=== PATIENT | female | born 1940 | race Caucasian/White ===

== ENCOUNTER 2017-02-12 15:16 | Inpatient (IN) | payer OTHER ==
[~2017-02-12] VITALS: Ht 162.6 cm; Wt 117.6 kg
[~2017-02-12 15:16] MED LIST: ACET-1256 PO; ASPEC81 PO; FERR325T18 PO; LISI-461 PO; LPR25 PO; LPT40 PO; MULT-506 PO; OXYC-57 PO; WARF4TAB44 PO
[2017-02-12] MEDS ORDERED: ONDANSETRON INJ 2 MG/ML 2 ML VIAL IV STA (15:26)
[2017-02-12] MEDS ORDERED: SODIUM CHLORIDE 0.9% 1000ML 1,000 ML IV STA ×2 (15:26→16:24)
--- NOTE | 2017-02-12 15:34 | EMERGENCY ROOM VISIT NOTE ---
History Report prepared by Grzegorz: Ximena Horn Under the Supervision of: Monica DominiqueO. First contact with patient: 15:18 Chief Complaint: WEAKNESS Stated Complaint: weak History of Present Illness The patient is a 76 year old female who presents to the Emergency Room with complaints of worsening generalized weakness for the past week. She has been more tired than usual. She has also been experiencing some diarrhea and right- sided abdominal pain. She went to her PCP's office today for her symptoms and was sent to the ED by ambulance for further evaluation. The patient denies recent weight loss or weight gain, pain or swelling in her legs, chest pain, back pain, dysuria, hematuria, hematochezia, and melena. She does have some shortness of breath with exertion which she states is not unusual for her. Source of History: patient Onset: 1 week ago Position: other (global) Quality: other (weakness) Timing: worsening Associated Symptoms: + SOB, + abdominal pain, + diarrhea, + fatigue, No chest pain, No back pain, No melena, No hematochezia, No urinary symptoms Note: The patient denies recent weight loss or weight gain and pain or swelling in her legs. Review of Systems See HPI for pertinent positives & negatives. A total of 10 systems reviewed and were otherwise negative. Past Medical & Surgical Medical Problems: (1) Arthritis (2) HTN (hypertension) (3) Pneumonia (4) Right Hip DJD Family History Non-pertinent due to advanced age. Social History Smoking Status: Former Smoker Smokeless Tobacco Use: No Alcohol Use: none Drug Use: none Marital Status: Housing Status: lives alone Occupation Status: retired Current/Historical Medications Scheduled Aspirin (Aspirin Ec), 81 MG PO DAILY Cinnamon (Cinnamon), 1,000 MG PO DAILY Multiple Vitamins W/ Minerals (Centrum Silver 50+Women), 1 TAB PO DAILY Allergies Coded Allergies: No Known Allergies (Unverified , 02/12/13) Physical Exam Vital Signs Date Time Temp Pulse Resp B/P (MAP) Pulse Ox O2 Delivery O2 Flow Rate FiO2 02/12/17 23:40 71 16 128/86 93 Nasal Cannula 4 02/12/17 23:30 71 18 118/82 94 Oxymask 4 02/12/17 23:20 70 14 139/72 94 Oxymask 4 02/12/17 23:10 36.2 70 14 136/85 93 Oxymask 4 02/12/17 23:00 71 19 130/72 92 Oxymask 4 02/12/17 22:50 70 18 131/77 92 Oxymask 6 02/12/17 22:40 70 18 139/78 93 Oxymask 10 02/12/17 22:30 70 21 127/77 93 Oxymask 10 02/12/17 22:22 36.6 74 25 143/83 92 Oxymask 10 02/12/17 17:31 84 18 149/81 95 Room Air 02/12/17 16:31 37.1 89 18 129/81 94 Room Air 02/12/17 15:46 99 23 97 02/12/17 15:26 36.7 98 20 125/81 95 Room Air 02/12/17 15:24 100 02/12/17 15:22 125/81 Physical Exam GENERAL: Patient is awake, alert, and in no acute distress. Patient is resting comfortably and showing no signs of anxiety EYES: The conjunctivae are clear. The pupils are round and reactive. EARS, NOSE, MOUTH AND THROAT: The nose is without any evidence of any deformity. Mucous membranes are moist tongue is midline NECK: The neck is nontender and supple. RESPIRATORY: Normal respiratory effort is noted there is no evidence of wheezing rhonchi or rales CARDIOVASCULAR: Regular rate and rhythm noted there no murmurs rubs or gallops normal S1 normal S2 GASTROINTESTINAL: The abdomen is mildly distended but soft. Tenderness in RUQ with mild guarding. Bowel sounds are present in all quadrants. BACK: No midline tenderness or or step-off noted range of motion in flexion extension as well as rotation no signs of muscle spasm noted MUSCULOSKELETAL/EXTREMITIES: There is no evidence of gross deformity full range of motion is noted in the hips and shoulders SKIN: There is no obvious evidence of any rash. There are no petechiae, pallor or cyanosis noted. NEUROLOGIC: Patient is awake alert and oriented x3 Medical Decision & Procedures ER Provider Diagnostic Interpretation: Radiology results as stated below per my review and radiologist interpretation: CHEST ONE VIEW PORTABLE CLINICAL HISTORY: Abdominal pain. Weakness. COMPARISON STUDY: Chest CT and chest radiograph pleural 2013. FINDINGS: Lung volumes are normal. No pneumothorax or pleural effusion is present. There is no evidence of pulmonary edema. No consolidation is identified. Cardiomediastinal silhouette is stable. IMPRESSION: No acute cardiopulmonary findings. Electronically signed by: Luis Esteban M.D. 02/12/2017 3:55 PM Dictated Date/Time: 02/12/2017 3:[address] OF THE ABDOMEN AND PELVIS WITHOUT CONTRAST CLINICAL HISTORY: Weakness. Right-sided abdominal pain. COMPARISON STUDY: No previous studies for comparison. TECHNIQUE: Axial images of the abdomen and pelvis were obtained without IV contrast. Images were reviewed in the axial, sagittal, and coronal planes. A dose lowering technique was utilized adhering to the principles of ALARA. FINDINGS: Multiple hypodense hepatic lesions are suboptimally assessed on this unenhanced exam but measure water attenuation and likely reflect cysts. Evaluation of the abdomen and pelvis is suboptimal on this unenhanced exam. Unenhanced images of the spleen and adrenal glands are unremarkable. There are multiple water attenuation bilateral renal lesions which are suboptimally assessed on this exam. However, these likely reflect cysts. There is moderate peripancreatic infiltration extending into the mesentery. The gallbladder is moderately distended. There is a small amount of gas within the gallbladder fundus. This could be within the wall or lumen of the gallbladder although wall is favored. In addition, there is gas projecting over the gallbladder neck. No radiopaque gallstones are identified. There are no well-defined peripancreatic fluid collections. Infiltration extends into the shanita hepatis. There is no evidence for a bowel obstruction. Images of the pelvis are degraded by streak artifact from bilateral hip arthroplasties. There is sigmoid diverticulosis without evidence for acute diverticulitis. No suspicious osseous lesions are present. IMPRESSION: 1. Severe acute cholecystitis consistent with emphysematous/gangrenous cholecystitis. Urgent surgical consultation is recommended. Discussed with Dr. Shankar at time of dictation. 2. Moderate peripancreatic infiltration suggestive of superimposed acute pancreatitis. Electronically signed by: Luis Esteban M.D. 02/12/2017 4:21 PM Dictated Date/Time: 02/12/2017 4:08 PM Laboratory Results 02/12/17 15:38 Red Blood Count 5.04, Mean Corpuscular Volume 87.1, Mean Corpuscular Hemoglobin 28.4, Mean Corpuscular Hemoglobin Concent 32.6, Mean Platelet Volume 10.4, Neutrophils (%) (Auto) 90.4, Lymphocytes (%) (Auto) 3.2, Monocytes (%) (Auto) 5.2, Eosinophils (%) (Auto) 0.0, Basophils (%) (Auto) 0.1, Neutrophils # (Auto) 24.91, Lymphocytes # (Auto) 0.88, Monocytes # (Auto) 1.43, Eosinophils # (Auto) 0.01, Basophils # (Auto) 0.03 02/12/17 15:38 Test 02/12/17 15:38 White Blood Count 27.57 K/uL (4.8-10.8) Red Blood Count 5.04 M/uL (4.2-5.4) Hemoglobin 14.3 g/dL (12.0-16.0) Hematocrit 43.9 % (37-47) Mean Corpuscular Volume 87.1 fL (80-100) Mean Corpuscular Hemoglobin 28.4 pg (25-34) Mean Corpuscular Hemoglobin Concent 32.6 g/dl (32-36) Platelet Count 385 K/uL (130-400) Mean Platelet Volume 10.4 fL (7.4-10.4) Neutrophils (%) (Auto) 90.4 % Lymphocytes (%) (Auto) 3.2 % Monocytes (%) (Auto) 5.2 % Eosinophils (%) (Auto) 0.0 % Basophils (%) (Auto) 0.1 % Neutrophils # (Auto) 24.91 K/uL (1.4-6.5) Lymphocytes # (Auto) 0.88 K/uL (1.2-3.4) Monocytes # (Auto) 1.43 K/uL (0.11-0.59) Eosinophils # (Auto) 0.01 K/uL (0-0.5) Basophils # (Auto) 0.03 K/uL (0-0.2) RDW Standard Deviation 51.2 fL (36.4-46.3) RDW Coefficient of Variation 16.1 % (11.5-14.5) Immature Granulocyte % (Auto) 1.1 % Immature Granulocyte # (Auto) 0.31 K/uL (0.00-0.02) Prothrombin Time 12.9 SECONDS (9.0-12.0) Prothromb Time International Ratio 1.2 (0.9-1.1) Activated Partial Thromboplast Time 25.3 SECONDS (21.0-31.0) Partial Thromboplastin Ratio 1.0 Anion Gap 12.0 mmol/L (3-11) Est Creatinine Clear Calc Drug Dose 42.3 ml/min Estimated GFR () 42.5 Estimated GFR (Non- 36.7 BUN/Creatinine Ratio 33.6 (10-20) Calcium Level 8.4 mg/dl (8.5-10.1) Magnesium Level 2.7 mg/dl (1.8-2.4) Total Bilirubin 0.9 mg/dl (0.2-1) Direct Bilirubin 0.3 mg/dl (0-0.2) Aspartate Amino Transf (AST/SGOT) 104 U/L (15-37) Alanine Aminotransferase (ALT/SGPT) 97 U/L (12-78) Alkaline Phosphatase 135 U/L (45-117) Total Creatine Kinase 124 U/L (26-192) Creatine Kinase MB 3.4 ng/ml (0.5-3.6) Creatine Kinase MB Ratio 2.7 (0-3.0) Troponin I 0.272 ng/ml (0-0.045) Total Protein 7.0 gm/dl (6.4-8.2) Albumin 1.9 gm/dl (3.4-5.0) Amylase Level 29 U/L (25-115) Lipase 146 U/L (73-393) Laboratory results per my review. Medications Administered Medications (Trade) Dose Ordered Sig/Shagufta Route Start Time Stop Time Status Last Admin Dose Admin Sodium Chloride 1,000 ml @ 999 mls/hr Q1H1M STAT IV 02/12/17 15:26 02/12/17 16:26 DC 02/12/17 15:48 999 MLS/HR Ondansetron HCl (Zofran Inj) 4 mg NOW STAT IV 02/12/17 15:26 02/12/17 15:27 DC 02/12/17 15:48 4 MG Piperacillin Sod/ Tazobactam Sod (Zosyn Iv) 4.5 gm NOW STAT IV 02/12/17 16:07 02/12/17 16:08 DC 02/12/17 16:31 4.5 GM Potassium Chloride (Kcl 10 Meq / Wtr) 10 meq NOW STAT IV 02/12/17 16:24 02/12/17 16:26 DC 02/12/17 16:53 10 MEQ Sodium Chloride 1,000 ml @ 999 mls/hr Q1H1M STAT IV 02/12/17 16:24 02/12/17 17:24 DC 02/12/17 16:24 999 MLS/HR Cefazolin Sodium (Ancef Inj) 1,000 mg STK-MED ONCE .ROUTE 02/12/17 17:43 02/12/17 17:44 DC 02/12/17 19:53 2,000 MG Heparin Sodium (Porcine) (Heparin Iv Bolus) 10,000 unit STK-MED ONCE .ROUTE 02/12/17 17:43 02/12/17 17:44 DC 02/12/17 19:54 10,000 UNIT Bupivacaine HCl (Marcaine 0.5% MPF Inj) 30 ml STK-MED ONCE .ROUTE 02/12/17 17:44 02/12/17 17:45 DC 02/12/17 22:13 30 ML Fentanyl Citrate (Fentanyl Inj) 50 mcg Q5M PRN IV 02/12/17 18:30 02/12/17 23:30 DC 02/12/17 23:11 50 MCG Iothalamate Meglumine (Conray 60%) 50 ml STK-MED ONCE .ROUTE 02/12/17 20:38 02/12/17 20:39 DC 02/12/17 20:38 17 ML Miscellaneous (Floseal Hemostatic Matrix 10ml) 10 ml ONE ONCE TOP 02/12/17 21:48 02/12/17 21:49 DC 02/12/17 21:48 10 ML Fentanyl Citrate (Fentanyl Inj) 100 mcg STK-MED ONCE .ROUTE 02/12/17 22:35 02/12/17 22:36 DC 02/12/17 23:40 50 MCG ECG Indication: abdominal pain Rate (beats per minute): 95 Rhythm: normal sinus Findings: no acute ischemic change, no ectopy, other (poor R-wave progression) ED Course 1518: The patient was evaluated in room A2. A complete history and physical examination were performed. 1526: Zofran 4 mg IV, NSS 1000 ml @ 999 mls/hr IV 1607: Zosyn 4.5 gm IV 1623: I discussed the patient's case with Dr. Robles of general surgery. He will evaluate the patient in the ED. 1624: Potassium chloride 10 meq IV 1627: I reassessed the patient at this time. She is feeling better and resting comfortably. I discussed the results and treatment plan with the patient. I answered all pertaining questions that she had. She expressed understanding and verbalized agreement. 1701: I spoke with Dr. Robles again at this time and he is going to take the patient to the OR. Medical Decision Differential diagnosis: Etiologies such as metabolic, infection, hypo/hyperglycemia, electrolyte abnormalities, cardiac sources, intracerebral event, toxicologic, neurologic, as well as others were entertained. Nursing notes reviewed. Additional history is obtained from the prehospital personnel. The patient is a 76-year-old female who presented to the emergency department for an evaluation of generalized weakness and loose bowel movements. On physical exam the patient was found have significant right upper quadrant abdominal pain. The patient was found have a very high white blood cell count in emergency department. She was treated with IV fluids and IV antibiotics. She was reevaluated multiple times. I discussed the patient's laboratory and radiographic studies with her. I also discussed her case with the on-call general surgeon. They've agreed to evaluate the patient in the emergency department for further management and disposition. Medication Reconcilliation Current Medication List: was personally reviewed by me Blood Pressure Screening Patient's blood pressure: Normal blood pressure Consults Time Called: 1619 Consulting Physician: Dr. Robles Returned Call: 1623 I discussed the patient's case with Dr. Robles of general surgery. He will evaluate the patient in the ED. Additional Consults: Time Called: 1701 Consulted Physician: Dr. Robles Returned Call: 1701 Additional Comments: I spoke with Dr. Robles again at this time and he is going to take the patient to the OR. Impression Primary Impression: Gangrenous cholecystitis Additional Impressions: Pancreatitis Elevated WBC count Generalized weakness Scribe Attestation The scribe's documentation has been prepared under my direction and personally reviewed by me in its entirety. I confirm that the note above accurately reflects all work, treatment, procedures, and medical decision making performed by me. Departure Information Dispostion Being Evaluated By Surgeon Patient Instructions My [facility] Problem Qualifiers Additional Impressions: Pancreatitis Chronicity: acute Pancreatitis type: unspecified pancreatitis type Acute pancreatitis complication: unspecified Qualified Codes: K85.90 - Acute pancreatitis without necrosis or infection, unspecified Elevated WBC count Leukocytosis type: unspecified Qualified Codes: D72.829 - Elevated white blood cell count, unspecified
[2017-02-12 15:48] LABS: HEMATOCRIT 43.9 % (37-47); MEAN CELL VOLUME 87.1 fL (80-100); MEAN CORPUSCULAR HEMOGLOBIN 28.4 pg (25-34); MEAN CORPUSCULAR HGB CONC 32.6 g/dl (32-36); MEAN PLATELET VOLUME 10.4 fL (7.4-10.4); PLATELET COUNT 385 K/uL (130-400); RED BLOOD COUNT 5.04 M/uL (4.2-5.4); WHITE BLOOD COUNT 27.57 K/uL (4.8-10.8)
--- NOTE | 2017-02-12 15:57 | DIAGNOSTIC IMAGING REPORT ---
CHEST ONE VIEW PORTABLE CLINICAL HISTORY: Abdominal pain. Weakness. COMPARISON STUDY: Chest CT and chest radiograph pleural 2013. FINDINGS: Lung volumes are normal. No pneumothorax or pleural effusion is present. There is no evidence of pulmonary edema. No consolidation is identified. Cardiomediastinal silhouette is stable. IMPRESSION: No acute cardiopulmonary findings. Electronically signed by: Luis Esteban M.D. 02/12/2017 3:55 PM Dictated Date/Time: 02/12/2017 3:53 PM
[2017-02-12 16:03] LABS: INR 1.2 (0.9-1.1); PROTHROMBIN TIME (PATIENT) 12.9 SECONDS (9.0-12.0)
[2017-02-12] MEDS ORDERED: PIPERACILLIN/TAZOBACTAM 4.5 GM/100ML D5W IV STA (16:07)
[2017-02-12 16:11] LABS: BASO % 0.1 %; BASO ABS # 0.03 K/uL (0-0.2); COMPLETE YES; IG% 1.1 %; LYMPH % 3.2 %; LYMPH ABS # 0.88 K/uL (1.2-3.4); MONO % 5.2 %; NEUT % 90.4 %
[2017-02-12 16:21] LABS: BUN/CREATININE RATIO 33.6 (10-20); CALCIUM 8.4 mg/dl (8.5-10.1); CREATININE 1.4 mg/dl (0.60-1.20); MAGNESIUM 2.7 mg/dl (1.8-2.4); POTASSIUM 2.6 mmol/L (3.5-5.1)
--- NOTE | 2017-02-12 16:23 | DIAGNOSTIC IMAGING REPORT ---
CT OF THE ABDOMEN AND PELVIS WITHOUT CONTRAST CLINICAL HISTORY: Weakness. Right-sided abdominal pain. COMPARISON STUDY: No previous studies for comparison. TECHNIQUE: Axial images of the abdomen and pelvis were obtained without IV contrast. Images were reviewed in the axial, sagittal, and coronal planes. A dose lowering technique was utilized adhering to the principles of ALARA. FINDINGS: Multiple hypodense hepatic lesions are suboptimally assessed on this unenhanced exam but measure water attenuation and likely reflect cysts. Evaluation of the abdomen and pelvis is suboptimal on this unenhanced exam. Unenhanced images of the spleen and adrenal glands are unremarkable. There are multiple water attenuation bilateral renal lesions which are suboptimally assessed on this exam. However, these likely reflect cysts. There is moderate peripancreatic infiltration extending into the mesentery. The gallbladder is moderately distended. There is a small amount of gas within the gallbladder fundus. This could be within the wall or lumen of the gallbladder although wall is favored. In addition, there is gas projecting over the gallbladder neck. No radiopaque gallstones are identified. There are no well-defined peripancreatic fluid collections. Infiltration extends into the shanita hepatis. There is no evidence for a bowel obstruction. Images of the pelvis are degraded by streak artifact from bilateral hip arthroplasties. There is sigmoid diverticulosis without evidence for acute diverticulitis. No suspicious osseous lesions are present. IMPRESSION: 1. Severe acute cholecystitis consistent with emphysematous/gangrenous cholecystitis. Urgent surgical consultation is recommended. Discussed with Dr. Shankar at time of dictation. 2. Moderate peripancreatic infiltration suggestive of superimposed acute pancreatitis. Electronically signed by: Luis Esteban M.D. 02/12/2017 4:21 PM Dictated Date/Time: 02/12/2017 4:08 PM
[2017-02-12] MEDS ORDERED: POTASSIUM CHLORIDE 10 MEQ / 100ML WTR IV STA (16:24)
[2017-02-12] MEDS ORDERED: ASPI81TA28 PO (16:33)
[2017-02-12] MEDS ORDERED: MULT-1092 PO (16:33)
[2017-02-12] MEDS ORDERED: CINN1CAP2 PO (16:33)
[2017-02-12 16:35] LABS: CKMB/CK RATIO 2.7 (0-3.0)
--- NOTE | 2017-02-12 17:31 | History and Physical ---
History & Physical Date & Time of Service: Feb 12, 2017 at 17:21 Chief Complaint: weak Primary Care Physician: Jo Jones C.R.N.P History of Present Illness Source: patient This is a 76-year-old female who was sent to the emergency room by her primary care provider for canoeing evaluation of a complaint of fatigue and difficulty thriving. Over the last week or so the patient has "just not been feeling well ". She has had some right upper quadrant pain as well. She denies pain right now however. She has not had any fever or chills. She has not had an appetite. Her bowels have been moving. There is no melena or hematochezia. She denies nausea and vomiting. She underwent a CT scan of the abdomen and pelvis that was consistent with emphysematous cholecystitis. There was also some inflammatory change near the pancreas consistent with possible pancreatitis. Past Medical/Surgical History Medical Problems: (1) Arthritis Status: Chronic (3) Pneumonia Status: Resolved (4) Right Hip DJD Status: Resolved Social History Smoking Status: Former Smoker Smokeless Tobacco Use: No Alcohol Use: none Drug Use: none Marital Status: Housing status: lives with significant other Occupational Status: retired Immunizations History of Influenza Vaccine: N/A History of Tetanus Vaccine?: No History of Pneumococcal: No History of Hepatitis B Vaccine: No Allergies Coded Allergies: No Known Allergies (Unverified , 02/12/13) Home Medications Scheduled Aspirin (Aspirin Ec), 81 MG PO DAILY Cinnamon (Cinnamon), 1,000 MG PO DAILY Multiple Vitamins W/ Minerals (Centrum Silver 50+Women), 1 TAB PO DAILY Review of Systems Constitutional: + weakness, + fatigue, No fever, No chills Respiratory: No cough, No sputum Cardiovascular: No chest pain Abdomen: + problem reported (as per HPI) Genitourinary - Female: + problem reported (as per HPI) Neurologic: No memory loss Endocrine: + fatigue Hematologic / Lymphatic: No abnormal bleeding/bruising Integumentary: No rash Physical Exam Vital Signs Date Time Temp Pulse Resp B/P (MAP) Pulse Ox O2 Delivery O2 Flow Rate FiO2 02/12/17 16:31 89 18 129/81 94 Room Air 02/12/17 15:46 99 23 97 02/12/17 15:26 36.7 98 20 125/81 95 Room Air 02/12/17 15:24 100 02/12/17 15:22 125/81 General Appearance: no apparent distress, + obese Head: normocephalic Neck: supple, no adenopathy Respiratory/Chest: chest non-tender, lungs clear Cardiovascular: regular rate, rhythm Abdomen/GI: normal bowel sounds, non tender, soft Back: normal inspection, no CVA tenderness Extremities/Musculoskelatal: normal inspection Skin: normal color Diagnostics Laboratory Results Results Past 24 Hours Test 02/12/17 15:38 Range/Units White Blood Count 27.57 4.8-10.8 K/uL Red Blood Count 5.04 4.2-5.4 M/uL Hemoglobin 14.3 12.0-16.0 g/dL Hematocrit 43.9 37-47 % Mean Corpuscular Volume 87.1 80-100 fL Mean Corpuscular Hemoglobin 28.4 25-34 pg Mean Corpuscular Hemoglobin Concent 32.6 32-36 g/dl Platelet Count 385 130-400 K/uL Mean Platelet Volume 10.4 7.4-10.4 fL Neutrophils (%) (Auto) 90.4 % Lymphocytes (%) (Auto) 3.2 % Monocytes (%) (Auto) 5.2 % Eosinophils (%) (Auto) 0.0 % Basophils (%) (Auto) 0.1 % Neutrophils # (Auto) 24.91 1.4-6.5 K/uL Lymphocytes # (Auto) 0.88 1.2-3.4 K/uL Monocytes # (Auto) 1.43 0.11-0.59 K/uL Eosinophils # (Auto) 0.01 0-0.5 K/uL Basophils # (Auto) 0.03 0-0.2 K/uL RDW Standard Deviation 51.2 36.4-46.3 fL RDW Coefficient of Variation 16.1 11.5-14.5 % Immature Granulocyte % (Auto) 1.1 % Immature Granulocyte # (Auto) 0.31 0.00-0.02 K/uL Prothrombin Time 12.9 9.0-12.0 SECONDS Prothromb Time International Ratio 1.2 0.9-1.1 Activated Partial Thromboplast Time 25.3 21.0-31.0 SECONDS Partial Thromboplastin Ratio 1.0 Sodium Level 136 136-145 mmol/L Potassium Level 2.6 3.5-5.1 mmol/L Chloride Level 99 98-107 mmol/L Carbon Dioxide Level 25 21-32 mmol/L Anion Gap 12.0 3-11 mmol/L Blood Urea Nitrogen 47 7-18 mg/dl Creatinine 1.40 0.60-1.20 mg/dl Est Creatinine Clear Calc Drug Dose 42.3 ml/min Estimated GFR () 42.5 Estimated GFR (Non- 36.7 BUN/Creatinine Ratio 33.6 10-20 Random Glucose 143 70-99 mg/dl Calcium Level 8.4 8.5-10.1 mg/dl Magnesium Level 2.7 1.8-2.4 mg/dl Total Bilirubin 0.9 0.2-1 mg/dl Direct Bilirubin 0.3 0-0.2 mg/dl Aspartate Amino Transf (AST/SGOT) 104 15-37 U/L Alanine Aminotransferase (ALT/SGPT) 97 12-78 U/L Alkaline Phosphatase 135 45-117 U/L Total Creatine Kinase 124 26-192 U/L Creatine Kinase MB 3.4 0.5-3.6 ng/ml Creatine Kinase MB Ratio 2.7 0-3.0 Troponin I 0.272 0-0.045 ng/ml Total Protein 7.0 6.4-8.2 gm/dl Albumin 1.9 3.4-5.0 gm/dl Amylase Level 29 25-115 U/L Lipase 146 73-393 U/L Microbiology Results 02/12/17 Urine Culture, Received Pending Diagnostic Radiology CT OF THE ABDOMEN AND PELVIS WITHOUT CONTRAST CLINICAL HISTORY: Weakness. Right-sided abdominal pain. COMPARISON STUDY: No previous studies for comparison. TECHNIQUE: Axial images of the abdomen and pelvis were obtained without IV contrast. Images were reviewed in the axial, sagittal, and coronal planes. A dose lowering technique was utilized adhering to the principles of ALARA. FINDINGS: Multiple hypodense hepatic lesions are suboptimally assessed on this unenhanced exam but measure water attenuation and likely reflect cysts. Evaluation of the abdomen and pelvis is suboptimal on this unenhanced exam. Unenhanced images of the spleen and adrenal glands are unremarkable. There are multiple water attenuation bilateral renal lesions which are suboptimally assessed on this exam. However, these likely reflect cysts. There is moderate peripancreatic infiltration extending into the mesentery. The gallbladder is moderately distended. There is a small amount of gas within the gallbladder fundus. This could be within the wall or lumen of the gallbladder although wall is favored. In addition, there is gas projecting over the gallbladder neck. No radiopaque gallstones are identified. There are no well-defined peripancreatic fluid collections. Infiltration extends into the shanita hepatis. There is no evidence for a bowel obstruction. Images of the pelvis are degraded by streak artifact from bilateral hip arthroplasties. There is sigmoid diverticulosis without evidence for acute diverticulitis. No suspicious osseous lesions are present. IMPRESSION: 1. Severe acute cholecystitis consistent with emphysematous/gangrenous cholecystitis. Urgent surgical consultation is recommended. Discussed with Dr. Shankar at time of dictation. 2. Moderate peripancreatic infiltration suggestive of superimposed acute pancreatitis. EKG Normal sinus rhythm Possible Left atrial enlargement Left anterior fascicular block Prolonged QT Abnormal ECG When compared with ECG of 23-SEP-2013 07:25, No significant change was found Confirmed by PATRICIA ACOSTA MD ([id number]) on 02/12/2017 4:02:23 PM Impression Assessment and Plan This patient had right upper quadrant pain in his right upper quadrant tenderness. Her white count is elevated above 25,000. She also has a CT scan is consistent with emphysematous cholecystitis. I recommended a laparoscopic cholecystectomy. I explained the possibility to convert to an open procedure. I explained the possible complications. She stated understanding. She wishes to proceed with surgery. She has signed a consent form.
[2017-02-12] MEDS ORDERED: CEFAZOLIN SOD 1 GM VIAL ONE ×2 (17:43→19:46)
[2017-02-12] MEDS ORDERED: HEPARIN SOD (PORCINE) 1000 UNIT/ML 10 ML VIAL ONE (17:43)
[2017-02-12] MEDS ORDERED: BUPIVACAINE 0.5 % 5 MG/1 ML MPF 30ML VIAL ONE (17:44)
[2017-02-12] MEDS ORDERED: FENTANYL CITRATE INJ 50 MCG/1 ML 2 ML VIAL ONE ×4 (17:47→22:35)
[2017-02-12] MEDS ORDERED: MIDAZOLAM HCL 1 MG/ML 2ML VIAL ONE (17:47)
[2017-02-12] MEDS ORDERED: HYDROmorphone INJ 1 MG/ML SYR IV PRN (18:30)
[2017-02-12] MEDS ORDERED: LABETALOL HCL IV 5 MG/ML 20ML IV PRN (18:30)
[2017-02-12] MEDS ORDERED: ONDANSETRON INJ 2 MG/ML 2 ML VIAL IV PRN ×2 (18:30→23:00)
[2017-02-12] MEDS ORDERED: EpHEDrine SULFATE INJ 50 MG/ML AMP IV PRN (18:30)
[2017-02-12] MEDS ORDERED: ATROPINE SULFATE 0.1 MG/ML 5ML SYR IV PRN (18:30)
[2017-02-12] MEDS ORDERED: MEPERIDINE HCL 25 MG/ML CARP IV PRN (18:30)
[2017-02-12] MEDS ORDERED: FENTANYL CITRATE INJ 50 MCG/1 ML 2 ML VIAL IV PRN (18:30)
[2017-02-12] MEDS ORDERED: LIDOCAINE HCL 2% 2 ML VIAL (20MG/ML) ONE (19:09)
[2017-02-12] MEDS ORDERED: DEXAMETHASONE SOD INJ 4 MG/ML VIAL ONE (19:09)
[2017-02-12] MEDS ORDERED: PROPOFOL IV EMULSION 10 MG/ML 20 ML VIAL IV ONE (19:09)
[2017-02-12] MEDS ORDERED: CISATRACURIUM BESYLATE IV SOLN 2 MG/ML 10 ML VIAL ONE (19:09)
[2017-02-12] MEDS ORDERED: ONDANSETRON INJ 2 MG/ML 2 ML VIAL ONE (19:09)
[2017-02-12] MEDS ORDERED: SUCCINYLCHOLINE 100MG/5ML SYR IV ONE (19:09)
[2017-02-12] MEDS ORDERED: GLYCOPYRROLATE INJ 0.2 MG/ML VIAL ONE (19:51)
[2017-02-12] MEDS ORDERED: NEOSTIGMINE METHYLSULFATE 5 MG/5 ML SYR ONE (19:51)
[2017-02-12] MEDS ORDERED: CONRAY 30% 150ML BOTTLE ONE (20:34)
[2017-02-12] MEDS ORDERED: CONRAY 60% 50 ML VIAL ONE (20:38)
--- NOTE | 2017-02-12 21:07 | DIAGNOSTIC IMAGING REPORT ---
CHOLANGIOGRAM O.R. HISTORY: Post cholecystectomy. FLUOROSCOPY TIME: 17 seconds. FINDINGS: Fluoroscopy was provided for an intraoperative cholangiogram status post cholecystectomy. Contrast was injected through the cystic duct remnant. Somewhat limited exam. No images demonstrating flow contrast to the duodenum although contrast is present within that structure. No significant filling defects within the common bile ducts. Contrast extends into the small bowel. There is no intrahepatic bile duct dilatation. IMPRESSION: Fluoroscopy provided for an intraoperative cholangiogram status post cholecystectomy. No filling defects within the common bile duct. No images submitted demonstrating active flow of contrast to the small bowel. The above report was generated using voice recognition software. It may contain grammatical, syntax or spelling errors. Electronically signed by: Emeka Freedman M.D. 02/12/2017 9:06 PM Dictated Date/Time: 02/12/2017 9:05 PM
[2017-02-12] MEDS ORDERED: FLOSEAL HEMOSTATIC MATRIX 10ML TOP ONE (21:48)
--- NOTE | 2017-02-12 22:49 | [facility] Post Operative Brief Note ---
Immediate Operative Summary Operative Date Feb 12, 2017. 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 Gallbladder Microbiology 1. Gallbladder Drains J-P in the subhepatic space Anesthesia General Complication(s) None Disposition Recovery Room / PACU
[2017-02-13] VITALS (15 sets, daily range): BP systolic 107–138; BP diastolic 52–82; PULSE 71–84; TEMP 36.2–36.9; O2SAT 91–98; Ht 162.6 cm; Wt 117.6 kg
--- NOTE | 2017-02-13 00:36 | Anesthesiology Progress Note ---
Anesthesia Post Op Note Date & Time Feb 13, 2017 at 00:36 Vital Signs Pain Intensity: 4 Vital Signs Past 12 Hours Date Time Temp Pulse Resp B/P (MAP) Pulse Ox O2 Delivery O2 Flow Rate FiO2 02/13/17 00:00 72 18 128/85 94 Nasal Cannula 4 02/12/17 23:50 71 14 133/93 94 Nasal Cannula 4 02/12/17 23:40 71 16 128/86 93 Nasal Cannula 4 02/12/17 23:30 71 18 118/82 94 Oxymask 4 02/12/17 23:20 70 14 139/72 94 Oxymask 4 02/12/17 23:10 36.2 70 14 136/85 93 Oxymask 4 02/12/17 23:00 71 19 130/72 92 Oxymask 4 02/12/17 22:50 70 18 131/77 92 Oxymask 6 02/12/17 22:40 70 18 139/78 93 Oxymask 10 02/12/17 22:30 70 21 127/77 93 Oxymask 10 02/12/17 22:22 36.6 74 25 143/83 92 Oxymask 10 02/12/17 17:31 84 18 149/81 95 Room Air 02/12/17 16:31 37.1 89 18 129/81 94 Room Air 02/12/17 15:46 99 23 97 02/12/17 15:26 36.7 98 20 125/81 95 Room Air 02/12/17 15:24 100 02/12/17 15:22 125/81 Notes Mental Status: alert / awake / arousable, participated in evaluation Pt Amnestic to Procedure: Yes Nausea / Vomiting: adequately controlled Pain: adequately controlled Airway Patency, RR, SpO2: stable & adequate BP & HR: stable & adequate Hydration State: stable & adequate Anesthetic Complications: no major complications apparent
--- NOTE | 2017-02-13 00:50 | OPERATIVE REPORT ---
DATE OF OPERATION: 02/12/2017 PREOPERATIVE DIAGNOSIS: Gangrenous cholecystitis. POSTOPERATIVE DIAGNOSES: Same with cholelithiasis. PROCEDURE: Attempted laparoscopic cholecystectomy with conversion to open cholecystectomy with intraoperative cholangiogram. SURGEON: Emeka Robles MD FINDINGS: The gallbladder was gangrenous. The mucosa of the gallbladder was gangrenous. The wall was exceedingly friable. There were multiple small stones within the lumen of the gallbladder. The cystic duct was not dilated, but it too was friable at its junction with the gallbladder. The gallbladder was densely adherent to the liver and there was no good plane of dissection. The liver was of normal size and contour. There were adhesions of the omentum to the gallbladder. The cholangiogram was performed. There was some flow into the duodenum and flow into the radicles. The common bile duct had no apparent filling defects. TECHNIQUE: The patient was given a general anesthetic and the area was prepped and draped in the usual sterile fashion. Transverse incision was made below the umbilicus, carried down through the subcutaneous tissue to the fascia which was grasped with 2 Nyla clamps and incised between. The peritoneum was identified, incised, and introducer was placed bluntly. The abdomen was insufflated to a pressure of 15 mmHg with carbon dioxide. The upper midline, mid clavicular and anterior axillary introducers were placed under direct vision through small skin incisions. I attempted to grasp the gallbladder, but it was too distended. The drainage needle was passed under direct vision into the wall and through the wall into the lumen of the gallbladder. The dark bile was drained. That allowed me to grasp the gallbladder and elevate it. Adhesions of the omentum were then taken down using blunt dissection until I could see the infundibulum of the gallbladder. There was a lot of inflammatory tissue and inflammation around the infundibulum and it was difficult to tell what was wall and what was thickened peritoneum. I was able to dissect in the triangle of Calot where I could identify the cystic artery, isolated, clipped and divided. I then attempted to establish a plane between the wall of the gallbladder the liver on the lateral side by opening the quite thickened peritoneal attachment but it was difficult to decide what was wall and what was gangrenous mucosa, and I was able to dissect some of that away from the liver and I tried a similar dissection on the medial side, but that was quite difficult to establish a plane as well. I then tried to dissect further inferior to the infundibulum, but because of the nature of the gangrenous wall and mucosa, it was difficult to tell what was wall and what was not. I then went to the dome of the gallbladder and began a dome down dissection. I was able to establish the posterior wall of the gallbladder, but it was densely adherent to the liver and establishing a good plane was very difficult. I was able to carry that dissection; however, down to the mid body and separate the infundibulum on the medial and lateral sides. However, it became difficult then to continue that dissection and establish a plane. I then looked down towards where I was expecting the cystic duct to be and there was bile present. At that point I decided to convert to an open procedure. The gas was allowed to escape and the introducers were removed. A right subcostal incision was made, carried down through the subcutaneous tissues to the anterior rectus sheath, which was opened. The muscle was divided then the posterior sheath and peritoneum were incised and the abdomen was entered. The incision was carried along the length of the skin incision. A Bookwalter retractor was then placed. I was then able to grasp the gallbladder and complete the dissection away from the liver down to the infundibulum were final attachments on the medial side were performed and it was clear that the cystic duct junction with the gallbladder was also gangrenous and it had at that point. The gallbladder specimen was removed. I placed a sponge in the gallbladder bed of the liver and retracted the liver superiorly and I was able to identify the lumen of the cystic duct where there was bile that was coming from there. I placed a cholangiocatheter into the lumen of the cystic duct, inflated the balloon and irrigated it. There was easy irrigation and there was no leak. Cholangiogram was then performed with fluoroscopy. Findings are as stated above. The cholangiocatheter was removed, but it was difficult because of the thickened material around the cystic duct to further establish into wall and so I then used a 6-0 Prolene suture to oversew the opening in the cystic duct. I could not identify any further bile coming from there. The sponge in the gallbladder bed of the liver was then inspected. It was removed and after doing so, there was oozing from multiple areas in the gallbladder bed. These were controlled with cautery, that required significant cautery to do so. There was no further bleeding. I decided to place Surgicel there and then cover the Surgicel with FloSeal. This was done after the subdiaphragmatic and subhepatic spaces were irrigated and the irrigation removed. The anterior axillary introducer site was then used to pass a 10 mm flat Juan-Dawkins drain which was placed into the subhepatic space. It was secured at the skin with 3-0 nylon. The Bookwalter retractor and sponges were removed. The posterior sheath and peritoneum were closed with a running 0 PDS and the anterior rectus sheath was closed with a running #1 PDS. The fascia of the umbilical introducer site was closed with interrupted 0 Vicryl. The skin of all the incisions was closed with gaetano. The estimated blood loss was 300 mL. Sponge, needle and instrument counts were correct prior to closure. The patient tolerated the surgical procedure without complication and was transferred to recovery. I attest to the content of the Intraoperative Record and any orders documented therein. Any exception s are noted below.
[2017-02-13] MEDS: MoRPHine SULFATE 4 MG/ML 1 ML CARP\\VIAL IV PRN ×3 (01:01→09:01)
[2017-02-13] MEDS: PIPERACILL/TAZOBAC IV 4.5 GM in DEXTROSE 5% 100ML 100 ML IV SCH ×3 (01:32→19:03)
[2017-02-13] MEDS: NSS + 20MEQ KCL 1000ML 1,000 ML IV SCH ×3 (01:32→23:16)
[2017-02-13 08:06] LABS: MEAN CELL VOLUME 89.7 fL (80-100); MEAN CORPUSCULAR HEMOGLOBIN 28.5 pg (25-34); MEAN CORPUSCULAR HGB CONC 31.8 g/dl (32-36); MEAN PLATELET VOLUME 10.3 fL (7.4-10.4); PLATELET COUNT 349 K/uL (130-400); RED BLOOD COUNT 4.35 M/uL (4.2-5.4); WHITE BLOOD COUNT 28.08 K/uL (4.8-10.8)
[2017-02-13 08:31] LABS: BASO % 0.1 %; BASO ABS # 0.04 K/uL (0-0.2); COMPLETE YES; HYPERSEGMENTED POLYS 1+; LYMPH % 3.4 %; LYMPH ABS # 0.96 K/uL (1.2-3.4); MONO % 2.2 %; NEUT % 93.3 %; TOXIC GRANULATION 1+
[2017-02-13 08:36] LABS: BUN/CREATININE RATIO 30.3 (10-20); CALCIUM 8.1 mg/dl (8.5-10.1); CREATININE 1.7 mg/dl (0.60-1.20); POTASSIUM 3.2 mmol/L (3.5-5.1)
--- NOTE | 2017-02-13 09:14 | Surgery Progress Note ---
Surgery Progress Note Date of Service Feb 13, 2017. Subjective Post OP Day: 1 "Feeling better than I was last night" Having pain but controlled No nausea or vomiting no fevers Objective Vital Signs: Date Time Temp Pulse Resp B/P (MAP) Pulse Ox O2 Delivery O2 Flow Rate FiO2 02/13/17 08:04 36.6 84 24 138/68 (91) 92 Nasal Cannula 02/13/17 03:20 36.3 80 17 138/82 (100) 93 Nasal Cannula 4.0 02/13/17 02:20 36.2 77 16 131/76 (94) 94 Nasal Cannula 4.0 02/13/17 01:20 36.3 74 16 118/74 (89) 94 Nasal Cannula 4.0 02/13/17 00:50 36.3 71 18 110/74 (86) 94 Nasal Cannula 4.0 02/13/17 00:30 36.5 72 18 129/52 94 Nasal Cannula 4.0 02/13/17 00:30 94 Nasal Cannula 4.0 02/13/17 00:00 72 18 128/85 94 Nasal Cannula 4 02/12/17 23:50 71 14 133/93 94 Nasal Cannula 4 02/12/17 23:40 71 16 128/86 93 Nasal Cannula 4 02/12/17 23:30 71 18 118/82 94 Oxymask 4 02/12/17 23:20 70 14 139/72 94 Oxymask 4 02/12/17 23:10 36.2 70 14 136/85 93 Oxymask 4 02/12/17 23:00 71 19 130/72 92 Oxymask 4 02/12/17 22:50 70 18 131/77 92 Oxymask 6 02/12/17 22:40 70 18 139/78 93 Oxymask 10 02/12/17 22:30 70 21 127/77 93 Oxymask 10 02/12/17 22:22 36.6 74 25 143/83 92 Oxymask 10 02/12/17 17:31 84 18 149/81 95 Room Air 02/12/17 16:31 37.1 89 18 129/81 94 Room Air 02/12/17 15:46 99 23 97 02/12/17 15:26 36.7 98 20 125/81 95 Room Air 02/12/17 15:24 100 02/12/17 15:22 125/81 Physical Exam: JULIA drainage (bilious) General Appearance: WD/WN, + obese Head: normocephalic, atraumatic Neck: trachea midline Respiratory/Chest: no respiratory distress, no accessory muscle use Abdomen: soft Incision(s): clean, dry (Dressing clean and dry) Laboratory Results: Results Past 24 Hours Test 02/12/17 15:38 02/13/17 07:02 Range/Units White Blood Count 27.57 28.08 4.8-10.8 K/uL Red Blood Count 5.04 4.35 4.2-5.4 M/uL Hemoglobin 14.3 12.4 12.0-16.0 g/dL Hematocrit 43.9 39.0 37-47 % Mean Corpuscular Volume 87.1 89.7 80-100 fL Mean Corpuscular Hemoglobin 28.4 28.5 25-34 pg Mean Corpuscular Hemoglobin Concent 32.6 31.8 32-36 g/dl Platelet Count 385 349 130-400 K/uL Mean Platelet Volume 10.4 10.3 7.4-10.4 fL Neutrophils (%) (Auto) 90.4 93.3 % Lymphocytes (%) (Auto) 3.2 3.4 % Monocytes (%) (Auto) 5.2 2.2 % Eosinophils (%) (Auto) 0.0 0.0 % Basophils (%) (Auto) 0.1 0.1 % Neutrophils # (Auto) 24.91 26.17 1.4-6.5 K/uL Lymphocytes # (Auto) 0.88 0.96 1.2-3.4 K/uL Monocytes # (Auto) 1.43 0.63 0.11-0.59 K/uL Eosinophils # (Auto) 0.01 0.00 0-0.5 K/uL Basophils # (Auto) 0.03 0.04 0-0.2 K/uL RDW Standard Deviation 51.2 55.1 36.4-46.3 fL RDW Coefficient of Variation 16.1 16.7 11.5-14.5 % Immature Granulocyte % (Auto) 1.1 1.0 % Immature Granulocyte # (Auto) 0.31 0.28 0.00-0.02 K/uL Prothrombin Time 12.9 9.0-12.0 SECONDS Prothromb Time International Ratio 1.2 0.9-1.1 Activated Partial Thromboplast Time 25.3 21.0-31.0 SECONDS Partial Thromboplastin Ratio 1.0 Sodium Level 136 138 136-145 mmol/L Potassium Level 2.6 3.2 3.5-5.1 mmol/L Chloride Level 99 101 98-107 mmol/L Carbon Dioxide Level 25 26 21-32 mmol/L Anion Gap 12.0 11.0 3-11 mmol/L Blood Urea Nitrogen 47 52 7-18 mg/dl Creatinine 1.40 1.70 0.60-1.20 mg/dl Est Creatinine Clear Calc Drug Dose 42.3 34.8 ml/min Estimated GFR () 42.5 33.6 Estimated GFR (Non- 36.7 29.0 BUN/Creatinine Ratio 33.6 30.3 10-20 Random Glucose 143 177 70-99 mg/dl Calcium Level 8.4 8.1 8.5-10.1 mg/dl Magnesium Level 2.7 1.8-2.4 mg/dl Total Bilirubin 0.9 0.2-1 mg/dl Direct Bilirubin 0.3 0-0.2 mg/dl Aspartate Amino Transf (AST/SGOT) 104 15-37 U/L Alanine Aminotransferase (ALT/SGPT) 97 12-78 U/L Alkaline Phosphatase 135 45-117 U/L Total Creatine Kinase 124 26-192 U/L Creatine Kinase MB 3.4 0.5-3.6 ng/ml Creatine Kinase MB Ratio 2.7 0-3.0 Troponin I 0.272 0-0.045 ng/ml Total Protein 7.0 6.4-8.2 gm/dl Albumin 1.9 3.4-5.0 gm/dl Amylase Level 29 25-115 U/L Lipase 146 73-393 U/L Hypersegmented Polys 1+ Toxic Granulation 1+ Microbiology Results 02/12/17 Urine Culture, Received Pending 02/12/17 Gram Stain - Final, Resulted 02/12/17 Bacterial Culture - Preliminary, Resulted Gram Negative Bacilli Assessment & Plan POD # 1 s/p attempted laparoscopic cholecystectomy converted to open with intraoperative cholangiogram. -vitals stable, afebrile overnight - moderate post op pain, controlled - bilious JULIA drain output Plan: Continue pain management as needed Continue NC to keep O2 sats > 94% Continue SCDs Change patient to NPO GI consult for ERCP given JULIA drain with bilious output, possible bile leak continue JULIA drain to bulb suction Continue IV fluids and IV antibiotics will continue to monitor Dr. Robles has seen and examined patient, agrees with above
[2017-02-13] MEDS ORDERED: INDOMETHACIN 50 MG SUPP PR ONE ×2 (10:30→12:35)
--- NOTE | 2017-02-13 10:35 | Gastrointestinal Consultation ---
Gastrointestinal Consultation Date of Consultation: Feb 13, 2017 Attending Physician: Emeka Robles Consulting Physician: Fadi Chand Reason for Consultation: Suspected bile leak s/p cholecystectomy History of Present Illness Patient is a 76 year old female who was admitted yesterday for RUQ abd pain, "not feeling well" and failure to thrive presentation. CT abd/pelvis w evidence of gangrenous/emphysematous cholecystitis, pancreatitis. She had leukocytosis, WBC 27K, LFTs elevated: normal Tbili, AST/ALT in 100s, AP 150s. Normal Lipase. She underwent lap cholecystectomy by Dr. Robles yesterday, had JULIA drain placement. IOC negative for CBD obstruction. Gallbladder and urine cx growing gram negative bacilli. She is currently being covered by Zosyn IV antibx, WBC increased to 28K today, no LFTs this AM. Upon eval by Surgery team this AM, her JULIA drain had bilious discharge appearance suspicious for biliary leak. Thus GI was consulted. Pt and her son in room, she is sitting up, doesn't appear to be in distress. Last ate overnight, been NPO since midnight. She is c/o RUQ abd discomfort. Denies any fever, chills, CP, SOB, on O2 3L NC. Past Medical/Surgical History Medical Problems: (1) Elevated WBC count Status: Acute (2) Gangrenous cholecystitis Status: Acute (3) Generalized weakness Status: Acute (4) Pancreatitis Status: Acute Past Medical History: Arthritis, pneumonia, Hip DJD, as above. Past Surgical History: Hip replacements x 2, lap cholecystectomy Social History Smoking Status: Never Smoker Alcohol Use: none Drug Use: none Marital Status: Housing Status: lives alone Occupation Status: retired Allergies Coded Allergies: No Known Allergies (Unverified , 02/12/13) Current Medications Home Meds and Scripts Medications Dose Route/Sig Max Daily Dose Days Date Category Centrum Silver 50+Women (Multiple Vitamins W/ Minerals) 1 Tab Tab 1 Tab PO DAILY 02/12/17 Reported Cinnamon 500 Mg Cap 1,000 Mg PO DAILY 02/12/17 Reported Aspirin Ec (Aspirin) 81 Mg Tab 81 Mg PO DAILY 02/12/17 Reported Review of Systems Constitutional: No fever, No chills Respiratory: No cough, No shortness of breath Cardiac: No chest pain Abdomen: + pain, No nausea, No vomiting Physical Exam Date Time Temp Pulse Resp B/P (MAP) Pulse Ox O2 Delivery O2 Flow Rate FiO2 02/13/17 08:04 36.6 84 24 138/68 (91) 92 Nasal Cannula 02/13/17 03:20 36.3 80 17 138/82 (100) 93 Nasal Cannula 4.0 02/13/17 02:20 36.2 77 16 131/76 (94) 94 Nasal Cannula 4.0 02/13/17 01:20 36.3 74 16 118/74 (89) 94 Nasal Cannula 4.0 02/13/17 00:50 36.3 71 18 110/74 (86) 94 Nasal Cannula 4.0 02/13/17 00:30 36.5 72 18 129/52 94 Nasal Cannula 4.0 02/13/17 00:30 94 Nasal Cannula 4.0 02/13/17 00:00 72 18 128/85 94 Nasal Cannula 4 02/12/17 23:50 71 14 133/93 94 Nasal Cannula 4 02/12/17 23:40 71 16 128/86 93 Nasal Cannula 4 02/12/17 23:30 71 18 118/82 94 Oxymask 4 02/12/17 23:20 70 14 139/72 94 Oxymask 4 02/12/17 23:10 36.2 70 14 136/85 93 Oxymask 4 02/12/17 23:00 71 19 130/72 92 Oxymask 4 02/12/17 22:50 70 18 131/77 92 Oxymask 6 02/12/17 22:40 70 18 139/78 93 Oxymask 10 02/12/17 22:30 70 21 127/77 93 Oxymask 10 02/12/17 22:22 36.6 74 25 143/83 92 Oxymask 10 02/12/17 17:31 84 18 149/81 95 Room Air 02/12/17 16:31 37.1 89 18 129/81 94 Room Air 02/12/17 15:46 99 23 97 02/12/17 15:26 36.7 98 20 125/81 95 Room Air 02/12/17 15:24 100 02/12/17 15:22 125/81 General Appearance: WD/WN, no apparent distress, + obese Eyes: normal inspection, PERRL, EOMI Neck: supple, no JVD, trachea midline Respiratory/Chest: no respiratory distress, no accessory muscle use, + decreased breath sounds Cardiovascular: regular rate, rhythm, no gallop, no murmur Abdomen: + distended, + tenderness (RUQ), + pertinent finding (RUQ JULIA drain w brownish tinted discharge, not foamy) Neurologic/Psych: alert, normal mood/affect, oriented x 3 Skin: normal color, no jaundice, no rash Laboratory Results Last 24 Hours Test 02/12/17 15:38 02/13/17 07:02 White Blood Count 27.57 K/uL 28.08 K/uL Red Blood Count 5.04 M/uL 4.35 M/uL Hemoglobin 14.3 g/dL 12.4 g/dL Hematocrit 43.9 % 39.0 % Mean Corpuscular Volume 87.1 fL 89.7 fL Mean Corpuscular Hemoglobin 28.4 pg 28.5 pg Mean Corpuscular Hemoglobin Concent 32.6 g/dl 31.8 g/dl Platelet Count 385 K/uL 349 K/uL Mean Platelet Volume 10.4 fL 10.3 fL Neutrophils (%) (Auto) 90.4 % 93.3 % Lymphocytes (%) (Auto) 3.2 % 3.4 % Monocytes (%) (Auto) 5.2 % 2.2 % Eosinophils (%) (Auto) 0.0 % 0.0 % Basophils (%) (Auto) 0.1 % 0.1 % Neutrophils # (Auto) 24.91 K/uL 26.17 K/uL Lymphocytes # (Auto) 0.88 K/uL 0.96 K/uL Monocytes # (Auto) 1.43 K/uL 0.63 K/uL Eosinophils # (Auto) 0.01 K/uL 0.00 K/uL Basophils # (Auto) 0.03 K/uL 0.04 K/uL RDW Standard Deviation 51.2 fL 55.1 fL RDW Coefficient of Variation 16.1 % 16.7 % Immature Granulocyte % (Auto) 1.1 % 1.0 % Immature Granulocyte # (Auto) 0.31 K/uL 0.28 K/uL Prothrombin Time 12.9 SECONDS Prothromb Time International Ratio 1.2 Activated Partial Thromboplast Time 25.3 SECONDS Partial Thromboplastin Ratio 1.0 Sodium Level 136 mmol/L 138 mmol/L Potassium Level 2.6 mmol/L 3.2 mmol/L Chloride Level 99 mmol/L 101 mmol/L Carbon Dioxide Level 25 mmol/L 26 mmol/L Anion Gap 12.0 mmol/L 11.0 mmol/L Blood Urea Nitrogen 47 mg/dl 52 mg/dl Creatinine 1.40 mg/dl 1.70 mg/dl Est Creatinine Clear Calc Drug Dose 42.3 ml/min 34.8 ml/min Estimated GFR () 42.5 33.6 Estimated GFR (Non- 36.7 29.0 BUN/Creatinine Ratio 33.6 30.3 Random Glucose 143 mg/dl 177 mg/dl Calcium Level 8.4 mg/dl 8.1 mg/dl Magnesium Level 2.7 mg/dl Total Bilirubin 0.9 mg/dl Direct Bilirubin 0.3 mg/dl Aspartate Amino Transf (AST/SGOT) 104 U/L Alanine Aminotransferase (ALT/SGPT) 97 U/L Alkaline Phosphatase 135 U/L Total Creatine Kinase 124 U/L Creatine Kinase MB 3.4 ng/ml Creatine Kinase MB Ratio 2.7 Troponin I 0.272 ng/ml Total Protein 7.0 gm/dl Albumin 1.9 gm/dl Amylase Level 29 U/L Lipase 146 U/L Hypersegmented Polys 1+ Toxic Granulation 1+ Impression Patient is a 76 year old female POD 1 s/p lap cholecystectomy, found to have gangrenous gallbladder, suspected to have bile leak as evidenced by JULIA fluid drain characteristic Plan - Keep NPO for ERCP w biliary stent placement if + bile leak - Add on LFTs to today's labs - Continue Zosyn IV antibx coverage. I saw and evaluated the patient. She underwent a difficult cholecystectomy yesterday for gangrenous cholecystitis. JULIA drainage is consistent with a bile leak. Physical examination Mild distress Epigastric tenderness JULIA drain with gross bile output Impression: 76-year-old female status post cholecystectomy for gangrenous cholecystitis now with evidence of a bile leak. We will pursue ERCP today or biliary decompression and stent placement. We have discussed the risks to include bleeding, infection and perforation, pancreatitis, and failed cannulation.
--- NOTE | 2017-02-13 11:10 | Anesthesiology Progress Note ---
Anesthesia Post Op Note Date & Time Feb 13, 2017 at 11:10 Vital Signs Pain Intensity: 5.0 Vital Signs Past 12 Hours Date Time Temp Pulse Resp B/P (MAP) Pulse Ox O2 Delivery O2 Flow Rate FiO2 02/13/17 08:04 36.6 84 24 138/68 (91) 92 Nasal Cannula 02/13/17 03:20 36.3 80 17 138/82 (100) 93 Nasal Cannula 4.0 02/13/17 02:20 36.2 77 16 131/76 (94) 94 Nasal Cannula 4.0 02/13/17 01:20 36.3 74 16 118/74 (89) 94 Nasal Cannula 4.0 02/13/17 00:50 36.3 71 18 110/74 (86) 94 Nasal Cannula 4.0 02/13/17 00:30 36.5 72 18 129/52 94 Nasal Cannula 4.0 02/13/17 00:30 94 Nasal Cannula 4.0 02/13/17 00:00 72 18 128/85 94 Nasal Cannula 4 02/12/17 23:50 71 14 133/93 94 Nasal Cannula 4 02/12/17 23:40 71 16 128/86 93 Nasal Cannula 4 02/12/17 23:30 71 18 118/82 94 Oxymask 4 02/12/17 23:20 70 14 139/72 94 Oxymask 4 Notes Mental Status: alert / awake / arousable, participated in evaluation Pt Amnestic to Procedure: Yes Nausea / Vomiting: adequately controlled Pain: adequately controlled Airway Patency, RR, SpO2: stable & adequate BP & HR: stable & adequate Hydration State: stable & adequate Anesthetic Complications: no major complications apparent
[2017-02-13] MEDS ORDERED: EpHEDrine SULFATE INJ 50 MG/ML AMP IV PRN (11:15)
[2017-02-13] MEDS ORDERED: ATROPINE SULFATE 0.1 MG/ML 5ML SYR IV PRN (11:15)
[2017-02-13] MEDS ORDERED: FENTANYL CITRATE INJ 50 MCG/1 ML 2 ML VIAL IV PRN (11:15)
[2017-02-13] MEDS ORDERED: HYDROmorphone INJ 1 MG/ML SYR IV PRN (11:15)
[2017-02-13] MEDS ORDERED: ONDANSETRON INJ 2 MG/ML 2 ML VIAL IV PRN (11:15)
--- NOTE | 2017-02-13 12:08 | History & Physical Bridge Note ---
H&P Re-Evaluation Bridge Note: I have examined the patient, reviewed the History & Physical and in the interval since the performance of the History & Physical I have noted the following changes of clinical significance: No changes noted
[2017-02-13] MEDS ORDERED: MIDAZOLAM HCL 1 MG/ML 2ML VIAL ONE (12:50)
[2017-02-13] MEDS ORDERED: FENTANYL CITRATE INJ 50 MCG/1 ML 2 ML VIAL ONE (12:50)
[2017-02-13] MEDS ORDERED: PROPOFOL IV EMULSION 10 MG/ML 20 ML VIAL IV ONE (12:51)
[2017-02-13] MEDS ORDERED: LIDOCAINE HCL 2% 2 ML VIAL (20MG/ML) ONE (12:51)
[2017-02-13] MEDS ORDERED: ROCURONIUM BROMIDE 10 MG/ML 5 ML VIAL IV ONE (12:51)
[2017-02-13] MEDS ORDERED: ONDANSETRON INJ 2 MG/ML 2 ML VIAL ONE (12:51)
[2017-02-13] MEDS ORDERED: DEXAMETHASONE SOD INJ 4 MG/ML VIAL ONE (12:51)
--- NOTE | 2017-02-13 13:04 | [facility] Post Operative Brief Note ---
Immediate Operative Summary Operative Date Feb 13, 2017. Pre-Operative Diagnosis Bile Leak Post-Operative Diagnosis Bile leak Papillary stenosis Biliary sludge Procedure(s) Performed Endoscopic Retrograde Cholangiopancreatogram Surgeon Dr. Sean Chand [employer] Dispenser Surgeon(s) none Estimated Blood Loss 0 Findings Bile leak Papillary stenosis Biliary sludge Specimens None Drains JULIA drain (placed during cholecystectomy) / biliary stent Anesthesia General Complication(s) None Disposition Recovery Room / PACU
--- NOTE | 2017-02-13 13:08 | GI REPORT ---
Procedure Date: 02/13/2017 12:29 PM Procedure: ERCP Indications: Suspected bile leak Medicines: General Anesthesia Complications: No immediate complications. Estimated blood loss: Minimal. Estimated Blood Loss: Estimated blood loss was minimal. Procedure: Pre-Anesthesia Assessment: - Prior to the procedure, a History and Physical was performed, and patient medications, allergies and sensitivities were reviewed. The patient's tolerance of previous anesthesia was reviewed. - The risks and benefits of the procedure and the sedation options and risks were discussed with the patient. All questions were answered and informed consent was obtained. - Patient identification and proposed procedure were verified prior to the procedure by the physician, the nurse and the rotary shear operator. The procedure was verified in the procedure room. - Pre-procedure physical examination revealed no contraindications to sedation. - ASA Grade Assessment: III - A patient with severe systemic disease. - After reviewing the risks and benefits, the patient was deemed in satisfactory condition to undergo the procedure. - The anesthesia plan was to use general anesthesia. - Immediately prior to administration of medications, the patient was re-assessed for adequacy to receive sedatives. - The heart rate, respiratory rate, oxygen saturations, blood pressure, adequacy of pulmonary ventilation, and response to care were monitored throughout the procedure. - The physical status of the patient was re-assessed after the procedure. After obtaining informed consent, the scope was passed under direct vision. Throughout the procedure, the patient's blood pressure, pulse, and oxygen saturations were monitored continuously. The Scope was introduced through the mouth, and advanced to the duodenum and used to inject contrast into the bile duct. The ERCP was accomplished without difficulty. The patient tolerated the procedure well. Findings: A oracle application consultant film of the abdomen was obtained. Surgical clips, consistent with previous cholecystectomy, were seen in the area of the right upper quadrant of the abdomen. One percutaneous drain ending in the Right upper quadrant was seen. The esophagus was successfully intubated under direct vision without detailed examination of the pharynx, larynx, and associated structures, and upper GI tract. The upper GI tract was grossly normal. The major papilla was edematous. The bile duct was deeply cannulated with the short-nosed traction sphincterotome (Omni 35) and 0.035 in Acrobat guidewire. Contrast was injected. I personally interpreted the bile duct images. Contrast extended to the entire biliary tree. The biliary orifice was stenotic. This appeared benign. The main bile duct was moderately dilated and diffusely dilated. The largest diameter was 9 mm. Extravasation of contrast originating from the cystic duct remanent was observed. Biliary sphincterotomy was made with a monofilament short-tip traction sphincterotome using ERBE electrocautery. There was no post-sphincterotomy bleeding. To discover objects, the biliary tree was swept with a 12 mm balloon and 15 mm balloon starting at the bifurcation. Sludge was swept from the duct. One 10 Fr by 8 cm biliary stent with a single external flap and a single internal flap was placed 8 cm into the common bile duct. Bile flowed through the stent. The stent was in good position. The total fluoroscopy exposure time was 1 minute and 8 seconds. The endoscope was withdrawn from the patient. Impression: - The major papilla appeared edematous. - Biliary papillary stenosis, benign. - The entire main bile duct was moderately dilated. - A bile leak was found. - A sphincterotomy was performed. - The biliary tree was swept and sludge was found. - One biliary stent was placed into the common bile duct. Recommendation: - Avoid aspirin and nonsteroidal anti-inflammatory medicines for 1 week. - Clear liquid diet today. - Observe patient's clinical course following today's ERCP with therapeutic intervention. - Repeat ERCP in 4 to 6 weeks to remove stent. Fadi Chand D.O. Fadi Chand, 02/13/2017 1:07:43 PM This report has been signed electronically. Note Initiated On: 02/13/2017 12:29 PM I attest to the content of the Intraoperative Record and orders documented therein, exceptions below
--- NOTE | 2017-02-13 13:14 | DIAGNOSTIC IMAGING REPORT ---
Radiology ERCP BILIARY DUCTAL CLINICAL HISTORY: 76 years-old Female presenting with ERCP IN OR. TECHNIQUE: 11 fluoroscopic spot image(s) obtained as part of an intraoperative procedure. COMPARISON: 02/12/[address] from 02/12/2017. FINDINGS/IMPRESSION: A Juan-Dawkins drain is noted in the right upper quadrant with associated overlying surgical skin gaetano. Cholecystectomy clips noted. An endoscope was introduced and a catheter was inserted over a wire into the common duct. The common bile duct was opacified with progressive opacification of intrahepatic bile ducts. Mild dilatation of the intrahepatic ducts noted. Cystic duct remnant noted. No convincing evidence of a filling defect within the intrahepatic or extra hepatic bile ducts. A common duct stent was placed at the conclusion of the procedure. Please see surgical report for further details. Fluoroscopy dosage (mGy): Not available. Fluoroscopy time: 1 minute 8 seconds. Number of fluoroscopic spot images: 11. Electronically signed by: Umang Carranza M.D. 02/13/2017 1:13 PM Dictated Date/Time: 02/13/2017 1:10 PM
--- NOTE | 2017-02-13 13:56 | Anesthesiology Progress Note ---
Anesthesia Post Op Note Date & Time Feb 13, 2017 at 13:56 Vital Signs Pain Intensity: 0 Vital Signs Past 12 Hours Date Time Temp Pulse Resp B/P (MAP) Pulse Ox O2 Delivery O2 Flow Rate FiO2 02/13/17 13:45 82 23 126/68 91 Nasal Cannula 4 02/13/17 13:35 81 16 158/95 94 Oxymask 15 02/13/17 13:25 82 16 173/91 92 Oxymask 15 02/13/17 13:19 36.2 84 16 185/94 93 Oxymask 15 02/13/17 11:29 36.4 82 18 147/86 (106) 94 Nasal Cannula 4 02/13/17 11:15 36.4 80 24 138/75 (96) 92 Nasal Cannula 02/13/17 08:04 36.6 84 24 138/68 (91) 92 Nasal Cannula 02/13/17 08:00 93 Nasal Cannula 4.0 Humidified Oxygen 02/13/17 03:20 36.3 80 17 138/82 (100) 93 Nasal Cannula 4.0 02/13/17 02:20 36.2 77 16 131/76 (94) 94 Nasal Cannula 4.0 Notes Mental Status: alert / awake / arousable, participated in evaluation Pt Amnestic to Procedure: Yes Nausea / Vomiting: adequately controlled Pain: adequately controlled Airway Patency, RR, SpO2: stable & adequate BP & HR: stable & adequate Hydration State: stable & adequate Anesthetic Complications: no major complications apparent
[2017-02-13] MEDS: POTASSIUM CHLR 10 MEQ / WTR 10 MEQ in PREMIXED WATER 100 ML IV SCH ×2 (14:43→16:19)
--- NOTE | 2017-02-13 15:07 | Medical Consult ---
Consultation Date of Consultation: Feb 13, 2017. Attending Physician: Emeka Robles M.D. Reason for Consultation: Medical management History of Present Illness This is a 76 yo F with PMHx of HTN, morbid obesity, and osteoarthritis who was admitted under general surgery team on 02/12 and found to have emphysematous cholecystitis / gangrenous cholecystitis and underwent laparoscopic cholecystectomy with JULIA drain placement by Dr. Robles on 02/12. At the time of admission WBC was elevated at 27K, and continues to be elevated today at 28K. Upon examination this morning there was bilious drainage and therefore GI was consulted possible bile leak. Pt is now s/p ERCP today where biliary stent was placed. Medical team was consulted for management. The patient was seen and examined with her two son's, daughter, and daughter-in- law at bedside. She reports having minimal pain and overall feels well. She is still a bit groggy since being back from ERCP about 1 hour ago. She denies any fever, chills or sweats. Her abdomen is slightly painful when people press on it. She denies nausea or vomiting and is passing flatus. Past Medical/Surgical History Medical Problems: (1) Elevated WBC count Status: Acute (2) Gangrenous cholecystitis Status: Acute (3) Generalized weakness Status: Acute (4) Pancreatitis Status: Acute Hypertension Morbid obesity Surgical history: Laparoscopic cholecystectomy Social History Smoking Status: Never Smoker Smokeless Tobacco Use: No Alcohol Use: none Drug Use: none Marital Status: Housing Status: lives alone Occupation Status: retired Allergies Coded Allergies: No Known Allergies (Unverified , 02/12/13) Current Inpatient Medications Current Inpatient Medications Medications (Trade) Dose Ordered Sig/Shagufta Route Start Time Stop Time Status Last Admin Dose Admin Oxycodone/ Acetaminophen (Percocet 5-325mg Tab) 1 tab Q4H PRN PO 02/12/17 23:00 02/26/17 22:59 Morphine Sulfate (MoRPHine SULFATE INJ) 4 mg Q1H PRN IV 02/12/17 23:00 02/26/17 22:59 02/13/17 09:01 4 MG Ondansetron HCl (Zofran Inj) 4 mg Q6H PRN IV 02/12/17 23:00 03/14/17 22:59 Piperacillin Sod/ Tazobactam Sod 4.5 gm/Dextrose 120 ml @ 30 mls/hr Q8H IV 02/13/17 02:00 02/14/17 01:59 02/13/17 10:21 30 MLS/HR Potassium Chloride/Sodium Chloride 1,000 ml @ 125 mls/hr Q8H IV 02/13/17 01:00 03/15/17 00:59 02/13/17 10:21 100 MLS/HR Fentanyl Citrate (Fentanyl Inj) 25 mcg Q5M PRN IV 02/13/17 11:15 02/13/17 16:15 Hydromorphone HCl (Dilaudid Inj) 0.25 mg Q5M PRN IV 02/13/17 11:15 02/13/17 16:15 Ondansetron HCl (Zofran Inj) 4 mg ONE PRN IV 02/13/17 11:15 02/13/17 16:15 Ephedrine Sulfate (EpHEDrine SULFATE INJ) 5 mg Q5M PRN IV 02/13/17 11:15 02/13/17 16:15 Atropine Sulfate (Atropine Sulfate 0.1MG/Ml Inj) 0.5 mg Q1M PRN IV 02/13/17 11:15 02/13/17 16:15 Review of Systems Constitutional: No fever, sweats or chills Eyes: No diplopia, no worsening or blurred vision ENT: normal hearing, no trouble swallowing Respiratory: No cough, sputum, dyspnea at rest or on exertion Cardiovascular: No chest pain, tightness or palpitations Abdomen: See HPI Musculoskeletal: No joint pain, calf pain, swelling Neurologic: No weakness, numbness/tingling, or balance problems Psychiatric: No anxiety or depression Skin: No rash or itch Physical Exam Date Time Temp Pulse Resp B/P (MAP) Pulse Ox O2 Delivery O2 Flow Rate FiO2 02/13/17 14:33 36.8 79 14 124/79 (94) 91 Nasal Cannula 4.0 Humidified Oxygen 02/13/17 14:15 36.2 79 23 145/77 92 Nasal Cannula 4 02/13/17 14:05 81 13 128/71 91 Nasal Cannula 4 02/13/17 13:55 82 19 126/79 91 Nasal Cannula 4 02/13/17 13:45 82 23 126/68 91 Nasal Cannula 4 02/13/17 13:35 81 16 158/95 94 Oxymask 15 02/13/17 13:25 82 16 173/91 92 Oxymask 15 02/13/17 13:19 36.2 84 16 185/94 93 Oxymask 15 02/13/17 11:29 36.4 82 18 147/86 (106) 94 Nasal Cannula 4 02/13/17 11:15 36.4 80 24 138/75 (96) 92 Nasal Cannula 02/13/17 08:04 36.6 84 24 138/68 (91) 92 Nasal Cannula 02/13/17 08:00 93 Nasal Cannula 4.0 Humidified Oxygen 02/13/17 03:20 36.3 80 17 138/82 (100) 93 Nasal Cannula 4.0 02/13/17 02:20 36.2 77 16 131/76 (94) 94 Nasal Cannula 4.0 02/13/17 01:20 36.3 74 16 118/74 (89) 94 Nasal Cannula 4.0 02/13/17 00:50 36.3 71 18 110/74 (86) 94 Nasal Cannula 4.0 02/13/17 00:30 36.5 72 18 129/52 94 Nasal Cannula 4.0 02/13/17 00:30 94 Nasal Cannula 4.0 02/13/17 00:00 72 18 128/85 94 Nasal Cannula 4 02/12/17 23:50 71 14 133/93 94 Nasal Cannula 4 02/12/17 23:40 71 16 128/86 93 Nasal Cannula 4 02/12/17 23:30 71 18 118/82 94 Oxymask 4 02/12/17 23:20 70 14 139/72 94 Oxymask 4 02/12/17 23:10 36.2 70 14 136/85 93 Oxymask 4 02/12/17 23:00 71 19 130/72 92 Oxymask 4 02/12/17 22:50 70 18 131/77 92 Oxymask 6 02/12/17 22:40 70 18 139/78 93 Oxymask 10 02/12/17 22:30 70 21 127/77 93 Oxymask 10 02/12/17 22:22 36.6 74 25 143/83 92 Oxymask 10 02/12/17 17:31 84 18 149/81 95 Room Air 02/12/17 16:31 37.1 89 18 129/81 94 Room Air 02/12/17 15:46 99 23 97 02/12/17 15:26 36.7 98 20 125/81 95 Room Air 02/12/17 15:24 100 02/12/17 15:22 125/81 General: awake, alert, no apparent distress, morbidly obese, slightly groggy Head: Normocephalic, atraumatic ENT: PERRL, EOMI, no pharyngeal exudate, mucous membranes moist Chest: Clear to auscultation, on room air, no adventitious breath sounds Cardiac: Regular rate and rhythm, no murmur, no JVD, normal peripheral pulses, good capillary refill Abdominal: + Hypoactive bowel sounds, 1 upper abdominal incision and 1 above umbilicus covered with dressing, C/D/I, +JULIA drain with minimal serosanginous outs, soft, + tender to palpation. Extremities: Normal inspection, no peripheral edema or erythema, calfs nontender to palpation Psych: Normal mood and affect Neuro: AAO x 3, strength intact bilaterally and related 5/5, no motor deficits, speech is clear, no peripheral sensory deficits Laboratory Results Last 24 Hours Test 02/12/17 15:38 02/13/17 04:44 02/13/17 07:02 02/13/17 13:43 White Blood Count 27.57 K/uL 28.08 K/uL Red Blood Count 5.04 M/uL 4.35 M/uL Hemoglobin 14.3 g/dL 12.4 g/dL Hematocrit 43.9 % 39.0 % Mean Corpuscular Volume 87.1 fL 89.7 fL Mean Corpuscular Hemoglobin 28.4 pg 28.5 pg Mean Corpuscular Hemoglobin Concent 32.6 g/dl 31.8 g/dl Platelet Count 385 K/uL 349 K/uL Mean Platelet Volume 10.4 fL 10.3 fL Neutrophils (%) (Auto) 90.4 % 93.3 % Lymphocytes (%) (Auto) 3.2 % 3.4 % Monocytes (%) (Auto) 5.2 % 2.2 % Eosinophils (%) (Auto) 0.0 % 0.0 % Basophils (%) (Auto) 0.1 % 0.1 % Neutrophils # (Auto) 24.91 K/uL 26.17 K/uL Lymphocytes # (Auto) 0.88 K/uL 0.96 K/uL Monocytes # (Auto) 1.43 K/uL 0.63 K/uL Eosinophils # (Auto) 0.01 K/uL 0.00 K/uL Basophils # (Auto) 0.03 K/uL 0.04 K/uL RDW Standard Deviation 51.2 fL 55.1 fL RDW Coefficient of Variation 16.1 % 16.7 % Immature Granulocyte % (Auto) 1.1 % 1.0 % Immature Granulocyte # (Auto) 0.31 K/uL 0.28 K/uL Prothrombin Time 12.9 SECONDS Prothromb Time International Ratio 1.2 Activated Partial Thromboplast Time 25.3 SECONDS Partial Thromboplastin Ratio 1.0 Sodium Level 136 mmol/L 138 mmol/L Potassium Level 2.6 mmol/L 3.2 mmol/L Chloride Level 99 mmol/L 101 mmol/L Carbon Dioxide Level 25 mmol/L 26 mmol/L Anion Gap 12.0 mmol/L 11.0 mmol/L Blood Urea Nitrogen 47 mg/dl 52 mg/dl Creatinine 1.40 mg/dl 1.70 mg/dl Est Creatinine Clear Calc Drug Dose 42.3 ml/min 34.8 ml/min Estimated GFR () 42.5 33.6 Estimated GFR (Non- 36.7 29.0 BUN/Creatinine Ratio 33.6 30.3 Random Glucose 143 mg/dl 177 mg/dl Calcium Level 8.4 mg/dl 8.1 mg/dl Magnesium Level 2.7 mg/dl Total Bilirubin 0.9 mg/dl 0.8 mg/dl Direct Bilirubin 0.3 mg/dl 0.3 mg/dl Aspartate Amino Transf (AST/SGOT) 104 U/L 136 U/L Alanine Aminotransferase (ALT/SGPT) 97 U/L 115 U/L Alkaline Phosphatase 135 U/L 127 U/L Total Creatine Kinase 124 U/L Creatine Kinase MB 3.4 ng/ml Creatine Kinase MB Ratio 2.7 Troponin I 0.272 ng/ml Total Protein 7.0 gm/dl 6.1 gm/dl Albumin 1.9 gm/dl 1.6 gm/dl Amylase Level 29 U/L Lipase 146 U/L Hypersegmented Polys 1+ Toxic Granulation 1+ Assessment & Plan 76 yo F with PMHx of HTN, morbid obesity, and osteoarthritis who was admitted under general surgery team on 02/12 and found to have emphysematous cholecystitis / gangrenous cholecystitis and underwent lap reynold with JULIA drain placement by Dr. Liz on 02/12. At the time of admission WBC was elevated at 27K, and continues to be elevated today at 28K. Upon examination this morning there was bilious drainage and therefore GI was consulted possible bile leak. Pt is now s/p ERCP where bile leak was confirmed. A CBD stent was also placed. Medical team was consulted for management. S/p Gangrenous cholecystectomy - POD #1 - Continue IV zosyn - Pain management and bowel regimen per general surgery S/p ERCP with biliary stent placement - WBC is elevated at 28 K, started on zosyn, continue. - LTS are more elevated today compared to yesterday, now s/p CBD stent, continue to trend LFTs with am labs - Checking ESR, CRP - Allowed a clear liquid diet per GI Elevated Troponin - At time of admission was elevated at 0.272, rechecking now and trend x 1 more. - Check EKG now - Will move the patient to tele for closer monitoring with elevated troponin. - Pt has no chest pain, no shortness of breath, nontender to palpation on exam. Hypokalemia - 3.2, replaced with 20 meq IV - Trend with am labs SURJIT - Cr. elevated to 1.7 from 1.4 yesterday, other labs show good kidney function with baseline around 0.90 but this was in 2013. - Continue IVFs for now, encourage oral intake once pt is more awake. HTN - BP seems well controlled currently. Not on oral home medications. DVT ppx: Teds, scds, CODE STATUS: FULL CODE Disposition: Pt from home, PT/OT phillip, lives with significant other who would not be able to care for her per family, CM to help with discharge planning.
[2017-02-13 16:05] LABS: C-REACTIVE PROTEIN 18.6 mg/dl (0-0.29)
[2017-02-13] MEDS ORDERED: PIPERACILL/TAZOBAC CONSULT ACTIVE PRN (16:30)
--- NOTE | 2017-02-13 17:07 | DIAGNOSTIC IMAGING REPORT ---
CT HEAD WITHOUT CONTRAST (CT) CLINICAL HISTORY: New right-sided facial droop COMPARISON STUDY: No previous studies for comparison. TECHNIQUE: Axial CT of the brain is performed from the vertex to the skull base. IV contrast was not administered for this examination. A dose lowering technique was utilized adhering to the principles of ALARA. CT DOSE: 634.23 mGy.cm FINDINGS: No intra or extra-axial mass lesions are visualized. There is no CT evidence of acute cortical infarction. There is no evidence of midline shift. There is no acute hemorrhage. No calvarial fractures are visualized. There are patchy white matter hypodensities likely on a small vessel basis. There is no evidence of pathologic ventricular dilatation.There is a right basal ganglia 1 cm hypodensity which could represent a subacute infarct. There is no evidence of acute sinusitis IMPRESSION: 1. 1 cm right basal ganglia hypodensity which could represent a subacute infarct. 2. No evidence of acute hemorrhage. Electronically signed by: Babak Barfield M.D. 02/13/2017 5:05 PM Dictated Date/Time: 02/13/2017 5:03 PM
--- NOTE | 2017-02-13 22:20 | DIAGNOSTIC IMAGING REPORT ---
NUCLEAR MEDICINE PULMONARY VENTILATION/PERFUSION STUDY CLINICAL HISTORY: Chest pain. Possible pulmonary embolism. COMPARISON STUDY: Chest x-ray dated 02/12/2017 FINDINGS: The patient was ventilated utilizing 33.9 mCi of technetium 99m DTPA aerosol. The patient essentially perfused lysing 6.6 mCi of technetium 99m MAA. Immediate multi projectional images were acquired. There is a significantly heterogeneous ventilation pattern with central deposition of the aerosol. Underlying airway disease is suspected. There is mild heterogeneity within the perfusion scan without evidence of moderate or large VQ mismatch. This examination is classified in the low probability of acute pulmonary embolism category (less than 10% risk). If there is a persistent strong concern over the presence of acute pulmonary embolism, then CT angiography of the chest should be considered in follow-up. IMPRESSION: Low probability of pulmonary embolism. Airway disease. Electronically signed by: Babak Barfield M.D. 02/13/2017 10:19 PM Dictated Date/Time: 02/13/2017 10:15 PM
[2017-02-14] VITALS (8 sets, daily range): BP systolic 114–192; BP diastolic 65–81; PULSE 75–85; TEMP 36.2–36.5; O2SAT 93–97
[2017-02-14] MEDS: PIPERACILL/TAZOBAC IV 4.5 GM in DEXTROSE 5% 100ML IV SCH ×3 (02:17→20:04)
[2017-02-14] MEDS: NSS + 20MEQ KCL 1000ML 1,000 ML IV SCH ×2 (06:22→15:38)
[2017-02-14 07:06] LABS: BASO % 0.1 %; BASO ABS # 0.02 K/uL (0-0.2); COMPLETE YES; IG% 1.2 %; LYMPH % 3.3 %; LYMPH ABS # 0.66 K/uL (1.2-3.4); MEAN CELL VOLUME 93.5 fL (80-100); MEAN CORPUSCULAR HEMOGLOBIN 29.2 pg (25-34); MEAN CORPUSCULAR HGB CONC 31.2 g/dl (32-36); MONO % 7.5 %; NEUT % 87.9 %; PLATELET COUNT 320 K/uL (130-400); RED BLOOD COUNT 3.53 M/uL (4.2-5.4); WHITE BLOOD COUNT 20.01 K/uL (4.8-10.8)
[2017-02-14 07:43] LABS: BUN/CREATININE RATIO 32.6 (10-20); CREATININE 1.6 mg/dl (0.60-1.20); POTASSIUM 3.5 mmol/L (3.5-5.1)
--- NOTE | 2017-02-14 10:21 | Gastroenterology Progress Note ---
Progress Note Date of Service: Feb 14, 2017 Subjective Pt evaluation today including: conversation w/ patient, physical exam Pt up in bed, AAOx3, dght in law at beside. She is c/o RUQ area discomfort but overall better than yesterday. No acute events overnight, no CP, SOB, n/v. Is not passing much flatus. She tolerated CL diet this AM, said ready for a hamburger. Labs noted; WBC improving, LFTs normalizing. Gallbladder and urine cx growing Ecoli, she is still on Zosyn IV. She had head CT yesterday as she may be slurring a bit after ERCP, this showed 1 cm basal ganglia hypondensity ? subacute infarct but no acute hemorrhage, lung scan low probability of PEs Review of Systems Constitutional: No fever, No chills Respiratory: No cough, No shortness of breath Cardiac: No chest pain Abdomen: + pain, No nausea, No vomiting Skin: No rash, No itch Medications Current Inpatient Medications Medications (Trade) Dose Ordered Sig/Shagufta Route Start Time Stop Time Status Last Admin Dose Admin Oxycodone/ Acetaminophen (Percocet 5-325mg Tab) 1 tab Q4H PRN PO 02/12/17 23:00 02/26/17 22:59 Morphine Sulfate (MoRPHine SULFATE INJ) 4 mg Q1H PRN IV 02/12/17 23:00 02/26/17 22:59 02/13/17 09:01 4 MG Ondansetron HCl (Zofran Inj) 4 mg Q6H PRN IV 02/12/17 23:00 03/14/17 22:59 Potassium Chloride/Sodium Chloride 1,000 ml @ 125 mls/hr Q8H IV 02/13/17 01:00 03/15/17 00:59 02/14/17 06:22 125 MLS/HR Piperacillin Sod/ Tazobactam Sod 4.5 gm/Dextrose 120 ml @ 30 mls/hr Q8H IV 02/14/17 02:00 02/21/17 23:59 02/14/17 09:59 30 MLS/HR Piperacillin Sod/ Tazobactam Sod (Consult) 1 ea UD PRN N/A 02/13/17 16:30 03/15/17 16:29 Objective Vital Signs Date Time Temp Pulse Resp B/P (MAP) Pulse Ox O2 Delivery O2 Flow Rate FiO2 02/14/17 06:51 36.4 75 18 118/73 (88) 93 Nasal Cannula 3.0 02/14/17 04:00 93 Nasal Cannula 4.0 02/14/17 04:00 36.3 78 92 124/76 (92) 93 02/14/17 00:00 36.3 77 16 114/73 (87) 93 Nasal Cannula 4.0 02/14/17 00:00 93 Nasal Cannula 4.0 02/13/17 20:45 Nasal Cannula 4.0 02/13/17 20:12 36.2 76 16 128/77 (94) 94 4.0 02/13/17 17:15 Nasal Cannula 4.0 02/13/17 17:15 36.9 76 18 135/66 (89) 98 Nasal Cannula 4.0 02/13/17 16:28 36.3 71 18 107/71 (83) 94 Humidified Oxygen 4.0 02/13/17 16:22 36.9 76 18 98 4.0 02/13/17 15:43 36.3 77 18 131/77 (95) 93 Humidified Oxygen 4.0 02/13/17 14:33 36.8 79 14 124/79 (94) 91 Nasal Cannula 4.0 Humidified Oxygen 02/13/17 14:30 91 Nasal Cannula 4.0 Humidified Oxygen 02/13/17 14:15 36.2 79 23 145/77 92 Nasal Cannula 4 02/13/17 14:05 81 13 128/71 91 Nasal Cannula 4 02/13/17 13:55 82 19 126/79 91 Nasal Cannula 4 02/13/17 13:45 82 23 126/68 91 Nasal Cannula 4 02/13/17 13:35 81 16 158/95 94 Oxymask 15 02/13/17 13:25 82 16 173/91 92 Oxymask 15 02/13/17 13:19 36.2 84 16 185/94 93 Oxymask 15 02/13/17 11:29 36.4 82 18 147/86 (106) 94 Nasal Cannula 4 02/13/17 11:15 36.4 80 24 138/75 (96) 92 Nasal Cannula Physical Exam General Appearance: WD/WN, no apparent distress, + obese Eyes: normal inspection, PERRL, EOMI Neck: supple, no JVD, trachea midline Respiratory/Chest: no respiratory distress, no accessory muscle use, + decreased breath sounds Cardiovascular: regular rate, rhythm, no gallop, no murmur Abdomen: + abnormal bowel sounds (hypoactive ), + distended (mild), + tenderness (RUQ ), + pertinent finding (JULIA drain w still brownish color but improved since yesterday ) Neurologic/Psych: alert, normal mood/affect, oriented x 3 Skin: normal color, no jaundice, no rash Laboratory Results Last 24 Hours Test 02/13/17 13:43 02/13/17 15:03 02/14/17 06:37 Creatine Kinase MB Ratio Erythrocyte Sedimentation Rate 79 mm/hr Creatine Kinase MB 3.1 ng/ml Troponin I 0.087 ng/ml C-Reactive Protein 18.60 mg/dl Procalcitonin 7.12 ng/ml White Blood Count 20.01 K/uL Red Blood Count 3.53 M/uL Hemoglobin 10.3 g/dL Hematocrit 33.0 % Mean Corpuscular Volume 93.5 fL Mean Corpuscular Hemoglobin 29.2 pg Mean Corpuscular Hemoglobin Concent 31.2 g/dl Platelet Count 320 K/uL Mean Platelet Volume 10.0 fL Neutrophils (%) (Auto) 87.9 % Lymphocytes (%) (Auto) 3.3 % Monocytes (%) (Auto) 7.5 % Eosinophils (%) (Auto) 0.0 % Basophils (%) (Auto) 0.1 % Neutrophils # (Auto) 17.57 K/uL Lymphocytes # (Auto) 0.66 K/uL Monocytes # (Auto) 1.51 K/uL Eosinophils # (Auto) 0.00 K/uL Basophils # (Auto) 0.02 K/uL RDW Standard Deviation 59.6 fL RDW Coefficient of Variation 17.5 % Immature Granulocyte % (Auto) 1.2 % Immature Granulocyte # (Auto) 0.25 K/uL Sodium Level 139 mmol/L Potassium Level 3.5 mmol/L Chloride Level 106 mmol/L Carbon Dioxide Level 26 mmol/L Anion Gap 7.0 mmol/L Blood Urea Nitrogen 52 mg/dl Creatinine 1.60 mg/dl Est Creatinine Clear Calc Drug Dose 38.3 ml/min Estimated GFR () 36.2 Estimated GFR (Non- 31.2 BUN/Creatinine Ratio 32.6 Random Glucose 129 mg/dl Calcium Level 8.0 mg/dl Total Bilirubin 0.3 mg/dl Direct Bilirubin 0.1 mg/dl Aspartate Amino Transf (AST/SGOT) 43 U/L Alanine Aminotransferase (ALT/SGPT) 66 U/L Alkaline Phosphatase 88 U/L Total Protein 5.4 gm/dl Albumin 1.5 gm/dl Assessment and Plan Patient is a 76 year old female s/p lap cholecystectomy, found to have gangrenous gallbladder, suspected to have bile leak as evidenced by JULIA fluid drain characteristic She underwent ERCP w sphincterectomy and CBD stent placement on 02/13. LFTs, WBC improving. JULIA drainage appears less bilious this AM. She is tolerating CL diet. Plans - CL diet, advancement per Surgery but from GI standpoint may advance to [place] diet by end of day then advance as tolerated. - Monitor LFTs - Continue Zosyn IV antibx coverage. - Avoid NSAIDs /ASA 1 week after sphincterectomy; repeat ERCP for biliary stent removal in 4-6 week's time. - Defer to primary team for further neuro workup if needed. On exam today she appears to not be slurring her words today, no tongue deviation, facial droop. AAOx 3. I saw and evaluated the patient. She underwent ERCP yesterday for bile leak. A biliary stent was placed without any difficulty. Recommendations Advance diet as tolerated per general surgery Repeat ERCP in 4-6 weeks for stent removal Continue to monitor JULIA drain output, should continue to drop Continue with broad-spectrum antibiotics 2 weeks Please call with any questions or concerns GI to sign off for the present time.
--- NOTE | 2017-02-14 13:34 | Anesthesiology Progress Note ---
Anesthesia Post Op Note Date & Time Feb 14, 2017 at 13:33 Vital Signs Pain Intensity: 0.0 Vital Signs Past 12 Hours Date Time Temp Pulse Resp B/P (MAP) Pulse Ox O2 Delivery O2 Flow Rate FiO2 02/14/17 12:00 Nasal Cannula 2.0 02/14/17 11:49 36.5 78 19 127/81 (96) 97 Nasal Cannula 3.0 02/14/17 08:00 Nasal Cannula 2.0 02/14/17 06:51 36.4 75 18 118/73 (88) 93 Nasal Cannula 3.0 02/14/17 04:00 93 Nasal Cannula 4.0 02/14/17 04:00 36.3 78 92 124/76 (92) 93 Notes Mental Status: alert / awake / arousable, participated in evaluation Pt Amnestic to Procedure: Yes Nausea / Vomiting: adequately controlled Pain: adequately controlled Airway Patency, RR, SpO2: stable & adequate BP & HR: stable & adequate Hydration State: stable & adequate Anesthetic Complications: no major complications apparent
--- NOTE | 2017-02-14 16:23 | Surgery Progress Note ---
Surgery Progress Note Date of Service Feb 14, 2017. Subjective Post OP Day: 2 + feeling well, + pain controlled, + diet (tolerated clear liquids), No chest pain, No ambulating, No SOB, No nausea, No vomiting Having some RUQ pain but better than yesterday "feeling better than yesterday" Objective Vital Signs: Date Time Temp Pulse Resp B/P (MAP) Pulse Ox O2 Delivery O2 Flow Rate FiO2 02/14/17 16:00 Nasal Cannula 2.0 02/14/17 15:29 36.2 81 20 150/71 (97) 95 Nasal Cannula 3.0 02/14/17 12:00 Nasal Cannula 2.0 02/14/17 11:49 36.5 78 19 127/81 (96) 97 Nasal Cannula 3.0 02/14/17 08:00 Nasal Cannula 2.0 02/14/17 06:51 36.4 75 18 118/73 (88) 93 Nasal Cannula 3.0 02/14/17 04:00 93 Nasal Cannula 4.0 02/14/17 04:00 36.3 78 92 124/76 (92) 93 02/14/17 00:00 36.3 77 16 114/73 (87) 93 Nasal Cannula 4.0 02/14/17 00:00 93 Nasal Cannula 4.0 02/13/17 20:45 Nasal Cannula 4.0 02/13/17 20:12 36.2 76 16 128/77 (94) 94 4.0 02/13/17 17:15 Nasal Cannula 4.0 02/13/17 17:15 36.9 76 18 135/66 (89) 98 Nasal Cannula 4.0 02/13/17 16:28 36.3 71 18 107/71 (83) 94 Humidified Oxygen 4.0 02/13/17 16:22 36.9 76 18 98 4.0 General Appearance: no apparent distress, + obese Head: normocephalic, atraumatic Neck: trachea midline Respiratory/Chest: no respiratory distress, no accessory muscle use Abdomen: non distended, soft, + tenderness (appropriate post op) Incision(s): clean, dry, intact, no erythema, no drainage, ecchymosis, findings (gaetano intact) Laboratory Results: Results Past 24 Hours Test 02/14/17 06:37 Range/Units White Blood Count 20.01 4.8-10.8 K/uL Red Blood Count 3.53 4.2-5.4 M/uL Hemoglobin 10.3 12.0-16.0 g/dL Hematocrit 33.0 37-47 % Mean Corpuscular Volume 93.5 80-100 fL Mean Corpuscular Hemoglobin 29.2 25-34 pg Mean Corpuscular Hemoglobin Concent 31.2 32-36 g/dl Platelet Count 320 130-400 K/uL Mean Platelet Volume 10.0 7.4-10.4 fL Neutrophils (%) (Auto) 87.9 % Lymphocytes (%) (Auto) 3.3 % Monocytes (%) (Auto) 7.5 % Eosinophils (%) (Auto) 0.0 % Basophils (%) (Auto) 0.1 % Neutrophils # (Auto) 17.57 1.4-6.5 K/uL Lymphocytes # (Auto) 0.66 1.2-3.4 K/uL Monocytes # (Auto) 1.51 0.11-0.59 K/uL Eosinophils # (Auto) 0.00 0-0.5 K/uL Basophils # (Auto) 0.02 0-0.2 K/uL RDW Standard Deviation 59.6 36.4-46.3 fL RDW Coefficient of Variation 17.5 11.5-14.5 % Immature Granulocyte % (Auto) 1.2 % Immature Granulocyte # (Auto) 0.25 0.00-0.02 K/uL Sodium Level 139 136-145 mmol/L Potassium Level 3.5 3.5-5.1 mmol/L Chloride Level 106 98-107 mmol/L Carbon Dioxide Level 26 21-32 mmol/L Anion Gap 7.0 3-11 mmol/L Blood Urea Nitrogen 52 7-18 mg/dl Creatinine 1.60 0.60-1.20 mg/dl Est Creatinine Clear Calc Drug Dose 38.3 ml/min Estimated GFR () 36.2 Estimated GFR (Non- 31.2 BUN/Creatinine Ratio 32.6 10-20 Random Glucose 129 70-99 mg/dl Calcium Level 8.0 8.5-10.1 mg/dl Total Bilirubin 0.3 0.2-1 mg/dl Direct Bilirubin 0.1 0-0.2 mg/dl Aspartate Amino Transf (AST/SGOT) 43 15-37 U/L Alanine Aminotransferase (ALT/SGPT) 66 12-78 U/L Alkaline Phosphatase 88 45-117 U/L Total Protein 5.4 6.4-8.2 gm/dl Albumin 1.5 3.4-5.0 gm/dl Assessment & Plan POD # 2 s/p attempted laparoscopic cholecystectomy converted to open with intraoperative cholangiogram. POD # 1 s/p ERCP with Biliary stent x 2 - vitals stable, afebrile overnight - moderate post op pain, controlled - bilious JULIA drain output Plan: Continue pain management as needed Continue Oxygen via NC to keep O2 sats > 94% Continue SCDs Continue clear liquids diet, advanced as tolerated continue JULIA drain to bulb suction Continue IV fluids and IV antibiotics Continue medical management OOB to chair and ambulation Drain dressing changes daily Will keep Tovar today for UO measurements, if UO good remove Tovar tomorrow am repeat am labs Dr. Robles has seen and examined patient, agrees with above
--- NOTE | 2017-02-14 16:28 | Discharge Instructions ---
Discharge Instructions Date of Service Feb 14, 2017. Admission Reason for Admission: Gangrenous Cholecystitis Discharge Discharge Diagnosis / Problem: same, bile leak Discharge Goals Goal(s): Decrease discomfort, Improve function Activity Recommendations Activity Limitations: as noted below No heavy lifting over 10 pounds for 6 weeks No strenuous activity until cleared by surgeon Walking and light activity is encouraged to prevent blood clots from forming No submerging incisions underwater for 2 weeks or until fully healed (no bathing , swimming, or hot tubs) No driving while taking narcotic pain medications or until you are pain free . Instructions / Follow-Up Instructions / Follow-Up You may shower, You do not need to keep dressings on incisions Surgical gaetano will be removed in office You will need follow-up with Dr. Robles in about 10 days. Please call office at [phone] to make an appointment Current Hospital Diet Patient's current hospital diet: Clear Liquid Diet Discharge Diet Recommended Diet: Regular Diet Procedures Procedures Performed: Endoscopic Retrograde Cholangiopancreatogram Pending Studies Studies pending at discharge: no Medical Emergencies . Who to Call and When: Medical Emergencies: If at any time you feel your situation is an emergency, please call 911 immediately. . Non-Emergent Contact Non-Emergency issues call your: Primary Care Provider, Surgeon Call Non-Emergent contact if: you have a fever, temperature is above 101.5, your pain is not controlled, your pain is worsening, your pain is unusual for you, wound has increased drainage, wound has increased redness, wound has increased pain . "Provider Documentation" section prepared by Shelley Hammond. . VTE Core Measure Inpt VTE Proph given/why not?: SCD's [place] Drug Monitoring Program Search Results: patient reviewed within database, no issues identified
[2017-02-14] MEDS ORDERED: OXYC-57 PO (17:47)
--- NOTE | 2017-02-14 20:14 | DIAGNOSTIC IMAGING REPORT ---
CHEST ONE VIEW PORTABLE CLINICAL HISTORY: 76 years-old Female presenting with ?pulmonary edema. TECHNIQUE: Portable upright AP view of the chest was obtained. COMPARISON: 02/12/2017. FINDINGS: Atherosclerosis of aortic arch. Cardiac silhouette enlarged, greater than on prior exam. Interval development of elevation of the right hemidiaphragm and bandlike opacity in the right midlung. No large effusion or pneumothorax. Osseous structures normal. Upper abdomen normal. IMPRESSION: 1. Apparent development of cardiomegaly. This could be confirmed with PA of the chest if clinically indicated. No evidence of pulmonary edema. 2. Interval development of right hemidiaphragm elevation and right basilar atelectasis. Electronically signed by: Umang Carranza M.D. 02/14/2017 8:13 PM Dictated Date/Time: 02/14/2017 8:11 PM
[2017-02-14] MEDS ORDERED: NURSING VERBAL MED ORDER ONE (20:15)
[2017-02-14] MEDS ORDERED: POTASSIUM CHLORIDE 10 MEQ TABCR PO STA (20:22)
[2017-02-14] MEDS: ALBUT/IPRATROP 3MG/0.5MG NEB 3 ML VIAL INH SCH (20:47)
[2017-02-14] MEDS ORDERED: BUMETANIDE IV 1 MG in SYRINGE 0 ML IV ONE (21:00)
--- NOTE | 2017-02-14 22:55 | Progress Note ---
Subjective Date of Service: Feb 14, 2017. Subjective Pt evaluation today including: conversation w/ patient, conversation w/ family (son, niece - at bedside), physical exam, chart review, lab review, review of studies (cxr), conversation w/ implementation consultant (gen surg), review of inpatient medication list Pain: abdomen PO Intake: fair Voiding: bojorquez catheter in place tele - one run of what looks like NS-V-tach (vs a.fib w/ aberrancy - favor former) this evening she developed dyspnea at rest; dyspnea was worse with movement no cough no h/o lung disease wheezy no nausea or emesis NO facial droop noted by family at this time denies any weakness Problem List Medical Problems: (1) Elevated WBC count Status: Acute (2) Gangrenous cholecystitis Status: Acute (3) Generalized weakness Status: Acute (4) Pancreatitis Status: Acute Review of Systems Constitutional: No fever Respiratory: + shortness of breath, + dyspnea on exertion Cardiac: No chest pain Abdomen: + pain Objective Vital Signs Date Time Temp Pulse Resp B/P (MAP) Pulse Ox O2 Delivery O2 Flow Rate FiO2 02/14/17 20:49 85 16 95 Nasal Cannula 2.0 02/14/17 20:00 Nasal Cannula 2.0 02/14/17 19:16 36.2 82 18 165/72 (103) 96 Nasal Cannula 2.0 02/14/17 16:00 Nasal Cannula 2.0 02/14/17 15:29 36.2 81 20 150/71 (97) 95 Nasal Cannula 3.0 02/14/17 12:00 Nasal Cannula 2.0 02/14/17 11:49 36.5 78 19 127/81 (96) 97 Nasal Cannula 3.0 02/14/17 08:00 Nasal Cannula 2.0 02/14/17 06:51 36.4 75 18 118/73 (88) 93 Nasal Cannula 3.0 02/14/17 04:00 93 Nasal Cannula 4.0 02/14/17 04:00 36.3 78 92 124/76 (92) 93 02/14/17 00:00 36.3 77 16 114/73 (87) 93 Nasal Cannula 4.0 02/14/17 00:00 93 Nasal Cannula 4.0 Physical Exam General Appearance: + mild distress (with moving in bed she had audible wheezes and dyspnea), + obese ENT: pharynx normal Neck: + JVD Respiratory/Chest: + respiratory distress (tachypnea with moving in bed), + crackles (bases), + wheezing (b/l) Cardiovascular: regular rate, rhythm, no gallop, no murmur Abdomen: no organomegaly, + abnormal bowel sounds (decreased), + distended Extremities: no pedal edema Neurologic/Psychiatric: no motor/sensory deficits, alert, oriented x 3, + pertinent finding (no facial droop; CN 3-12 intact; strength 5/5 x 4 ext) Skin: + pertinent finding (RUQ incision clean with intact gaetano) Laboratory Results Last 24 Hours Test 02/14/17 06:37 White Blood Count 20.01 K/uL Red Blood Count 3.53 M/uL Hemoglobin 10.3 g/dL Hematocrit 33.0 % Mean Corpuscular Volume 93.5 fL Mean Corpuscular Hemoglobin 29.2 pg Mean Corpuscular Hemoglobin Concent 31.2 g/dl Platelet Count 320 K/uL Mean Platelet Volume 10.0 fL Neutrophils (%) (Auto) 87.9 % Lymphocytes (%) (Auto) 3.3 % Monocytes (%) (Auto) 7.5 % Eosinophils (%) (Auto) 0.0 % Basophils (%) (Auto) 0.1 % Neutrophils # (Auto) 17.57 K/uL Lymphocytes # (Auto) 0.66 K/uL Monocytes # (Auto) 1.51 K/uL Eosinophils # (Auto) 0.00 K/uL Basophils # (Auto) 0.02 K/uL RDW Standard Deviation 59.6 fL RDW Coefficient of Variation 17.5 % Immature Granulocyte % (Auto) 1.2 % Immature Granulocyte # (Auto) 0.25 K/uL Sodium Level 139 mmol/L Potassium Level 3.5 mmol/L Chloride Level 106 mmol/L Carbon Dioxide Level 26 mmol/L Anion Gap 7.0 mmol/L Blood Urea Nitrogen 52 mg/dl Creatinine 1.60 mg/dl Est Creatinine Clear Calc Drug Dose 38.3 ml/min Estimated GFR () 36.2 Estimated GFR (Non- 31.2 BUN/Creatinine Ratio 32.6 Random Glucose 129 mg/dl Calcium Level 8.0 mg/dl Total Bilirubin 0.3 mg/dl Direct Bilirubin 0.1 mg/dl Aspartate Amino Transf (AST/SGOT) 43 U/L Alanine Aminotransferase (ALT/SGPT) 66 U/L Alkaline Phosphatase 88 U/L Total Protein 5.4 gm/dl Albumin 1.5 gm/dl Assessment and Plan 76yo female - 1. sepsis 2nd to gangrenous cholecystitis - s/p open cholecystectomy, POD #2 - management per surgery. Cont zosyn; intra-op culture has grown pansensitive e. coli 2. acute post-op pulmonary insufficiency - although cxr was negative for discernible infiltrates I believe she is in pulmonary edema. Spoke with gen surg tonight - they are ok with diuretics. Would hold IVF (she is 5 liters +) and give bumex 1mg IV x 1 now; follow UOP and clinical response. Repeat BMP and mag in am. Duonebs q6h. 3. suspected acute diastolic CHF - see above. 4. abnormal LFTs - 2nd to #1 - improving. 5. post-op bile leak - s/p ERCP with stent placement - fluid in JULIA drain nonbilious today. 6. severe hypoalbuminemia - due to protein calorie malnutrition prior to admission (ate poorly for 2 weeks) - boost BID w/ meals. 7. morbid obesity with BMI > 40 8. HTN - most readings had been normal, now elevated. Follow and institute meds if needed. 9. DVT proph - SCDs at the moment but would recommend chemical means; defer to gen surg. 10. elevated creatinine - unclear if this is her baseline vs acute kidney injury -- bmp in am. 11. hypokalemia - resolved. 12. ?right-sided facial droop per family - neuro exam normal. CT head with right lacunar infarct basal ganglia. This may be artifactual or real; if latter likely old. Has no left-sided deficits. When more stable would obtain MRI head to put the issue to rest. 13. +troponin - likely myocardial demand ischemia in setting of #1. 14. NS V-tach - keep on tele, repeat lytes in am. Consider echo in light of # 3 as well as this issue. family updated will continue to follow Continued [facility] stay due to: ambulation difficulties, multiple IV medications needed Discharge planning: uncertain
[2017-02-15] VITALS (12 sets, daily range): BP systolic 129–155; BP diastolic 61–91; PULSE 72–89; TEMP 36.2–36.7; O2SAT 94–97
[2017-02-15] MEDS: PIPERACILL/TAZOBAC IV 4.5 GM in DEXTROSE 5% 100ML IV SCH ×3 (01:24→17:36)
[2017-02-15] MEDS: OXYCODONE/ACETAMINOPHEN 5-325 TAB PO PRN ×3 (01:34→21:10)
[2017-02-15 06:34] LABS: HEMATOCRIT 33.3 % (37-47); MEAN CELL VOLUME 93.3 fL (80-100); MEAN CORPUSCULAR HEMOGLOBIN 28.9 pg (25-34); MEAN CORPUSCULAR HGB CONC 30.9 g/dl (32-36); MEAN PLATELET VOLUME 9.8 fL (7.4-10.4); PLATELET COUNT 318 K/uL (130-400); RED BLOOD COUNT 3.57 M/uL (4.2-5.4); WHITE BLOOD COUNT 12.17 K/uL (4.8-10.8)
[2017-02-15 07:11] LABS: BUN/CREATININE RATIO 31.8 (10-20); CALCIUM 7.7 mg/dl (8.5-10.1); CREATININE 1.4 mg/dl (0.60-1.20); MAGNESIUM 2.4 mg/dl (1.8-2.4); POTASSIUM 3.5 mmol/L (3.5-5.1)
[2017-02-15 07:14] LABS: ALB/GLOB RATIO 0.4 (0.9-2)
[2017-02-15] MEDS: ALBUT/IPRATROP 3MG/0.5MG NEB 3 ML VIAL INH SCH ×4 (07:28→20:03)
[2017-02-15] MEDS: BOOST VANILLA PO SCH ×4 (07:37→16:36)
[2017-02-15] MEDS ORDERED: POTASSIUM CHLORIDE 10 MEQ TABCR PO ONE (09:45)
[2017-02-15] MEDS ORDERED: BUMETANIDE IV 1 MG in SYRINGE 0 ML IV ONE (10:15)
--- NOTE | 2017-02-15 10:24 | PROGRESS NOTE ---
DATE: 02/15/2017 HISTORY OF PRESENT ILLNESS: Mrs. Mogne is a 76-year-old obese white female who was admitted acutely with a gangrenous cholecystitis and possible sepsis. She is now postoperative day #3 from an open cholecystectomy. Her hospital course has been complicated by some hypervolemia (at least partially iatrogenic) and likely a complication of diastolic dysfunction. She responded well with a single dose of Bumex yesterday and is not short of breath today, although her neck veins are still slightly elevated. Her abdomen is still sore from the surgery, but she has been progressing her diet. She ate solid food last evening and this morning and is passing gas, but has not had a bowel movement. The patient denies any nausea, vomiting, fever, or chills. She denies any chest pain, heaviness, tightness or pressure. Denies any orthopnea or PND. MEDICATIONS: 1. Boost 1 can b.i.d. 2. DuoNeb nebulizers q.i.d. 3. Zosyn IV q. 8 hours. 4. Percocet 5/325 one tablet every 4 hours as needed for moderate pain. 5. Morphine sulfate 4 mg IV q. 1 hour p.r.n. for severe breakthrough pain. 6. Zofran 4 mg IV q. 6 hours p.r.n. for nausea. ALLERGIES: NKDA. PHYSICAL EXAMINATION: VITAL SIGNS: Temperature is 36.5 degrees Celsius, pulse is 76 and regular, respiratory rate is 16 and unlabored, blood pressure is 150/74, and SpO2 is 96% on 2 liters oxygen via nasal cannula. I and O's -1493 mL overnight, body weight is down 0.7 kilograms from yesterday. GENERAL: The patient is in no acute distress. HEENT: Head is atraumatic and normocephalic. EOMs intact. Sclerae are anicteric. Facies are symmetric. No perioral cyanosis. Mucous membranes moist. NECK: Without obvious JVD. Jugular venous pressure is elevated approximately 1[address] the angle of the jaw sitting upright. CHEST AND LUNGS: With increased breath sounds and crackles in bilateral bases, left greater than right. CARDIOVASCULAR: S1 and S2 are regular without murmur, gallop or rub. PMI is nonpalpable. No lifts, heaves, or thrills. ABDOMEN: Bowel sounds are present, but decreased. Abdomen appears distended. JULIA drain is in place. EXTREMITIES: No clubbing, cyanosis or edema. NEUROLOGIC: The patient is awake, alert and oriented. Pleasant and cooperative. Answers questions appropriately. Speech is clear. Normal movement in all 4 extremities. LABORATORIES: White blood cell count was 12.17, hemoglobin 10.3 g/dL, hematocrit 33.3% and platelet count is 318,000. Sodium is 142 mmol/L, potassium 3.5 mmol/L, BUN 44 mg/dL, creatinine 1.40 mg/dL and random glucose 112 mg/dL. Serum magnesium level is normal at 2.4 mg/dL. LFTs are unremarkable. Total protein is low at 5.3 g/dL with an albumin of 1.5 g/dL and a globulin 3.8 g/dL. ASSESSMENT: 1. Gangrenous cholecystitis, now postoperative day #3 from open cholecystectomy. 2. Hypervolemia, likely secondary to LV diastolic dysfunction and IV fluids. Additionally, Zosyn has a very large sodium load. 3. Severe hypoalbuminemia due to protein calorie malnutrition leading up to this admission. 4. Morbid obesity. 5. History of postoperative bile leak, status post ERCP with stent placement. 6. Abnormal LFTs, resolved. 7. Hypertension. 8. Elevated creatinine, improved. 9. Hypokalemia, resolved. 10. Positive troponin I, likely secondary to myocardial O2 supply demand mismatch in the setting of an acute illness/sepsis. PLAN: 1. The patient has an improved appetite and has progressed to solid foods in her diet. She is passing flatus, but has not had any bowel movements yet. Her surgical pain is well controlled and she is feeling well. 2. Recommend repeat dose of Bumex 1 mg IV along with KCl 40 mEq x1 dose. 3. Continue monitoring daily weights, I and O's. 4. Progress activity as tolerated. 5. Continue Boost for nutritional deficiencies. 6. Continue IV Zosyn as prescribed by surgeon. 7. Ongoing pain management as per surgeon. 8. Ongoing DVT prophylaxis currently with compression stockings/SCDS. Strongly consider subcutaneous heparin versus Lovenox if okay with the surgeon. 9. Continue to monitor daily laboratories. 10. We will continue to follow closely. Attending Attestation: Pt seen/examined, chart reviewed, care plan d/w KELLY Bhandari. I agree w/ the santillan components of his documentation. Pt feeling much better this am; not as dyspneic. Copious diuresis. Tolerating diet although appetite is still fair at best. Tele normal. VSS no fever gen - obese, no dyspnea this AM neck - JVD improved heart - RRR, s1, s2 lungs - mild bibasilar rales, wheezing resolved, no tachypnea abd -soft, distended, BS+ but decreased, large RUQ incision w/ gaetano ext - no edema BMP - Cr improved A/P: 1. gangrenous cholecystitis s/p open cholecystectomy 2. post-op pulmonary insufficiency due to pulmonary edema 2nd to acute diastolic CHF and severe hypoalbuminemia 3. acute kidney injury - improving 4. CT head with likely old stroke 5. metabolic encephalopathy at admission - resolved 6. protein calorie malnutrition agree with additional bumex boost BID w/ meals will ultimately need MRI in the future to determine if stroke seen on CT head is real; neuro exam is normal fortunately abx per surgery PT, OT Bentley Gonzalez MD MTDD
--- NOTE | 2017-02-15 14:51 | Surgery Progress Note ---
Surgery Progress Note Date of Service Feb 15, 2017. Subjective POD#3 lap converted to open cholecystectomy for gangrenous cholecystectomy, s/p ERCP with stent for bile leak. Overall doing better, she received some lasix overnight and had 3400 cc urine output. Still feels weak and requires O2. She has been ambulating minimally. Doesn't feel she can get up to the bathroom on her own. Tolerating diet, abdominal pain improving. Objective Vital Signs: Date Time Temp Pulse Resp B/P (MAP) Pulse Ox O2 Delivery O2 Flow Rate FiO2 02/15/17 11:31 Nasal Cannula 2.0 02/15/17 11:19 86 16 97 Nasal Cannula 2.0 02/15/17 11:13 36.6 87 20 140/91 (107) 97 Nasal Cannula 2.0 02/15/17 08:00 Nasal Cannula 2.0 02/15/17 07:30 77 15 96 Nasal Cannula 2.0 02/15/17 06:55 36.5 72 20 150/74 (99) 95 Nasal Cannula 2.0 02/15/17 04:00 36.7 82 18 129/61 (83) 94 Nasal Cannula 2.0 02/15/17 04:00 95 Nasal Cannula 2.0 02/15/17 00:00 36.6 84 20 152/66 (94) 95 Nasal Cannula 2.0 02/14/17 23:59 95 Nasal Cannula 2.0 02/14/17 20:49 85 16 95 Nasal Cannula 2.0 02/14/17 20:00 Nasal Cannula 2.0 02/14/17 19:16 36.2 82 18 165/72 (103) 96 Nasal Cannula 2.0 02/14/17 16:00 Nasal Cannula 2.0 02/14/17 15:29 36.2 81 20 150/71 (97) 95 Nasal Cannula 3.0 Physical Exam: JULIA drainage (minimal serosanguinous) General Appearance: WD/WN, no apparent distress, + obese Head: normocephalic, atraumatic Neck: supple, no adenopathy, thyroid normal, no JVD, no carotid bruits, trachea midline Respiratory/Chest: chest non-tender, lungs clear, normal breath sounds, no respiratory distress, no accessory muscle use Cardiovascular: regular rate, rhythm, no edema, no gallop, no JVD, no murmur Abdomen: normal bowel sounds, non distended, soft, no organomegaly, no pulsatile mass, + tenderness (appropriate) Incision(s): clean, dry, intact, no erythema, no drainage Extremities: normal range of motion, non-tender, normal inspection, no pedal edema, no calf tenderness, normal capillary refill, pelvis stable Laboratory Results: Results Past 24 Hours Test 02/15/17 06:16 Range/Units White Blood Count 12.17 4.8-10.8 K/uL Red Blood Count 3.57 4.2-5.4 M/uL Hemoglobin 10.3 12.0-16.0 g/dL Hematocrit 33.3 37-47 % Mean Corpuscular Volume 93.3 80-100 fL Mean Corpuscular Hemoglobin 28.9 25-34 pg Mean Corpuscular Hemoglobin Concent 30.9 32-36 g/dl RDW Standard Deviation 58.7 36.4-46.3 fL RDW Coefficient of Variation 17.1 11.5-14.5 % Platelet Count 318 130-400 K/uL Mean Platelet Volume 9.8 7.4-10.4 fL Sodium Level 142 136-145 mmol/L Potassium Level 3.5 3.5-5.1 mmol/L Chloride Level 109 98-107 mmol/L Carbon Dioxide Level 28 21-32 mmol/L Anion Gap 5.0 3-11 mmol/L Blood Urea Nitrogen 44 7-18 mg/dl Creatinine 1.40 0.60-1.20 mg/dl Est Creatinine Clear Calc Drug Dose 43.7 ml/min Estimated GFR () 42.5 Estimated GFR (Non- 36.7 BUN/Creatinine Ratio 31.8 10-20 Random Glucose 112 70-99 mg/dl Calcium Level 7.7 8.5-10.1 mg/dl Magnesium Level 2.4 1.8-2.4 mg/dl Total Bilirubin 0.4 0.2-1 mg/dl Aspartate Amino Transf (AST/SGOT) 29 15-37 U/L Alanine Aminotransferase (ALT/SGPT) 49 12-78 U/L Alkaline Phosphatase 78 45-117 U/L Total Protein 5.3 6.4-8.2 gm/dl Albumin 1.5 3.4-5.0 gm/dl Globulin 3.8 2.5-4.0 gm/dl Albumin/Globulin Ratio 0.4 0.9-2 Diagnostic Interpretation: [facility] SURGICAL PATHOLOGY REPORT Name SMITA SUNSHINE Case: [id number] SURGICAL PATHOLOGY REPORT Page [address] of [address] [place] [address] Umang Vyas M.D. 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 GROSS DESCRIPTION GALLBLADDER The specimen is received in a container labeled as gallbladder with patient name Smita Sunshine. The specimen consists of a partially collapsed gallbladder which measures 10 cm in length and 4.5 x 2 cm at the fundus. What appears to represent cystic duct measures 0.5 cm in length and 0.3 cm in diameter. The outer surface in general is mottled chavez, han-green with areas of marked irregularity. Loosely attached fibrinous material is noted. The lumen contains a small amount of dark green, thin and watery bile and multiple light and dark green, polygonal calculi which range up to 0.6 cm in greatest dimension. The mucosal surface is dull, dark han-green. The wall ranges from 0.2 to 0.8 cm in thickness and has a dull, chavez to grayish, soft to rubbery appearance and consistency. Outside Barrel Lathe Operator sections are submitted in a single cassette. SH/pi FINAL DIAGNOSIS GALLBLADDER (CHOLECYSTECTOMY): 1. GANGRENOUS CHOLECYSTITIS AND CHOLELITHIASIS ARE SEEN. 2. NO TUMOR IS SEEN. Assessment & Plan POD#3 open cholecystectomy for gangrenous cholecystitis and ERCP for bile leak. She is doing better, but still feeling weak. WBC downtrending. Plan: continue bojorquez due to active diuresis ambulate, IS, pt/ot continue drain, regular diet may need short term placement due to deconditioning Monica Negro, DO
[2017-02-15] MEDS ORDERED: NURSING VERBAL MED ORDER ONE (18:45)
[2017-02-15] MEDS: BOOST BREEZE NUTRITION DRINK 1 BOX PO SCH (21:14)
[2017-02-16] VITALS (11 sets, daily range): BP systolic 132–180; BP diastolic 78–91; PULSE 70–98; TEMP 36.2–36.7; O2SAT 93–97
[2017-02-16] MEDS: PIPERACILL/TAZOBAC IV 4.5 GM in DEXTROSE 5% 100ML IV SCH ×3 (02:16→17:12)
[2017-02-16] MEDS: ALBUT/IPRATROP 3MG/0.5MG NEB 3 ML VIAL INH SCH ×4 (07:14→19:12)
[2017-02-16 08:56] LABS: BASO % 0.1 %; BASO ABS # 0.01 K/uL (0-0.2); COMPLETE YES; EOS % 0.8 %; HEMATOCRIT 38.4 % (37-47); IG% 2.9 %; LYMPH % 6.7 %; LYMPH ABS # 0.82 K/uL (1.2-3.4); MEAN CELL VOLUME 92.8 fL (80-100); MEAN CORPUSCULAR HEMOGLOBIN 27.5 pg (25-34); MEAN CORPUSCULAR HGB CONC 29.7 g/dl (32-36); MEAN PLATELET VOLUME 10.2 fL (7.4-10.4); MONO % 6.8 %; NEUT % 82.7 %; PLATELET COUNT 350 K/uL (130-400); RED BLOOD COUNT 4.14 M/uL (4.2-5.4); WHITE BLOOD COUNT 12.28 K/uL (4.8-10.8)
--- NOTE | 2017-02-16 09:03 | DIAGNOSTIC IMAGING REPORT ---
CHEST ONE VIEW PORTABLE CLINICAL HISTORY: 76 years-old Female presenting with worsening dyspnea, recent CHF. TECHNIQUE: Portable upright AP view of the chest was obtained. COMPARISON: 02/14/2017. FINDINGS: Atherosclerosis of aortic arch.. Enlargement of the cardiac silhouette as on prior exam. Mild prominence of pulmonary vasculature in the right lung. Mild elevation of the right hemidiaphragm with bandlike opacity in the right lung base. The left hemidiaphragm is likely poorly visualized secondary to overlapping soft tissues. No large effusion or pneumothorax. Osseous structures normal. Upper abdomen normal. IMPRESSION: 1. Cardiomegaly. No son pulmonary edema. 2. Right basilar atelectasis. Electronically signed by: Umang Carranza M.D. 02/16/2017 9:02 AM Dictated Date/Time: 02/16/2017 9:00 AM
--- NOTE | 2017-02-16 09:36 | Surgery Progress Note ---
Surgery Progress Note Date of Service Feb 16, 2017. Subjective POD#4 lap converted to open cholecystectomy for gangrenous cholecystectomy, s/p ERCP with stent for bile leak. Overall doing better, she received some bumex and had 4200 cc urine output. Still feels weak and requires O2, complaining about her breathing. She has been ambulating minimally. Doesn't feel she can get up to the bathroom on her own. Tolerating diet, abdominal pain improving. + flatus, no bm Objective Vital Signs: Date Time Temp Pulse Resp B/P (MAP) Pulse Ox O2 Delivery O2 Flow Rate FiO2 02/16/17 08:00 36.7 82 20 159/80 (106) 93 Nasal Cannula 2.0 02/16/17 07:14 70 16 94 Nasal Cannula 2.0 02/16/17 04:00 96 Nasal Cannula 2.0 02/16/17 04:00 36.7 77 22 161/91 (114) 96 Nasal Cannula 2.0 02/15/17 23:59 95 Nasal Cannula 2.0 02/15/17 23:35 36.7 88 20 132/71 (91) 95 Nasal Cannula 2.0 02/15/17 20:06 89 16 95 Nasal Cannula 2.0 02/15/17 20:00 36.6 88 20 145/76 (99) 96 Nasal Cannula 2.0 02/15/17 20:00 96 Nasal Cannula 2.0 02/15/17 16:00 Nasal Cannula 2.0 02/15/17 15:37 36.2 85 18 155/70 (98) 96 Nasal Cannula 2.0 02/15/17 15:01 86 16 97 Nasal Cannula 2.0 02/15/17 11:31 Nasal Cannula 2.0 02/15/17 11:19 86 16 97 Nasal Cannula 2.0 02/15/17 11:13 36.6 87 20 140/91 (107) 97 Nasal Cannula 2.0 General Appearance: no apparent distress, + obese Head: normocephalic, atraumatic Neck: supple, no adenopathy, thyroid normal, no JVD, no carotid bruits, trachea midline Respiratory/Chest: chest non-tender, normal breath sounds, no respiratory distress, no accessory muscle use, + crackles Cardiovascular: regular rate, rhythm, no edema, no gallop, no JVD, no murmur Abdomen: normal bowel sounds, non tender, non distended, soft, no organomegaly , no pulsatile mass Incision(s): clean, dry, intact, no erythema, no drainage Extremities: normal range of motion, non-tender, normal inspection, no pedal edema, no calf tenderness, normal capillary refill, pelvis stable Laboratory Results: Results Past 24 Hours Test 02/16/17 08:40 Range/Units White Blood Count 12.28 4.8-10.8 K/uL Red Blood Count 4.14 4.2-5.4 M/uL Hemoglobin 11.4 12.0-16.0 g/dL Hematocrit 38.4 37-47 % Mean Corpuscular Volume 92.8 80-100 fL Mean Corpuscular Hemoglobin 27.5 25-34 pg Mean Corpuscular Hemoglobin Concent 29.7 32-36 g/dl Platelet Count 350 130-400 K/uL Mean Platelet Volume 10.2 7.4-10.4 fL Neutrophils (%) (Auto) 82.7 % Lymphocytes (%) (Auto) 6.7 % Monocytes (%) (Auto) 6.8 % Eosinophils (%) (Auto) 0.8 % Basophils (%) (Auto) 0.1 % Neutrophils # (Auto) 10.15 1.4-6.5 K/uL Lymphocytes # (Auto) 0.82 1.2-3.4 K/uL Monocytes # (Auto) 0.84 0.11-0.59 K/uL Eosinophils # (Auto) 0.10 0-0.5 K/uL Basophils # (Auto) 0.01 0-0.2 K/uL RDW Standard Deviation 56.4 36.4-46.3 fL RDW Coefficient of Variation 16.7 11.5-14.5 % Immature Granulocyte % (Auto) 2.9 % Immature Granulocyte # (Auto) 0.36 0.00-0.02 K/uL Diagnostic Interpretation: CHEST ONE VIEW PORTABLE CLINICAL HISTORY: 76 years-old Female presenting with worsening dyspnea, recent CHF. TECHNIQUE: Portable upright AP view of the chest was obtained. COMPARISON: 02/14/2017. FINDINGS: Atherosclerosis of aortic arch.. Enlargement of the cardiac silhouette as on prior exam. Mild prominence of pulmonary vasculature in the right lung. Mild elevation of the right hemidiaphragm with bandlike opacity in the right lung base. The left hemidiaphragm is likely poorly visualized secondary to overlapping soft tissues. No large effusion or pneumothorax. Osseous structures normal. Upper abdomen normal. IMPRESSION: 1. Cardiomegaly. No son pulmonary edema. 2. Right basilar atelectasis. Assessment & Plan POD#4 open cholecystectomy for gangrenous cholecystitis and ERCP for bile leak. She is doing better, but still feeling weak and with dyspnea in setting of prior CHF. WBC stable, cr 1.4. Plan: continue bojorquez for active diuresis ambulate, IS, oobtc add heparin sq tid continue drain, regular diet may need short term placement due to deconditioning Monica Negro, DO
[2017-02-16 09:37] LABS: BUN/CREATININE RATIO 28.2 (10-20); CALCIUM 8.2 mg/dl (8.5-10.1); CREATININE 0.96 mg/dl (0.60-1.20); POTASSIUM 3.5 mmol/L (3.5-5.1)
[2017-02-16] MEDS: BOOST BREEZE NUTRITION DRINK 1 BOX PO SCH ×2 (10:14→19:54)
[2017-02-16] MEDS ORDERED: BUMETANIDE IV 1 MG in SYRINGE 0 ML IV ONE (10:15)
[2017-02-16] MEDS ORDERED: POTASSIUM CHLORIDE 10 MEQ TABCR PO STA (10:19)
--- NOTE | 2017-02-16 10:23 | Hospitalist Progress Note ---
Hospitalist Progress Note Date of Service Feb 16, 2017. (Anna Headley ., PA-C) Subjective Pt evaluation today including: conversation w/ patient, physical exam, chart review, lab review, review of studies, review of inpatient medication list Patient is feeling SOB again this morning. She denies cough, chest pain, sputum production. She is SOB at rest and especially with exertion. She had a dose of IV Bumex 1 mg yesterday along with KCl and states that she felt slightly better at that time. She did have urinary output of 4200 cc throughout the day yesterday. She had output of 950 cc so far today. She has not moved her bowels yet today. She continues to have pain in the right abdomen at her drain site. She continues on IV Zosyn. Gallbladder culture and urine culture growing pansensitive E. Coli. Surgery continues to follow. She continues to have Tovar catheter and surgical drain in place. Labs 02/16: WBC 12.28 Creatinine 0.96 BUN 27 Electrolytes stable Calcium 8.2 Repeat CXR this morning ordered by Dr. Gonzalez showed cardiomegaly, no son pulmonary edema, and right basilar atelectasis with band-like opacity described. Image viewed. All Other Systems: Reviewed and Negative (Anna Headley ., PA-C) Medications Current Inpatient Medications Medications (Trade) Dose Ordered Sig/Shagufta Route Start Time Stop Time Status Last Admin Dose Admin Oxycodone/ Acetaminophen (Percocet 5-325mg Tab) 1 tab Q4H PRN PO 02/12/17 23:00 02/26/17 22:59 02/15/17 21:10 1 TAB Morphine Sulfate (MoRPHine SULFATE INJ) 4 mg Q1H PRN IV 02/12/17 23:00 02/26/17 22:59 02/13/17 09:01 4 MG Ondansetron HCl (Zofran Inj) 4 mg Q6H PRN IV 02/12/17 23:00 03/14/17 22:59 Piperacillin Sod/ Tazobactam Sod 4.5 gm/Dextrose 120 ml @ 30 mls/hr Q8H IV 02/14/17 02:00 02/21/17 23:59 02/16/17 02:16 30 MLS/HR Piperacillin Sod/ Tazobactam Sod (Consult) 1 ea UD PRN N/A 02/13/17 16:30 03/15/17 16:29 Albuterol/ Ipratropium (Duoneb) 3 ml QIDR INH 02/14/17 20:30 03/16/17 20:29 02/16/17 07:14 3 ML Enteral Nutritional Formula (Boost Breeze Nutritional Drink) 1 box BID@1000,1900 PO 02/15/17 19:00 03/17/17 18:59 (Anna Headley ., PA-C) Objective Vital Signs Date Time Temp Pulse Resp B/P (MAP) Pulse Ox O2 Delivery O2 Flow Rate FiO2 02/16/17 08:00 36.7 82 20 159/80 (106) 93 Nasal Cannula 2.0 02/16/17 07:14 70 16 94 Nasal Cannula 2.0 02/16/17 04:00 96 Nasal Cannula 2.0 02/16/17 04:00 36.7 77 22 161/91 (114) 96 Nasal Cannula 2.0 02/15/17 23:59 95 Nasal Cannula 2.0 02/15/17 23:35 36.7 88 20 132/71 (91) 95 Nasal Cannula 2.0 02/15/17 20:06 89 16 95 Nasal Cannula 2.0 02/15/17 20:00 36.6 88 20 145/76 (99) 96 Nasal Cannula 2.0 02/15/17 20:00 96 Nasal Cannula 2.0 02/15/17 16:00 Nasal Cannula 2.0 02/15/17 15:37 36.2 85 18 155/70 (98) 96 Nasal Cannula 2.0 02/15/17 15:01 86 16 97 Nasal Cannula 2.0 02/15/17 11:31 Nasal Cannula 2.0 02/15/17 11:19 86 16 97 Nasal Cannula 2.0 02/15/17 11:13 36.6 87 20 140/91 (107) 97 Nasal Cannula 2.0 (Anna Headley ., PA-C) Physical Exam General Appearance: + mild distress, + obese Eyes: normal inspection, sclerae normal ENT: hearing grossly normal Neck: supple, trachea midline Respiratory/Chest: chest non-tender, no accessory muscle use, + decreased breath sounds (throughout), + pertinent finding (mild coarse breath sounds heart throughout ) Cardiovascular: regular rate, rhythm, no murmur Abdomen: normal bowel sounds, soft, + tenderness (right side of abdomen, surgical drain in place) Extremities: normal range of motion, non-tender, normal inspection, no pedal edema, + pertinent finding (No significant edema noted in the b/l lower extremities) Neurologic/Psychiatric: alert, normal mood/affect Skin: normal color, warm/dry, no rash (Anna Headley ., PA-C) Laboratory Results CHEST ONE VIEW PORTABLE CLINICAL HISTORY: 76 years-old Female presenting with worsening dyspnea, recent CHF. TECHNIQUE: Portable upright AP view of the chest was obtained. COMPARISON: 02/14/2017. FINDINGS: Atherosclerosis of aortic arch.. Enlargement of the cardiac silhouette as on prior exam. Mild prominence of pulmonary vasculature in the right lung. Mild elevation of the right hemidiaphragm with bandlike opacity in the right lung base. The left hemidiaphragm is likely poorly visualized secondary to overlapping soft tissues. No large effusion or pneumothorax. Osseous structures normal. Upper abdomen normal. IMPRESSION: 1. Cardiomegaly. No son pulmonary edema. 2. Right basilar atelectasis. Item Value Date Time Gram Stain - Final Resulted 02/12/17 2155 Gallbladder Urine Culture - Final Complete 02/12/17 1624 Urine,Catheterized Escherichia Coli Last 24 Hours Test 02/16/17 08:40 White Blood Count 12.28 K/uL Red Blood Count 4.14 M/uL Hemoglobin 11.4 g/dL Hematocrit 38.4 % Mean Corpuscular Volume 92.8 fL Mean Corpuscular Hemoglobin 27.5 pg Mean Corpuscular Hemoglobin Concent 29.7 g/dl Platelet Count 350 K/uL Mean Platelet Volume 10.2 fL Neutrophils (%) (Auto) 82.7 % Lymphocytes (%) (Auto) 6.7 % Monocytes (%) (Auto) 6.8 % Eosinophils (%) (Auto) 0.8 % Basophils (%) (Auto) 0.1 % Neutrophils # (Auto) 10.15 K/uL Lymphocytes # (Auto) 0.82 K/uL Monocytes # (Auto) 0.84 K/uL Eosinophils # (Auto) 0.10 K/uL Basophils # (Auto) 0.01 K/uL RDW Standard Deviation 56.4 fL RDW Coefficient of Variation 16.7 % Immature Granulocyte % (Auto) 2.9 % Immature Granulocyte # (Auto) 0.36 K/uL (Anna Headley ., PA-C) Assessment and Plan 1. Gangrenous cholecystitis, s/p open cholecystectomy POD 4 -Surgery following -SC Heparin added for DVT ppx -Continue Tovar catheter -Continue SCD's -May need placement due to deconditioning following stay -Pain currently well controlled -Continue Zosyn per surgery 2. Shortness of breath- possibly due to hypervolemia, LV diastolic dysfunction, possible pulmonary edema versus post-operative atelectasis -Will order another dose of IV Bumex 1 mg x1 along with PO Klor-Con 40 mEq x 1 -Continue to monitor I&O's, daily weight -Check echocardiogram today -Continue O2 supplementation via nasal cannula- will consider BiPAP if she begins to desaturate -Repeat CXR ordered this morning- not much change seen -BMP ordered for this morning as well- creatinine improved. 3. Hypoalbuminemia -Patient tolerating PO diet well -Will repeat Albumin in the AM -Continue Boost supplementation 4.Morbid Obesity -Activity as tolerated 5. History of Postoperative bile leak- s/p ERCP with stent placement 6. Hypertension- continue to monitor 7. SURJIT -Improved creatinine today. Will continue diuresis as above today. Will continue to monitor 8. DVT PPX -Continue SCD's -Heparin per surgery (Anna Headley ., PA-C) Attending Attestation: Pt seen/examined, chart reviewed, care plan d/w KELLY Multani. I agree w/ the santillan components of her documentation. By the time I saw her on rounds she had received additional bumex and had copious diuresis. Thus, her dyspnea was better by the time of my visit. She reported no cough. Appetite fair. +flatus. VSS afebrile gen - obese neck - no obvious JVD heart - RRR lungs - decreased BS bases abd - obese, distended, BS+ but dimished, tender over incision ext - no edema neuro - strength x 5/5 exts skin - incision clean RUQ labs: cr 0.9 BMP nl mag nl A/P: 1. acute diastolic CHF - improving. Bumex again this am. Agree w/ echo. 2. acute kidney injury - resolved. 3. sepsis 2nd to gangrenous cholecystitis - s/p open reynold. Remains on zosyn for e. coli from intraop culture. Defer management to surgery. 4. e. coli UTI - zosyn will certainly suffice. 5. severe hypoalbuminemia/protein calorie malnutrition - boost BID w/ meals. 6. stroke on CT head - MRI of brain in future to confirm. Risk factor modification when able (aspirin, treat lipids, etc). Progressing nicely. Bentley Gonzalez MD (Bentley Gonzalez MD)
[2017-02-16] MEDS ORDERED: PERFLUTREN LIPID MICROSPHERE (DEFINITY) IV ONE (11:01)
[2017-02-16] MEDS: HEPARIN SOD 5000 UNIT/0.5 ML CARP SQ SCH ×2 (13:10→21:44)
--- NOTE | 2017-02-16 14:12 | ECHOCARDIOGRAM REPORT ---
*NOTICE TO RECEIVING CONSTITUTION PARTY AGENCY This information is strictly Confidential and protected under [place] law. [place] law prohibits you from making any further disclosure of this information unless further disclosure is expressly permitted by the written consent of the person to whom it pertains or is authorized by law. A general authorization for the release of medical or other information is not sufficient for this purpose. Hospital accepts no responsibility if the information is made available to any other person, INCLUDING THE PATIENT. Interpretation Summary * Name: MARY SUNSHINE Study Date: 02/16/2017 10:40 AM BP: 159/80 mmHg * Patient Location: C.2T\S\E222\S\1 HR: 82 * : 1940 (M/d/yyyy) Gender: Female Height: 64 in * Age: 76 yrs Ethnicity: CA Weight: 259 lb * Ordering Physician: Anna Headley * Referring Physician: Jo Jones * Performed By: Debbi Cardona * * Reason For Study: CHF, CARDIOMEGALY, SOB, PULM EDEMA * BSA: 2.2 m2 * -- Conclusions -- * This is an incredibly limited study as the patient was scanned flat and could not roll. * Left ventricular systolic function is normal. * Ejection Fraction = 50-55%. * The right ventricle is normal in size and function. * Repeat study when the patient can cooperate to get better images. Procedure Details * The study was technically limited. * The study was technically difficult. * Limited views were obtained. * There were technical limitations due to patient's poor positioning. Patient was unable to move/roll on left side due to gaetano in her abdomen. Could not get subcostal images due to gaetano in the way. * A contrast injection of Definity was performed to improve assessment of LV function. * Contrast was injected into an intravenous site in the right arm. * One vial of Definity ultrasound contrast was diluted in normal saline to a total volume of 10 ml. A total of '3' ml of solution was administered during imaging. * Lot # [id number] of Definity utilized for procedure. * Expiration date 03/19. * The attending nurse who injected the contrast agent was Soha mcmangial, RN. Left Ventricle * Ejection Fraction = 50-55%. * Left ventricular systolic function is normal. Right Ventricle * The right ventricle is normal in size and function. Mitral Valve * The mitral valve is grossly normal. Aortic Valve * The aortic valve opens well. Great Vessels * The aortic root is normal size. Pericardium/Pleural * There is no pericardial effusion. MMode 2D Measurements and Calculations ACS 2.0 cm asc Aorta Diam 3.2 cm LVOT diam 1.8 cm LVOT area 2.7 cm\S\2 Doppler Measurements and Calculations MV E max dung 65.3 cm/sec MV A max dung 98.2 cm/sec MV E/A 0.67 MV dec time 0.22 sec Ao V2 max 89.9 cm/sec Ao max PG 3.2 mmHg Ao max PG (full) 0.36 mmHg RYAN(V,A) 2.5 cm\S\2 RYAN(V,D) 2.5 cm\S\2 LV V1 max PG 2.9 mmHg LV V1 max 84.8 cm/sec PA V2 max 58.8 cm/sec PA max PG 1.4 mmHg
[2017-02-17] VITALS (10 sets, daily range): BP systolic 132–147; BP diastolic 79–88; PULSE 84–95; TEMP 36.4–37.4; O2SAT 92–98
[2017-02-17] MEDS: PIPERACILL/TAZOBAC IV 4.5 GM in DEXTROSE 5% 100ML IV SCH ×3 (02:49→16:55)
[2017-02-17 05:53] LABS: MEAN CELL VOLUME 91.1 fL (80-100); MEAN CORPUSCULAR HEMOGLOBIN 29.1 pg (25-34); MEAN CORPUSCULAR HGB CONC 31.9 g/dl (32-36); MEAN PLATELET VOLUME 9.7 fL (7.4-10.4); PLATELET COUNT 391 K/uL (130-400); RED BLOOD COUNT 3.95 M/uL (4.2-5.4)
[2017-02-17] MEDS: HEPARIN SOD 5000 UNIT/0.5 ML CARP SQ SCH ×3 (06:13→21:38)
[2017-02-17 06:38] LABS: ALB/GLOB RATIO 0.4 (0.9-2); BUN/CREATININE RATIO 18.9 (10-20); CREATININE 0.92 mg/dl (0.60-1.20); POTASSIUM 3.6 mmol/L (3.5-5.1)
[2017-02-17] MEDS: ALBUT/IPRATROP 3MG/0.5MG NEB 3 ML VIAL INH SCH ×4 (07:12→19:46)
--- NOTE | 2017-02-17 09:51 | Surgery Progress Note ---
Surgery Progress Note Date of Service Feb 17, 2017. Subjective Post OP Day: 4 (ERCP with biliary stent x 2) + feeling well, + SOB, + bowel movement, + flatus, + pain controlled, + diet, No chest pain, No nausea, No vomiting Objective Vital Signs: Date Time Temp Pulse Resp B/P (MAP) Pulse Ox O2 Delivery O2 Flow Rate FiO2 02/17/17 09:22 Room Air 02/17/17 08:00 Room Air 02/17/17 07:30 36.4 90 20 132/84 (100) 93 Room Air 02/17/17 07:12 86 16 98 Nasal Cannula 1.0 02/17/17 04:00 Nasal Cannula 2.0 02/17/17 03:36 36.7 92 18 147/84 (105) 94 Nasal Cannula 4.0 02/17/17 00:01 Nasal Cannula 2.0 02/17/17 00:00 36.5 95 22 146/88 (107) 95 Room Air 4.0 02/16/17 20:00 Nasal Cannula 2.0 02/16/17 19:44 36.2 98 22 140/83 (102) 94 Nasal Cannula 2.0 02/16/17 19:12 96 16 93 Nasal Cannula 2.0 02/16/17 16:00 Nasal Cannula 2.0 02/16/17 15:34 91 16 95 Nasal Cannula 2.0 02/16/17 15:25 36.7 89 20 154/85 (108) 95 Nasal Cannula 2.0 02/16/17 12:00 Nasal Cannula 2.0 02/16/17 11:55 159/80 (106) 02/16/17 11:25 85 16 97 Nasal Cannula 2.0 02/16/17 11:12 36.4 87 179/84 (115) 95 2.0 180/79 (112) 02/16/17 10:48 88 95 Physical Exam: JULIA drainage (cloudy,serosanguienous, bilious) General Appearance: WD/WN, no apparent distress, + obese Head: normocephalic, atraumatic Neck: trachea midline Respiratory/Chest: no respiratory distress, no accessory muscle use, + wheezing Abdomen: non distended, soft, no organomegaly, no pulsatile mass, + tenderness (appropriate at incision sites) Incision(s): clean, dry, intact, no erythema, ecchymosis, findings (gaetano present and intact) Laboratory Results: Results Past 24 Hours Test 02/17/ 05:11 Range/Units White Blood Count 13.40 4.8-10.8 K/uL Red Blood Count 3.95 4.2-5.4 M/uL Hemoglobin 11.5 12.0-16.0 g/dL Hematocrit 36.0 37-47 % Mean Corpuscular Volume 91.1 80-100 fL Mean Corpuscular Hemoglobin 29.1 25-34 pg Mean Corpuscular Hemoglobin Concent 31.9 32-36 g/dl RDW Standard Deviation 54.4 36.4-46.3 fL RDW Coefficient of Variation 16.3 11.5-14.5 % Platelet Count 391 130-400 K/uL Mean Platelet Volume 9.7 7.4-10.4 fL Sodium Level 143 136-145 mmol/L Potassium Level 3.6 3.5-5.1 mmol/L Chloride Level 103 98-107 mmol/L Carbon Dioxide Level 33 21-32 mmol/L Anion Gap 7.0 3-11 mmol/L Blood Urea Nitrogen 17 7-18 mg/dl Creatinine 0.92 0.60-1.20 mg/dl Est Creatinine Clear Calc Drug Dose 66.7 ml/min Estimated GFR () 70.6 Estimated GFR (Non- 60.9 BUN/Creatinine Ratio 18.9 10-20 Random Glucose 116 70-99 mg/dl Calcium Level 8.0 8.5-10.1 mg/dl Magnesium Level 2.0 1.8-2.4 mg/dl Total Bilirubin 0.6 0.2-1 mg/dl Aspartate Amino Transf (AST/SGOT) 26 15-37 U/L Alanine Aminotransferase (ALT/SGPT) 36 12-78 U/L Alkaline Phosphatase 90 45-117 U/L Total Protein 6.1 6.4-8.2 gm/dl Albumin 1.7 3.4-5.0 gm/dl Globulin 4.4 2.5-4.0 gm/dl Albumin/Globulin Ratio 0.4 0.9-2 Assessment & Plan POD # 5 s/p open cholecystectomy, intraoperative cholangiogram, and POD # 4 s/p ERCP with biliary stent x 2 for bile leak -vitals stable, O2 sats 93% on RA however slightly short of breath still - pain minimal, controlled - tolerating regular diet - +bowel function (bowel movement this morning) - Slight increase in Leukocytosis today (13.40K) Plan: Continue PO Percocet and Breakthrough IV Morphine as needed for pain Continue IV antibiotics, will need total of 2 weeks Continue Regular diet Continue Current medical management Will continue Tovar given Diuresis Continue Heparin SQ TID Encourage ambulation and OOB to chair Continue PT/OT May need placement for deconditioning? repeat am labs, trend WBC Continue JULIA drain to bulb suction Dr. Robles has seen and examined patient agrees with above
[2017-02-17] MEDS: BOOST BREEZE NUTRITION DRINK 1 BOX PO SCH ×2 (10:17→20:27)
--- NOTE | 2017-02-17 10:57 | Clinical Documentation Query ---
Please Document Present on Admission Status for - Sepsis Sepsis 2nd to gangrenous cholecystitis was documented on 02/14. The Present on Admission (POA) is in question since this was not documented until day #3 of stay. The patient presented tachycardic, leukocytotic, and with +Procalcitonin. She was ultimately found to have a gangrenous gall bladder and underwent emergent cholecystectomy. ( x ) Sepsis POA ( ) Sepsis not POA Thank You, Uriel Vaughan, RN [phone]
--- NOTE | 2017-02-17 14:15 | Hospitalist Progress Note ---
Hospitalist Progress Note Date of Service Feb 17, 2017. Subjective Pt evaluation today including: conversation w/ patient, physical exam, chart review, lab review, review of studies, review of inpatient medication list Voiding: bojorquez catheter in place Patient seen and evaluated. No acute events overnight. Reporting controlled pain and diet tolerance. Is laying flat in bed without acute distress. Denies SOB. Diuresed for a negative balance of 2 L Adequate oxygenation on RA. Constitutional: No fever, No chills Respiratory: No cough, No shortness of breath Cardiovascular: No chest pain, No orthopnea, No palpitations Abdomen: + pain (intermittent incisional pain), No nausea, No vomiting, No diarrhea, No constipation Heme: No abnormal bleeding/bruising Medications Current Inpatient Medications Medications (Trade) Dose Ordered Sig/Shagufta Route Start Time Stop Time Status Last Admin Dose Admin Oxycodone/ Acetaminophen (Percocet 5-325mg Tab) 1 tab Q4H PRN PO 02/12/17 23:00 02/26/17 22:59 02/15/17 21:10 1 TAB Morphine Sulfate (MoRPHine SULFATE INJ) 4 mg Q1H PRN IV 02/12/17 23:00 02/26/17 22:59 02/13/17 09:01 4 MG Ondansetron HCl (Zofran Inj) 4 mg Q6H PRN IV 02/12/17 23:00 03/14/17 22:59 Piperacillin Sod/ Tazobactam Sod 4.5 gm/Dextrose 120 ml @ 30 mls/hr Q8H IV 02/14/17 02:00 02/21/17 23:59 02/17/17 09:40 30 MLS/HR Piperacillin Sod/ Tazobactam Sod (Consult) 1 ea UD PRN N/A 02/13/17 16:30 03/15/17 16:29 Albuterol/ Ipratropium (Duoneb) 3 ml QIDR INH 02/14/17 20:30 03/16/17 20:29 02/17/17 11:17 3 ML Enteral Nutritional Formula (Boost Breeze Nutritional Drink) 1 box BID@1000,1900 PO 02/15/17 19:00 03/17/17 18:59 02/17/17 10:17 1 BOX Heparin Sodium (Porcine) (Heparin Sq 5000 Unit/0.5ml) 5,000 unit Q8 SQ 02/16/17 14:00 03/18/17 13:59 02/17/17 14:02 5,000 UNIT Objective Vital Signs Date Time Temp Pulse Resp B/P (MAP) Pulse Ox O2 Delivery O2 Flow Rate FiO2 02/17/17 12:00 Room Air 02/17/17 11:17 94 16 94 Room Air 02/17/17 11:12 36.5 92 22 140/83 (102) 94 02/17/17 09:22 Room Air 02/17/17 08:00 Room Air 02/17/17 07:30 36.4 90 20 132/84 (100) 93 Room Air 02/17/17 07:12 86 16 98 Nasal Cannula 1.0 02/17/17 04:00 Nasal Cannula 2.0 02/17/17 03:36 36.7 92 18 147/84 (105) 94 Nasal Cannula 4.0 02/17/17 00:01 Nasal Cannula 2.0 02/17/17 00:00 36.5 95 22 146/88 (107) 95 Room Air 4.0 02/16/17 20:00 Nasal Cannula 2.0 02/16/17 19:44 36.2 98 22 140/83 (102) 94 Nasal Cannula 2.0 02/16/17 19:12 96 16 93 Nasal Cannula 2.0 02/16/17 16:00 Nasal Cannula 2.0 02/16/17 15:34 91 16 95 Nasal Cannula 2.0 02/16/17 15:25 36.7 89 20 154/85 (108) 95 Nasal Cannula 2.0 Physical Exam General Appearance: WD/WN, no apparent distress, + obese Eyes: sclerae normal ENT: hearing grossly normal Neck: supple, no JVD, trachea midline Respiratory/Chest: lungs clear, normal breath sounds, no respiratory distress, no accessory muscle use Cardiovascular: regular rate, rhythm, no gallop, no murmur Abdomen: normal bowel sounds, non tender, soft, + pertinent finding (RUQ incision well-approximated with stables in place; laparoscopic incisions well- approximated; JULIA drain present) Extremities: no pedal edema, no calf tenderness Neurologic/Psychiatric: alert Skin: normal color, warm/dry Laboratory Results Last 24 Hours Test 02/17/17 05:11 White Blood Count 13.40 K/uL Red Blood Count 3.95 M/uL Hemoglobin 11.5 g/dL Hematocrit 36.0 % Mean Corpuscular Volume 91.1 fL Mean Corpuscular Hemoglobin 29.1 pg Mean Corpuscular Hemoglobin Concent 31.9 g/dl RDW Standard Deviation 54.4 fL RDW Coefficient of Variation 16.3 % Platelet Count 391 K/uL Mean Platelet Volume 9.7 fL Sodium Level 143 mmol/L Potassium Level 3.6 mmol/L Chloride Level 103 mmol/L Carbon Dioxide Level 33 mmol/L Anion Gap 7.0 mmol/L Blood Urea Nitrogen 17 mg/dl Creatinine 0.92 mg/dl Est Creatinine Clear Calc Drug Dose 66.7 ml/min Estimated GFR () 70.6 Estimated GFR (Non- 60.9 BUN/Creatinine Ratio 18.9 Random Glucose 116 mg/dl Calcium Level 8.0 mg/dl Magnesium Level 2.0 mg/dl Total Bilirubin 0.6 mg/dl Aspartate Amino Transf (AST/SGOT) 26 U/L Alanine Aminotransferase (ALT/SGPT) 36 U/L Alkaline Phosphatase 90 U/L Total Protein 6.1 gm/dl Albumin 1.7 gm/dl Globulin 4.4 gm/dl Albumin/Globulin Ratio 0.4 Assessment and Plan Sepsis 2/2 Gangrenous Cholecystitis S/P Open Cholecystectomy and S/P ERCP 2/2 Bile Leak: - Surgery as primary - IVF, Pain Management, PT/OT, DVT Prophylaxis - DVT Prophylaxis - Heparin 5000 units SC Q8H - Zosyn with continuation/duration per primary Acute Diastolic CHF: IMPROVING - Echo - limited study - EF 50-55% - Bumex utilized for diureses - neg balance 2 L - will hold off on further diuresis Acute Kidney Injury: RESOLVED - Continue to monitor E. Coli UTI: - Zosyn for coverage Disposition: - CT evidence of CVA - can obtain MRI of brain as outpatient Thank you for the consultation. We will continue to follow Continued [facility] stay due to: multiple IV medications needed Discharge planning: home with home health
[2017-02-18] VITALS (12 sets, daily range): BP systolic 122–163; BP diastolic 70–87; PULSE 59–98; TEMP 36.6–37.7; O2SAT 91–99
[2017-02-18] MEDS: PIPERACILL/TAZOBAC IV 4.5 GM in DEXTROSE 5% 100ML IV SCH ×2 (01:06→09:49)
--- NOTE | 2017-02-18 04:48 | Clinical Documentation Query ---
Please Document Present on Admission Status for - Sepsis Sepsis 2nd to gangrenous cholecystitis was documented on 02/14. The Present on admission (POA) is in question since this was not documented until day #3 of stay. The patient presented tachycardic, leukocytotic, and with +Procalcitonin (x ) Sepsis POA ( ) Sepsis not POA Thank You, Uriel Vaughan, RN [phone]
[2017-02-18] MEDS: HEPARIN SOD 5000 UNIT/0.5 ML CARP SQ SCH ×3 (05:59→22:05)
[2017-02-18] MEDS: ALBUT/IPRATROP 3MG/0.5MG NEB 3 ML VIAL INH SCH ×4 (07:08→19:04)
[2017-02-18 07:35] LABS: HEMATOCRIT 36.1 % (37-47); MEAN CELL VOLUME 91.4 fL (80-100); MEAN CORPUSCULAR HEMOGLOBIN 29.4 pg (25-34); MEAN CORPUSCULAR HGB CONC 32.1 g/dl (32-36); MEAN PLATELET VOLUME 9.5 fL (7.4-10.4); PLATELET COUNT 415 K/uL (130-400); RED BLOOD COUNT 3.95 M/uL (4.2-5.4); WHITE BLOOD COUNT 13.85 K/uL (4.8-10.8)
--- NOTE | 2017-02-18 09:03 | Surgery Progress Note ---
Surgery Progress Note Date of Service Feb 18, 2017. Subjective Post OP Day: + feeling well, + ambulating (to bathroom ), + bowel movement, + flatus, + pain controlled, + diet (tolerating regular diet), No complaints, No chest pain, No SOB, No nausea, No vomiting Objective Vital Signs: Date Time Temp Pulse Resp B/P (MAP) Pulse Ox O2 Delivery O2 Flow Rate FiO2 02/18/17 07:43 36.6 93 22 141/83 (102) 99 Room Air 02/18/17 07:08 91 16 92 Room Air 02/18/17 04:10 36.6 84 20 134/87 (103) 92 Room Air 02/18/17 04:00 Nasal Cannula 2.0 02/18/17 00:01 Nasal Cannula 2.0 02/18/17 00:00 36.7 86 22 122/86 (98) 93 Room Air 02/17/17 20:08 37.0 93 18 143/80 (101) 92 Room Air 02/17/17 20:00 Room Air 02/17/17 19:47 88 16 92 Room Air 02/17/17 15:48 37.4 89 18 138/79 (98) 94 Room Air 02/17/17 15:29 Room Air 02/17/17 15:19 84 16 94 Room Air 02/17/17 12:00 Room Air 02/17/17 11:17 94 16 94 Room Air 02/17/17 11:12 36.5 92 22 140/83 (102) 94 02/17/17 09:22 Room Air Physical Exam: JULIA drainage (dark green, serous output, minimal ) General Appearance: WD/WN, no apparent distress, + obese Head: normocephalic, atraumatic Neck: trachea midline Respiratory/Chest: lungs clear, normal breath sounds, no respiratory distress, no accessory muscle use Cardiovascular: regular rate, rhythm, no murmur Abdomen: non tender, non distended, soft, no organomegaly, no pulsatile mass Incision(s): clean, dry, intact, no erythema, no drainage, ecchymosis, findings (stapples intact) Laboratory Results: Results Past 24 Hours Test 02/18/17 07:21 Range/Units White Blood Count 13.85 4.8-10.8 K/uL Red Blood Count 3.95 4.2-5.4 M/uL Hemoglobin 11.6 12.0-16.0 g/dL Hematocrit 36.1 37-47 % Mean Corpuscular Volume 91.4 80-100 fL Mean Corpuscular Hemoglobin 29.4 25-34 pg Mean Corpuscular Hemoglobin Concent 32.1 32-36 g/dl RDW Standard Deviation 54.5 36.4-46.3 fL RDW Coefficient of Variation 16.4 11.5-14.5 % Platelet Count 415 130-400 K/uL Mean Platelet Volume 9.5 7.4-10.4 fL Assessment & Plan POD # 6 s/p open cholecystectomy, intraoperative cholangiogram, and POD # 5 s/p ERCP with biliary stent x 2 for bile leak - vitals stable, O2 sats 99% on RA - minimal to no abdominal pain - tolerating regular diet - +bowel function (bowel movement this morning) - Slight increase in Leukocytosis today (13.85K) Plan: Continue PO Percocet and Breakthrough IV Morphine as needed for pain Continue IV antibiotics, will need total of 2 weeks of broad spectrum antibiotics Continue Regular diet Discontinue Tovar Catheter Continue Heparin SQ TID Encourage ambulation and OOB to chair Continue PT/OT May need placement for deconditioning? billing services manager has seen patient, sending request to [facility] (Primary choice) for rehabilitation and [facility] as back up, will await approval repeat am labs, trend WBC Continue JULIA drain to bulb suction, will go home with drain given bile leak Dr. Robles has seen and examined patient, agrees with above
[2017-02-18] MEDS: BOOST BREEZE NUTRITION DRINK 1 BOX PO SCH ×2 (09:49→20:14)
--- NOTE | 2017-02-18 13:45 | Progress Note ---
Subjective Date of Service: Feb 18, 2017. Subjective Pt evaluation today including: conversation w/ patient, physical exam, lab review, conversation w/ clinical program consultant, review of inpatient medication list Pain: minimal pain today PO Intake: adequate Voiding: no voiding problems (bojorquez pulled this AM) patient doing well, eating, + flatus, moving bowels breathing comfortably diuresing on her own, no Bumex yesterday or today interested in going to rehab Problem List Medical Problems: (1) Elevated WBC count Status: Acute (2) Gangrenous cholecystitis Status: Acute (3) Generalized weakness Status: Acute (4) Pancreatitis Status: Acute Review of Systems Constitutional: + weakness, + fatigue Abdomen: + pain All Other Systems: Reviewed and Negative Medications Current Inpatient Medications Medications (Trade) Dose Ordered Sig/Shagufta Route Start Time Stop Time Status Last Admin Dose Admin Oxycodone/ Acetaminophen (Percocet 5-325mg Tab) 1 tab Q4H PRN PO 02/12/17 23:00 02/26/17 22:59 02/15/17 21:10 1 TAB Morphine Sulfate (MoRPHine SULFATE INJ) 4 mg Q1H PRN IV 02/12/17 23:00 02/26/17 22:59 02/13/17 09:01 4 MG Ondansetron HCl (Zofran Inj) 4 mg Q6H PRN IV 02/12/17 23:00 03/14/17 22:59 Piperacillin Sod/ Tazobactam Sod 4.5 gm/Dextrose 120 ml @ 30 mls/hr Q8H IV 02/14/17 02:00 02/21/17 23:59 02/18/17 09:49 30 MLS/HR Piperacillin Sod/ Tazobactam Sod (Consult) 1 ea UD PRN N/A 02/13/17 16:30 03/15/17 16:29 Albuterol/ Ipratropium (Duoneb) 3 ml QIDR INH 02/14/17 20:30 03/16/17 20:29 02/18/17 11:29 3 ML Enteral Nutritional Formula (Boost Breeze Nutritional Drink) 1 box BID@1000,1900 PO 02/15/17 19:00 03/17/17 18:59 02/18/17 09:49 1 BOX Heparin Sodium (Porcine) (Heparin Sq 5000 Unit/0.5ml) 5,000 unit Q8 SQ 02/16/17 14:00 03/18/17 13:59 02/18/17 05:59 5,000 UNIT Objective Vital Signs Date Time Temp Pulse Resp B/P (MAP) Pulse Ox O2 Delivery O2 Flow Rate FiO2 02/18/17 12:00 Room Air 02/18/17 11:32 Room Air 02/18/17 11:29 82 16 91 Room Air 02/18/17 08:00 Room Air 02/18/17 07:43 36.6 93 22 141/83 (102) 99 Room Air 02/18/17 07:08 91 16 92 Room Air 02/18/17 04:10 36.6 84 20 134/87 (103) 92 Room Air 02/18/17 04:00 Nasal Cannula 2.0 02/18/17 00:01 Nasal Cannula 2.0 02/18/17 00:00 36.7 86 22 122/86 (98) 93 Room Air 02/17/17 20:08 37.0 93 18 143/80 (101) 92 Room Air 02/17/17 20:00 Room Air 02/17/17 19:47 88 16 92 Room Air 02/17/17 15:48 37.4 89 18 138/79 (98) 94 Room Air 02/17/17 15:29 Room Air 02/17/17 15:19 84 16 94 Room Air Physical Exam General Appearance: no apparent distress, + obese Eyes: normal inspection, EOMI, sclerae normal Neck: supple, no adenopathy, no JVD, trachea midline Respiratory/Chest: chest non-tender, lungs clear, normal breath sounds, no respiratory distress, no accessory muscle use Cardiovascular: regular rate, rhythm, no edema, no gallop, no JVD, no murmur Abdomen: normal bowel sounds, soft, no organomegaly, + tenderness (minimal at incision sights) Extremities: normal range of motion, non-tender, normal inspection, no calf tenderness, pelvis stable, + pedal edema (trace edema bilaterally) Neurologic/Psychiatric: program management professional II-XII nml as tested, alert, normal mood/affect, oriented x 3, + motor weakness (generalized) Skin: normal color, warm/dry, no rash Laboratory Results Last 24 Hours Test 02/18/17 07:21 White Blood Count 13.85 K/uL Red Blood Count 3.95 M/uL Hemoglobin 11.6 g/dL Hematocrit 36.1 % Mean Corpuscular Volume 91.4 fL Mean Corpuscular Hemoglobin 29.4 pg Mean Corpuscular Hemoglobin Concent 32.1 g/dl RDW Standard Deviation 54.5 fL RDW Coefficient of Variation 16.4 % Platelet Count 415 K/uL Mean Platelet Volume 9.5 fL Assessment and Plan Sepsis POA 2/2 Gangrenous Cholecystitis S/P Open Cholecystectomy and S/P ERCP 2/ 2 Bile Leak: - pain control with Percocet, Morphine IV for breakthrough - Zosyn IV, will need total of two weeks of IV antibiotics will need access for additional week, determine alternative antibiotic since Zosyn dosing not ideal Acute Diastolic CHF: resolved today, lungs clear, euvolemic - Echo - limited study - EF 50-55% - no Bumex needed for two days Acute Kidney Injury: RESOLVED - Continue to monitor - bojorquez pulled today, urinating normally E. Coli UTI: - covered with Zosyn Disposition: transfer to medical floor today, look for rehab in next 24-[address] [facility] stay due to: multiple IV medications needed Discharge planning: home with home health
[2017-02-18] MEDS ORDERED: [UNRECOGNIZED DRUG - REMARK] PRN (15:15)
[2017-02-18] MEDS ORDERED: ERTAPENEM IV 1 GM in SODIUM CHLOR 0.9% AD-VAN 50ML IV SCH (20:00)
[2017-02-19] VITALS (8 sets, daily range): BP systolic 106–147; BP diastolic 64–72; PULSE 78–95; TEMP 36.6–36.9; O2SAT 92–94
[2017-02-19] MEDS: HEPARIN SOD 5000 UNIT/0.5 ML CARP SQ SCH ×2 (06:11→14:07)
[2017-02-19 07:09] LABS: HEMATOCRIT 36.2 % (37-47); MEAN CELL VOLUME 90.3 fL (80-100); MEAN CORPUSCULAR HEMOGLOBIN 27.9 pg (25-34); MEAN CORPUSCULAR HGB CONC 30.9 g/dl (32-36); MEAN PLATELET VOLUME 9.8 fL (7.4-10.4); PLATELET COUNT 429 K/uL (130-400); RED BLOOD COUNT 4.01 M/uL (4.2-5.4)
[2017-02-19] MEDS: ALBUT/IPRATROP 3MG/0.5MG NEB 3 ML VIAL INH SCH ×4 (07:34→19:54)
[2017-02-19 07:44] LABS: CREATININE 0.73 mg/dl (0.60-1.20)
[2017-02-19] MEDS: BOOST BREEZE NUTRITION DRINK 1 BOX PO SCH ×2 (09:01→17:33)
--- NOTE | 2017-02-19 10:06 | Surgery Progress Note ---
Surgery Progress Note Date of Service Feb 19, 2017. Subjective Patient examined at bedside this morning. Afebrile, vitals stable on room air overnight, no acute events. Pain is well controlled - currently denies abdominal pain. Tolerating diet without N/V. Ambulating and voiding without difficulty. Drain remains in place to bulb suction with 10ml serosanguinous drainage. Incision clean, well approximated. No complaints this morning. Objective Vital Signs: Date Time Temp Pulse Resp B/P (MAP) Pulse Ox O2 Delivery O2 Flow Rate FiO2 02/19/17 07:34 78 16 93 Room Air 02/19/17 07:28 36.6 78 18 147/72 (97) 93 Room Air 02/19/17 02:03 36.7 02/18/17 23:25 37.7 92 16 150/79 (102) 94 Room Air 02/18/17 23:20 Room Air 02/18/17 19:06 98 16 92 Room Air 02/18/17 15:55 Room Air 02/18/17 15:24 36.8 98 16 137/70 (92) 96 Room Air 02/18/17 15:15 37.1 84 18 163/73 (103) 92 Room Air 02/18/17 14:35 36.8 98 16 137/70 (92) 97 Room Air 02/18/17 14:31 59 16 92 Room Air 02/18/17 14:18 36.6 82 16 91 2.0 02/18/17 12:00 Room Air 02/18/17 11:32 Room Air 02/18/17 11:29 82 16 91 Room Air Physical Exam: JULIA drainage (serosanguinous) General Appearance: WD/WN, no apparent distress Head: normocephalic, atraumatic Neck: supple Respiratory/Chest: lungs clear, normal breath sounds Cardiovascular: regular rate, rhythm Abdomen: normal bowel sounds, non tender, non distended, soft Incision(s): clean, dry, intact Laboratory Results: Results Past 24 Hours Test 02/19/17 06:41 Range/Units White Blood Count 12.60 4.8-10.8 K/uL Red Blood Count 4.01 4.2-5.4 M/uL Hemoglobin 11.2 12.0-16.0 g/dL Hematocrit 36.2 37-47 % Mean Corpuscular Volume 90.3 80-100 fL Mean Corpuscular Hemoglobin 27.9 25-34 pg Mean Corpuscular Hemoglobin Concent 30.9 32-36 g/dl RDW Standard Deviation 53.1 36.4-46.3 fL RDW Coefficient of Variation 16.3 11.5-14.5 % Platelet Count 429 130-400 K/uL Mean Platelet Volume 9.8 7.4-10.4 fL Creatinine 0.73 0.60-1.20 mg/dl Est Creatinine Clear Calc Drug Dose 83.9 ml/min Estimated GFR () 93.4 Estimated GFR (Non- 80.6 Assessment & Plan Smita Nur is a 76 year old woman who is now POD 7 s/p laparoscopic converted to open cholecystectomy, intraoperative cholangiogram, and POD 6 s/p ERCP with biliary stent x 2 for bile leak. - vitals stable, O2 sats 99% on RA - minimal to no abdominal pain - tolerating regular diet - +bowel function (bowel movement this morning) - Slight decrease in Leukocytosis today (13.85K to 12.6K) Plan: Continue PO Percocet and Breakthrough IV Morphine as needed for pain Continue IV antibiotics, will need total of 2 weeks of broad spectrum antibiotics Continue Regular diet Continue Heparin SQ TID Encourage ambulation and OOB to chair Continue PT/OT May need placement for deconditioning? office services specialist has seen patient, sending request to [facility] (Primary choice) for rehabilitation and [facility] [employer] as back up, will await approval Trend labs, leukocytosis is trending down Continue JULIA drain to bulb suction, will go home with drain given bile leak Glo Parekh MD 02/19/17
[2017-02-19] MEDS ORDERED: AMOX875T PO (11:17)
--- NOTE | 2017-02-19 11:22 | Discharge Instructions ---
Discharge Instructions Date of Service Feb 19, 2017. Admission Reason for Admission: Gangrenous Cholecystitis Discharge Discharge Diagnosis / Problem: Gangrenous cholecystitis, s/p cholecystectomy, acute diastolic heart failur Discharge Goals Goal(s): Improve function, Increase independence Activity Recommendations Activity Level: Assistance Required Therapies: Physical Therapy, Occupational Therapy Lifting Limitations: no more than 5 pounds Exercise/Sports Limitations: as tolerated Shower/Bathe: keep incision dry (cannot soak in tub) . Additional Information Patient informed of condition: Yes Advance Directives: Yes DNR: No Level of Care: Acute Rehab Communicable Disease: No Prognosis: Improving Oxygen at (LPM): no Tovar Catheter: No Instructions / Follow-Up Instructions / Follow-Up Medications: - AUGMENTIN: complete 7 more days of antibiotics for full 14 day treatment of cholecystitis - PERCOCET: use as needed for pain Gangrenous cholecystitis: s/p lap reynold with bile leak, doing quite well from surgical perspective, eating well, moving bowels, pain controlled minimal drainage from JULIA drain but surgery wants drain in place, will pull drain at outpatient follow up follow up with Dr. Robles in one week in his office Acute diastolic heart failure, volume overload: patient experienced some flash pulmonary edema from all the fluid she initially received. Diuresed very well with two days of Bumex, over 10 liters out, breathing well, lungs clear, euvolemic on exam Current Hospital Diet Patient's current hospital diet: AHA Diet (Heart Healthy) Discharge Diet Recommended Diet: AHA Diet (Heart Healthy) Procedures Procedures Performed: Endoscopic Retrograde Cholangiopancreatogram Lap cholecystectomy Pending Studies Studies pending at discharge: no Physician Orders On Transfer Vital Signs: per protocol Additional Orders: keep JULIA in place, Dr. Robles will pull in the office on follow up POLST Discussion: Not Applicable Medical Emergencies . Who to Call and When: Medical Emergencies: If at any time you feel your situation is an emergency, please call 911 immediately. . Non-Emergent Contact Non-Emergency issues call your: Surgeon Call Non-Emergent contact if: you have a fever, your pain is worsening, you have any medication questions . . "Provider Documentation" section prepared by Vinayak Mcnair. . Core Measure Problem Core Measures: None [place] Drug Monitoring Program Search Results: no issues identified
--- NOTE | 2017-02-19 12:52 | Hospitalist Progress Note ---
Hospitalist Progress Note Date of Service Feb 19, 2017. Subjective Pt evaluation today including: conversation w/ patient, physical exam, chart review, lab review, review of studies, review of inpatient medication list Patient seen and evaluated. No acute events overnight. Tolerating diet. + flatus, + stool. Pain controlled. No SOB. Does have an intermittent cough but no fever/chills. Constitutional: No fever, No chills ENT: No sore throat Respiratory: + cough, + sputum, No shortness of breath Cardiovascular: No chest pain, No palpitations Abdomen: + pain (incision), No nausea, No vomiting, No diarrhea, No constipation, No GI bleeding Musculoskeletal: No calf pain Female : No dysuria Skin: No rash Medications Current Inpatient Medications Medications (Trade) Dose Ordered Sig/Shagufta Route Start Time Stop Time Status Last Admin Dose Admin Oxycodone/ Acetaminophen (Percocet 5-325mg Tab) 1 tab Q4H PRN PO 02/12/17 23:00 02/26/17 22:59 02/15/17 21:10 1 TAB Morphine Sulfate (MoRPHine SULFATE INJ) 4 mg Q1H PRN IV 02/12/17 23:00 02/26/17 22:59 02/13/17 09:01 4 MG Ondansetron HCl (Zofran Inj) 4 mg Q6H PRN IV 02/12/17 23:00 03/14/17 22:59 Albuterol/ Ipratropium (Duoneb) 3 ml QIDR INH 02/14/17 20:30 03/16/17 20:29 02/19/17 11:38 3 ML Enteral Nutritional Formula (Boost Breeze Nutritional Drink) 1 box BID@1000,1900 PO 02/15/17 19:00 03/17/17 18:59 02/19/17 09:01 1 BOX Heparin Sodium (Porcine) (Heparin Sq 5000 Unit/0.5ml) 5,000 unit Q8 SQ 02/16/17 14:00 03/18/17 13:59 02/19/17 06:11 5,000 UNIT Ertapenem 1 gm/ Sodium Chloride 50 ml @ 100 mls/hr DAILY@2000 IV 02/18/17 20:00 02/28/17 19:59 02/18/17 20:14 100 MLS/HR Miscellaneous Information 1 ea UD PRN N/A 02/18/17 15:15 03/20/17 15:14 Objective Vital Signs Date Time Temp Pulse Resp B/P (MAP) Pulse Ox O2 Delivery O2 Flow Rate FiO2 02/19/17 11:39 78 16 94 Room Air 02/19/17 07:40 Room Air 02/19/17 07:34 78 16 93 Room Air 02/19/17 07:28 36.6 78 18 147/72 (97) 93 Room Air 02/19/17 02:03 36.7 02/18/17 23:25 37.7 92 16 150/79 (102) 94 Room Air 02/18/17 23:20 Room Air 02/18/17 19:06 98 16 92 Room Air 02/18/17 15:55 Room Air 02/18/17 15:24 36.8 98 16 137/70 (92) 96 Room Air 02/18/17 15:15 37.1 84 18 163/73 (103) 92 Room Air 02/18/17 14:35 36.8 98 16 137/70 (92) 97 Room Air 02/18/17 14:31 59 16 92 Room Air 02/18/17 14:18 36.6 82 16 91 2.0 Physical Exam General Appearance: WD/WN, no apparent distress Eyes: sclerae normal ENT: hearing grossly normal Neck: supple, no JVD, trachea midline Respiratory/Chest: lungs clear, normal breath sounds, no respiratory distress, no accessory muscle use Cardiovascular: regular rate, rhythm, no gallop, no murmur Abdomen: normal bowel sounds, non tender, soft, + pertinent finding (Surgical incisions well-approximated - large RUQ incision and laparoscopic incisions; JULIA drain with serosang fluid) Extremities: no calf tenderness Neurologic/Psychiatric: alert Laboratory Results Last 24 Hours Test 02/19/17 06:41 White Blood Count 12.60 K/uL Red Blood Count 4.01 M/uL Hemoglobin 11.2 g/dL Hematocrit 36.2 % Mean Corpuscular Volume 90.3 fL Mean Corpuscular Hemoglobin 27.9 pg Mean Corpuscular Hemoglobin Concent 30.9 g/dl RDW Standard Deviation 53.1 fL RDW Coefficient of Variation 16.3 % Platelet Count 429 K/uL Mean Platelet Volume 9.8 fL Creatinine 0.73 mg/dl Est Creatinine Clear Calc Drug Dose 83.9 ml/min Estimated GFR () 93.4 Estimated GFR (Non- 80.6 Assessment and Plan Sepsis POA 2/2 Gangrenous Cholecystitis S/P Open Cholecystectomy and S/P ERCP 2/ 2 Bile Leak: - Surgery as primary - IVF, Pain Management, PT/OT, DVT Prophylaxis - DVT Prophylaxis - Heparin 5000 units SC Q8H - Will convert to Augmentin Acute Diastolic CHF: RESOLVED - Echo - limited study - EF 50-55% - Bumex utilized for diureses - neg balance 3800 mL - stable without further diuresis Acute Kidney Injury: RESOLVED - Continue to monitor E. Coli UTI: - Adequate coverage with Abx above Disposition: - CT evidence of CVA - can obtain MRI of brain as outpatient - Awaiting insurance authorization for [facility] - optimal for D/C when approved Discharge planning: rehab hospital ([facility])
[2017-02-19] MEDS ORDERED: AMOXICILLIN/CLAVULANATE TAB 875 MG TAB PO SCH (17:45)
--- NOTE | 2017-03-04 11:23 | Discharge Summary ---
Discharge Summary Dates Admission Date / Time: Feb 12, 2017 at 22:54 Discharge Date: Feb 19, 2017 Dispostion / Condition Discharge Disposition: Rehab Condition at Discharge: Good Principal Diagnosis (1) Gangrenous cholecystitis Problem List (1) Right Hip DJD (2) Arthritis (3) HTN (hypertension) Consultations / Procedures Consultations: Gastroenterology Medicine Case Management PT Procedures: Laparoscopic converted to open cholecystectomy with intraoperative Cholangiogram ERCP with CBD stent placement for bile leak Pending Studies / Follow-Up None Medication Reconciliation New Medications: Oxycodone/Acetaminophen 5MG/325MG (Percocet 5MG/325MG) Tab 1-2 TABLETS PO Q4H PRN for Pain, #30 TAB Continued Medications: Aspirin (Aspirin Ec) 81 Mg Tab 81 MG PO DAILY Cinnamon (Cinnamon) 500 Mg Cap 1000 MG PO DAILY Multiple Vitamins W/ Minerals (Centrum Silver 50+Women) 1 Tab Tab 1 TAB PO DAILY Admission HPI Per the Admitting provider: This is a 76-year-old female who was sent to the emergency room by her primary care provider for canoeing evaluation of a complaint of fatigue and difficulty thriving. Over the last week or so the patient has "just not been feeling well ". She has had some right upper quadrant pain as well. She denies pain right now however. She has not had any fever or chills. She has not had an appetite. Her bowels have been moving. There is no melena or hematochezia. She denies nausea and vomiting. She underwent a CT scan of the abdomen and pelvis that was consistent with emphysematous cholecystitis. There was also some inflammatory change near the pancreas consistent with possible pancreatitis. Admission Exam Per the Admitting provider: General Appearance: no apparent distress, + obese Head: normocephalic Neck: supple, no adenopathy Respiratory/Chest: chest non-tender, lungs clear Cardiovascular: regular rate, rhythm Abdomen/GI: normal bowel sounds, non tender, soft Back: normal inspection, no CVA tenderness Extremities/Musculoskelatal: normal inspection Skin: normal color Hospital Course (1) Gangrenous cholecystitis Patient was taken to operating room for laparoscopic possible open cholecystectomy with intraoperative cholangiogram by Dr. Robles. Patient's gallbladder was found to be gangrenous and very friable. The cystic duct was very friable and unable to be dissected from surrounding adhesions. Intraoperative cholangiogram showed no filling defects. The case was converted to open cholecystectomy given friable tissues and unable to obtain a safe level of dissection. Patient tolerated procedure well and was transferred to recovery in stable condition. She was then transferred to Medical/surgical floor for post operative care. Her diet was advanced to clear liquids, IV fluids, IV and oral pain medication as needed, IV Zosyn, JULIA drain to bulb suction, Tovar to gravity, IV Zofran, activity as tolerated. ON POD # 1 patient 's drain had bilious output concern for bile leak. Gastroenterology was consulted in which they planned for ERCP in which she had a bile leak and a CBD stent was placed. Her diet was advanced to clear liquids again following procedure. Medicine was also consulted for post operative care and patient was transferred to telemetry given elevated Troponin in the ER. She also had a possible new right facial droop in which a head CT scan was ordered which showed a 1 cm right basal ganglia hypodensity which could represent a subacute infarct. She also had a pulmonary nuclear perfusion scan which showed no evidence of pulmonary embolism. IV Zosyn was continued. POD # 2 diet was advanced as tolerated, operative pain controlled. She continued to require oxygen via nasal cannula and felt short of breath. CXR was unremarkable however medicine felt she had some pulmonary edema and Bumex 1 mg IV ordered x 1 for diuresis and IV fluids were discontinued. Tovar catheter was continued. Her meals were supplement with Boost BID given malnutrition 2 weeks prior to admission. POD # 3 patient was feeling well, again post operative pain controlled. Bumex was continued and oxygen was decreased to 2.0 liters via nasal cannula. POD # 4 Heparin SQ was started, Tovar was continued for diuresis with another order of Bumex and an echocardiogram was ordered which showed an ejection fraction of 50-55%. POD # 5 patient was transferred to Medical floor. She finally had a bowel movement and tolerating regular diet. WBC slightly increased to 13.40K. Afebrile. IV Zosyn continued. Oxygen requirement finally ceased and she was saturating on room air. POD # 6 wbc slightly increased again to 13.85K, afebrile, Tovar was discontinued. Did not require any further Bumex, Saturating on room air. Medicine add Ertapenem given increased leukocytes. POD # 7 patient doing well, saturating at 99% on room air, no shortness of breath, tolerating regular diet. Case management has set up patient to go to [facility] for rehabilitation. JULIA drain output minimal. She was discharged home on POD # 7 to [facility] for rehabilitation in stable condition. She was discharged home with JULIA drain. WBC GALLBLADDER (CHOLECYSTECTOMY): 1. GANGRENOUS CHOLECYSTITIS AND CHOLELITHIASIS ARE SEEN. 2. NO TUMOR IS SEEN. slighlty decreased to 12.60K (2) SOB (shortness of breath) POD # 2 she was started on Bumex 1 mg IV x 1 time given hypoxia and concern for pulmonary edema and acute diastolic heart failure. Oxygen saturations continued to improve but slowly via nasal cannula. POD # 3 was down to 2.0 liters via nasal cannula. Another dose of Bumex 1 mg IV. POD # 4 another dose of Bumex was given along with echocardiogram which was limited and EF of 50-55% . POD # 6 patient was started on Ertapenem 1 gm given slight increase in leukocytosis. Her oxygen saturations improved and she was finally on Room air on POD # 5. Day of discharge which was POD # 7 she was saturating at 99% on room air. (3) Elevated troponin Elevated Troponin in the emergency department on 02/12/2017 (0.272). Patient asymptomatic with no chest pain/pressure, shortness of breath, difficulty breathing. Troponin checked on 02/13/2017 was still elevated however improved at 0.087 and felt to be due to stress and demand ischemia. Discharge Instructions as given to patient Copies To Primary Care Provider: Jo Jones C.R.N.P.
== END 2017-02-19 20:17 | DRG 853 ==
LOC: EDBD 15:16 → C.EDA 15:17 → C.MSN 22:54 → ENRESERV 23:06 → C.2T 02-13 16:53 → EDBEDREQTM 02-18 13:11 → EDBEDREQSVC 02-18 13:11 → ENRESERV 02-18 13:32 → C.MSN 02-18 14:43
PROVIDERS: ADMIT Surgery; ATTEND Internal Medicine
PROC: 0FT40ZZ Resection of Gallbladder, Open Approach (ICD-10-PCS; principal; 2017-02-12 14:30)
PROC: 0FJ44ZZ Inspection of Gallbladder, Percutaneous Endoscopic Approach (ICD-10-PCS; principal; 2017-02-12 14:30)
PROC: 0F798DZ Dilation of Common Bile Duct with Intraluminal Device, Via Natural or Artificial Opening Endoscopic (ICD-10-PCS; 2017-02-13)
DX: A41.9 Sepsis, unspecified organism (principal); J95.2 Acute pulmonary insufficiency following nonthoracic surgery; I50.31 Acute diastolic (congestive) heart failure; I63.9 Cerebral infarction, unspecified; G93.41 Metabolic encephalopathy; K81.0 Acute cholecystitis; N17.9 Acute kidney failure, unspecified; E46 Unspecified protein-calorie malnutrition; I24.8 Other forms of acute ischemic heart disease; Z68.41 Body mass index [BMI] 40.0-44.9, adult; N39.0 Urinary tract infection, site not specified; I11.0 Hypertensive heart disease with heart failure; E66.01 Morbid (severe) obesity due to excess calories; E87.6 Hypokalemia; E88.09 Other disorders of plasma-protein metabolism, not elsewhere classified; B96.20 Unspecified Escherichia coli [E. coli] as the cause of diseases classified elsewhere; Z79.82 Long term (current) use of aspirin; Z87.891 Personal history of nicotine dependence

== ENCOUNTER → 2017-03-20 | Outpatient (CLI) | payer OTHER ==
[~2017-03-20] MED LIST changes: -ACET-1256 PO; -ASPEC81 PO; +ASPI81TA28 PO; -FERR325T18 PO; -LISI-461 PO; -LPR25 PO; -LPT40 PO; +MULT-1092 PO; -MULT-506 PO; -OXYC-57 PO; -WARF4TAB44 PO
== END | disposition home or self-care (01) ==
LOC: C.LABPVFM 09:43
PROVIDERS: ATTEND Family Medicine
DX: T81.89XA Other complications of procedures, not elsewhere classified, initial encounter (principal); Y84.9 Medical procedure, unspecified as the cause of abnormal reaction of the patient, or of later complication, without mention of misadventure at the time of the procedure

== ENCOUNTER → 2017-03-26 | Day surgery (SDC) | payer OTHER ==
[2017-03-11 10:04] VITALS: BMI 42.0
[~2017-03-26] VITALS: Ht 162.6 cm; Wt 110.5 kg
[~2017-03-26] MED LIST changes: +ATROPINE SULFATE 0.1 MG/ML 5ML SYR IV PRN; +CLC/300 PO; +EpHEDrine SULFATE INJ 50 MG/ML AMP IV PRN; +FENTANYL CITRATE INJ 50 MCG/1 ML 2 ML VIAL IV PRN; +FENTANYL CITRATE INJ 50 MCG/1 ML 2 ML VIAL ONE; +HYDROmorphone INJ 1 MG/ML SYR IV PRN; +INDOMETHACIN 50 MG SUPP PR ONE; +INDOMETHACIN 50 MG SUPP PR PRN; +LABETALOL HCL IV 5 MG/ML 20ML IV ONE; +LABETALOL HCL IV 5 MG/ML 20ML IV PRN; +LACTATED RINGER'S 1000ML 1,000 ML IV SCH; +LARYING-O-JET KIT (LTA) ONE; +MIDAZOLAM HCL 1 MG/ML 2ML VIAL ONE; +ONDANSETRON INJ 2 MG/ML 2 ML VIAL IV PRN; +ONDANSETRON INJ 2 MG/ML 2 ML VIAL ONE; +PROPOFOL IV EMULSION 10 MG/ML 20 ML VIAL IV ONE; +SUCCINYLCHOLINE CHLORIDE 20 MG/ML 10 ML VIAL IV ONE
[2017-03-26 06:08] VITALS: BP 176/91; PULSE 92; TEMP 36.7; O2SAT 99; Ht 162.6 cm; Wt 110.5 kg
--- NOTE | 2017-03-26 07:25 | Endo History and Physical ---
History & Physical Date of Service: Mar 26, 2017. Chief Complaint: Referring Physician: Dr. Robles History of Present Illness Patient presents for f/u ERCP after a cholecystectomy last month for acute cholecystitis. History was notable for a biliary leak for which a biliary stent was placed. Past Surgical History Hx Cardiac Surgery: No Hx Abdominal Surgery: Yes (OPEN CHOLEY(GANGRENE)) Hx Post-Op Nausea and Vomiting: No Hx Cancer Surgery: No Hx Thoracic Surgery: No Hx Orthopedic: Yes (bilater hip replacement; LEFT ANKLE ORIF) Hx Urinary Tract Surgery: No Social History Smoking Status: Never Smoker Hx Substance Use: No Hx Alcohol Use: No Allergies Coded Allergies: No Known Allergies (Unverified , 03/26/17) Current Medications Reported Home Medications Medications Dose Route/Sig Max Daily Dose Days Date Category Clindamycin HCl 300 Mg Cap 1 Cap PO TID 7 03/26/17 Reported Centrum Silver 50+Women (Multiple Vitamins W/ Minerals) 1 Tab Tab 1 Tab PO QAM 02/12/17 Reported Aspirin Ec (Aspirin) 81 Mg Tab 81 Mg PO QAM 02/12/17 Reported Vital Signs Weight (Kilograms): 110.45 Height (Feet): 5 Height (Inches): 4 Date Time Temp Pulse Resp B/P (MAP) Pulse Ox O2 Delivery O2 Flow Rate FiO2 03/26/17 06:08 36.7 92 20 176/91 (119) 99 Room Air Physical Exam General Appearance: no apparent distress Respiratory/Chest: Auscultation: breath sounds normal Cardiovascular: Heart Auscultation: RRR Abdomen: Inspection & Palpation: soft, pertinent finding (RUQ incision healing) Assessment and Plan Patient for a f/u ERCP today for Biliary stent removal. We have discussed the risks to include bleeding, infection, perforation, pain, pancreatitis and need for f/u procedures.
--- NOTE | 2017-03-26 08:28 | [facility] Post Operative Brief Note ---
Immediate Operative Summary Operative Date Mar 26, 2017. Pre-Operative Diagnosis History of Bile Leak Post-Operative Diagnosis Bile leak is sealed. Procedure(s) Performed Endoscopic Retrograde Cholangiopancreatogram; Stent Removal Surgeon Mannie Order Picker/Assembler Surgeon(s) Endoscopy Staff Estimated Blood Loss 0cc Findings Mild dilation of the common bile duct No further leakage of bile noted from the cystic duct remanent Specimens None per surgeon Anesthesia Gen. Complication(s) None Disposition Recovery Room / PACU
--- NOTE | 2017-03-26 08:29 | DIAGNOSTIC IMAGING REPORT ---
INTRAOPERATIVE RADIOGRAPHS CLINICAL HISTORY: ERCP procedure. Fluoroscopy time: 55 seconds. FINDINGS: 9 spot fluoroscopic views of the right upper quadrant from an ERCP procedure are presented. Correlation is made with abdominal CT dated 02/12/2017. There is cannulation of the common bile duct. A balloon sweep is performed. There is mild intra and extrahepatic biliary ductal dilatation. No filling defects are seen on the final image to suggest choledocholithiasis. IMPRESSION: Intraoperative images from an ERCP procedure as above. See operative report for detailed findings. Electronically signed by: Cirilo Chisholm M.D. 03/26/2017 8:27 AM Dictated Date/Time: 03/26/2017 8:25 AM
--- NOTE | 2017-03-26 08:29 | Discharge Instructions ---
Endoscopy Patient Instructions Date / Procedure(s) Performed Mar 26, 2017. ERCP Allergy Information Coded Allergies: No Known Allergies (Unverified , 03/26/17) Discharge Date / Findings Mar 26, 2017. Prior bile leak is sealed Mild dilation of the common bile duct Medication Instructions Reported Home Medications Medications Dose Route/Sig Max Daily Dose Days Date Category Clindamycin HCl 300 Mg Cap 1 Cap PO TID 7 03/26/17 Reported Centrum Silver 50+Women (Multiple Vitamins W/ Minerals) 1 Tab Tab 1 Tab PO QAM 02/12/17 Reported Aspirin Ec (Aspirin) 81 Mg Tab 81 Mg PO QAM 02/12/17 Reported Provider Instructions Activity Restrictions - No exercising or heavy lifting for 24 hours. - Do not drink alcohol the day of the procedure. - Do not drive a car or operate machinery until the day after the procedure. - Do not make any important decisions or sign important papers in 24 hours after the procedure. Following Day: - Return to full activity which may include returning to work/school. Diet Clear liquid diet today Regular diet on 03/27/17 Treatment For Common After Affects For mild abdominal pain, bloating, or excessive gas: - Rest - Eat lightly - Lie on right side Follow-Up Information Follow-up with Dr. Chand as needed Anesthesia Information What You Should Know You have had a procedure that required some medicine to reduce anxiety and discomfort. This treatment is called moderate sedation. After receiving the treatment, you may be sleepy, but you will be able to breathe on your own. The effects of the treatment may last for several hours. Follow these instructions along with Activity/Diet recommendations noted above: * Do NOT do anything where dizziness or clumsiness would be dangerous. * Rest quietly at home today, then you can be up and about tomorrow. * Have a responsible person stay with you the rest of today. * You may have had an I.V. today. If so, you may take the dressing off later today. Recommendations Call your doctor if: * Trouble breathing * Continuous vomiting for more than 24 hours * Temperature above 101 degrees * Severe abdominal pain or bloating * Pain not relieved by pain medicine ordered * There is increased drainage or redness from any incision * A large amount of rectal bleeding greater than 2-3 tablespoons. (If you had a polyp/s removed or have hemorrhoids, a small amount of blood - from the rectum is to be expected.) * You have any unanswered questions or concerns. IN THE EVENT OF A SERIOUS EMERGENCY, GO TO THE NEAREST EMERGENCY ROOM Your discharge instructions were prepared by provider Fadi Chand. Patient Instructions Signature Page Smita Monge Patient (or Guardian) Signature/Date: I have read and understand the instructions given to me by my caregivers. Caregiver/RN/Doctor Signature/Date: The above-named patient and/or guardian has received patient instructions on this date. + Original Patient Signature Page (only) stays with chart. Please make copy for patient.
--- NOTE | 2017-03-26 08:41 | Anesthesiology Progress Note ---
Anesthesia Post Op Note Date & Time Mar 26, 2017 at 08:41 Vital Signs Pain Intensity: 0 Vital Signs Past 12 Hours Date Time Temp Pulse Resp B/P (MAP) Pulse Ox O2 Delivery O2 Flow Rate FiO2 03/26/17 08:32 78 20 03/26/17 08:32 78 20 93 03/26/17 08:31 116/85 03/26/17 08:27 79 20 94 03/26/17 08:27 76 20 03/26/17 08:26 142/41 03/26/17 08:22 80 17 03/26/17 08:22 80 17 94 03/26/17 08:21 80 15 03/26/17 08:21 80 15 124/92 94 03/26/17 08:16 81 19 134/99 95 03/26/17 08:16 82 19 03/26/17 08:11 85 17 03/26/17 08:11 84 17 94 03/26/17 08:07 180/100 03/26/17 08:06 86 20 94 03/26/17 08:06 36.0 85 20 180/100 93 Room Air 03/26/17 08:06 86 20 03/26/17 06:08 36.7 92 20 176/91 (119) 99 Room Air Notes Mental Status: alert / awake / arousable, participated in evaluation Pt Amnestic to Procedure: Yes Nausea / Vomiting: adequately controlled Pain: adequately controlled Airway Patency, RR, SpO2: stable & adequate BP & HR: stable & adequate Hydration State: stable & adequate Anesthetic Complications: no major complications apparent Awake, doing well. VSS. Ready for d/c from PACU
[2017-03-26 08:50] VITALS: BP 196/91; PULSE 77; TEMP 36.4; O2SAT 93
[2017-03-26 09:18] VITALS: BP 193/89; PULSE 81; O2SAT 94
[2017-03-26 09:49] VITALS: BP 177/100; PULSE 75; O2SAT 92
[2017-03-26 10:20] VITALS: BP 194/88; PULSE 76; TEMP 36.5; O2SAT 93
--- NOTE | 2017-03-26 20:23 | GI REPORT ---
Procedure Date: 03/26/2017 7:37 AM Procedure: ERCP Indications: Follow-up of bile leak, Stent removal Medicines: General Anesthesia, Indocin 100 mg UT Complications: No immediate complications. Estimated blood loss: Minimal. Estimated Blood Loss: Estimated blood loss was minimal. Procedure: Pre-Anesthesia Assessment: - Prior to the procedure, a History and Physical was performed, and patient medications, allergies and sensitivities were reviewed. The patient's tolerance of previous anesthesia was reviewed. - The risks and benefits of the procedure and the sedation options and risks were discussed with the patient. All questions were answered and informed consent was obtained. - Patient identification and proposed procedure were verified prior to the procedure by the physician, the nurse and the milk delivery driver. The procedure was verified in the pre-procedure area in the procedure room. - Pre-procedure physical examination revealed no contraindications to sedation. - ASA Grade Assessment: III - A patient with severe systemic disease. - After reviewing the risks and benefits, the patient was deemed in satisfactory condition to undergo the procedure. - The anesthesia plan was to use general anesthesia. - Immediately prior to administration of medications, the patient was re-assessed for adequacy to receive sedatives. - The heart rate, respiratory rate, oxygen saturations, blood pressure, adequacy of pulmonary ventilation, and response to care were monitored throughout the procedure. - The physical status of the patient was re-assessed after the procedure. After obtaining informed consent, the scope was passed under direct vision. Throughout the procedure, the patient's blood pressure, pulse, and oxygen saturations were monitored continuously. The scope was introduced through the mouth, and advanced to the duodenum and used to inject contrast into the bile duct. The ERCP was accomplished without difficulty. The patient tolerated the procedure well. Findings: A flight physician film of the abdomen was obtained. One stent ending in the main bile duct was seen. Surgical clips, consistent with previous cholecystectomy, were seen in the area of the right upper quadrant of the abdomen. One biliary stent originating in the biliary tree was emerging from the major papilla. The stent was visibly patent. A biliary sphincterotomy had been performed. The sphincterotomy appeared open. One stent was removed from the biliary tree using a snare. The bile duct was deeply cannulated with the short-nosed traction sphincterotome and guidewire. Contrast was injected. I personally interpreted the bile duct images. Contrast extended to the hepatic ducts. A cholecystectomy had been performed. The main bile duct was moderately dilated. The largest diameter was 9 mm. To discover objects, the biliary tree was swept several times with a 9 to 12 mm Balloon starting at the bifurcation. Sludge was swept from the duct. Nothing remained on occlusion cholangiogram, no biliary leak was identified today. The total fluoroscopy exposure time was 54 seconds. The endoscope was withdrawn from the patient. Impression: - One visibly patent stent from the biliary tree was seen in the major papilla. - Prior biliary endoscopic sphincterotomy appeared open. - One stent was removed from the biliary tree. - The patient has had a cholecystectomy. - The entire main bile duct was moderately dilated. - The biliary tree was swept and sludge was found. - The prior biliary leak had sealed. Recommendation: - Discharge patient to home (ambulatory). - Clear liquid diet today. - Observe patient's clinical course. - Return to my office PRN. Fadi Chand D.O. Fadi Chand, 03/26/2017 8:01:34 AM This report has been signed electronically. Note Initiated On: 03/26/2017 7:37 AM I attest to the content of the Intraoperative Record and orders documented therein, exceptions below
== END | disposition home or self-care (01) ==
LOC: C.ACU 05:47
PROVIDERS: ATTEND Internal Medicine Gastroenterology
DX: Z45.89 Encounter for adjustment and management of other implanted devices (principal); Z90.49 Acquired absence of other specified parts of digestive tract; Z96.643 Presence of artificial hip joint, bilateral; Z87.81 Personal history of (healed) traumatic fracture; M19.90 Unspecified osteoarthritis, unspecified site; N18.9 Chronic kidney disease, unspecified; E66.9 Obesity, unspecified; Z87.891 Personal history of nicotine dependence

== ENCOUNTER → 2017-07-17 | Outpatient (CLI) | payer OTHER ==
[~2017-07-17] MED LIST changes: -ATROPINE SULFATE 0.1 MG/ML 5ML SYR IV PRN; -EpHEDrine SULFATE INJ 50 MG/ML AMP IV PRN; -FENTANYL CITRATE INJ 50 MCG/1 ML 2 ML VIAL IV PRN; -FENTANYL CITRATE INJ 50 MCG/1 ML 2 ML VIAL ONE; -HYDROmorphone INJ 1 MG/ML SYR IV PRN; -INDOMETHACIN 50 MG SUPP PR ONE; -INDOMETHACIN 50 MG SUPP PR PRN; -LABETALOL HCL IV 5 MG/ML 20ML IV ONE; -LABETALOL HCL IV 5 MG/ML 20ML IV PRN; -LACTATED RINGER'S 1000ML 1,000 ML IV SCH; -LARYING-O-JET KIT (LTA) ONE; -MIDAZOLAM HCL 1 MG/ML 2ML VIAL ONE; -ONDANSETRON INJ 2 MG/ML 2 ML VIAL IV PRN; -ONDANSETRON INJ 2 MG/ML 2 ML VIAL ONE; -PROPOFOL IV EMULSION 10 MG/ML 20 ML VIAL IV ONE; -SUCCINYLCHOLINE CHLORIDE 20 MG/ML 10 ML VIAL IV ONE
--- NOTE | 2017-07-17 11:05 | DIAGNOSTIC IMAGING REPORT ---
L KNEE 3 VIEWS HISTORY: 77 years-old Female HISTORY OF RECENT FALL LEFT HIP PAIN,L KNEE PAIN acute left knee pain status post fall COMPARISON: None available TECHNIQUE: 3 views of the left knee FINDINGS: The bones are mildly demineralized. Moderate lateral and patellofemoral compartment with mild medial compartment osteoarthritis. No definite acute fracture or dislocation identified. Small knee joint effusion is noted. Peripheral vascular disease. IMPRESSION: 1. Small joint effusion without acute fracture identified. 2. 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 3. Peripheral vascular disease. The above report was generated using voice recognition software. It may contain grammatical, syntax or spelling errors. Electronically signed by: Gato Zuluaga M.D. 07/17/2017 11:04 AM Dictated Date/Time: 07/17/2017 11:02 AM
--- NOTE | 2017-07-17 11:07 | DIAGNOSTIC IMAGING REPORT ---
L HIP UNILATERAL 2 VIEWS HISTORY: 77 years-old Female HISTORY OF RECENT FALL LEFT HIP PAIN,L KNEE PAIN acute left hip pain status post fall COMPARISON: CT abdomen and pelvis 02/12/2017. TECHNIQUE: 2 views of the left hip FINDINGS: Left hip arthroplasty is noted with satisfactory alignment. No evidence of hardware loosening or periprosthetic fracture. No acute fracture or dislocation is identified. Imaged left hemipelvis appears intact. Degenerative changes of the left SI joint are noted. Linear soft tissue calcifications are noted medial to the lesser trochanter likely within the distal iliopsoas tendon. Peripheral vascular disease. IMPRESSION: Left hip arthroplasty without acute fracture or dislocation. The above report was generated using voice recognition software. It may contain grammatical, syntax or spelling errors. Electronically signed by: Gato Zuluaga M.D. 07/17/2017 11:05 AM Dictated Date/Time: 07/17/2017 11:04 AM
== END | disposition home or self-care (01) ==
LOC: C.LABPVFM 10:30
PROVIDERS: ATTEND Nurse Practitioner
DX: M17.12 Unilateral primary osteoarthritis, left knee (principal); Z91.81 History of falling; M25.552 Pain in left hip; Z96.642 Presence of left artificial hip joint

== ENCOUNTER → 2017-12-24 | Outpatient (CLI) | payer OTHER ==
--- NOTE | 2017-12-24 12:17 | DIAGNOSTIC IMAGING REPORT ---
PELVIS/BILATERAL HIP 2 VIEWS: Left hip CLINICAL HISTORY: Pain pain COMPARISON STUDY: None FINDINGS: Moderate degenerative change left hip. Degenerative sclerotic change left sacroiliac joint. Moderate reactive osteophytic change. 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 IMPRESSION: Potential loosening left femoral prosthetic. Bilateral total hip arthroplasties. Moderate degenerative change. The above report was generated using voice recognition software. It may contain grammatical, syntax or spelling errors. Electronically signed by: Emeka Freedman M.D. 12/24/2017 12:16 PM Dictated Date/Time: 12/24/2017 12:15 PM
== END | disposition home or self-care (01) ==
LOC: C.RADPV 11:55
PROVIDERS: ATTEND Family Medicine
DX: M25.552 Pain in left hip (principal)

== ENCOUNTER 2021-08-16 13:55 | Inpatient (IN) ==
[2021-08-16] MEDS ORDERED: SODIUM CHLORIDE 0.9% 1000ML 500 ML IV ONE ×2 (14:22→15:26)
[2021-08-16] MEDS ORDERED: dilTIAZem HCl 5 MG/ML 5 ML VIAL IV STA ×2 (14:26→15:26)
[2021-08-16] MEDS ORDERED: dilTIAZem HCl 5 MG/ML 5 ML VIAL IV ONE (14:27)
--- NOTE | 2021-08-16 14:29 | Emergency Department Note ---
Impression & Plan Atrial fibrillation with rapid ventricular response, SURJIT (acute kidney injury), Elevated troponin I level, Pneumonia ED Provider Note NAME: MARY SUNSHINE AGE: 81 SEX: F : 1940 ARRIVES VIA: Walk-In INFORMANT: Patient, ED PROVIDER(S): Bebeto Shankar DO CHIEF COMPLAINT: Difficulty breathing HPI: The patient is an 81-year-old female who presented to the emergency department with family for an evaluation of difficulty breathing. The patient apparently is been having symptoms over the course the last week. She called her family doctor and was sent for a Covid test. When her family Marcelle saw that she was ill she instead came to the emergency department for further evaluation. She has had cough and difficulty breathing. She is noticed difficulty breathing with exertion. There is been no nausea or vomiting. She has had no fever. She is not noticed any significant swelling in her legs or chest pain. She has noticed that she has had palpitations and fast heart rate. She has no history of atrial fibrillation but does have a history of diastolic heart disease. She is been compliant with her usual outpatient medications. The patient states her symptoms are moderate to severe and worsened with any exert ion. ROS: See above HPI for pertinent positives & negatives. A total of 10 systems reviewed and were otherwise negative. PAST MEDICAL HISTORY: See Below PAST SURGICAL HISTORY: See Below FAMILY HISTORY: See Below SOCIAL HISTORY: See Below HOME MEDICATIONS: See Below ALLERGIES: See Below VITALS: See Below PHYSICAL EXAMINATION: GENERAL: The patient is awake and alert. She is nonanxious appearing. EYES: The conjunctivae are clear. The pupils are round and reactive. EARS, NOSE, MOUTH AND THROAT: The nose is without any evidence of any deformity. NECK: The neck is nontender and supple. RESPIRATORY: Diminished breath sounds are noted throughout. Faint wheezing was noted to both upper lung brown. There is no conversational dyspnea. CARDIOVASCULAR: Tachycardic and irregular heart sounds were noted to auscultation. There is no definite murmur. GASTROINTESTINAL: The abdomen is soft. Abdomen is nontender. MUSCULOSKELETAL/EXTREMITIES: There is no evidence of gross deformity full range of motion is noted in the hips and shoulders. SKIN: There is no obvious evidence of any rash. There are no petechiae, pallor or cyanosis noted. NEUROLOGIC: Patient is awake alert and oriented x3 MEDICAL DECISION MAKING: The patient is an 81-year-old female who presented to emergency department for an evaluation of difficulty breathing. She was sent by her family doctor for a Covid test but was found to be in rapid atrial fibrillation. She was also found to have acute kidney injury on laboratory studies. The patient was treated with IV fluids as well as IV Cardizem. She was reevaluated multiple times. I discussed the patient's laboratory and radiographic studies with her. I also discussed her case with the on-call [facility]. They have agreed to evaluate the patient in the emergency department for further management and disposition. Triage Nursing notes reviewed. Prior medical records reviewed Vital Signs: reviewed and remarkable for tachycardia. Differential diagnosis: Reactive airway disease, pneumonia, pneumothorax, COPD, CHF, infections, cardiac ischemia, pulmonary embolism, musculoskeletal, gastrointestinal, as well as other pathologies. ER treatment provided: See below Diagnostics interpreted by me: ECG: EKG was obtained in the emergency department. My interpretation is atrial fibrillation with RVR at 155 bpm. No PVCs were noted. Nonspecific ST segment abnormalities noted. This was compared to a tracing from April 27, 2018. Sinus rhythm has been replaced with atrial fibrillation. Cardiac Monitoring: An order was placed for continuous cardiac monitoring. The monitor shows a rate of 130 bpm with atrial fibrillation with RVR. Laboratory studies: As stated above and show below. Imaging studies: See below Consultation(s): I discussed this case with Dr. Hoyos who is on-call for the [facility]. The patient may have more of a pneumonia on chest x-ray rat her than pulmonary edema. I will defer antibiotic choice as well as blood cultures to the admitting team. ED COURSE: Procedures: none PDMP:reviewed and no issues Critical Care: I have personally spent greater than 45 minutes of critical care time in the direct management of this patient. This includes bedside care, interpretation of diagnostic studies, and testing, discussion with consultants, patient, and family members, and other required patient management activities. This 45 minutes is in excess of all separately billable procedures. Past Med/Surg History Medical History Abscess Cataract, bilateral Diarrhea Diastolic dysfunction Draining postoperative wound Fatigue Fistula Hearing deficit Hyperlipidemia Hypertension Intermittent right upper quadrant abdominal pain Osteoarthritis Osteoarthritis of hip Surgical History H/O arthroplasty left ankle History of ankle surgery History of cholecystectomy History of total hip arthroplasty LEFT/RT Family History Father Myocardial infarction Other Coronary heart disease Denies family history of Ovarian cancer Prostate cancer Diabetes Dementia Breast cancer Colorectal cancer Social History Smoking Status: Former smoker Tobacco Type: Cigarettes Age Started Using Tobacco: 21; Age Quit Using Tobacco: 66; packs per day: 1; Cigarettes Per Day: 20; Second Hand Exposure: No; Hx Alcohol Use: No Hx Substance Use: No Preferred Language: Faroese Communication Ability: Effective Visual Impairment: No Limitations Hearing Ability: Hard of Hearing Science Instructor Required: No Beliefs That Will Affect Care: None marital status: Current Living Situation: Family current occupational status: retired How many Children do You have: 6 Feels Safe at Home: Yes Childhood Exposure to Second-Hand Smoke: No caffeine: Yes (coffee ) Dental Care, Regularly: Yes Physical Activity Frequency: Does not Exercise Seatbelt Use: sometimes Sunscreen Use: Yes (Sometimes) Assistive Devices: Cane Allergies Allergies Allergy/AdvReac Type Severity Reaction Status Date / Time No Known Allergies Allergy Verified 08/16/21 15:43 Home Meds Home Medications Medication Instructions Recorded Confirmed aspirin 81 mg tablet,delayed 81 mg PO QAM 04/22/18 08/16/21 release multivitamin 1 tab PO QAM 04/22/18 08/16/21 semaglutide (Ozempic) 0.5 mg SUBCUT WK 08/16/21 08/16/21 Previous Rx's Medication Instructions Recorded mirabegron 50 mg tablet,extended 50 mg PO DAILY #30 tab 01/16/21 release 24 hr lisinopril 30 mg tablet 30 mg PO DAILY #30 tab 07/17/21 Results & Data (ED) Vital Signs Vital Signs - 24 hr 08/16/21 14:01 08/16/21 14:06 08/16/21 14:25 Temperature 36 C L Temperature Source Temporal Artery Scan Pulse Rate 104 H Pulse Rate [Finger] 151 H Pulse Rhythm [Finger] Regular Pulse Strength [Finger] Normal Respiratory Rate 18 22 Respiratory Effort / Characteristics Labored Respiratory Depth Shallow Blood Pressure 128/72 Blood Pressure [Right Arm] 116/86 Blood Pressure Mean 90 Blood Pressure Mean [Right Arm] 96 Blood Pressure Position [Right Arm] Sitting Pulse Oximetry 94 94 Oxygen Delivery Method Room Air Room Air Sepsis Recent Fever Within 48 Hours No Sepsis New/Unexplained Change in Mental Status No Sepsis Action Taken by Nursing No Action Required 08/16/21 14:26 08/16/21 14:27 08/16/21 14:34 Temperature Temperature Source Pulse Rate Pulse Rate [Finger] 127 H Pulse Rhythm [Finger] Irregular Pulse Strength [Finger] Normal Respiratory Rate 22 Respiratory Effort / Characteristics Respiratory Depth Blood Pressure Blood Pressure [Right Arm] 99/71 L Blood Pressure Mean Blood Pressure Mean [Right Arm] 80 Blood Pressure Position [Right Arm] Sitting Pulse Oximetry 94 94 93 Oxygen Delivery Method Room Air Room Air Room Air Sepsis Recent Fever Within 48 Hours Sepsis New/Unexplained Change in Mental Status Sepsis Action Taken by Nursing 08/16/21 14:46 08/16/21 16:00 Temperature Temperature Source Pulse Rate Pulse Rate [Finger] 130 H 126 H Pulse Rhythm [Finger] Irregular Pulse Strength [Finger] Normal Respiratory Rate 22 21 Respiratory Effort / Characteristics Non-Labored Respiratory Depth Normal Blood Pressure Blood Pressure [Right Arm] 119/74 117/77 Blood Pressure Mean Blood Pressure Mean [Right Arm] 89 90 Blood Pressure Position [Right Arm] Sitting Pulse Oximetry 96 94 Oxygen Delivery Method Room Air Room Air Sepsis Recent Fever Within 48 Hours Sepsis New/Unexplained Change in Mental Status Sepsis Action Taken by Usp Medications Current Medication List: was personally reviewed by me Laboratory Data Attestation: I reviewed the patient's lab results. Result diagrams: 08/16/21 14:32 08/16/21 14:32 Lab Results 08/16/21 08/16/21 08/16/21 Range/Units 14:07 14:32 14:32 WBC 20.99 H (4.8-10.8) K/uL RBC 5.22 (4.2-5.4) M/uL Hgb 14.7 (12.0-16.0) g/dL Hct 45.5 (37-47) % MCV 87.2 (80-100) fL MCH 28.2 (25-34) pg MCHC 32.3 (32-36) g/dL RDW Std Deviation 55.1 H (36.4-46.3) fL RDW Coeff of Heriberto 17.2 H (11.5-14.5) % Plt Count 111 L (130-400) K/uL MPV 12.1 H (7.4-10.4) fL Immature Gran % (Auto) 0.3 % Neut % (Auto) 94.3 % Lymph % (Auto) 2.4 % [place] % (Auto) 2.6 % Eos % (Auto) 0.3 % Baso % (Auto) 0.1 % Neut # (Auto) 19.05 H (1.4-6.5) K/uL Lymph # (Auto) 0.49 L (1.2-3.4) K/uL [place] # (Auto) 0.53 (0.11-0.59) K/uL Eos # (Auto) 0.06 (0-0.5) K/uL Baso # (Auto) 0.02 (0-0.2) K/uL Immature Gran # (Auto) 0.07 H (0.00-0.02) K/uL Platelet Estimate Decreased L (Normal) Echinocytes 1+ PT 11.9 (9.0-12.0) Seconds INR 1.1 (0.9-1.1) APTT 27.9 (21.0-31.0) Seconds PTT Ratio 1.0 Sodium (136-145) mmol/L Potassium (3.5-5.1) mmol/L Chloride (98-107) mmol/L Carbon Dioxide (21-32) mmol/L Anion Gap (3-11) BUN (6-23) mg/dl Creatinine (0.6-1.2) mg/dl Est Cr Clr Drug Dosing ml/min Est GFR ( Amer) ml/min Est GFR (Non-Af Amer) ml/min BUN/Creatinine Ratio (10-20) Glucose (70-99(Fasting)) mg/dl Lactate (0.4-2.0) mmol/L Calcium (8.5-10.1) mg/dl Magnesium (1.7-2.4) mg/dl Total Bilirubin (0.2-1.0) mg/dl AST (13-39) U/L ALT (7-52) U/L Alkaline Phosphatase (34-104) U/L Troponin I (0-0.04) ng/ml Total Protein (6.0-8.3) gm/dl Albumin (3.4-5.0) gm/dl Globulin (2.5-4.0) gm/dl Albumin/Globulin Ratio (0.9-2) Procalcitonin (0-0.5) ng/ml TSH (0.300-4.500) uIu/ml Urine Color Urine Appearance (Clear) Urine pH (4.5-7.5) Ur Specific [place] (1.000-1.030) Urine Protein (Negative) Urine Glucose (UA) (Negative) Urine Ketones (Negative) Urine Blood (Negative) Urine Nitrite (Negative) Urine Bilirubin (Negative) Urine Urobilinogen (Negative) Ur Leukocyte Esterase (Negative) Urine WBC (Auto) (0-5) /hpf Urine RBC (Auto) (0-4) /hpf U Hyaline Cast (Auto) (0-5) /lpf U Epithel Cells (Auto) (0-5) /lpf Urine Bacteria (Auto) (Negative) Urine Yeast SARS-CoV-2 (PCR) NEGATIVE (Negative) Influenza Type A (PCR) Negative (Neg) Influenza Type B (PCR) Negative (Neg) RSV (RT-PCR) Negative (Neg) 08/16/21 08/16/21 08/16/21 Range/Units 14:32 14:32 16:01 WBC (4.8-10.8) K/uL RBC (4.2-5.4) M/uL Hgb (12.0-16.0) g/dL Hct (37-47) % MCV (80-100) fL MCH (25-34) pg MCHC (32-36) g/dL RDW Std Deviation (36.4-46.3) fL RDW Coeff of Heriberto (11.5-14.5) % Plt Count (130-400) K/uL MPV (7.4-10.4) fL Immature Gran % (Auto) % Neut % (Auto) % Lymph % (Auto) % [place] % (Auto) % Eos % (Auto) % Baso % (Auto) % Neut # (Auto) (1.4-6.5) K/uL Lymph # (Auto) (1.2-3.4) K/uL [place] # (Auto) (0.11-0.59) K/uL Eos # (Auto) (0-0.5) K/uL Baso # (Auto) (0-0.2) K/uL Immature Gran # (Auto) (0.00-0.02) K/uL Platelet Estimate (Normal) Echinocytes PT (9.0-12.0) Seconds INR (0.9-1.1) APTT (21.0-31.0) Seconds PTT Ratio Sodium 138 (136-145) mmol/L Potassium 3.8 (3.5-5.1) mmol/L Chloride 104 (98-107) mmol/L Carbon Dioxide 20 L (21-32) mmol/L Anion Gap 14 H (3-11) BUN 78 H (6-23) mg/dl Creatinine 2.67 H (0.6-1.2) mg/dl Est Cr Clr Drug Dosing 21.1 ml/min Est GFR ( Amer) 18.8 ml/min Est GFR (Non-Af Amer) 16.2 ml/min BUN/Creatinine Ratio 29.2 H (10-20) Glucose 126 H (70-99(Fasting)) mg/dl Lactate (0.4-2.0) mmol/L Calcium 8.7 (8.5-10.1) mg/dl Magnesium 2.2 (1.7-2.4) mg/dl Total Bilirubin 0.6 (0.2-1.0) mg/dl AST 24 (13-39) U/L ALT 28 (7-52) U/L Alkaline Phosphatase 127 H (34-104) U/L Troponin I 0.38 H* (0-0.04) ng/ml Total Protein 6.9 (6.0-8.3) gm/dl Albumin 3.2 L (3.4-5.0) gm/dl Globulin 3.7 (2.5-4.0) gm/dl Albumin/Globulin Ratio 0.9 (0.9-2) Procalcitonin 68.22 H (0-0.5) ng/ml TSH 1.485 (0.300-4.500) uIu/ml Urine Color Urine Appearance (Clear) Urine pH (4.5-7.5) Ur Specific [place] (1.000-1.030) Urine Protein (Negative) Urine Glucose (UA) (Negative) Urine Ketones (Negative) Urine Blood (Negative) Urine Nitrite (Negative) Urine Bilirubin (Negative) Urine Urobilinogen (Negative) Ur Leukocyte Esterase (Negative) Urine WBC (Auto) (0-5) /hpf Urine RBC (Auto) (0-4) /hpf U Hyaline Cast (Auto) (0-5) /lpf U Epithel Cells (Auto) (0-5) /lpf Urine Bacteria (Auto) (Negative) Urine Yeast SARS-CoV-2 (PCR) (Negative) Influenza Type A (PCR) (Neg) Influenza Type B (PCR) (Neg) RSV (RT-PCR) (Neg) 08/16/21 08/16/21 08/16/21 Range/Units 16:11 16:17 16:17 WBC (4.8-10.8) K/uL RBC (4.2-5.4) M/uL Hgb (12.0-16.0) g/dL Hct (37-47) % MCV (80-100) fL MCH (25-34) pg MCHC (32-36) g/dL RDW Std Deviation (36.4-46.3) fL RDW Coeff of Heriberto (11.5-14.5) % Plt Count (130-400) K/uL MPV (7.4-10.4) fL Immature Gran % (Auto) % Neut % (Auto) % Lymph % (Auto) % [place] % (Auto) % Eos % (Auto) % Baso % (Auto) % Neut # (Auto) (1.4-6.5) K/uL Lymph # (Auto) (1.2-3.4) K/uL [place] # (Auto) (0.11-0.59) K/uL Eos # (Auto) (0-0.5) K/uL Baso # (Auto) (0-0.2) K/uL Immature Gran # (Auto) (0.00-0.02) K/uL Platelet Estimate (Normal) Echinocytes PT (9.0-12.0) Seconds INR (0.9-1.1) APTT (21.0-31.0) Seconds PTT Ratio Sodium (136-145) mmol/L Potassium (3.5-5.1) mmol/L Chloride (98-107) mmol/L Carbon Dioxide (21-32) mmol/L Anion Gap (3-11) BUN (6-23) mg/dl Creatinine (0.6-1.2) mg/dl Est Cr Clr Drug Dosing ml/min Est GFR ( Amer) ml/min Est GFR (Non-Af Amer) ml/min BUN/Creatinine Ratio (10-20) Glucose (70-99(Fasting)) mg/dl Lactate 1.5 (0.4-2.0) mmol/L Calcium (8.5-10.1) mg/dl Magnesium (1.7-2.4) mg/dl Total Bilirubin (0.2-1.0) mg/dl AST (13-39) U/L ALT (7-52) U/L Alkaline Phosphatase (34-104) U/L Troponin I 0.35 H* (0-0.04) ng/ml Total Protein (6.0-8.3) gm/dl Albumin (3.4-5.0) gm/dl Globulin (2.5-4.0) gm/dl Albumin/Globulin Ratio (0.9-2) Procalcitonin (0-0.5) ng/ml TSH (0.300-4.500) uIu/ml Urine Color Yellow Urine Appearance Turbid A (Clear) Urine pH 5.0 (4.5-7.5) Ur Specific [place] 1.018 (1.000-1.030) Urine Protein 2+ H (Negative) Urine Glucose (UA) Negative (Negative) Urine Ketones Trace H (Negative) Urine Blood 3+ H (Negative) Urine Nitrite Positive A (Negative) Urine Bilirubin Negative (Negative) Urine Urobilinogen Negative (Negative) Ur Leukocyte Esterase 3+ H (Negative) Urine WBC (Auto) >30 H (0-5) /hpf Urine RBC (Auto) 5-10 H (0-4) /hpf U Hyaline Cast (Auto) 1-5 (0-5) /lpf U Epithel Cells (Auto) >30 H (0-5) /lpf Urine Bacteria (Auto) 4+ H (Negative) Urine Yeast Not Reportable SARS-CoV-2 (PCR) (Negative) Influenza Type A (PCR) (Neg) Influenza Type B (PCR) (Neg) RSV (RT-PCR) (Neg) Administered Medications Vancomycin HCl 2,250 mg/ (Sodium Chloride) 545 mls @ 200 mls/hr IV NOW ONE Stop: 08/16/21 23:13 Last Admin: 08/16/21 20:39 Dose: 200 mls/hr Documented by: [id number] Cefepime HCl 2,000 mg/ Syringe 20 mls @ 5 mls/min IV Q24H [facility]; Protocol Stop: 08/26/21 20:59 Last Admin: 08/16/21 20:57 Dose: 5 mls/min Documented by: [id number] Metoprolol Tartrate (Metoprolol Tartrate 25 Mg Tab) 25 mg PO BID DAVID Stop: 09/15/21 20:59 Last Admin: 08/16/21 20:57 Dose: 25 mg Documented by: [id number] Discontinued Medications Aspirin (Aspirin 81 Mg Chew) 324 mg PO NOW STA Stop: 08/16/21 16:53 Last Admin: 08/16/21 17:00 Dose: 324 mg Documented by: [id number] Diatrizoate Meglumine (Diatrizoate Meglumine 30% 100ml Vial) 100 ml INSTIL UD PRN PRN Reason: Radiology Use Stop: 08/20/21 19:16 Last Admin: 08/16/21 19:00 Dose: 5 ml Documented by: [id number] Diatrizoate Meglumine (Diatrizoate Meglumine 30% 100ml Vial) 100 ml INSTIL UD ONE Stop: 08/16/21 19:22 Last Admin: 08/16/21 19:22 Dose: Not Given Documented by: [id number] Diltiazem HCl (Diltiazem Hcl 5 Mg/Ml 5 Ml Vial) 10 mg IV NOW STA Stop: 08/16/21 14:27 Last Admin: 08/16/21 14:28 Dose: 10 mg Documented by: [id number] Cosigned by: [id number] Diltiazem HCl (Diltiazem Hcl 5 Mg/Ml 5 Ml Vial) Confirm Administered Dose 25 mg IV .STK-MED ONE Stop: 08/16/21 14:28 Last Admin: 08/16/21 14:35 Dose: Not Given Documented by: [id number] Diltiazem HCl (Diltiazem Hcl 5 Mg/Ml 5 Ml Vial) 10 mg IV NOW STA Stop: 08/16/21 15:27 Last Admin: 08/16/21 15:35 Dose: 10 mg Documented by: [id number] Cosigned by: [id number] Sodium Chloride (Nss 1000ml) 500 mls @ 999 mls/hr IV .Q31M ONE Stop: 08/16/21 14:52 Last Infusion: 08/16/21 14:59 Dose: 999 mls/hr Documented by: [id number] Admin: 08/16/21 14:28 Dose: 999 mls/hr Documented by: [id number] Sodium Chloride (Nss 1000ml) 1,000 mls @ 999 mls/hr IV .Q1H1M ONE Stop: 08/16/21 16:25 Last Admin: 08/16/21 17:02 Dose: Not Given Documented by: [id number] Sodium Chloride (Nss 1000ml) 500 mls @ 999 mls/hr IV .Q31M ONE Stop: 08/16/21 15:56 Last Infusion: 08/16/21 16:22 Dose: 0 mls/hr Documented by: [id number] Admin: 08/16/21 15:33 Dose: 999 mls/hr Documented by: [id number] Ceftriaxone Sodium (Rocephin) 2,000 mg in 70 mls @ 140 mls/hr IV NOW STA Stop: 08/16/21 16:24 Last Infusion: 08/16/21 17:12 Dose: 0 mls/hr Documented by: [id number] Admin: 08/16/21 16:42 Dose: 140 mls/hr Documented by: [id number] Azithromycin 500 mg/ Dextrose 255 mls @ 127.5 mls/hr IV NOW STA Stop: 08/16/21 17:54 Last Infusion: 08/16/21 16:51 Dose: 0 mls/hr Documented by: [id number] Admin: 08/16/21 16:42 Dose: 127.5 mls/hr Documented by: [id number] Lactated Ringer's (Lr) 1,000 mls @ 999 mls/hr IV .Q1H1M ONE Stop: 08/16/21 18:03 Last Infusion: 08/16/21 21:30 Dose: 0 mls/hr Documented by: [id number] Admin: 08/16/21 17:20 Dose: 999 mls/hr Documented by: [id number] Imaging Data Radiologist's Impression: Retrograde Pyelogram 08/16/21 00:00 FL retrograde includes kub CLINICAL HISTORY: CYSTO/RIGHT STENT COMPARISON STUDY: CT of the abdomen and pelvis performed earlier today. FLUOROSCOPY TIME: 14.7 seconds. FLUOROSCOPIC IMAGES: 3 FINDINGS: Fluoroscopy was provided during cystoscopy and right retrograde exam with ureteral stent insertion. Proximal aspect of the ureteral stent projects over the right renal pelvis. Right hydronephrosis is noted. IMPRESSION: Fluoroscopy provided during cystoscopy, right retrograde exam and right ureteral stent insertion. ACT 112: Negative or not required by law. Electronically signed by: Luis Esteban M.D. 08/16/2021 7:27 PM Chest X-Ray 08/16/21 14:06 XR chest 1V portable HISTORY: 81 years-old Female SOB acute shortness of breath with weakness COMPARISON: Chest radiograph 02/16/2017 TECHNIQUE: Portable AP view of the chest FINDINGS: Cardiac silhouette is enlarged. Calcified plaque of the thoracic aorta. Trace pleural effusions with mild bibasilar densities. No pneumothorax. Pulmonary vascular congestion. Degenerative changes of the shoulders and spine. IMPRESSION: 1. Cardiomegaly with pulmonary vascular congestion. 2. Suggested trace pleural effusions with mild bibasilar opacities. ACT 112: Negative or not required by law. The above report was generated using voice recognition software. It may contain grammatical, syntax or spelling errors. Electronically signed by: Matty Zuluaga M.D. 08/16/2021 2:51 PM Abdomen/Pelvis CT 08/16/21 15:54 CT OF THE ABDOMEN AND PELVIS WITHOUT CONTRAST CLINICAL HISTORY: Acute kidney injury, right sided abdominal pain, diarrhea COMPARISON STUDY: CT of the abdomen and pelvis February 12, 2017. TECHNIQUE: Axial images of the abdomen and pelvis were obtained without IV contrast. Images were reviewed in the axial, sagittal, and coronal planes. Automated exposure control was utilized for the study. A dose lowering technique was utilized adhering to the principles of ALARA. FINDINGS: Lung bases are unremarkable. Cardiomegaly is noted. No pneumatosis, free air or portal venous gas is present. Water attenuation hepatic lesions are unchanged since prior CT. These measure up to 4.9 cm and represents cysts. There is no biliary ductal dilatation status post cholecystectomy. Unenhanced images of the spleen, adrenal glands and pancreas are unremarkable. There is no evidence for a bowel obstruction. Appendix is normal. Colonic diverticulosis is noted without evidence for acute diverticulitis. There is no lymphadenopathy. Extensive aortoiliac atherosclerotic plaque is present. A 9 x 5 mm right ureteropelvic junction calculus results in moderate right hydronephrosis. 7 mm calculus within the lower pole the right kidney is noted. There is no left hydronephrosis. Evaluation of the distal ureters is compromised by streak artifact from hip arthroplasties are there are no definite distal ureteral calculi. Water attenuation left renal lesions are suboptimally assessed on this unenhanced exam but favor cysts. Bilateral hip arthroplasties are noted. There is lucency adjacent to the femoral component of the left hip arthroplasty with apparent erosion of the anterior cortex. IMPRESSION: 1. 9 mm x 5 mm right ureteropelvic junction calculus which results in moderate right hydronephrosis. 2. Right-sided nephrolithiasis. 3. Lucency adjacent to left hip arthroplasty which raises the possibility of loosening. ACT 112: Negative or not required by law. Electronically signed by: Luis Esteban M.D. 08/16/2021 4:46 PM Discharge Plan Visit Data Chief Complaint: Shortness of Breath/Dyspnea Stated Complaint: WEAKNESS, DRY MOUTH, SOB ED Provider: Bebeto Shankar Discharge Problem: Atrial fibrillation with rapid ventricular response, SURJIT (acute kidney injury), Elevated troponin I level, Pneumonia Patient Disposition: Being Evaluated by Hospitalist Discharge Instructions Interventions: ED Discharge Assessment Last Done: 08/16/21 17:33 Discharge Problem: Pneumonia Qualifiers: Pneumonia type: due to unspecified organism Laterality: left Lung location: lower lobe of lung Qualified Code(s): J18.9 - Pneumonia, unspecified organism
--- NOTE | 2021-08-16 14:52 | XRay Report ---
XR chest 1V portable HISTORY: 81 years-old Female SOB acute shortness of breath with weakness COMPARISON: Chest radiograph 02/16/2017 TECHNIQUE: Portable AP view of the chest FINDINGS: Cardiac silhouette is enlarged. Calcified plaque of the thoracic aorta. Trace pleural effusions with mild bibasilar densities. No pneumothorax. Pulmonary vascular congestion. Degenerative changes of the shoulders and spine. IMPRESSION: 1. Cardiomegaly with pulmonary vascular congestion. 2. Suggested trace pleural effusions with mild bibasilar opacities. ACT 112: Negative or not required by law. The above report was generated using voice recognition software. It may contain grammatical, syntax o r spelling errors. Electronically signed by: Matty Zuluaga M.D. 08/16/2021 2:51 PM
[2021-08-16 14:58] LABS: INR 1.1 (0.9-1.1); Partial Thromboplastin Time 27.9 Seconds (21.0-31.0); Prothrombin Time 11.9 Seconds (9.0-12.0)
[2021-08-16 14:59] LABS: Influenza A virus by PCR Negative (Neg); Influenza B virus by PCR Negative (Neg); RSV by PCR Negative (Neg); SARS CoV2 RNA(COVID-19) InHosp NEGATIVE (Negative)
[2021-08-16 15:09] LABS: Albumin Globulin Ratio 0.9 (0.9-2); Albumin Level 3.2 gm/dl (3.4-5.0); BUN Creatinine Ratio 29.2 (10-20); Bilirubin,Total 0.6 mg/dl (0.2-1.0); Calcium 8.7 mg/dl (8.5-10.1); Creatinine Clr Calc Pharmacy 21.1 ml/min; Est GFR (African American) 18.8 ml/min; Est GFR (Non-African American) 16.2 ml/min; Globulin 3.7 gm/dl (2.5-4.0); Magnesium 2.2 mg/dl (1.7-2.4); Potassium 3.8 mmol/L (3.5-5.1); Total Protein 6.9 gm/dl (6.0-8.3)
[2021-08-16 15:22] LABS: Troponin I 0.38 ng/ml (0-0.04)
[2021-08-16] MEDS ORDERED: SODIUM CHLORIDE 0.9% 1000ML 1,000 ML IV ONE (15:25)
[2021-08-16 15:26] LABS: Hematocrit (blood only) 45.5 % (37-47); Hemoglobin 14.7 g/dL (12.0-16.0); Mean Corpuscular Hemoglobin 28.2 pg (25-34); Mean Corpuscular Hgb Conc 32.3 g/dL (32-36); Mean Corpuscular Volume 87.2 fL (80-100); RDW Coefficient of Variation 17.2 % (11.5-14.5); RDW Standard Deviation 55.1 fL (36.4-46.3); Red Blood Count 5.22 M/uL (4.2-5.4); White Blood Count 20.99 K/uL (4.8-10.8)
[2021-08-16 15:51] LABS: Mean Platelet Volume 12.1 fL (7.4-10.4); Platelet Count 111 K/uL (130-400)
[2021-08-16] MEDS ORDERED: AZITHROMYCIN 500 MG in DEXTROSE 5% 250 ML IV STA (15:55)
[2021-08-16] MEDS ORDERED: cefTRIAXone SODIUM 2,000 MG/70 ML BAG IV STA (15:55)
[2021-08-16 15:56] LABS: Basophils # (auto) 0.02 K/uL (0-0.2); Basophils % (auto) 0.1 %; Echinocytes 1+; Eosinophils # (auto) 0.06 K/uL (0-0.5); Eosinophils % (auto) 0.3 %; Immature Granulocytes # (auto) 0.07 K/uL (0.00-0.02); Immature Granulocytes % (auto) 0.3 %; Lymphocytes # (auto) 0.49 K/uL (1.2-3.4); Lymphocytes % (auto) 2.4 %; Monocytes # (auto) 0.53 K/uL (0.11-0.59); Monocytes % (auto) 2.6 %; Neutrophils # (auto) 19.05 K/uL (1.4-6.5); Neutrophils % (auto) 94.3 %; Platelet Estimate Decreased (Normal)
--- NOTE | 2021-08-16 15:58 | History & Physical Report ---
Date of Service August 16, 2021 Assessment & Plan (1) Sepsis secondary to UTI: Plan: Lactate 1.5 - taken after initial 2L fluid resuscitation Ceftriaxone 2g IV initially given to cover for PNA as no alternative source prior to CT and UA - this should be adequate for UTI given pansensitive E. coli grown previously and not immunosuppressed. Will broaden antibiotic coverage if she deteriorates however. Obstructive uropathy as below. Follow up blood and urine cultures. (2) Obstructive uropathy: Plan: Consult urology in setting of sepsis will need urgent. Discussed with Dr Campoverde and will be taking patient to OR tonight. (3) Ureterolithiasis: Plan: as above (4) SURJIT (acute kidney injury): Plan: Suspect both obstructive and pre-renal in setting of lisinopril use. 3L total IVF bolus given CT A/P positive for obstructive cause - see above. Tovar catheter inserted for accurate UO. Hold lisinopril. (5) Hydronephrosis, right: Plan: as above (6) Pneumonia: Plan: Possible PNA per my read in [facility] however suspect UTI driving sepsis. I am less concerned about any pulmonary edema. Continue Ceftriaxone and Azithromycin Incentive spirometer, flutter valve Shortness of breath likely secondary to sepsis, A. fib RVR and possible PNA. (7) Atrial fibrillation with rapid ventricular response: Plan: New onset. TSH WNL. Suspect exacerbated by current sepsis. [id number] 6 - will require full anticoagulation once ok from urology stand point post operatively. Will defer rate controlling medications until post operatively as unclear whether rate is appropriate vs. inappropriate given current sepsis and need to avoid hypotension. (8) Elevated troponin I level: Plan: Suspect demand-ischemia since it is falling with treatment for UTI sepsis as above. TTE in AM (9) Type 2 diabetes mellitus: Plan: HbA1C 6.3 in July Insulin sliding scale for correction only. Will add lantus if frequently requiring correction. (10) Hypertension: Plan: Hold lisinopril and further rate controlling medications in setting of sepsis Plan: VTE Prophylaxis - deferred post operatively Diet - NPO pending ureteral stent insertion Disposition - admit to PCU Admission and Anticipated Discharge Date Admission Date: 2021 History of Present Illness Chief Complaint: Shortness of breath Primary Care Provider: BESSY Winters Smita Monge is an 81 year old female who presents to the ER due to shortness of breath. She reportedly has been getting progressively weaker since Friday (4 days prior to admission). She reports severe right sided abdominal pain on Friday which subsequently resolved but lasted throughout the night. She also reports episode of diarrhea at the same time as the abdominal pain but subsequently resolved. Shortness of breath suddenly got worse after her doctors appointment today. No fever, chills, chest pain, cough, nasal congestion, sinus pain, dysuria, back pain, urinary frequency, change in smell or color. In the ER she was noted to be in atrial fibrillation with rapid ventricular rate and was initially given IV fluids and diltiazem for rate control. She was referred to medicine for admission and ongoing management of atrial fibrillation with rapid ventricular rate, pulmonary edema and acute kidney injury. Allergies Allergy/AdvReac Type Severity Reaction Status Date / Time No Known Allergies Allergy Verified 08/16/21 15:43 Home Medications Medication Instructions Recorded Confirmed Type aspirin 81 mg tablet,delayed 81 mg PO QAM 04/22/18 08/16/21 History release multivitamin 1 tab PO QAM 04/22/18 08/16/21 History mirabegron 50 mg tablet,extended 50 mg PO DAILY #30 tab 01/16/21 08/16/21 Rx release 24 hr lisinopril 30 mg tablet 30 mg PO DAILY #30 tab 07/17/21 08/16/21 Rx semaglutide (Ozempic) 0.5 mg SUBCUT WK 08/16/21 08/16/21 History Past Med/Surg History Medical History Abscess Cataract, bilateral Diarrhea Diastolic dysfunction Draining postoperative wound Fatigue Fistula Hearing deficit Hyperlipidemia Hypertension Intermittent right upper quadrant abdominal pain Osteoarthritis Osteoarthritis of hip Surgical History H/O arthroplasty left ankle History of ankle surgery History of cholecystectomy History of total hip arthroplasty LEFT/RT Family History Father Myocardial infarction Other Coronary heart disease Denies family history of Ovarian cancer Prostate cancer Diabetes Dementia Breast cancer Colorectal cancer Social History Smoking Status: Never smoker Tobacco Type: Cigarettes Age Started Using Tobacco: 21; Age Quit Using Tobacco: 66; packs per day: 1; Cigarettes Per Day: 20; Second Hand Exposure: No; Hx Alcohol Use: No Hx Substance Use: No Preferred Language: Yoruba Communication Ability: Effective Visual Impairment: No Limitations Hearing Ability: Hard of Hearing Numerical Control Nesting Operator Required: No Beliefs That Will Affect Care: None marital status: Current Living Situation: Significant Other current occupational status: retired How many Children do You have: 6 Feels Safe at Home: Yes Childhood Exposure to Second-Hand Smoke: No caffeine: Yes (coffee ) Dental Care, Regularly: Yes Physical Activity Frequency: Does not Exercise Seatbelt Use: sometimes Sunscreen Use: Yes (Sometimes) Assistive Devices: Cane, Glasses and Hearing Aid - Bilateral Review of Systems Review of Systems: All systems reviewed & are unremarkable except as noted in HPI & below Physical Exam Constitutional: WD/WN, vitals as above + acute distress (respiratory) Eyes: PERRL, conjunctivae normal, anicteric sclerae ENMT: Mouth: + dry oral mucous membranes Neck: trachea midline, no thyromegaly Respiratory: + labored breathing, + retractions, + uses accessory muscles, able to speak in complete sentences and + tachypneic; expiratory phase not prolonged and no audible wheezes Auscultation: lungs clear to auscultation bilaterally; breath sounds present, no diminished lung sounds, no crackles, no rales, no rhonchi and no wheezes Cardiovascular: Rate/Rhythm: + tachycardic and + irregularly irregular Heart Sounds: no murmur Vessels: radial pulses present Extremities: normal capillary refill and + pedal edema (trace pre-tibial b/l equal); no calf tenderness Gastrointestinal (Abdomen): Inspection/Auscultation: normal bowel sounds Percussion/Palpation: abdomen soft; abdomen nontender, no guarding and abdomen not rigid Musculoskeletal: no cyanosis or clubbing, extremities motor strength 5/5 Skin: no rashes, warm and dry Neurologic: moves all extremities and awake; no focal motor deficits and not confused Psychiatric: A+Ox3, euthymic affect Genitourinary: no CVA tenderness Results & Data Results & Data ([facility]) Vital Signs (Past 12 Hours) Vital Signs Temp Pulse Pulse Resp BP BP Pulse Ox 08/16/21 14:46 130 H 22 119/74 96 08/16/21 14:34 127 H 22 99/71 L 93 08/16/21 14:27 94 08/16/21 14:26 94 08/16/21 14:25 151 H 22 116/86 94 08/16/21 14:01 36 C L 104 H 18 128/72 94 Laboratory Results Abnormal lab results 08/16/21 08/16/21 Range/Units 14:32 14:32 WBC 20.99 H (4.8-10.8) K/uL RDW Std Deviation 55.1 H (36.4-46.3) fL RDW Coeff of Heriberto 17.2 H (11.5-14.5) % Plt Count 111 L (130-400) K/uL MPV 12.1 H (7.4-10.4) fL Neut # (Auto) 19.05 H (1.4-6.5) K/uL Lymph # (Auto) 0.49 L (1.2-3.4) K/uL Immature Gran # (Auto) 0.07 H (0.00-0.02) K/uL Platelet Estimate Decreased L (Normal) Carbon Dioxide 20 L (21-32) mmol/L Anion Gap 14 H (3-11) BUN 78 H (6-23) mg/dl Creatinine 2.67 H (0.6-1.2) mg/dl BUN/Creatinine Ratio 29.2 H (10-20) Glucose 126 H (70-99(Fasting)) mg/dl Alkaline Phosphatase 127 H (34-104) U/L Troponin I 0.38 H* (0-0.04) ng/ml Albumin 3.2 L (3.4-5.0) gm/dl Diagnostic Findings XR chest 1V portable HISTORY: 81 years-old Female SOB acute shortness of breath with weakness COMPARISON: Chest radiograph 02/16/2017 TECHNIQUE: Portable AP view of the chest FINDINGS: Cardiac silhouette is enlarged. Calcified plaque of the thoracic aorta. Trace pleural effusions with mild bibasilar densities. No pneumothorax. Pulmonary vascular congestion. Degenerative changes of the shoulders and spine. IMPRESSION: 1. Cardiomegaly with pulmonary vascular congestion. 2. Suggested trace pleural effusions with mild bibasilar opacities. Medications Administered ER Medications Given: NSS 2L bolus total Dilatiazem 10mg IV x2 ECG Rate (beats per minute): 155 Rhythm: atrial fibrillation Comparison ECG Date: from (Apr 27, 2018) Change: the following changes noted (atrial fibrillation replaced NSR) Code Status & VTE Plan Code Status Full VTE Prophylaxis Plan VTE Prophylaxis will be ordered: Yes PG Care Time/CCT Total # of Minutes Spent Total Time Spent with Patient: Total time spent is greater than 50% in coordination of care (as documented) at patient's floor/unit and/or counseling patient: Coding Level of Care Code 55769 Initial Inpt Care Lvl 3 Diagnoses Atrial fibrillation with rapid ventricular response I48.91 SURJIT (acute kidney injury) N17.9 Elevated troponin I level R77.8 Pneumonia J18.9 Laterality: left Lung location: lower lobe of lung Pneumonia type: due to unspecified organism Type 2 diabetes mellitus E11.9 Diabetes mellitus complication status: without complication Diabetes mellitus group home insulin use: without intermodal dispatcher use Hypertension I10 Hypertension type: essential hypertension Sepsis secondary to UTI A41.9; N39.0 Obstructive uropathy N13.9 Ureterolithiasis N20.1 Hydronephrosis, right N13.30 (1) Type 2 diabetes mellitus Diabetes mellitus complication status: without complication Diabetes mellitus intermodal dispatcher insulin use: without group home use Qualified Code(s): E11.9 - Type 2 diabetes mellitus without complications (2) Hypertension Hypertension type: essential hypertension Qualified Code(s): I10 - Essential (primary) hypertension (3) Pneumonia Laterality: left Lung location: lower lobe of lung Pneumonia type: due to unspecified organism Qualified Code(s): J18.9 - Pneumonia, unspecified organism
[2021-08-16 16:30] LABS: Appearance Urine Turbid (Clear); Bacteria Urine Automated 4+ (Negative); Bilirubin Urine Negative (Negative); Blood Urine 3+ (Negative); Color Urine Yellow; Epithelial Cell Urine Auto >30 /lpf (0-5); Glucose Urine UA Negative (Negative); Ketones Urine Trace (Negative); Leukocyte Esterase Urine 3+ (Negative); Nitrite Urine Positive (Negative); Protein Urine 2+ (Negative); Specific Gravity Urine 1.018 (1.000-1.030); Urobilinogen Urine Negative (Negative); WBC Urine Automated >30 /hpf (0-5)
--- NOTE | 2021-08-16 16:48 | CT Scan Report ---
CT OF THE ABDOMEN AND PELVIS WITHOUT CONTRAST CLINICAL HISTORY: Acute kidney injury, right sided abdominal pain, diarrhea COMPARISON STUDY: CT of the abdomen and pelvis February 12, 2017. TECHNIQUE: Axial images of the abdomen and pelvis were obtained without IV contrast. Images were revi ewed in the axial, sagittal, and coronal planes. Automated exposure control was utilized for the silas dy. A dose lowering technique was utilized adhering to the principles of ALARA. FINDINGS: Lung bases are unremarkable. Cardiomegaly is noted. No pneumatosis, free air or portal veno us gas is present. Water attenuation hepatic lesions are unchanged since prior CT. These measure up t o 4.9 cm and represents cysts. There is no biliary ductal dilatation status post cholecystectomy. Une nhanced images of the spleen, adrenal glands and pancreas are unremarkable. There is no evidence for a bowel obstruction. Appendix is normal. Colonic diverticulosis is noted without evidence for acute d iverticulitis. There is no lymphadenopathy. Extensive aortoiliac atherosclerotic plaque is present. A 9 x 5 mm right ureteropelvic junction calculus results in moderate right hydronephrosis. 7 mm calcul us within the lower pole the right kidney is noted. There is no left hydronephrosis. Evaluation of th e distal ureters is compromised by streak artifact from hip arthroplasties are there are no definite distal ureteral calculi. Water attenuation left renal lesions are suboptimally assessed on this unenh anced exam but favor cysts. Bilateral hip arthroplasties are noted. There is lucency adjacent to the femoral component of the left hip arthroplasty with apparent erosion of the anterior cortex. IMPRESSION: 1. 9 mm x 5 mm right ureteropelvic junction calculus which results in moderate right hydronephrosis. 2. Right-sided nephrolithiasis. 3. Lucency adjacent to left hip arthroplasty which raises the possibility of loosening. ACT 112: Negative or not required by law. Electronically signed by: Luis Esteban M.D. 08/16/2021 4:46 PM
[2021-08-16] MEDS ORDERED: ASPIRIN 81 MG CHEW PO STA (16:52)
[2021-08-16] MEDS ORDERED: LACTATED RINGER'S 1,000 ML IV ONE (17:03)
--- NOTE | 2021-08-16 17:31 | Urology Consultation ---
Date of Consultation August 16, 2021 Assessment & Plan (1) Ureterolithiasis: (2) Sepsis secondary to UTI: 81-year-old female with a right proximal obstructing ureteral calculus and sepsis Emergently to the OR for cystoscopy, right retrograde pyelogram, right ureteral stent placement Risks and benefits discussed including but not limited to anesthesia risk, pain, bleeding, infection, damage to urethra, bladder, ureter or kidney, stent discomfort, inability to place stent which would require transfer for nephrostomy tube, need for other procedures. Patient signed consent. Right side marked History of Present Illness Reason for Consultation: Right proximal obstructing ureteral calculus and sepsis History of Present Illness 81-year-old female who presented to the hospital was found on CT scan to have a right proximal obstructing ureteral calculus with concern for infection. In the emergency department, she was afebrile, tachycardic and hypotensive. Labs significant for leukocytosis of 20.9, creatinine of 2.67 with a baseline of 0.7- 0.8, troponin of 0.35, procalcitonin of 68, and UA that was positive for nitrites, 3+ leukocyte esterase, 30+ W BCs and 5-10 RBCs 4+ bacteria. She received ceftriaxone and azithromycin. Allergies Allergy/AdvReac Type Severity Reaction Status Date / Time No Known Allergies Allergy Verified 08/16/21 15:43 Home Medications Medication Instructions Recorded Confirmed Type aspirin 81 mg tablet,delayed 81 mg PO QAM 04/22/18 08/16/21 History release multivitamin 1 tab PO QAM 04/22/18 08/16/21 History mirabegron 50 mg tablet,extended 50 mg PO DAILY #30 tab 01/16/21 08/16/21 Rx release 24 hr lisinopril 30 mg tablet 30 mg PO DAILY #30 tab 07/17/21 08/16/21 Rx semaglutide (Ozempic) 0.5 mg SUBCUT WK 08/16/21 08/16/21 History Patient History Medical History Abscess Cataract, bilateral Diarrhea Diastolic dysfunction Draining postoperative wound Fatigue Fistula Hearing deficit Hyperlipidemia Hypertension Intermittent right upper quadrant abdominal pain Osteoarthritis Osteoarthritis of hip Surgical History H/O arthroplasty left ankle History of ankle surgery History of cholecystectomy History of total hip arthroplasty LEFT/RT Family History Father Myocardial infarction Other Coronary heart disease Denies family history of Ovarian cancer Prostate cancer Diabetes Dementia Breast cancer Colorectal cancer Social History Smoking Status: Never smoker Tobacco Type: Cigarettes Age Started Using Tobacco: 21; Age Quit Using Tobacco: 66; packs per day: 1; Cigarettes Per Day: 20; Second Hand Exposure: No; Hx Alcohol Use: No Hx Substance Use: No Preferred Language: Arabic Communication Ability: Effective Visual Impairment: No Limitations Hearing Ability: Hard of Hearing Review Rn Required: No Beliefs That Will Affect Care: None marital status: Current Living Situation: Significant Other current occupational status: retired How many Children do You have: 6 Feels Safe at Home: Yes Childhood Exposure to Second-Hand Smoke: No caffeine: Yes (coffee ) Dental Care, Regularly: Yes Physical Activity Frequency: Does not Exercise Seatbelt Use: sometimes Sunscreen Use: Yes (Sometimes) Assistive Devices: Cane, Glasses and Hearing Aid - Bilateral Review of Systems Review of Systems: 14 point review of systems negative outside of what is listed above in HPI Physical Exam Physical Exam: General: Alert and oriented, no acute distress HEENT: Normocephalic, mucous membranes moist Pulmonary: Nonlabored respirations Cardiovascular, tachycardic Abdomen: Nondistended Extremities: Moves all 4 spontaneously Neuro: No gross deficits Skin: Warm, dry, no rashes noted Results & Data ([facility]) Vital Signs (Past 12 Hours) Vital Signs Temp Pulse Pulse Resp BP BP Pulse Ox 08/16/21 17:01 125 H 27 H 97/66 L 96 08/16/21 16:00 126 H 21 117/77 94 08/16/21 14:46 130 H 22 119/74 96 08/16/21 14:34 127 H 22 99/71 L 93 08/16/21 14:27 94 08/16/21 14:26 94 08/16/21 14:25 151 H 22 116/86 94 08/16/21 14:01 36 C L 104 H 18 128/72 94 PG Care Time/CCT Total # of Minutes Spent Total Time Spent with Patient: Total time spent is greater than 50% in coordination of care (as documented) at patient's floor/unit and/or counseling patient: [place] [address] Inpt Consult Level 4 Patient Type New Diagnoses Ureterolithiasis N20.1 Sepsis secondary to UTI A41.9; N39.0
--- NOTE | 2021-08-16 18:02 | Anesthesiology Consultation ---
Date of Service August 16, 2021 Assessment & Plan Chart Review Chart Review: Acceptable Risk for Surgery Consults Requested none History Surgery Operation Date: 08/16/21 16:55 Proposed Procedures p Cystoscopy Right Retrograde and stent - Darci Campoverde MD Height/Weight Height: 5 ft 4 in Weight: 117 kg Allergies Allergy/AdvReac Type Severity Reaction Status Date / Time No Known Allergies Allergy Verified 08/16/21 15:43 Medications Home Medications Medication Instructions Recorded Confirmed Last Taken aspirin 81 mg tablet,delayed 81 mg PO QAM 04/22/18 08/16/21 08/16/21 release multivitamin 1 tab PO QAM 04/22/18 08/16/21 08/16/21 mirabegron 50 mg tablet,extended 50 mg PO DAILY #30 tab 01/16/21 08/16/21 08/16/21 release 24 hr lisinopril 30 mg tablet 30 mg PO DAILY #30 tab 07/17/21 08/16/21 08/16/21 semaglutide (Ozempic) 0.5 mg SUBCUT WK 08/16/21 08/16/21 Unknown Active Medications Generic Name Dose Route Start Last Admin Trade Name Freq PRN Reason Stop Dose Admin Lactated Ringer's 1,000 mls @ 999 mls/hr 08/16/21 17:03 08/16/21 17:20 Lr IV 08/16/21 18:03 999 mls/hr .Q1H1M ONE Administration NPO Date Last Intake of Fluids: 08/16/21 Time Last Intake of Fluids: 09:30 Date Last Intake of Solids: 08/12/21 Past Medical History Medical History Abscess Cataract, bilateral Diarrhea Diastolic dysfunction Draining postoperative wound Fatigue Fistula Hearing deficit Hyperlipidemia Hypertension Intermittent right upper quadrant abdominal pain Osteoarthritis Osteoarthritis of hip Past Family History Family History Father Myocardial infarction Other Coronary heart disease Denies family history of Ovarian cancer Prostate cancer Diabetes Dementia Breast cancer Colorectal cancer Past Surgical History Surgical History H/O arthroplasty left ankle History of ankle surgery History of cholecystectomy History of total hip arthroplasty LEFT/RT Social History Smoking Status: Never smoker Smoking cigarettes per day: 20 Hx Alcohol Use: No Hx Substance Use: No substance use type: does not use Physical Exam Vital Signs Last Vital Signs Temp 36.5 C 08/16/21 17:48 Pulse 137 H 08/16/21 17:48 Resp 18 08/16/21 17:48 BP 125/67 08/16/21 17:31 Pulse Ox 95 08/16/21 17:48 Testing Laboratory Results 08/16/21 14:32 08/16/21 14:32 PT 11.9 Seconds (9.0-12.0) 08/16/21 14:32 INR 1.1 (0.9-1.1) 08/16/21 14:32 APTT 27.9 Seconds (21.0-31.0) 08/16/21 14:32 Urine Color Yellow 08/16/21 16:11 Urine Appearance Turbid (Clear) A 08/16/21 16:11 Urine pH 5.0 (4.5-7.5) 08/16/21 16:11 Ur Specific Adrian 1.018 (1.000-1.030) 08/16/21 16:11 Urine Protein 2+ (Negative) H 08/16/21 16:11 Urine Glucose (UA) Negative (Negative) 08/16/21 16:11 Urine Ketones Trace (Negative) H 08/16/21 16:11 Urine Nitrite Positive (Negative) A 08/16/21 16:11 Ur Leukocyte Esterase 3+ (Negative) H 08/16/21 16:11 Urine WBC (Auto) >30 /hpf (0-5) H 08/16/21 16:11 Urine RBC (Auto) 5-10 /hpf (0-4) H 08/16/21 16:11 U Hyaline Cast (Auto) 1-5 /lpf (0-5) 08/16/21 16:11 U Epithel Cells (Auto) >30 /lpf (0-5) H 08/16/21 16:11 Urine Bacteria (Auto) 4+ (Negative) H 08/16/21 16:11
[2021-08-16] MEDS ORDERED: fentaNYL citrate 100 MCG/2 ML VIAL IV PRN (18:03)
[2021-08-16] MEDS ORDERED: ATROPINE SULFATE 0.1 MG/ML 10ML SYR IV PRN (18:03)
[2021-08-16] MEDS ORDERED: ePHEDrine sulfate 50 MG/ML AMP IV PRN (18:03)
[2021-08-16] MEDS ORDERED: PROPOFOL IV EMULSION 10 MG/ML 20 ML VIAL IV ONE ×2 (18:40→19:03)
[2021-08-16] MEDS ORDERED: LIDOCAINE 2% 2 ML VIAL/AMP(20MG/ML) INFIL ONE ×2 (18:40→19:03)
--- NOTE | 2021-08-16 18:56 | Post Operative Brief Note ---
PG Immediate Post Op with CF Date of Surgery August 16, 2021 Pre & Post Diagnosis Operation Date: 08/16/21 16:55 Pre-Op Diagnosis: Ureterolithiasis, sepsis Post-Op Diagnosis: Ureterolithiasis, sepsis I identified the patient and participated in the time-out.: Yes Procedure Operation Date: 08/16/21 16:55 Actual Procedures p Cystoscopy, Right Retrograde Pyelogram, Right Ureteral Stent(Right) - Darci Campoverde MD Surgeon Darci Campoverde MD Wafer Production Worker None Estimated Blood Loss 0 Findings See Below 1. Globally inflamed bladder with erthema. 2. Right retrograde showed mild hydro 3. Stent in good position Drains Tovar Catheter and Other (6x26 Right stent ) Complications None Disposition Accompanied Patient To Recovery: No Disposition: Recovery Room Overlapping Procedure I was present for: the critical portions of procedure.
[2021-08-16] MEDS ORDERED: ONDANSETRON INJ 2 MG/ML 2 ML VIAL ONE (19:03)
--- NOTE | 2021-08-16 19:05 | Operative Report ---
PG Post Operative Report Pre & Post Diagnosis Operation Date: 08/16/21 16:55 Pre-Op Diagnosis: Ureterolithiasis, sepsis Post-Op Diagnosis: Ureterolithiasis, sepsis I identified the patient and participated in the time-out.: Yes Procedure Operation Date: 08/16/21 16:55 Actual Procedures p Cystoscopy, Right Retrograde Pyelogram with radiographic interpretation, Right Ureteral Stent(Right), Tovar catheter placement- Darci Campoverde MD Surgeon Darci Campoverde MD Traveling Freight Agent None Estimated Blood Loss 0 Findings See Below 1. Globally inflamed bladder, erythematous, consistent with infection 2. Right retrograde pyelogram showed mild hydronephrosis 3. Right ureteral stent in appropriate position Specimens None Drains 1. 6 Mauritian by 26 cm right ureteral stent 2. 18 Mauritian Tovar catheter with 10 cc in balloon Anesthesia Type MAC Complications None Disposition Accompanied Patient To Recovery: No Disposition: Recovery Room Indications 81-year-old female with a right proximal obstructing ureteral calculus and signs concerning for sepsis including hypotension, tachycardia, leukocytosis and UA concerning for infection. Patient also had significant SURJIT. Taken emergently to the OR for stent placement. Risks and benefits were discussed and patient provided consent. Description of Procedure After informed consent was obtained, the patient was transported operative suite. MAC anesthesia was induced. The patient was placed in dorsolithotomy position prepped and draped in a sterile fashion. They received preoperative ceftriaxone for antibiotic prophylaxis. An appropriate surgical timeout was performed. A 22 Mauritian rigid scope was inserted per urethra into the bladder. [place] cystoscopy revealed no stones or lesions. The bladder was globally inflamed consistent with infection. I turned my attention the right ureteral orifice and intubated this with a 5 Mauritian open-ended catheter. A right retrograde pyelogram was shot which showed mild hydronephrosis. A sensor wire was advanced into the kidney and confirmed fluoroscopically. A 6 Mauritian by 26 cm right ureteral stent was deployed with a good proximal coil in the renal pelvis and a good distal coil noted in the bladder, confirmed fluoroscopically and under direct visualization, respectively. The bladder was left full and the scope was removed. An 18 Mauritian Tovar catheter was placed with return of urine. The balloon was inflated with 10 cc of sterile water. This concluded the end of the case. All counts were correct at the end of the case. I was present, scrubbed, and actively participated for the entirety of the procedure. I attest to the content of the Intraoperative Record and any orders documented therein. Any exceptions are noted below.
[2021-08-16] MEDS ORDERED: CONRAY 60% 50 ML VIAL INSTIL ONE (19:15)
[2021-08-16] MEDS ORDERED: DIATRIZOATE MEGLUMINE 30% 100ML VIAL INSTIL PRN (19:17)
[2021-08-16] MEDS ORDERED: DIATRIZOATE MEGLUMINE 30% 100ML VIAL INSTIL ONE (19:21)
--- NOTE | 2021-08-16 19:29 | Fluoroscopy Report ---
FL retrograde includes kub CLINICAL HISTORY: CYSTO/RIGHT STENT COMPARISON STUDY: CT of the abdomen and pelvis performed earlier today. FLUOROSCOPY TIME: 14.7 seconds. FLUOROSCOPIC IMAGES: 3 FINDINGS: Fluoroscopy was provided during cystoscopy and right retrograde exam with ureteral stent in sertion. Proximal aspect of the ureteral stent projects over the right renal pelvis. Right hydronephr osis is noted. IMPRESSION: Fluoroscopy provided during cystoscopy, right retrograde exam and right ureteral stent i nsertion. ACT 112: Negative or not required by law. Electronically signed by: Lusi Esteban M.D. 08/16/2021 7:27 PM
--- NOTE | 2021-08-16 19:42 | Anesthesiology Progress Note ---
Date of Service August 16, 2021 Anesthesia Post Procedure Vital Signs Vital Signs: Temp Pulse Pulse Pulse Resp BP BP 08/16/21 19:36 130 H 23 101/86 08/16/21 19:26 36.6 C 118 H 16 98/77 L 08/16/21 19:16 133 H 26 H 91/64 L 08/16/21 19:08 36.2 C L 139 H 23 106/75 08/16/21 17:48 36.5 C 137 H 18 08/16/21 17:31 124 H 28 H 08/16/21 17:15 128 H 27 H 08/16/21 17:01 125 H 27 H 08/16/21 16:00 126 H 21 08/16/21 14:46 130 H 22 08/16/21 14:34 127 H 22 08/16/21 14:27 08/16/21 14:26 08/16/21 14:25 151 H 22 08/16/21 14:01 36 C L 104 H 18 128/72 BP Pulse Ox 08/16/21 19:36 95 08/16/21 19:26 95 08/16/21 19:16 91 08/16/21 19:08 96 08/16/21 17:48 95 08/16/21 17:31 125/67 96 08/16/21 17:15 117/78 96 08/16/21 17:01 97/66 L 96 08/16/21 16:00 117/77 94 08/16/21 14:46 119/74 96 08/16/21 14:34 99/71 L 93 08/16/21 14:27 94 08/16/21 14:26 94 08/16/21 14:25 116/86 94 08/16/21 14:01 94 Transfer of Care Handoff Completed per policy Notes Mental Status: alert / awake / arousable and participated in evaluation Patient Amnestic to Procedure: Yes Nausea / Vomiting: adequately controlled Pain: adequately controlled Airway Patency, RR, SpO2: stable & adequate BP & HR: stable & adequate Hydration State: stable & adequate Anesthetic Complications: no major complications apparent
[2021-08-16] MEDS ORDERED: VANCOMYCIN CONSULT ACTIVE PRN (20:06)
[2021-08-16] MEDS ORDERED: METOPROLOL TARTRATE 1 MG/ML VIAL IV PRN (20:13)
[2021-08-16] MEDS ORDERED: VANCOMYCIN HCL 2,250 MG in SODIUM CHLORIDE 0.9% 500 ML IV ONE (20:30)
[2021-08-16] MEDS: METOPROLOL TARTRATE 25 MG TAB PO SCH (20:57)
[2021-08-16] MEDS: CEFEPIME 2,000 MG in SYRINGE 0 ML IV SCH (20:57)
[2021-08-17 06:11] LABS: Hematocrit (blood only) 41.1 % (37-47); Hemoglobin 13.8 g/dL (12.0-16.0); Mean Corpuscular Hemoglobin 29.6 pg (25-34); Mean Corpuscular Hgb Conc 33.6 g/dL (32-36); Mean Corpuscular Volume 88.2 fL (80-100); RDW Coefficient of Variation 17.6 % (11.5-14.5); RDW Standard Deviation 57.1 fL (36.4-46.3); Red Blood Count 4.66 M/uL (4.2-5.4); White Blood Count 12.99 K/uL (4.8-10.8)
[2021-08-17 06:14] LABS: Mean Platelet Volume 11.5 fL (7.4-10.4); Platelet Count 86 K/uL (130-400)
[2021-08-17 06:27] LABS: INR 1.1 (0.9-1.1); Prothrombin Time 11.6 Seconds (9.0-12.0)
[2021-08-17 06:32] LABS: BUN Creatinine Ratio 34.8 (10-20); Calcium 8.2 mg/dl (8.5-10.1); Creatinine Clr Calc Pharmacy 27.9 ml/min; Est GFR (African American) 26.5 ml/min; Est GFR (Non-African American) 22.9 ml/min; Potassium 3.6 mmol/L (3.5-5.1)
[2021-08-17 06:45] LABS: Basophils # (auto) 0.02 K/uL (0-0.2); Basophils % (auto) 0.2 %; Eosinophils # (auto) 0.13 K/uL (0-0.5); Immature Granulocytes # (auto) 0.04 K/uL (0.00-0.02); Immature Granulocytes % (auto) 0.3 %; Lymphocytes # (auto) 0.57 K/uL (1.2-3.4); Lymphocytes % (auto) 4.4 %; Monocytes # (auto) 0.66 K/uL (0.11-0.59); Monocytes % (auto) 5.1 %; Neutrophils # (auto) 11.57 K/uL (1.4-6.5)
[2021-08-17] MEDS: METOPROLOL TARTRATE 25 MG TAB PO SCH ×2 (07:53→21:25)
[2021-08-17] MEDS: MULTIVITAMIN TAB PO SCH (07:54)
[2021-08-17] MEDS: MIRABEGRON ER 25 MG TAB PO SCH (07:54)
[2021-08-17] MEDS: ASPIRIN 81 MG ECTAB PO SCH (07:55)
--- NOTE | 2021-08-17 08:18 | Urology Progress Note ---
Date of Service August 17, 2021 Assessment & Plan (1) Ureterolithiasis: (2) Hydronephrosis, right: (3) Sepsis secondary to UTI: (4) S/P ureteral stent placement: Plan: - Pt POD#1 s/p emergent cystoscopy, retrograde pyelogram and right ureteral stent placement with Dr. Campoverde. - Afebrile overnight, remains tachycardic. - Lab work reviewed - creatinine and WBC downtrending, creatinine 2.01, WBC 12.99. - Urine and blood cultures are showing gram negative bacilli. - Currently on IV Cefepime, also on Azithromycin for possible PNA. - Tolerating right ureteral stent without bother. - Maintain Tovar catheter at this time, ideally 2-3 more days for maximum drainage, can do voiding trial prior to discharge. - Continue supportive care, antibiotics, and management per hospital medicine. - Recommend d/c when medically stable with appropriate PO antibiotics as well as Tamsulosin and prn Pyridium for stent. - Expected clinical course reviewed, all questions answered. - Will arrange outpatient follow-up with our service to discuss definitive stone management. Thank you for allowing us to participate in the acute care of Ms. Monge. Please reconsult us with additional questions, concerns or changes in patient status. Admission and Anticipated Discharge Date Admission Date: August 16, 2021 Supervising Physician Co-Signing Physician Notes Discussed patient with MIKE. Agree with plan. Subjective Patient seen and examined at bedside this AM. She is awake, alert and sitting up in bed finishing breakfast. No acute issues overnight. Subjectively feeling well this AM. Tolerating right ureteral stent without bother. Denies abdominal, flank or suprapubic pain. Tolerating Tovar catheter with minimal bother, notes mild dysuria, no hematuria. Tovar patent and draining clear yellow urine with some sediment noted in tubing. No nausea or vomiting. No fever or chills. Review of Systems Constitutional: as per Subjective / HPI Gastrointestinal: as per Subjective / HPI Genitourinary: as per Subjective / HPI Physical Exam Constitutional: well developed, well nourished and + obese; no acute distress and not ill appearing Respiratory: able to speak in complete sentences; no respiratory distress and no labored breathing O2 via nasal cannula Cardiovascular: Extremities: no pedal edema Gastrointestinal (Abdomen): Inspection/Auscultation: abdomen normal to inspection; abdomen not distended Musculoskeletal: Head/Neck/Chest: normocephalic Skin: no visible skin rashes Neurologic: moves all extremities and awake Psychiatric: Orientation: alert and oriented x 3 Genitourinary: Tovar intact, patent and draining clear yellow urine with sediment in tubing. Results & Data ([facility]) Vital Signs (Past 12 Hours) Vital Signs Temp Pulse Resp BP Pulse Ox 08/17/21 03:35 36.7 C 118 H 19 108/70 97 08/16/21 23:09 36.8 C 106 H 19 109/71 96 08/16/21 20:40 36.8 C 119 H 22 110/68 96 PG Care Time/CCT Total # of Minutes Spent Total Time Spent with Patient: Total time spent is greater than 50% in coordination of care (as documented) at patient's floor/unit and/or counseling patient: Coding Level of Care Code 96504 Subseq Hosp Care Lvl 2 Diagnoses Ureterolithiasis N20.1 Hydronephrosis, right N13.30 Sepsis secondary to UTI A41.9; N39.0 S/P ureteral stent placement Z96.0
[2021-08-17] MEDS ORDERED: METOPROLOL TARTRATE 25 MG TAB PO STA (09:17)
[2021-08-17] MEDS ORDERED: DEXTROSE 50% 50 ML SYRINGE IV PRN (09:24)
[2021-08-17] MEDS ORDERED: GLUCOSE 40% GEL 15 GM TUBE PO PRN (09:24)
[2021-08-17] MEDS ORDERED: CARBOHYDRATES FOR HYPOGLYCEMIA PO PRN (09:24)
[2021-08-17] MEDS ORDERED: GLUCOSE 10 TABS/TUBE PO PRN (09:24)
[2021-08-17] MEDS ORDERED: GLUCAGON FOR INJ 1 MG VIAL SQ PRN (09:24)
--- NOTE | 2021-08-17 09:26 | Hospitalist Progress Note ---
Date of Service August 17, 2021 Assessment & Plan (1) Sepsis secondary to UTI: Plan: Lactate 1.5 - taken after initial 2L fluid resuscitation. Continue cefepime for empiric coverage. Follow up blood and urine cultures - GNB (can discontinue vancomycin). Obstructive cause due to ureterolithiasis as below. (2) Gram-negative bacteremia: Plan: Stop vancomycin. Continue cefepime pending full identification. (3) Obstructive uropathy: Plan: s/p emergent ureteral stent inserted 08/16 Will need follow up with urology on discharge (4) Ureterolithiasis: Plan: as above (5) SURJIT (acute kidney injury): Plan: Improving now obstructive cause bypassed with ureteral stent. Suspect both obstructive and pre-renal in setting of lisinopril use. 3L total IVF bolus given in ER. CT A/P positive for obstructive cause - see above. Tovar catheter inserted for accurate UO - recommend 2-3 days total per urology recommendations. Hold lisinopril. (6) Hydronephrosis, right: Plan: as above, should resolve with ureteral stent, no need for re-imaging. (7) Hypoxia: Plan: Pulmonary edema vs. PNA Repeat CXR today (8) Pneumonia: Plan: Possible PNA per my read in [facility] however suspect UTI driving sepsis. Possible pulmonary edema but she should diurese without Lasix as heart rate better controlled and renal function improves. Continue Cefepime and Azithromycin Incentive spirometer, flutter valve Shortness of breath likely secondary to sepsis, A. fib RVR, and possible PNA vs. pulmonary edema. (9) Atrial fibrillation with rapid ventricular response: Plan: New onset. TSH WNL. Suspect exacerbated by current sepsis. [id number] 6 - start heparin IV standard without bolus until renal function back to baseline and can start on Eliquis. Metoprolol 25mg PO started last night with some improvement in rate today but still remains around 110-120. Will increase metoprolol to 50 mg PO BID. (10) Elevated troponin I level: Plan: Suspect demand-ischemia since it is falling with treatment for UTI sepsis as above. TTE pending - will consult cardiology if wall motion abnormalities however given persistently elevated troponin would recommend cardiology follow up regardless. (11) Type 2 diabetes mellitus: Plan: HbA1C 6.3 in July Insulin sliding scale for correction only. Will add Lantus if frequently requiring correction. (12) Hypertension: Plan: Hold lisinopril in setting of relative hypotension Plan: VTE Prophylaxis - started on heparin IV Diet - Heart healthy, T2DM Disposition - continued admission to PCU pending improvement in a. fib RVR Admission and Anticipated Discharge Date Admission Date: August 16, 2021 Subjective Patient reports feeling well. No pain or ongoing shortness of breath. Having some pain around catheter insertion site but no suprapubic pain or CVA tenderness. No fever or chills. Telemetry: A. fib rates 110-120 Review of Systems Review of Systems: All systems reviewed & are unremarkable except as noted in Subjective Physical Exam Constitutional: WD/WN, vitals as above + acute distress (respiratory) ENMT: Mouth: oral mucous membranes not dry Respiratory: + labored breathing, + retractions, + uses accessory muscles and able to speak in complete sentences; not tachypneic, expiratory phase not prolonged and no audible wheezes Auscultation: lungs clear to auscultation bilaterally; breath sounds present, no diminished lung sounds, no crackles, no rales, no rhonchi and no wheezes Cardiovascular: Rate/Rhythm: + tachycardic and + irregularly irregular Heart Sounds: no murmur Vessels: radial pulses present Extremities: normal capillary refill and + pedal edema (trace pre-tibial b/l equal); no calf tenderness Gastrointestinal (Abdomen): Inspection/Auscultation: normal bowel sounds Percussion/Palpation: abdomen soft; abdomen nontender, no guarding and abdomen not rigid Musculoskeletal: no cyanosis or clubbing, extremities motor strength 5/5 Skin: no rashes, warm and dry Neurologic: moves all extremities and awake; no focal motor deficits and not confused Psychiatric: A+Ox3, euthymic affect Genitourinary: no CVA tenderness Results & Data Results & Data ([facility]) Vital Signs (Past 12 Hours) Vital Signs Temp Pulse Pulse Resp BP Pulse Ox Pulse Ox 08/17/21 08:39 128 H 08/17/21 08:33 95 08/17/21 08:22 36.6 C 106 H 18 98/65 L 95 08/17/21 03:35 36.7 C 118 H 19 108/70 97 08/16/21 23:09 36.8 C 106 H 19 109/71 96 PG Care Time/CCT Total # of Minutes Spent Total Time Spent with Patient: Total time spent is greater than 50% in coordination of care (as documented) at patient's floor/unit and/or counseling patient: Coding Level of Care Code 01999 Subseq Hosp Care Lvl 3 Diagnoses Sepsis secondary to UTI A41.9; N39.0 Obstructive uropathy N13.9 Ureterolithiasis N20.1 SURJIT (acute kidney injury) N17.9 Hydronephrosis, right N13.30 Pneumonia J18.9 Laterality: left Lung location: lower lobe of lung Pneumonia type: due to unspecified organism Atrial fibrillation with rapid ventricular response I48.91 Elevated troponin I level R77.8 Type 2 diabetes mellitus E11.9 Diabetes mellitus complication status: without complication Diabetes mellitus rat exterminator insulin use: without retirement use Hypertension I10 Hypertension type: essential hypertension Gram-negative bacteremia R78.81 Hypoxia R09.02 (1) Type 2 diabetes mellitus Diabetes mellitus complication status: without complication Diabetes mellitus rat exterminator insulin use: without rat exterminator use Qualified Code(s): E11.9 - Type 2 diabetes mellitus without complications (2) Hypertension Hypertension type: essential hypertension Qualified Code(s): I10 - Essential (primary) hypertension (3) Pneumonia Laterality: left Lung location: lower lobe of lung Pneumonia type: due to unspecified organism Qualified Code(s): J18.9 - Pneumonia, unspecified organism
[2021-08-17] MEDS ORDERED: Heparin IV Adult Wt-Based Standard *NO* Bolus Protocol IV SCH (09:30)
--- NOTE | 2021-08-17 09:46 | XRay Report ---
XR chest 1V portable CLINICAL HISTORY: hypoxia TECHNIQUE: Single frontal radiograph of the chest was obtained. Comparison: Comparison is made to chest one view 08/16/2021 FINDINGS: No lines and tubes are seen. Calcified aortic knob is seen. Blunting of the left costophrenic angle i s more pronounced than the prior exam. Underlying right lower lung airspace opacity. IMPRESSION: Blunting of the left costophrenic angle is favored to represent moderate pleural effusion, increased from prior exam. Associated atelectasis is likely, aspiration/pneumonia cannot be entirely excluded. ACT 112: Negative or not required by law. Electronically signed by: Vinayak Burrows M.D. 08/17/2021 9:45 AM
[2021-08-17] MEDS: HEPARIN SODIUM/DEXTROSE 25,000 UNITS/500 ML BAG IV SCH (10:02)
[2021-08-17] MEDS: INSULIN ASPART PER UNIT SC SCH ×3 (12:02→21:27)
[2021-08-17 12:04] LABS: Creatinine Clr Calc Pharmacy 30.3 ml/min; Est GFR (African American) 29.3 ml/min; Est GFR (Non-African American) 25.3 ml/min
[2021-08-17] MEDS ORDERED: AZITHROMYCIN 500 MG in DEXTROSE 5% 250 ML IV SCH (16:00)
--- NOTE | 2021-08-17 16:04 | XCELERA ---
[id number]_[id number]
[2021-08-17 16:41] LABS: Partial Thromboplastin Ratio 1.2; Partial Thromboplastin Time 32.1 Seconds (21.0-31.0)
[2021-08-17] MEDS ORDERED: cefTRIAXone SODIUM 2,000 MG in DEXTROSE 5% 50 ML IV SCH (16:45)
[2021-08-17] MEDS ORDERED: LIDOCAINE 2% JELLY 5 ML TUBE EXT PRN (17:07)
[2021-08-17] MEDS ORDERED: HEPARIN SOD (PORCINE) 1000 UNIT/ML IV ONE (17:38)
[2021-08-17] MEDS ORDERED: METOPROLOL TARTRATE 50 MG TAB PO SCH (21:00)
[2021-08-17] MEDS: CEFEPIME 2,000 MG in SYRINGE 0 ML IV SCH (21:25)
--- NOTE | 2021-08-17 21:50 | Electrocardiogram Report ---
Test Reason : Blood Pressure : / mmHG Vent. Rate : 155 BPM Atrial Rate : 174 BPM P-R Int : 000 ms QRS Dur : 098 ms QT Int : 304 ms P-R-T Axes : 000 -64 063 degrees QTc Int : 488 ms Atrial fibrillation with rapid ventricular response Left axis deviation Abnormal ECG When compared with ECG of 27-APR-2018 11:29, Atrial fibrillation has replaced Sinus rhythm Vent. rate has increased BY 70 BPM Confirmed by Carlito Aldana ([id number]) on 08/17/2021 9:49:41 PM Referred By: Confirmed By:Carlito Aldana
[2021-08-17 23:50] LABS: Partial Thromboplastin Ratio 1.3; Partial Thromboplastin Time 36.2 Seconds (21.0-31.0)
[2021-08-18] MEDS: HEPARIN SODIUM/DEXTROSE 25,000 UNITS/500 ML BAG IV SCH ×3 (00:40→21:07)
[2021-08-18] MEDS ORDERED: Heparin IVP from UFH Protocol (WITH Bolus) IV ONE (01:30)
[2021-08-18 06:35] LABS: Hematocrit (blood only) 40.1 % (37-47); Hemoglobin 12.9 g/dL (12.0-16.0); Mean Corpuscular Hemoglobin 28.2 pg (25-34); Mean Corpuscular Hgb Conc 32.2 g/dL (32-36); Mean Corpuscular Volume 87.6 fL (80-100); RDW Coefficient of Variation 17.7 % (11.5-14.5); RDW Standard Deviation 57.2 fL (36.4-46.3); Red Blood Count 4.58 M/uL (4.2-5.4); White Blood Count 9.79 K/uL (4.8-10.8)
[2021-08-18 06:40] LABS: Mean Platelet Volume 10.8 fL (7.4-10.4); Platelet Count 87 K/uL (130-400)
[2021-08-18 06:54] LABS: BUN Creatinine Ratio 35.5 (10-20); Creatinine Clr Calc Pharmacy 34.1 ml/min; Est GFR (African American) 33.4 ml/min; Est GFR (Non-African American) 28.8 ml/min; Potassium 3.6 mmol/L (3.5-5.1)
[2021-08-18 07:07] LABS: Basophils # (auto) 0.03 K/uL (0-0.2); Basophils % (auto) 0.3 %; Immature Granulocytes # (auto) 0.05 K/uL (0.00-0.02); Immature Granulocytes % (auto) 0.5 %; Lymphocytes # (auto) 0.81 K/uL (1.2-3.4); Lymphocytes % (auto) 8.3 %; Monocytes # (auto) 0.82 K/uL (0.11-0.59); Monocytes % (auto) 8.4 %; Neutrophils # (auto) 7.88 K/uL (1.4-6.5); Neutrophils % (auto) 80.5 %
[2021-08-18 07:22] LABS: Partial Thromboplastin Ratio 1.4; Partial Thromboplastin Time 38.2 Seconds (21.0-31.0)
[2021-08-18] MEDS: ASPIRIN 81 MG ECTAB PO SCH (08:16)
[2021-08-18] MEDS: MIRABEGRON ER 25 MG TAB PO SCH (08:16)
[2021-08-18] MEDS: MULTIVITAMIN TAB PO SCH (08:16)
[2021-08-18] MEDS: INSULIN ASPART PER UNIT SC SCH ×2 (08:17→12:05)
[2021-08-18] MEDS: METOPROLOL TARTRATE 25 MG TAB PO SCH ×2 (08:31→21:09)
[2021-08-18] MEDS: CEFEPIME 2,000 MG in SYRINGE 0 ML IV SCH ×2 (10:27→21:08)
--- NOTE | 2021-08-18 11:17 | Hospitalist Progress Note ---
Date of Service August 18, 2021 Assessment & Plan (1) Sepsis secondary to UTI: Plan: Lactate 1.5 - taken after initial 2L fluid resuscitation. Continue cefepime for empiric coverage. Follow up blood and urine cultures - GNB (vancomycin discontinued). E. coli in urine, donna await blood cultures prior to switching antibiotics however. Obstructive cause due to ureterolithiasis as below. (2) Gram-negative bacteremia: Plan: Vancomycin stopped. Continue cefepime pending full identification. (3) Obstructive uropathy: Plan: s/p emergent ureteral stent inserted 08/16 Will need follow up with urology on discharge for stent removal and definitive stone management (4) Ureterolithiasis: Plan: as above (5) Hydronephrosis, right: Plan: as above, should resolve with ureteral stent, no need for re-imaging. (6) SURJIT (acute kidney injury): Plan: Improving now obstructive cause bypassed with ureteral stent. Suspect both obstructive and pre-renal in setting of lisinopril use. 3L total IVF bolus given in ER. CT A/P positive for obstructive cause - see above. Discontinue bojorquez catheter today Hold lisinopril. (7) Thrombocytopenia: Plan: Suspect secondary to sepsis given timecourse. Plt reduced to 87 prior to intiation of heparin. Do not suspect HIT. Hold aspirin as starting eliquis Monitor with CBC in AM. (8) Hypoxia: Plan: Use incentive spirometry. Suspect some atelactasis follow sepsis and lying up in bed. Wean as able to aim O2 > 90%. (9) Pneumonia: Plan: Ruled out. Azithromycin discontinued yesterday. (10) Atrial fibrillation with rapid ventricular response: Plan: New onset. TSH WNL. Secondary to sepsis Converted NSR 08/17 [id number] 6 - start Eliquis 2.5mg PO BID Continue metoprolol tartrate 25mg PO BID 30 day compliance monitor as outpatient Follow up with cardiology as if no a. fib on compliance monitor can likely discontinue anticoagulation at that time. (11) Elevated troponin I level: Plan: Suspect demand-ischemia since it is falling with treatment for UTI sepsis as a jazzy. TTE - no wall motion abnormalities. Recommend follow up with cardiology as outpatient as likely some underlying coronary artery disease and will follow up for a. fib regardless (12) Type 2 diabetes mellitus: Plan: HbA1C 6.3 in July No insulin has been required therefore will discontinue further checks (13) Hypertension: Plan: Hold lisinopril in setting of relative hypotension Plan: VTE Prophylaxis - switch heparin to Eliquis 2.5mg PO BID Diet - Heart healthy, T2DM Disposition - continue on med/tele to monitor for episodes of a. fib. PT/OT Admission and Anticipated Discharge Date Admission Date: August 16, 2021 Subjective Patient feeling slowly improved. Out of bed in the chair today but not yet done physical therapy. Bojorquez catheter removed earlier this morning. She denies any fever, chills, chest pain, shortness of breath, abdominal pain, dysuria or CVA tenderness. E. coli growing in urine culture but blood culture bacteria not yet resulted. Telemetry - no further episodes of a. fib since converting to NSR yesterday Review of Systems Review of Systems: All systems reviewed & are unremarkable except as noted in Subjective Physical Exam Constitutional: WD/WN, vitals as above no acute distress Eyes: + anicteric sclerae; normal pupil size ENMT: Mouth: oral mucous membranes not dry Respiratory: normal respiratory effort and able to speak in complete sentences; no labored breathing, no retractions and does not use accessory muscles Auscultation: lungs clear to auscultation bilaterally; breath sounds present, no diminished lung sounds, no crackles, no rales, no rhonchi and no wheezes Cardiovascular: Heart Sounds: no murmur Vessels: radial pulses present Extremities: normal capillary refill and + pedal edema (trace pre-tibial b/l equal); no calf tenderness Gastrointestinal (Abdomen): Inspection/Auscultation: normal bowel sounds Percussion/Palpation: abdomen soft; abdomen nontender, no guarding and abdomen not rigid Neurologic: moves all extremities and awake; not confused Psychiatric: A+Ox3, euthymic affect Genitourinary: no CVA tenderness Results & Data Results & Data ([facility]) Vital Signs (Past 12 Hours) Vital Signs Temp Pulse Pulse Pulse Resp BP Pulse Ox 08/18/21 11:00 36.3 C L 69 22 131/84 94 08/18/21 08:39 75 08/18/21 07:00 36.3 C L 70 20 112/67 93 08/18/21 04:19 74 08/18/21 04:12 36.4 C L 72 20 101/66 94 08/17/21 23:59 77 PG Care Time/CCT Total # of Minutes Spent Total Time Spent with Patient: Total time spent is greater than 50% in coordination of care (as documented) at patient's floor/unit and/or counseling patient: Coding Level of Care Code 06644 Subseq Hosp Care Lvl 2 Diagnoses Sepsis secondary to UTI A41.9; N39.0 Gram-negative bacteremia R78.81 Obstructive uropathy N13.9 Ureterolithiasis N20.1 SURJIT (acute kidney injury) N17.9 Hydronephrosis, right N13.30 Hypoxia R09.02 Pneumonia J18.9 Laterality: left Lung location: lower lobe of lung Pneumonia type: due to unspecified organism Atrial fibrillation with rapid ventricular response I48.91 Elevated troponin I level R77.8 Type 2 diabetes mellitus E11.9 Diabetes mellitus complication status: without complication Diabetes mellitus vermin exterminator insulin use: without half-way use Hypertension I10 Hypertension type: essential hypertension Thrombocytopenia D69.6 (1) Type 2 diabetes mellitus Diabetes mellitus complication status: without complication Diabetes mellitus half-way insulin use: without half-way use Qualified Code(s): E11.9 - Type 2 diabetes mellitus without complications (2) Hypertension Hypertension type: essential hypertension Qualified Code(s): I10 - Essential (primary) hypertension (3) Pneumonia Laterality: left Lung location: lower lobe of lung Pneumonia type: due to unspecified organism Qualified Code(s): J18.9 - Pneumonia, unspecified organism
[2021-08-18 13:38] LABS: Partial Thromboplastin Ratio 1.3; Partial Thromboplastin Time 36.2 Seconds (21.0-31.0)
[2021-08-18] MEDS ORDERED: HEPARIN SOD (PORCINE) 1000 UNIT/ML IV ONE (14:06)
[2021-08-18] MEDS ORDERED: HEPARIN IV BOLUS 3,000 UNITS in SYRINGE 0 ML IV ONE (14:15)
[2021-08-18] MEDS ORDERED: APIXABAN 2.5 MG TAB PO SCH (21:00)
[2021-08-18] MEDS ORDERED: STOP ORDER: HEPARIN INFUSION ONE (21:00)
[2021-08-18 21:30] LABS: Partial Thromboplastin Ratio 1.4; Partial Thromboplastin Time 39.6 Seconds (21.0-31.0)
[2021-08-18] MEDS ORDERED: Nursing to Pharmacy Communication ONE (21:44)
[2021-08-19 07:04] LABS: BUN Creatinine Ratio 34.7 (10-20); Calcium 8.3 mg/dl (8.5-10.1); Creatinine Clr Calc Pharmacy 45.2 ml/min; Est GFR (African American) 47.5 ml/min; Potassium 3.6 mmol/L (3.5-5.1)
[2021-08-19] MEDS: METOPROLOL TARTRATE 25 MG TAB PO SCH ×2 (08:07→20:37)
[2021-08-19] MEDS: MULTIVITAMIN TAB PO SCH (08:07)
[2021-08-19] MEDS: MIRABEGRON ER 25 MG TAB PO SCH (08:07)
[2021-08-19] MEDS: APIXABAN 5 MG TABLET PO SCH ×2 (08:10→20:37)
[2021-08-19] MEDS: cefTRIAXone SODIUM 2,000 MG in DEXTROSE 5% 50 ML IV SCH (09:59)
--- NOTE | 2021-08-19 12:29 | Hospitalist Progress Note ---
Date of Service August 19, 2021 Assessment & Plan (1) Sepsis secondary to UTI: Plan: Lactate 1.5 - taken after initial 2L fluid resuscitation. Secondary to E. coli bacteremia from infected ureterolithiasis IV ceftriaxone 2g daily (2) Gram-negative bacteremia: Plan: E. coli bacteremia IV ceftriaxone 2g daily (3) Obstructive uropathy: Plan: s/p emergent ureteral stent inserted 08/16 Will need follow up with urology on discharge for stent removal and definitive stone management (4) Ureterolithiasis: Plan: as above (5) Hydronephrosis, right: Plan: as above, should resolve with ureteral stent, no need for re-imaging. (6) SURJIT (acute kidney injury): Plan: Improving now obstructive cause bypassed with ureteral stent. Suspect both obstructive and pre-renal in setting of lisinopril use. 3L total IVF bolus given in ER. CT A/P positive for obstructive cause - see above. Tovar catheter removed - has chronic urinary frequency Continue to hold lisinopril. (7) Thrombocytopenia: Plan: Suspect secondary to sepsis given time course. Plt reduced to 87 prior to initiation of heparin. Do not suspect HIT. Hold aspirin as starting eliquis Monitor with CBC in AM (8) Hypoxia: Plan: Resolved - secondary to atelectasis (9) Pneumonia: Plan: Ruled out. Azithromycin discontinued. (10) Atrial fibrillation with rapid ventricular response: Plan: Resolved - converted to NSR 08/17 New onset. TSH WNL. Secondary to sepsis [id number] 6 - started Eliquis 5mg PO BID Continue metoprolol tartrate 25mg PO BID 30 day nurse monitoring as outpatient Follow up with cardiology as if no a. fib on nurse monitoring can likely discontinue anticoagulation at that time. (11) Elevated troponin I level: Plan: Suspect demand-ischemia since it is falling with treatment for UTI sepsis as above. TTE - no wall motion abnormalities. Recommend follow up with cardiology as outpatient as likely some underlying coronary artery disease and will follow up for a. fib regardless (12) Type 2 diabetes mellitus: Plan: HbA1C 6.3 in July No insulin has been required therefore will discontinue further checks (13) Hypertension: Plan: Hold lisinopril in setting of relative hypotension Plan: VTE Prophylaxis - Eliquis 5mg PO BID Diet - Heart healthy, T2DM Disposition - continue on med/tele to monitor for episodes of a. fib. PT/OT, planning on discharge tomorrow Admission and Anticipated Discharge Date Admission Date: August 16, 2021 Anticipated date of discharge: 08/20/21 Subjective Patient significantly improved and did well enough with physical therapy for discharge home once medically stable. No dysuria, fever or chills. Notes chronic urinary frequency. Review of Systems Review of Systems: All systems reviewed & are unremarkable except as noted in Subjective Physical Exam Constitutional: WD/WN, vitals as above no acute distress Eyes: + anicteric sclerae; normal pupil size Respiratory: normal respiratory effort Auscultation: lungs clear to auscultation bilaterally; no diminished lung sounds, no crackles, no rales, no rhonchi and no wheezes Cardiovascular: Rate/Rhythm: regular rate and regular rhythm Heart Sounds: no murmur Extremities: normal capillary refill and + pedal edema (trace pre- tibial b/l equal); no calf tenderness Gastrointestinal (Abdomen): Inspection/Auscultation: normal bowel sounds Percussion/Palpation: abdomen soft; abdomen nontender, no guarding and abdomen not rigid Musculoskeletal: no cyanosis or clubbing, extremities motor strength 5/5 Neurologic: moves all extremities and awake; not confused Psychiatric: A+Ox3, euthymic affect Results & Data Results & Data ([facility]) Vital Signs (Past 12 Hours) Vital Signs Temp Pulse Pulse Resp BP BP Pulse Ox 08/19/21 10:53 36.7 C 71 20 135/76 93 08/19/21 07:55 73 08/19/21 06:00 36.3 C L 69 18 139/81 95 08/19/21 04:00 36.5 C 74 20 126/81 98 08/19/21 01:30 73 PG Care Time/CCT Total # of Minutes Spent Total Time Spent with Patient: Total time spent is greater than 50% in coordination of care (as documented) at patient's floor/unit and/or counseling patient: Coding Level of Care Code 91878 Subseq Hosp Care Lvl 2 Diagnoses Sepsis secondary to UTI A41.9; N39.0 Gram-negative bacteremia R78.81 Obstructive uropathy N13.9 Ureterolithiasis N20.1 Hydronephrosis, right N13.30 SURJIT (acute kidney injury) N17.9 Thrombocytopenia D69.6 Hypoxia R09.02 Pneumonia J18.9 Laterality: left Lung location: lower lobe of lung Pneumonia type: due to unspecified organism Atrial fibrillation with rapid ventricular response I48.91 Elevated troponin I level R77.8 Type 2 diabetes mellitus E11.9 Diabetes mellitus complication status: without complication Diabetes mellitus usp insulin use: without usp use Hypertension I10 Hypertension type: essential hypertension (1) Type 2 diabetes mellitus Diabetes mellitus complication status: without complication Diabetes mellitus petroleum terminal plant operator insulin use: without petroleum terminal plant operator use Qualified Code(s): E11.9 - Type 2 diabetes mellitus without complications (2) Hypertension Hypertension type: essential hypertension Qualified Code(s): I10 - Essential (primary) hypertension (3) Pneumonia Laterality: left Lung location: lower lobe of lung Pneumonia type: due to unspecified organism Qualified Code(s): J18.9 - Pneumonia, unspecified organism
[2021-08-19] MEDS ORDERED: MICONAZOLE NITRATE POWDER 43 GM EXT PRN (16:08)
[2021-08-20 06:39] LABS: Hematocrit (blood only) 42.7 % (37-47); Hemoglobin 13.3 g/dL (12.0-16.0); Mean Corpuscular Hemoglobin 27.8 pg (25-34); Mean Corpuscular Hgb Conc 31.1 g/dL (32-36); Mean Corpuscular Volume 89.1 fL (80-100); Mean Platelet Volume 10.9 fL (7.4-10.4); Platelet Count 136 K/uL (130-400); RDW Coefficient of Variation 17.1 % (11.5-14.5); RDW Standard Deviation 55.6 fL (36.4-46.3); Red Blood Count 4.79 M/uL (4.2-5.4); White Blood Count 8.85 K/uL (4.8-10.8)
[2021-08-20 06:44] LABS: Calcium 8.5 mg/dl (8.5-10.1); Creatinine Clr Calc Pharmacy 55.9 ml/min; Est GFR (African American) 61.6 ml/min; Est GFR (Non-African American) 53.2 ml/min; Potassium 3.9 mmol/L (3.5-5.1)
[2021-08-20] MEDS: METOPROLOL TARTRATE 25 MG TAB PO SCH (08:01)
[2021-08-20] MEDS: APIXABAN 5 MG TABLET PO SCH (08:02)
[2021-08-20] MEDS: MIRABEGRON ER 25 MG TAB PO SCH (08:02)
[2021-08-20] MEDS: MULTIVITAMIN TAB PO SCH (08:02)
[2021-08-20] MEDS: cefTRIAXone SODIUM 2,000 MG in DEXTROSE 5% 50 ML IV SCH (08:12)
--- NOTE | 2021-08-20 08:49 | Discharge Summary ---
Date of Service August 20, 2021 Admission HPI Per Admitting Provider Smita Monge is an 81 year old female who presents to the ER due to shortness of breath. She reportedly has been getting progressively weaker since Friday (4 days prior to admission). She reports severe right sided abdominal pain on Friday which subsequently resolved but lasted throughout the night. She also reports episode of diarrhea at the same time as the abdominal pain but subsequently resolved. Shortness of breath suddenly got worse after her doctors appointment today. No fever, chills, chest pain, cough, nasal congestion, sinus pain, dysuria, back pain, urinary frequency, change in smell or color. In the ER she was noted to be in atrial fibrillation with rapid ventricular rate and was initially given IV fluids and diltiazem for rate control. She was referred to medicine for admission and ongoing management of atrial fibrillation with rapid ventricular rate, pulmonary edema and acute kidney injury. Principal Diagnosis Sepsis - E. coli bacteremia (from urinary source) Obstructing kidney stone Discharge Exam Constitutional WD/WN, vitals as above no acute distress Eyes + anicteric sclerae; normal pupil size Respiratory normal respiratory effort Auscultation: lungs clear to auscultation bilaterally; no diminished lung sounds, no crackles, no rales, no rhonchi and no wheezes Cardiovascular Rate/Rhythm: regular rate and regular rhythm Heart Sounds: no murmur Extremities: normal capillary refill and + pedal edema (trace pre-tibial b/l equal); no calf tenderness Gastrointestinal (Abdomen) Inspection/Auscultation: normal bowel sounds Percussion/Palpation: abdomen soft; abdomen nontender, no guarding and abdomen not rigid Neurologic moves all extremities and awake; not confused Psychiatric A+Ox3, euthymic affect Discharge Data Allergies Allergy/AdvReac Type Severity Reaction Status Date / Time No Known Allergies Allergy Verified 08/16/21 15:43 Consultations 08/16/21 15:37 ED Decision to Admit Stat 08/16/21 17:02 Consult Urology Stat Procedures Performed Operation Date: 08/16/21 16:55 Actual Procedures p Cystoscopy, Right Retrograde Pyelogram, Right Ureteral Stent(Right) - Darci Campoverde MD Ordered Studies 08/16/21 [place] retrograde includes kub Routine 08/16/21 15:54 CT abd pelvis wo con Stat IMPRESSION: 1. 9 mm x 5 mm right ureteropelvic junction calculus which results in moderate right hydronephrosis. 2. Right-sided nephrolithiasis. 3. Lucency adjacent to left hip arthroplasty which raises the possibility of loosening. Hospital Course (1) Sepsis secondary to UTI: Smita Monge is an 81 year old female admitted to [facility] from August 16 - 2021 due to shortness of breath. She was diagnosed with sepsis secondary to E. coli bacteremia from urinary source with an obstructing right ureteropelvic junction ureterolithiasis and resulting acute kidney injury. This was treated initially with broad spectrum antibiotics, intravenous fluids and ureteral stent insertion performed by Dr Campoverde emergently on August 16. Initial vancomycin and cefepime was switched to ceftriaxone once sensitivities were resulted. Will switch to ciprofloxacin for total duration of antibiotics of 14 days due to continued presence of the stone. She was started on tamsulosin per urology recommendations with Pyridium PRN. Please follow up with urology for ureteral stent removal and definitive stone management. On admission she was noted to be in atrial fibrillation with rapid ventricular rate - suspect this was causing her shortness of breath. This was secondary to sepsis and with treatment for and witThis was caused by sepsis but having gone into this rhythm once you are likely to have further episodes in the future. While in this rhythm your heart rate is fast and you were started on metoprolol for this. You are also at increased risk of a stroke and therefore were started on Eliquis (blood thinner). You converted to a normal sinus rhythm on August 17 therefore it is unclear at the present time whether you will need these medications longer term. A sammying machine operator has been arranged to see if you have any further episodes. Please follow up with cardiology above for this. Aspirin discontinued as she was started on Eliquis. She may be able to go back on this as necessary Lisinopril was discontinued due to low blood pressure and acute kidney injury. These are both improving. 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 (2) Gram-negative bacteremia: (3) Obstructive uropathy: (4) Ureterolithiasis: (5) Hydronephrosis, right: (6) SURJIT (acute kidney injury): (7) Thrombocytopenia: (8) Hypoxia: (9) Pneumonia: Ruled Out (10) Atrial fibrillation with rapid ventricular response: (11) Elevated troponin I level: (12) Type 2 diabetes mellitus: (13) Hypertension: Total Time Total Time Spent Total Time Spent (In Minutes): 40 Discharge Plan Discharge Items Patient Disposition: Home - Self-Care Reason For Visit: SEPSIS, PNA, AFIB WITH RVR Discharge Diagnosis: Sepsis - E. coli bacteremia (from urinary source) Obstructing kidney stone Activity: Resume your previous activity Non-emergency contact: Primary Care Provider Call non-emergency contact if: you have any medication questions and your symptoms worsen Follow-up/Referrals: Jo Jones CRNP [Primary Care Provider] - 08/27/21 10:30 am Carlito Aldana MD [Physician] - 09/17/21 11:30 am (1 month follow up after sammying machine operator for atrial fibrillation. Appointment with Salvador Bhandari PA-C) Darci Campoverde MD [Family Provider] - 09/03/21 8:45 am (Follow up ureteral stent and definitive stone management. ) Diet: Carb Consistent or DM2 and Heart Healthy Addtl Attending Provider Instructions: You were admitted to [facility] from August 16 - 2021 due to shortness of breath. You were diagnosed with an obstructing kidney stone in the right ureteropelvic junction causing right hydronephrosis (back up to your right kidney) resulting in sepsis from E. coli and acute kidney injury. This was treated initially with broad spectrum antibiotics, intravenous fluids and ureteral stent insertion performed by Dr Campoverde emergently on August 16. Please continue on ciprofloxacin (antibiotic) as prescribed for total duration of antibiotics of 14 days due to continued presence of the stone. You were started on tamsulosin to relax the lower ureteral pelvic junction - this is likely not a fdc medication and you should follow up with urology for management of this. Use pyridium as needed for burning sensation with urination or due to the stent. Please follow up with urology for ureteral stent removal and definitive stone management. You were noted to be in atrial fibrillation with rapid ventricular rate on arrival in the emergency room. This was causing your shortness of breath. This was caused by sepsis but having gone into this rhythm once you are likely to have further episodes in the future. While in this rhythm your heart rate is fast and you were started on metoprolol for this. You are also at increased risk of a stroke and therefore were started on Eliquis (blood thinner). You converted to a normal sinus rhythm on August 17 therefore it is unclear at the present time whether you will need these medications longer term. A sammying machine operator has been arranged to see if you have any further episodes. Please follow up with cardiology above for this. Aspirin discontinued as you do not need this medication while on Eliquis. Please discuss going back on this with your primary care physician if you ever come off Eliquis. Lisinopril was discontinued due to low blood pressure and acute kidney injury. These are both improving. Please follow up with your primary care provider as you may need to go back on this medication once over this illness for fdc blood pressure management. Kind regards, Dr Bentley Hoyos Pending Studies at Discharge: No Stand-Alone Forms: My [facility] Reframe It, Smoking Cessation Medications and DC Order Prescriptions: New Eliquis 5 mg Tablet 5 mg PO BID Qty: 60 RF: 0 metoprolol tartrate 25 mg Tablet 25 mg PO BID Qty: 60 RF: 0 phenazopyridine [Pyridium] 200 mg tablet 200 mg PO Q8H PRN (Reason: painful urination) Qty: 6 RF: 0 tamsulosin 0.4 mg capsule 0.4 mg PO DAILY Qty: 30 RF: 0 ciprofloxacin HCl [Cipro] 500 mg tablet 500 mg PO BID 9 Days Qty: 18 RF: 0 Continued mirabegron 50 mg tablet extended release 24 hr 50 mg PO DAILY Qty: 30 RF: 11 multivitamin Tablet 1 tab PO QAM RF: 0 Ozempic 0.25 mg or 0.5 mg(2 mg/1.5 mL) pen injector 0.5 mg SUBCUT WK RF: 0 Discontinued lisinopril 30 mg tablet 30 mg PO DAILY Qty: 30 RF: 6 aspirin 81 mg Tablet,Delayed Release (Dr/Ec) 81 mg PO QAM RF: 0 Discharge Orders: Discharge Order (Routine); Ordered 08/20/21 Ordered By: Bentley Orellana/Other Patient Handouts: Having a Ureteral Stent, Understanding Kidney Stones, AFib Dc Admission Data Admit Date/Time: 08/16/21 16:42 Attending Provider: Bentley Hoyos Admit Provider: Bentley Hoyos Primary Care Provider: Jo Jones Other Providers: Bentley Hoyos ; Darci Campvoerde Other Interventions: Discharge Summary Assessment (RN) Last Done: 08/20/21 09:37 Coding Diagnoses Sepsis secondary to UTI A41.9; N39.0 Gram-negative bacteremia R78.81 Obstructive uropathy N13.9 Ureterolithiasis N20.1 Hydronephrosis, right N13.30 SURJIT (acute kidney injury) N17.9 Thrombocytopenia D69.6 Hypoxia R09.02 Pneumonia J18.9 Laterality: left Lung location: lower lobe of lung Pneumonia type: due to unspecified organism Atrial fibrillation with rapid ventricular response I48.91 Elevated troponin I level R77.8 Type 2 diabetes mellitus E11.9 Diabetes mellitus complication status: without complication Diabetes mellitus fdc insulin use: without fdc use Hypertension I10 Hypertension type: essential hypertension
[2021-08-20] MEDS ORDERED: TAMSULOSIN HCL 0.4 MG CAP PO SCH (09:00)
== END 2021-08-20 11:32 | disposition home or self-care (01) | DRG 854 ==
LOC: ED 13:55 → OR 18:15 → 2S 18:16 → 2N 08-18 04:03

== ENCOUNTER 2022-03-08 17:38 | Inpatient (IN) ==
[2022-03-08 20:35] LABS: Hemoglobin 14.7 g/dl (12.0-16.0); Mean Corpuscular Hemoglobin 29.2 pg (25.0-34.0); Mean Corpuscular Volume 91.5 fL (80.0-100.0); Mean Platelet Volume 9.1 fL (9.4-12.3); Platelet Count 381 K/uL (130-400); RDW Coefficient of Variation 15.1 % (11.5-14.5); RDW Standard Deviation 50.7 fL (36.4-46.3); Red Blood Count 5.03 M/uL (3.93-5.22); White Blood Count 22.14 K/ul (4.8-10.8)
[2022-03-08 20:54] LABS: Alanine Aminotransferase 10 U/L (7-52); Albumin Level 3.8 gm/dl (3.4-5.0); Alkaline Phosphatase 87 U/L (34-104); Anion Gap 11 (3-11); Aspartate Aminotransferase 12 U/L (13-39); Bilirubin,Total 0.5 mg/dl (0.2-1.0); Blood Urea Nitrogen 24 mg/dl (6-23); Calcium 9.6 mg/dl (8.5-10.1); Carbon Dioxide 24 mmol/L (21-32); Chloride 108 mmol/L (98-107); Est GFR (African American) 49.4 ml/min; Est GFR (Non-African American) 42.7 ml/min; Glucose 149 mg/dl (70-99(Fasting)); Potassium 4.1 mmol/L (3.5-5.1); Sodium 143 mmol/L (136-145); Total Protein 7.8 gm/dl (6.0-8.3)
[2022-03-08 20:58] LABS: Basophils # (auto) 0.05 K/uL (0-0.2); Basophils % (auto) 0.2 %; Eosinophils # (auto) 0.02 K/uL (0-0.50); Eosinophils % (auto) 0.1 %; Immature Granulocytes % (auto) 0.5 %; Lymphocytes # (auto) 0.46 K/uL (1.2-3.4); Lymphocytes % (auto) 2.1 %; Monocytes # (auto) 0.73 K/uL (0.24-0.82); Monocytes % (auto) 3.3 %; Neutrophils # (auto) 20.78 K/uL (1.4-6.5); Neutrophils % (auto) 93.8 %
[2022-03-08] MEDS ORDERED: ONDANSETRON INJ 2 MG/ML 2 ML VIAL IV STA (21:09)
[2022-03-08] MEDS ORDERED: ACETAMINOPHEN 1,000 MG/100 ML VIAL IV STA (21:09)
[2022-03-08] MEDS ORDERED: CEFEPIME 2,000 MG/20 ML VIAL IV STA (21:12)
[2022-03-08] MEDS ORDERED: SODIUM CHLORIDE 0.9% 1000ML 1,000 ML IV SCH ×2 (21:15→23:45)
[2022-03-08] MEDS: fentaNYL citrate 100 MCG/2 ML VIAL IV PRN ×2 (21:19→23:18)
--- NOTE | 2022-03-08 21:22 | Emergency Department Note ---
History of Present Illness General Chief complaint: Kidney Stone Stated complaint: POSSIBLE KIDNEY STONE Time Seen by Provider: 03/08/22 20:54 Source: patient Mode of arrival: ambulatory Limitations: no limitations History of Present Illness Provider complaint: Right back and abdominal pain, possible kidney stone Maximum Pain Intensity: 10 This is an 81-year-old female presents due to concern for abrupt onset of right- sided back and flank pain this afternoon. Patient states pain is similar to prior episode of a kidney stone which she had back in July. She states pain began to radiate around from the back into the right lower abdomen. She denies fevers, chills, nausea, vomiting. No treatment prior to arrival. She states with the stone back in July she ended up developing concurrent infection, and states she required a stent and eventual removal of stone. She states she was hospitalized for several days. Family bedside states she had a significant infection and they were concerned she was septic. Home Medications Medication Instructions Recorded Confirmed Type multivitamin 1 tab PO QAM 04/22/18 11/27/21 History phenazopyridine 200 mg tablet 200 mg PO Q8H PRN painful 08/20/21 11/27/21 Rx (Pyridium) urination 6 doses #6 tabs apixaban 5 mg tablet (Eliquis) 5 mg PO BID #60 tabs 09/17/21 11/27/21 Rx fluticasone propionate 50 1 spray intranasal HS 09/17/21 11/27/21 History mcg/actuation nasal spray,suspension metoprolol tartrate 25 mg tablet 25 mg PO BID #60 tabs 09/17/21 11/27/21 Rx tamsulosin 0.4 mg capsule 0.4 mg PO QAM 09/17/21 11/27/21 History amlodipine 5 mg tablet 5 mg PO DAILY #30 tabs 09/18/21 11/27/21 Rx sulfamethoxazole 800 1 tab PO DAILY #1 tab 09/19/21 11/27/21 Rx mg-trimethoprim 160 mg tablet (Bactrim DS) diclofenac sodium 1 % topical gel 2 g topical QID #100 grams 11/27/21 11/27/21 Rx semaglutide 0.25 mg or 0.5 mg (2 0.5 mg (0.4 mL) subcut WK #1.5 mL 12/17/21 Rx mg/1.5 mL) subcutaneous pen injector (Ozempic) mirabegron 50 mg tablet,extended 50 mg PO QAM #90 tabs 01/22/22 Rx release 24 hr lisinopril 30 mg tablet 30 mg PO DAILY #30 tabs 02/26/22 Rx Allergies Allergy/AdvReac Type Severity Reaction Status Date / Time No Known Allergies Allergy Verified 11/27/21 09:47 Past Med/Surg History Medical History SURJIT (acute kidney injury) Atrial fibrillation DX'D 08/16/21 [facility] Diabetes mellitus, type 2 Hearing deficit Hyperlipidemia Hypertension IT band syndrome Kidney stones LVH (left ventricular hypertrophy) Moderate per cardio records Morbid obesity Osteoarthritis Surgical History H/O arthroplasty left ankle History of cholecystectomy History of cystoscopy WITH STENT FOR STONES History of total hip arthroplasty LEFT/RT Family History Father Myocardial infarction Other Coronary heart disease Denies family history of Ovarian cancer Prostate cancer Diabetes Dementia Breast cancer Colorectal cancer Social History Smoking Status: Former smoker Tobacco Type: Cigarettes Age Started Using Tobacco: 21; Age Quit Using Tobacco: 66; packs per day: 1; Cigarettes Per Day: 20; Second Hand Exposure: No; Hx Alcohol Use: No Hx Substance Use: No Preferred Language: Arabic Communication Ability: Effective Visual Impairment: No Limitations Hearing Ability: Use of Hearing Aid Gang Punch Operator Required: No Beliefs That Will Affect Care: None marital status: Single Current Living Situation: Significant Other current occupational status: retired How many Children do You have: 6 Feels Safe at Home: Yes Childhood Exposure to Second-Hand Smoke: No caffeine: Yes (coffee ) Dental Care, Regularly: Yes Physical Activity Frequency: Does not Exercise Seatbelt Use: sometimes Sunscreen Use: Yes (Sometimes) Assistive Devices: Cane Review of Systems A total of 10 systems reviewed and were otherwise negative All systems reviewed & are unremarkable except as noted in HPI & below Physical Exam Vital Signs Vital Signs - 24 hr 03/08/22 17:59 Temperature 36.8 C Temperature Source Oral Pulse Rate 99 H Respiratory Rate 18 Blood Pressure 187/82 H Blood Pressure Mean 117 Pulse Oximetry 95 Oxygen Delivery Method Room Air Sepsis Recent Fever Within 48 Hours No Sepsis New/Unexplained Change in Mental Status No Sepsis Action Taken by Nursing No Action Required GENERAL: alert, uncomfortable appearing, well nourished, no distress, non-toxic EYE EXAM: normal conjunctiva, PERRL and EOM's grossly intact OROPHARYNX: no exudate, no erythema, lips, buccal mucosa, and tongue normal and mucous membranes are moist NECK: supple, no nuchal rigidity, no adenopathy, non-tender LUNGS: Clear to auscultation. Normal chest wall mechanics, no w/r/r HEART: no murmurs, S1 normal and S2 normal ABDOMEN: abdomen soft, non-tender, normo-active bowel sounds, no masses, no rebound or guarding. BACK: Back is symmetrical on inspection and there is no deformity, no midline tenderness, no CVA tenderness. SKIN: no rashes and no bruising UPPER EXTREMITIES: upper extremities are grossly normal. FROM, nml pulses b/l. LOWER EXTREMITIES: No pitting edema. FROM, nml pulses b/l. NEURO EXAM: Normal sensorium, cranial nerves II-XII grossly intact, normal speech, no gross weakness of arms, no gross weakness of legs. Gross sensation intact. Course Course 2311: Discussed with Dr. Campoverde, urology. Keep pt NPO and will plan for OR in the am. In agreement with antibiotics empirically given history. No other recommendations at this time. Administered Medications Budesonide (Budesonide 0.5 Mg/2 Ml Vial (Pulmicort)) 0.25 mg NEB BIDR DAVID Stop: 04/08/22 18:59 Last Admin: 03/10/22 19:34 Dose: 0.25 mg Documented By: Admin: 03/10/22 07:19 Dose: 0.25 mg Documented By: Admin: 03/09/22 19:23 Dose: 0.25 mg Documented By: Hydromorphone HCl (Hydromorphone Inj 0.5 Mg/0.5 Ml Syr) 0.5 mg IV Q3H PRN PRN Reason: Pain Stop: 03/22/22 23:52 Last Admin: 03/09/22 04:47 Dose: 0.5 mg Documented By: Admin: 03/09/22 01:39 Dose: 0.5 mg Documented By: ALBERT Norepinephrine Bitartrate (Levophed/D5w) 4 mg in 250 mls @ 19.669 mls/hr IV .[id number] DAVID; Protocol Stop: 04/08/22 07:29 Last Admin: 03/10/22 19:58 Dose: Not Given Documented By: Admin: 03/10/22 07:36 Dose: Not Given Documented By: Titration: 03/10/22 07:35 Dose: 0 mcg/kg/min, 0 mls/hr Documented By: Admin: 03/09/22 20:10 Dose: Not Given Documented By: Titration: 03/09/22 16:31 Dose: 0 mcg/kg/min, 0 mls/hr Documented By: Titration: 03/09/22 15:42 Dose: 0.01 mcg/kg/min, 3.9 mls/hr Documented By: Titration: 03/09/22 13:00 Dose: 0.03 mcg/kg/min, 11.8 mls/hr Documented By: Admin: 03/09/22 07:31 Dose: 0.05 mcg/kg/min, 19.7 mls/hr Documented By: SRINI Co-signed By: RUSTY Acetaminophen ([facility]) 1,000 mg in 100 mls @ 400 mls/hr IV Q8H PRN PRN Reason: Fever Stop: 03/12/22 08:09 Last Infusion: 03/09/22 08:34 Dose: 0 mls/hr Documented By: Admin: 03/09/22 08:19 Dose: 400 mls/hr Documented By: SRINI Pantoprazole Sodium 40 mg/ (Syringe) 10 mls @ 5 mls/min IV DAILY@1100 DAVID Stop: 04/08/22 10:59 Last Admin: 03/10/22 10:09 Dose: 5 mls/min Documented By: Admin: 03/09/22 09:41 Dose: 5 mls/min Documented By: SRINI Cefepime HCl 1,000 mg/ Syringe 10 mls @ 5 mls/min IV Q12H DAVID; Protocol Stop: 03/19/22 08:59 Last Admin: 03/10/22 20:00 Dose: 5 mls/min Documented By: ERI Amiodarone HCl/Dextrose (Nexterone / D5w) 360 mg in 200 mls @ 16.667 mls/hr IV .Q12H [facility] Stop: 04/09/22 18:44 Last Admin: 03/10/22 17:53 Dose: 0.5 mg/min, 16.7 mls/hr Documented By: SRINI Co-signed By: TOMMY Insulin Aspart (Insulin Aspart Per Unit) 0 units SC ACHS [facility] Stop: 04/08/22 07:29 Last Admin: 03/10/22 19:56 Dose: Not Given Documented By: Admin: 03/10/22 16:54 Dose: 1 units Documented By: SRINI Co-signed By: ARLEEN Admin: 03/10/22 11:39 Dose: 1 units Documented By: SRINI Co-signed By: VERENA Admin: 03/10/22 08:20 Dose: 1 units Documented By: RSINI Co-signed By: VERENA Admin: 03/09/22 23:06 Dose: Not Given Documented By: Admin: 03/09/22 17:03 Dose: 1 units Documented By: SRINI Co-signed By: CF Admin: 03/09/22 12:10 Dose: 2 units Documented By: SRINI Co-signed By: RUSTY Admin: 03/09/22 08:24 Dose: Not Given Documented By: SRINI Metoprolol Tartrate (Metoprolol Tartrate 1 Mg/Ml Vial) 5 mg IV Q4H PRN PRN Reason: HR>125 Stop: 04/09/22 14:36 Last Admin: 03/10/22 15:46 Dose: 5 mg Documented By: SRINI Metoprolol Tartrate (Metoprolol Tartrate 25 Mg Tab) 25 mg PO BID [facility] Stop: 04/09/22 20:59 Last Admin: 03/10/22 19:58 Dose: 25 mg Documented By: ERI Mirabegron (Mirabegron Er 25 Mg Tab) 50 mg PO QAM [facility] Stop: 04/08/22 08:59 Last Admin: 03/10/22 10:08 Dose: 50 mg Documented By: Admin: 03/09/22 09:24 Dose: 50 mg Documented By: SRINI Umeclidinium/Vilanterol (Umeclidinium/Vilanterol 62.5/25mcg 7 Puffs/Inhaler) 1 puffs INH DAILY DAVID Stop: 04/08/22 08:59 Last Admin: 03/10/22 09:11 Dose: 1 puffs Documented By: Admin: 03/09/22 09:26 Dose: 1 puffs Documented By: SRINI Discontinued Medications Acetaminophen (Acetaminophen 1000 Mg/100 Ml Iv) Confirm Administered Dose 1,000 mg IV .STK-MED ONE Stop: 03/09/22 08:14 Last Admin: 03/09/22 08:25 Dose: Not Given Documented By: SRINI Amiodarone HCl/Dextrose (Amiodarone 150mg / 100ml D5w) Confirm Administered Dose 150 mg IV .STK-MED ONE Stop: 03/10/22 12:36 Last Admin: 03/10/22 12:41 Dose: Not Given Documented By: SRINI Amiodarone HCl/Dextrose (Amiodarone 360mg / 200ml D5w) Confirm Administered Dose 360 mg IV .STK-MED ONE Stop: 03/10/22 12:36 Last Admin: 03/10/22 12:41 Dose: Not Given Documented By: SRINI Diatrizoate Meglumine (Diatrizoate Meglumine 30% 100ml Vial) 100 ml INSTIL ONCE ONE Stop: 03/09/22 06:50 Last Admin: 03/09/22 06:50 Dose: 15 ml Documented By: [id number] Fentanyl Citrate (Fentanyl Citrate 100 Mcg/2 Ml Vial) 50 mcg IV Q15M PRN PRN Reason: Pain Stop: 03/22/22 21:08 Last Admin: 03/08/22 23:18 Dose: 50 mcg Documented By: Admin: 03/08/22 21:19 Dose: 50 mcg Documented By: VIJAY Sodium Chloride (Nss 1000ml) 1,000 mls @ 250 mls/hr IV .Q4H DAVID Stop: 04/07/22 21:14 Last Infusion: 03/09/22 01:19 Dose: 0 mls/hr Documented By: Admin: 03/08/22 22:07 Dose: 250 mls/hr Documented By: JAQUI Acetaminophen (Ofirmev) 1,000 mg in 100 mls @ 400 mls/hr IV NOW STA Stop: 03/08/22 21:23 Last Infusion: 03/08/22 22:28 Dose: 0 mls/hr Documented By: Admin: 03/08/22 21:19 Dose: 400 mls/hr Documented By: VIJAY Cefepime HCl (Maxipime) 2,000 mg in 20 mls @ 5 mls/min IV NOW STA; Protocol Stop: 03/08/22 21:15 Last Admin: 03/08/22 22:06 Dose: 5 mls/min Documented By: JAQUI Sodium Chloride (Nss 1000ml) 1,000 mls @ 100 mls/hr IV .Q10H DAVID Stop: 04/07/22 23:44 Last Admin: 03/09/22 01:28 Dose: Not Given Documented By: ALBERT Lactated Ringer's (Lr) 1,000 mls @ 125 mls/hr IV .Q8H DAVID Stop: 04/07/22 23:44 Last Admin: 03/09/22 10:08 Dose: Not Given Documented By: Infusion: 03/09/22 07:00 Dose: 0 mls/hr Documented By: Infusion: 03/09/22 04:48 Dose: 125 mls/hr Documented By: Admin: 03/09/22 01:39 Dose: 80 mls/hr Documented By: ALBERT Cefepime HCl 1,000 mg/ Syringe 10 mls @ 5 mls/min IV Q12H DAVID; Protocol Stop: 03/19/22 08:59 Last Admin: 03/09/22 09:41 Dose: 5 mls/min Documented By: SRINI Lactated Ringer's (Lr) 3,000 mls @ 999 mls/hr IV .Q3H1M ONE Stop: 03/09/22 08:51 Last Admin: 03/09/22 10:08 Dose: Not Given Documented By: SRINI Daptomycin 400 mg/ Syringe 8 mls @ 4 mls/min IV ONE ONE; Protocol Stop: 03/09/22 07:46 Last Admin: 03/09/22 09:38 Dose: Not Given Documented By: SRINI Lactated Ringer's (Lr) 1,000 mls @ 999 mls/hr IV .Q1H1M ONE Stop: 03/09/22 09:10 Last Infusion: 03/09/22 09:18 Dose: 0 mls/hr Documented By: Admin: 03/09/22 08:18 Dose: 999 mls/hr Documented By: SRINI Magnesium Sulfate/Dextrose (Magnesium Sulfate / D5w) 1 gm in 100 mls @ 50 mls/hr IV Q2H DAVID Stop: 03/09/22 12:29 Last Infusion: 03/09/22 12:40 Dose: 0 mls/hr Documented By: Admin: 03/09/22 10:56 Dose: 50 mls/hr Documented By: Infusion: 03/09/22 10:56 Dose: 50 mls/hr Documented By: Admin: 03/09/22 09:20 Dose: 50 mls/hr Documented By: SRINI Lactated Ringer's (Lr) 1,000 mls @ 100 mls/hr IV .Q10H DAVID Stop: 03/10/22 00:59 Last Infusion: 03/10/22 01:25 Dose: 0 mls/hr Documented By: Admin: 03/09/22 20:09 Dose: 100 mls/hr Documented By: Infusion: 03/09/22 20:00 Dose: 100 mls/hr Documented By: Admin: 03/09/22 10:00 Dose: 100 mls/hr Documented By: SRINI Cefepime HCl 1,000 mg/ Syringe 10 mls @ 5 mls/min IV Q24H DAVID; Protocol Stop: 03/19/22 08:59 Last Admin: 03/10/22 10:08 Dose: 5 mls/min Documented By: SRINI Parenteral Electrolytes (Normosol-R) 1,000 mls @ 100 mls/hr IV .Q10H DAVID Stop: 03/10/22 17:59 Last Infusion: 03/10/22 18:09 Dose: 0 mls/hr Documented By: Admin: 03/10/22 08:22 Dose: 100 mls/hr Documented By: SRINI Amiodarone HCl/Dextrose (Nexterone / D5w) 150 mg in 100 mls @ 600 mls/hr IV NOW STA Stop: 03/10/22 12:44 Last Infusion: 03/10/22 12:52 Dose: 0 mls/hr Documented By: SRINI Co-signed By: ALEXX Admin: 03/10/22 12:40 Dose: 600 mls/hr Documented By: SRINI Co-signed By: VERENA Amiodarone HCl/Dextrose (Nexterone / D5w) 360 mg in 200 mls @ 33.333 mls/hr IV ONE ONE Stop: 03/10/22 18:44 Last Infusion: 03/10/22 18:03 Dose: 0 mg/min, 0 mls/hr Documented By: SRINI Co-signed By: TOMMY Admin: 03/10/22 12:51 Dose: 1 mg/min, 33.3 mls/hr Documented By: SRINI Co-signed By: ALEXX Miscellaneous (Patient's Height &/Or Weight Needed) 1 each N/A Q2H DAVID Stop: 04/08/22 00:00 Last Admin: 03/09/22 01:30 Dose: 1 each Documented By: ALBERT Norepinephrine Bitartrate (Norepinephrine/D5w 4 Mg/250 Ml) Confirm Administered Dose 4 mg IV .STK-MED ONE Stop: 03/09/22 07:18 Last Admin: 03/09/22 07:26 Dose: Not Given Documented By: SRINI Ondansetron HCl (Ondansetron Inj 2 Mg/Ml 2 Ml Vial) 4 mg IV NOW STA Stop: 03/08/22 21:10 Last Admin: 03/08/22 21:19 Dose: 4 mg Documented By: VIJAY Sodium Zirconium Cyclosilicate (Sodium Zirconium Cyclosilicate 10 Gm Packet) 10 gm PO TID DAVID Stop: 03/10/22 21:01 Last Admin: 03/09/22 09:39 Dose: Not Given Documented By: SRINI Medical Decision Making Differential Diagnosis Differential diagnosis: Etiologies such as shingles, pyelonephritis/UTI, renal colic, appendicitis, diverticulitis, mesenteric ischemia, torsion, aortic pathology, infections, inflammatory bowel disease, bowel obstruction, PUD, biliary pathology, as well as others were entertained. Medical Records Attestation: I reviewed the patient's medical records. Home Medications Current Medication List: was personally reviewed by me Laboratory Data Attestation: I reviewed the patient's lab results. Result diagrams: 03/10/22 12:11 03/10/22 04:09 Lab Results 03/08/22 03/08/22 03/08/22 Range/Units 20:15 20:15 20:15 WBC 22.14 H (4.8-10.8) K/ul RBC 5.03 (3.93-5.22) M/uL Hgb 14.7 (12.0-16.0) g/dl Hct 46.0 H (34.1-44.9) % MCV 91.5 (80.0-100.0) fL MCH 29.2 (25.0-34.0) pg MCHC 32.0 (32.0-36.0) g/dL RDW Std Deviation 50.7 H (36.4-46.3) fL RDW Coeff of Heriberto 15.1 H (11.5-14.5) % Plt Count 381 (130-400) K/uL MPV 9.1 L (9.4-12.3) fL Immature Gran % (Auto) 0.5 % Neut % (Auto) 93.8 % Lymph % (Auto) 2.1 % [place] % (Auto) 3.3 % Eos % (Auto) 0.1 % Baso % (Auto) 0.2 % Neut # (Auto) 20.78 H (1.4-6.5) K/uL Lymph # (Auto) 0.46 L (1.2-3.4) K/uL [place] # (Auto) 0.73 (0.24-0.82) K/uL Eos # (Auto) 0.02 (0-0.50) K/uL Baso # (Auto) 0.05 (0-0.2) K/uL Immature Gran # (Auto) 0.10 H (0.00-0.02) K/uL Sodium 143 (136-145) mmol/L Potassium 4.1 (3.5-5.1) mmol/L Chloride 108 H (98-107) mmol/L Carbon Dioxide 24 (21-32) mmol/L Anion Gap 11 (3-11) BUN 24 H (6-23) mg/dl Creatinine 1.20 (0.6-1.2) mg/dl Est Cr Clr Drug Dosing Not Reportable Est GFR ( Amer) 49.4 ml/min Est GFR (Non-Af Amer) 42.7 ml/min BUN/Creatinine Ratio 20.0 (10-20) Glucose 149 H (70-99(Fasting)) mg/dl Calcium 9.6 (8.5-10.1) mg/dl Total Bilirubin 0.5 (0.2-1.0) mg/dl AST 12 L (13-39) U/L ALT 10 (7-52) U/L Alkaline Phosphatase 87 (34-104) U/L Total Protein 7.8 (6.0-8.3) gm/dl Albumin 3.8 (3.4-5.0) gm/dl Globulin 4.0 (2.5-4.0) gm/dl Albumin/Globulin Ratio 1.0 (0.9-2) Procalcitonin 0.20 (0-0.5) ng/ml SARS-CoV-2, RNA, NAAT (NEGATIVE) 03/08/22 Range/Units 21:32 WBC (4.8-10.8) K/ul RBC (3.93-5.22) M/uL Hgb (12.0-16.0) g/dl Hct (34.1-44.9) % MCV (80.0-100.0) fL MCH (25.0-34.0) pg MCHC (32.0-36.0) g/dL RDW Std Deviation (36.4-46.3) fL RDW Coeff of Heriberto (11.5-14.5) % Plt Count (130-400) K/uL MPV (9.4-12.3) fL Immature Gran % (Auto) % Neut % (Auto) % Lymph % (Auto) % [place] % (Auto) % Eos % (Auto) % Baso % (Auto) % Neut # (Auto) (1.4-6.5) K/uL Lymph # (Auto) (1.2-3.4) K/uL [place] # (Auto) (0.24-0.82) K/uL Eos # (Auto) (0-0.50) K/uL Baso # (Auto) (0-0.2) K/uL Immature Gran # (Auto) (0.00-0.02) K/uL Sodium (136-145) mmol/L Potassium (3.5-5.1) mmol/L Chloride (98-107) mmol/L Carbon Dioxide (21-32) mmol/L Anion Gap (3-11) BUN (6-23) mg/dl Creatinine (0.6-1.2) mg/dl Est Cr Clr Drug Dosing Est GFR ( Amer) ml/min Est GFR (Non-Af Amer) ml/min BUN/Creatinine Ratio (10-20) Glucose (70-99(Fasting)) mg/dl Calcium (8.5-10.1) mg/dl Total Bilirubin (0.2-1.0) mg/dl AST (13-39) U/L ALT (7-52) U/L Alkaline Phosphatase (34-104) U/L Total Protein (6.0-8.3) gm/dl Albumin (3.4-5.0) gm/dl Globulin (2.5-4.0) gm/dl Albumin/Globulin Ratio (0.9-2) Procalcitonin (0-0.5) ng/ml SARS-CoV-2, RNA, NAAT NEGATIVE (NEGATIVE) Imaging Data Radiologist's Impression: Abdomen/Pelvis CT 03/08/22 21:[address] WITHOUT CONTRAST CT DOSE: 1433.35 mGy.cm HISTORY: Acute right-sided flank pain in a patient with history of kidney stones right flank pain TECHNIQUE: Multiaxial CT images of the abdomen and pelvis were performed without contrast. A dose lowering technique was utilized adhering to the principles of ALARA. COMPARISON STUDY: CT abdomen and pelvis 08/16/2021 FINDINGS: Cardiomegaly with extensive coronary artery calcifications. The study is limited secondary to respiratory motion artifact. Subsegmental bibasilar atelectasis/scarring. No pneumatosis or pneumoperitoneum. Unremarkable spleen, moderately atrophic pancreas with thickening of the adrenal glands suggests hyperplasia. Cholecystectomy. 4.8 cm left hepatic lobe cyst. Marginal nodularity of the liver redemonstrated. A few additional scattered smaller hypodense lesion s of the liver are redemonstrated. Scattered hypodensities of the kidneys are suggestive of cysts measuring up to 2.2 cm on the left. Moderate to severe right-sided hydroureteronephrosis secondary to an obstructing 9 mm calculus of the distal right ureter several centimeters proximal to the ureterovesicular junction. 8 mm nonobstructing calculus of the inferior pole right kidney. Perinephric and periureteral stranding on the right. Decompressed urinary bladder. Unremarkable visualized uterus. Pelvic structures are suboptimally visualized secondary to streak artifact from bilateral hip total joint arthroplasties. Atherosclerosis of the aorta. No lymphadenopathy. No bowel obstruction or bowel wall thickening. Colonic diverticulosis.. Unrema rkable soft tissues. No acute fracture identified. Possible loosening of the left femoral stem is similar to prior. No acute fracture identified. IMPRESSION: 1. Moderate to severe right-sided hydroureteronephrosis secondary to a 9 mm obstructing calculus of the distal right ureter. 2. Right nephrolithiasis. 3. 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 4. Additional findings as above. ACT 112: Negative or not required by law. The above report was generated using voice recognition software. It may contain grammatical, syntax or spelling errors. Electronically signed by: Matty Zuluaga M.D. 03/08/2022 10:32 PM MDM Narrative An order was placed for continuous cardiac monitoring. The monitor shows a rate of _86_ with _normal sinus_ rhythm. This is an 81 yo female who presents due to concern for right flank pain and possible kidney stone which she has had previously. Labs drawn and sent by nursing staff prior to my evaluation. Pt sent for CT which revealed 9 mm ureteral stone. Given leukocytosis and large stone, concern for complications. Patient had similar episode in the spring which not only required surgical intervention but patient developed sepsis. Patient was unable to urinate while in the ER but given cefepime empirically as a precaution with leukocytosis. She was afebrile and VSS while in the Er. Case discussed with [facility] urology as then with hospitalist team. Patient and family made aware of all results, verbalized understanding and were in agreement with the plan. Patient started o n gentle IVF rehydration and given medication for pain additionally. Impression & Plan Acute right flank pain, Ureterolithiasis Discharge Plan Visit Data Chief Complaint: Kidney Stone Stated Complaint: POSSIBLE KIDNEY STONE ED Provider: Virginia Qureshi Discharge Problem: Acute right flank pain, Ureterolithiasis Patient Disposition: Admitted As Inpatient Discharge Instructions Interventions: ED Discharge Assessment Last Done: 03/09/22 00:33
--- NOTE | 2022-03-08 22:35 | CT Scan Report ---
ABDOMEN AND PELVIS CT WITHOUT CONTRAST CT DOSE: 1433.35 mGy.cm HISTORY: Acute right-sided flank pain in a patient with history of kidney stones right flank pain TECHNIQUE: Multiaxial CT images of the abdomen and pelvis were performed without contrast. A dose lo wering technique was utilized adhering to the principles of ALARA. COMPARISON STUDY: CT abdomen and pelvis 08/16/2021 FINDINGS: Cardiomegaly with extensive coronary artery calcifications. The study is limited secondary to respira tory motion artifact. Subsegmental bibasilar atelectasis/scarring. No pneumatosis or pneumoperitoneum . Unremarkable spleen, moderately atrophic pancreas with thickening of the adrenal glands suggests hy perplasia. Cholecystectomy. 4.8 cm left hepatic lobe cyst. Marginal nodularity of the liver redemonst rated. A few additional scattered smaller hypodense lesions of the liver are redemonstrated. Scattered hypodensities of the kidneys are suggestive of cysts measuring up to 2.2 cm on the left. Mo derate to severe right-sided hydroureteronephrosis secondary to an obstructing 9 mm calculus of the d istal right ureter several centimeters proximal to the ureterovesicular junction. 8 mm nonobstructing calculus of the inferior pole right kidney. Perinephric and periureteral stranding on the right. Dec ompressed urinary bladder. Unremarkable visualized uterus. Pelvic structures are suboptimally visuali zed secondary to streak artifact from bilateral hip total joint arthroplasties. Atherosclerosis of th e aorta. No lymphadenopathy. No bowel obstruction or bowel wall thickening. Colonic diverticulosis.. Unremarkable soft tissues. No acute fracture identified. Possible loosening of the left femoral stem is similar to prior. No acute fracture identified. IMPRESSION: 1. Moderate to severe right-sided hydroureteronephrosis secondary to a 9 mm obstructing calculus of t he distal right ureter. 2. Right nephrolithiasis. 3. 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 4. Additional findings as above. ACT 112: Negative or not required by law. The above report was generated using voice recognition software. It may contain grammatical, syntax o r spelling errors. Electronically signed by: Matty Zuluaga M.D. 03/08/2022 10:32 PM
--- NOTE | 2022-03-08 23:44 | History & Physical Report ---
Date of Service March 08, 2022 Assessment & Plan (1) Acute right flank pain: Plan: 81 y/o f Hx HTN, HLD, DM II, PAF, obstructing ureteral calculus 09/21 requiring lithotripsy - developed UTI/sepsis at the time. She presents with R flank pain. She has not had fevers or rigors. A CT pelvis confirmed a 9mm stone in the distal R ureter with resultant moderate to severe hydronephrosis. labs are notable for a WBC of 22. 1) Obstructing calculus - designated for AM stent per urology. NPO, IVF, pain control. Will treat for UTI considering prior sepsis history an WBC. 2) PAF - sinus on admission - Eliquis held for procedure. Cont metoprolol. 3) DM - sliding scale 4) HTN, HLD - can continue metoprolol, amlodipine - hold lisinopril pre-op. HLD is not treated. Full code - anticoagulated. Total time for this admit including review of labs, meds, imaging, records - discussion with pt, son and ER attending - 45 min (2) Ureterolithiasis: (3) Type 2 diabetes mellitus: History of Present Illness Chief Complaint: R flank pain Primary Care Provider: BESSY Winters 81 y/o f Hx HTN, HLD, DM II, PAF, obstructing ureteral calculus 09/21 requiring lithotripsy - developed UTI/sepsis at the time. She presents with R flank pain. She has not had fevers or rigors. A CT pelvis confirmed a 9mm stone in the distal R ureter with resultant moderate to severe hydronephrosis. labs are notable for a WBC of 22. PMH: 1) HTN 2) HLD 3) DM II 4) PAF - Eliquis 5) Obstructing calculus 08/2021 6) Obese 7) Grade I diastolic dysfunction, EF 55% - echo 07/2021 Surgical: 1) BL ERICK 2) Cholecystectomy 3) Ankle Social: Former smoke - 20+ PYH, does not drink alcohol Family: Father - CAD/W[place] Allergies Allergy/AdvReac Type Severity Reaction Status Date / Time No Known Allergies Allergy Verified 11/27/21 09:47 Home Medications Medication Instructions Recorded Confirmed Type multivitamin 1 tab PO QAM 04/22/18 11/27/21 History phenazopyridine 200 mg tablet 200 mg PO Q8H PRN painful 08/20/21 11/27/21 Rx (Pyridium) urination 6 doses #6 tabs apixaban 5 mg tablet (Eliquis) 5 mg PO BID #60 tabs 09/17/21 11/27/21 Rx fluticasone propionate 50 1 spray intranasal HS 09/17/21 11/27/21 History mcg/actuation nasal spray,suspension metoprolol tartrate 25 mg tablet 25 mg PO BID #60 tabs 09/17/21 11/27/21 Rx tamsulosin 0.4 mg capsule 0.4 mg PO QAM 09/17/21 11/27/21 History amlodipine 5 mg tablet 5 mg PO DAILY #30 tabs 09/18/21 11/27/21 Rx sulfamethoxazole 800 1 tab PO DAILY #1 tab 09/19/21 11/27/21 Rx mg-trimethoprim 160 mg tablet (Bactrim DS) diclofenac sodium 1 % topical gel 2 g topical QID #100 grams 11/27/21 11/27/21 Rx semaglutide 0.25 mg or 0.5 mg (2 0.5 mg (0.4 mL) subcut WK #1.5 mL 12/17/21 Rx mg/1.5 mL) subcutaneous pen injector (Ozempic) mirabegron 50 mg tablet,extended 50 mg PO QAM #90 tabs 01/22/22 Rx release 24 hr lisinopril 30 mg tablet 30 mg PO DAILY #30 tabs 02/26/22 Rx Past Med/Surg History Medical History SURJIT (acute kidney injury) Atrial fibrillation DX'D 08/16/21 [facility] ON EL[facility]QU[facility]-F/U [facility] Diabetes mellitus, type 2 Hearing deficit Hyperlipidemia Hypertension IT band syndrome Kidney stones LVH (left ventricular hypertrophy) Moderate per cardio records Morbid obesity Osteoarthritis Surgical History H/O arthroplasty left ankle History of cholecystectomy History of cystoscopy WITH STENT FOR STONES History of total hip arthroplasty LEFT/RT Family History Father Myocardial infarction Other Coronary heart disease Denies family history of Ovarian cancer Prostate cancer Diabetes Dementia Breast cancer Colorectal cancer Social History Smoking Status: Never smoker Tobacco Type: Cigarettes Age Started Using Tobacco: 21; Age Quit Using Tobacco: 66; packs per day: 1; Cigarettes Per Day: 20; Second Hand Exposure: No; Hx Alcohol Use: No Hx Substance Use: No Preferred Language: Eritrean Communication Ability: Effective Visual Impairment: No Limitations Hearing Ability: Use of Hearing Aid Staff Analyst Required: No Beliefs That Will Affect Care: None marital status: Single Current Living Situation: Family current occupational status: retired How many Children do You have: 6 Feels Safe at Home: Yes Childhood Exposure to Second-Hand Smoke: No caffeine: Yes (coffee ) Dental Care, Regularly: Yes Physical Activity Frequency: Does not Exercise Seatbelt Use: sometimes Sunscreen Use: Yes (Sometimes) Assistive Devices: Walker Review of Systems Review of Systems: Gen: Denies fevers, night sweats, rigors, fatigue, malaise, weight loss/gain ENT: Denies congestion, throat pain, hearing loss Eyes: Denies acute visual changes CV: Denies CP, palpitations Pulmonary: Denies SOB, cough, wheezing : R flank pain as above GI: Denies N/V, diarrhea, constipation Neuro: Denies acute or unilateral weakness, acute gait impairment, headache or acute visual changes Musculoskeletal: Denies joint pain, inflammation Endocrine: Denies polydipsia, polyuria Skin: Denies acute rashes or ulcers Physical Exam 2 Physical Exam: General: AAO x 3, no distress ENT: No erythema or exudates, no thrush Eyes: ZEENAT, EOMI Head and neck: Normocephalic, atraumatic, No JVD, neck is supple. Chest/heart: Nontender, S1,2, RRR, no murmurs, no gallops Lungs: CTAB, no wheezing or crackles Abdomen: Nontender, nondistended, BS+. There is mild tenderness to palpation of the R flank Neuro: AAO x 3, speech is clear, no unilateral weakness or loss of sensation, coordination intact Musculoskeletal: No joint inflammation, muscle tenderness, FROM Skin: No acute rashes or ulcers Extremities: No clubbing, cyanosis, edema Results & Data Results & Data ([facility]) Vital Signs (Past 12 Hours) Vital Signs Temp Pulse Pulse Resp BP BP Pulse Ox 03/08/22 21:38 88 19 134/98 99 03/08/22 19:38 75 19 162/87 H 98 03/08/22 17:59 98.2 F 99 H 18 187/82 H 95 O2 Del Method 03/08/22 21:38 Room Air 03/08/22 19:38 Room Air 03/08/22 17:59 Room Air Diagnostic Findings CT pelvis: Moderate to severe right-sided hydroureteronephrosis secondary to a 9 mm obstructing calculus of the distal right ureter. Code Status & VTE Plan VTE Prophylaxis Plan VTE Prophylaxis will be ordered: Yes PG Care Time/CCT Total # of Minutes Spent Total Time Spent with Patient: Total time spent is greater than 50% in coordination of care (as documented) at patient's floor/unit and/or counseling patient: Coding Level of Care Code 18634 Initial Inpt Care Lvl 2 Diagnoses Acute right flank pain R10.9 Ureterolithiasis N20.1 Type 2 diabetes mellitus E11.9 Diabetes mellitus truck terminal manager insulin use: without truck terminal manager use Diabetes mellitus complication status: without complication (1) Type 2 diabetes mellitus Diabetes mellitus residential insulin use: without residential use Diabetes mellitus complication status: without complication Qualified Code(s): E11.9 - Type 2 diabetes mellitus without complications
[2022-03-09] MEDS ORDERED: Patient's HEIGHT &/or WEIGHT Needed SCH
[2022-03-09] MEDS ORDERED: GLUCOSE 10 TAB/TUBE PO PRN (01:13)
[2022-03-09] MEDS ORDERED: CARBOHYDRATES FOR HYPOGLYCEMIA PO PRN (01:13)
[2022-03-09] MEDS ORDERED: GLUCOSE 40% GEL 15 GM TUBE PO PRN (01:13)
[2022-03-09] MEDS ORDERED: DEXTROSE 50% 50 ML SYRINGE IV PRN (01:13)
[2022-03-09] MEDS ORDERED: GLUCAGON FOR INJ 1 MG VIAL SQ PRN (01:13)
[2022-03-09] MEDS: HYDROmorphone INJ 0.5 MG/0.5 ML SYR IV PRN ×2 (01:39→04:47)
[2022-03-09] MEDS: LACTATED RINGER'S 1,000 ML IV SCH ×4 (01:39→20:09)
[2022-03-09] MEDS ORDERED: LACTATED RINGER'S 3,000 ML IV ONE (05:51)
--- NOTE | 2022-03-09 05:57 | Urology Consultation ---
Date of Consultation March 09, 2022 Assessment & Plan (1) Ureterolithiasis: Plan 81-year-old female with right distal ureteral calculus and concern for sepsis. Emergently to the OR for cystoscopy, right retrograde pyelogram right ureteral stent placement Consent obtained Patient marked Agree with upgrade to ICU History of Present Illness Reason for Consultation: Right ureteral calculus, sepsis Attending Physician: Daniel Adorno MD History of Present Illness 81-year-old female with a previous history of right ureteral calculus and infection who status post stent in ultimately right ureteral stone treatment. She unfortunately presented to the hospital with right flank pain. Initially was afebrile with stable vitals. Labs show leukocytosis of 22, creatinine was stable, and she was unable to give a urine for specimen prior to receiving antibiotics. CT scan showed a 9 mm distal right obstructing ureteral calculus. She was cefepime. Admitted to medicine and started on cefepime. At 5:28 AM, contacted by overnight resident as patient was tachycardic, hypotensive and tachypneic. Added patient on emergently for right ureteral stent placement. Allergies Allergy/AdvReac Type Severity Reaction Status Date / Time No Known Allergies Allergy Verified 11/27/21 09:47 Home Medications Medication Instructions Recorded Confirmed Type multivitamin 1 tab PO QAM 04/22/18 11/27/21 History phenazopyridine 200 mg tablet 200 mg PO Q8H PRN painful 08/20/21 11/27/21 Rx (Pyridium) urination 6 doses #6 tabs apixaban 5 mg tablet (Eliquis) 5 mg PO BID #60 tabs 09/17/21 11/27/21 Rx fluticasone propionate 50 1 spray intranasal HS 09/17/21 11/27/21 History mcg/actuation nasal spray,suspension metoprolol tartrate 25 mg tablet 25 mg PO BID #60 tabs 09/17/21 11/27/21 Rx tamsulosin 0.4 mg capsule 0.4 mg PO QAM 09/17/21 11/27/21 History amlodipine 5 mg tablet 5 mg PO DAILY #30 tabs 09/18/21 11/27/21 Rx sulfamethoxazole 800 1 tab PO DAILY #1 tab 09/19/21 11/27/21 Rx mg-trimethoprim 160 mg tablet (Bactrim DS) diclofenac sodium 1 % topical gel 2 g topical QID #100 grams 06/28/22 06/28/22 Rx semaglutide 0.25 mg or 0.5 mg (2 0.5 mg (0.4 mL) subcut WK #1.5 mL 12/17/21 Rx mg/1.5 mL) subcutaneous pen injector (Ozempic) mirabegron 50 mg tablet,extended 50 mg PO QAM #90 tabs 01/22/22 Rx release 24 hr lisinopril 30 mg tablet 30 mg PO DAILY #30 tabs 02/26/22 Rx Patient History Medical History SURJIT (acute kidney injury) Atrial fibrillation DX'D 08/16/21 [facility] ON ELIQUIS-F/U [facility] Diabetes mellitus, type 2 Hearing deficit Hyperlipidemia Hypertension IT band syndrome Kidney stones LVH (left ventricular hypertrophy) Moderate per cardio records Morbid obesity Osteoarthritis Surgical History H/O arthroplasty left ankle History of cholecystectomy History of cystoscopy WITH STENT FOR STONES History of total hip arthroplasty LEFT/RT Family History Father Myocardial infarction Other Coronary heart disease Denies family history of Ovarian cancer Prostate cancer Diabetes Dementia Breast cancer Colorectal cancer Social History Smoking Status: Former smoker Tobacco Type: Cigarettes Age Started Using Tobacco: 21; Age Quit Using Tobacco: 66; packs per day: 1; Cigarettes Per Day: 20; Second Hand Exposure: No; Hx Alcohol Use: No Hx Substance Use: No Preferred Language: Portuguese Communication Ability: Effective Visual Impairment: No Limitations Hearing Ability: Use of Hearing Aid Credit Review Officer Required: No Beliefs That Will Affect Care: None marital status: Single Current Living Situation: Significant Other current occupational status: retired How many Children do You have: 6 Feels Safe at Home: Yes Childhood Exposure to Second-Hand Smoke: No caffeine: Yes (coffee ) Dental Care, Regularly: Yes Physical Activity Frequency: Does not Exercise Seatbelt Use: sometimes Sunscreen Use: Yes (Sometimes) Assistive Devices: Cane Review of Systems Review of Systems: 14 point review of systems negative outside of what is listed above in HPI Physical Exam Physical Exam: General: Alert and oriented, no acute distress HEENT: Normocephalic, mucous membranes moist Pulmonary: Nonlabored respirations Abdomen: Nondistended Extremities: Moves all 4 spontaneously Neuro: No gross deficits Skin: Warm, dry, no rashes noted Results & Data ([facility]) Vital Signs (Past 12 Hours) Vital Signs Temp Pulse Pulse Resp BP BP Pulse Ox 03/09/22 00:59 36.9 C 115 H 16 158/79 H 93 03/09/22 00:33 03/08/22 21:38 88 19 134/98 99 03/08/22 19:38 75 19 162/87 H 98 03/08/22 17:59 36.8 C 99 H 18 187/82 H 95 O2 Del Method 03/09/22 00:59 Room Air 03/09/22 00:33 Room Air 03/08/22 21:38 Room Air 03/08/22 19:38 Room Air 03/08/22 17:59 Room Air PG Care Time/CCT Total # of Minutes Spent Total Time Spent with Patient: Total time spent is greater than 50% in coordination of care (as documented) at patient's floor/unit and/or counseling patient: Coding Level of Care Code 17145 Initial Inpt Care Lvl 3 Diagnoses Ureterolithiasis N20.1
--- NOTE | 2022-03-09 06:09 | Anesthesiology Consultation ---
Date of Service March 09, 2022 Assessment & Plan (1) Encounter for pre-operative examination: Chart Review Chart Review: Acceptable Risk for Surgery (d/t emergent nature of procedure) and Patient NOT seen in Pre Admission Testing Consults Requested none History Surgery Operation Date: 03/09/22 06:05 Proposed Procedures p Cystoscopy - Darci Campoverde MD Height/Weight Height: 5 ft 4 in Weight: 104.9 kg Allergies Allergy/AdvReac Type Severity Reaction Status Date / Time No Known Allergies Allergy Verified 11/27/21 09:47 Medications Home Medications Medication Instructions Recorded Confirmed Last Taken multivitamin 1 tab PO QAM 04/22/18 11/27/21 09/18/21 phenazopyridine 200 mg tablet 200 mg PO Q8H PRN painful 08/20/21 11/27/21 0 09/18/21 (Pyridium) urination 6 doses #6 tabs apixaban 5 mg tablet (Eliquis) 5 mg PO BID #60 tabs 09/17/21 11/27/21 09/17/21 fluticasone propionate 50 1 spray intranasal HS 09/17/21 11/27/21 09/18/21 21:00 mcg/actuation nasal spray,suspension metoprolol tartrate 25 mg tablet 25 mg PO BID #60 tabs 09/17/21 11/27/21 09/19/21 04:00 tamsulosin 0.4 mg capsule 0.4 mg PO QAM 09/17/21 11/27/21 09/19/21 04:00 amlodipine 5 mg tablet 5 mg PO DAILY #30 tabs 09/18/21 11/27/21 09/18/21 09:00 sulfamethoxazole 800 1 tab PO DAILY #1 tab 09/19/21 11/27/21 Unknown mg-trimethoprim 160 mg tablet (Bactrim DS) diclofenac sodium 1 % topical gel 2 g topical QID #100 grams 11/27/21 11/27/21 Unknown semaglutide 0.25 mg or 0.5 mg (2 0.5 mg (0.4 mL) subcut WK #1.5 mL 12/17/21 Un known mg/1.5 mL) subcutaneous pen injector (Ozempic) mirabegron 50 mg tablet,extended 50 mg PO QAM #90 tabs 01/22/22 Unknown release 24 hr lisinopril 30 mg tablet 30 mg PO DAILY #30 tabs 02/26/22 Unknown Active Medications Generic Name Dose Route Start Last Admin Trade Name Jade PRN Reason Stop Dose Admin Hydromorphone HCl 0.5 mg 03/08/22 23:53 03/09/22 04:47 Hydromorphone Inj 0.5 Mg/0.5 Ml Syr IV 03/22/22 23:52 0.5 mg Q3H PRN Administration Pain Lactated Ringer's 1,000 mls @ 125 mls/hr 03/08/22 23:45 03/09/22 04:48 Lr IV 04/07/22 23:44 125 mls/hr .Q8H DAVID Infusion Past Medical History Medical History SURJIT (acute kidney injury) Atrial fibrillation DX'D 08/16/21 [facility] ON [facility]QU[facility]-F/[facility] Diabetes mellitus, type 2 Hearing deficit Hyperlipidemia Hypertension IT band syndrome Kidney stones LVH (left ventricular hypertrophy) Moderate per cardio records Morbid obesity Osteoarthritis Past Family History Family History Father Myocardial infarction Other Coronary heart disease Denies family history of Ovarian cancer Prostate cancer Diabetes Dementia Breast cancer Colorectal cancer Past Surgical History Surgical History H/O arthroplasty left ankle History of cholecystectomy History of cystoscopy WITH STENT FOR STONES History of total hip arthroplasty LEFT/RT Social History Smoking Status: Former smoker Smoking cigarettes per day: 20 Hx Alcohol Use: No alcohol intake frequency: holidays/special occasions only Hx Substance Use: No substance use type: does not use Physical Exam Vital Signs Last Vital Signs Temp 98.4 F 03/09/22 00:59 Pulse 115 H 03/09/22 00:59 Resp 16 03/09/22 00:59 BP 158/79 H 03/09/22 00:59 Pulse Ox 93 03/09/22 00:59 O2 Del Method 03/09/22 00:59 Testing Laboratory Results 03/09/22 04:29 POC Glucose 161 H Electrocardiogram Date: 03/08/22 Findings: + NSR @ (tachycardic)
[2022-03-09] MEDS ORDERED: fentaNYL citrate 100 MCG/2 ML VIAL IV PRN (06:14)
[2022-03-09] MEDS ORDERED: ONDANSETRON INJ 2 MG/ML 2 ML VIAL IV PRN (06:14)
[2022-03-09] MEDS ORDERED: ATROPINE SULFATE 0.1 MG/ML 10ML SYR IV PRN (06:14)
[2022-03-09] MEDS ORDERED: ePHEDrine sulfate 50 MG/ML AMP IV PRN (06:14)
[2022-03-09 06:35] LABS: Hematocrit (blood only) 42.8 % (34.1-44.9); Hemoglobin 13.1 g/dl (12.0-16.0); Mean Corpuscular Hgb Conc 30.6 g/dL (32.0-36.0); Mean Corpuscular Volume 94.9 fL (80.0-100.0); Mean Platelet Volume 9.4 fL (9.4-12.3); Platelet Count 275 K/uL (130-400); RDW Coefficient of Variation 15.5 % (11.5-14.5); RDW Standard Deviation 54.4 fL (36.4-46.3); Red Blood Count 4.51 M/uL (3.93-5.22); White Blood Count 7.29 K/ul (4.8-10.8)
[2022-03-09 06:39] LABS: Basophils # (auto) 0.01 K/uL (0-0.2); Basophils % (auto) 0.1 %; Immature Granulocytes # (auto) 0.02 K/uL (0.00-0.02); Immature Granulocytes % (auto) 0.3 %; Lymphocytes # (auto) 0.15 K/uL (1.2-3.4); Lymphocytes % (auto) 2.1 %; Monocytes # (auto) 0.02 K/uL (0.24-0.82); Monocytes % (auto) 0.3 %; Neutrophils # (auto) 7.09 K/uL (1.4-6.5); Neutrophils % (auto) 97.2 %; Tear Drop Cells 1+; Toxic Vacuolation 1+
[2022-03-09] MEDS ORDERED: VASOPRESSIN 20 UNIT/ML VIAL ONE (06:43)
[2022-03-09] MEDS ORDERED: PROPOFOL IV EMULSION 10 MG/ML 20 ML VIAL IV ONE (06:43)
[2022-03-09] MEDS ORDERED: DIATRIZOATE MEGLUMINE 30% 100ML VIAL INSTIL ONE (06:49)
--- NOTE | 2022-03-09 06:51 | Post Operative Brief Note ---
PG Immediate Post Op with CF Date of Surgery March 09, 2022 Pre & Post Diagnosis Operation Date: 03/09/22 06:05 Pre-Op Diagnosis: Obstructing Calculus Post-Op Diagnosis: Obstructing Calculus I identified the patient and participated in the time-out.: Yes Procedure Operation Date: 03/09/22 06:05 Actual Procedures p Cystoscopy, Retrograde pyelogram, Right Stent Insertion(Right) - Darci Campoverde MD Surgeon Darci Campoverde MD Veneer Redrier None Estimated Blood Loss 0 Findings See Below Bladder with cystitis and consistent with infection Significant purulent discharge from right ureter Right retrograde pyelogram showed hydronephrosis Right ureteral stent in appropriate position Specimens Specimen Description: A. Urine Culture Drains Tovar Catheter and Other (6x26 R stent ) Complications none
--- NOTE | 2022-03-09 06:51 | Operative Report ---
PG Post Operative Report Pre & Post Diagnosis Operation Date: 03/09/22 06:05 Pre-Op Diagnosis: Obstructing Calculus Post-Op Diagnosis: Obstructing Calculus I identified the patient and participated in the time-out.: Yes Procedure Operation Date: 03/09/22 06:05 Actual Procedures p Cystoscopy, right retrograde pyelogram with radiographic interpretation, Right Stent Insertion(Right) - Darci Campoverde MD Surgeon Darci Campoverde MD Mental Retardation Nurse None Estimated Blood Loss 0 Findings See Below Bladder with cystitis and consistent with infection Significant purulent discharge from right ureter Right retrograde pyelogram showed hydronephrosis Right ureteral stent in appropriate position Specimens Urine culture Drains 1. 6 Turkish by 26 cm right ureteral stent 2. 16 Turkish Tovar catheter with 10 cc in balloon Complications none Indications 81-year-old female with a 9 mm distal right ureteral calculus who was initially stable on presentation. She acutely decompensated at 530 this morning and was taken emergently to the OR for right ureteral stent placement. Consent was obtained. She had been previously started on cefepime. Description of Procedure After informed consent was obtained, the patient was transported operative suite. MAC anesthesia was induced. The patient was placed in dorsolithotomy position prepped and draped in a sterile fashion. They received preoperative cefepime for antibiotic prophylaxis. An appropriate surgical timeout was performed. A 22 Turkish rigid scope was inserted per urethra into the bladder. [place] cystoscopy revealed no stones or lesions. I turned my attention the right ureteral orifice and intubated this with a 5 Turkish open-ended catheter a significant amount of purulent urine was expelled from the right ureteral orifice. This was collected and sent for culture. A right retrograde pyelogram was shot which showed hydronephrosis. A sensor wire was advanced into the kidney and confirmed fluoroscopically. A 6 Turkish by 26 cm right ureteral stent was deployed with a good proximal coil in the renal pelvis and a good distal coil noted in the bladder, confirmed fluoroscopically and under direct visualization, respectively. The bladder was left full and the scope was removed. 16 Turkish Tovar catheter inserted with return of cloudy urine. Balloon was inflated with 10 cc of sterile water. This concluded the end of the case. All counts were correct at the end of the case. I was present, scrubbed, and actively participated for the entirety of the procedure. Patient was transported back to the ICU for close monitoring I attest to the content of the Intraoperative Record and any orders documented therein. Any exceptions are noted below.
[2022-03-09 06:56] LABS: Calcium 8.4 mg/dl (8.5-10.1); Creatinine Clr Calc Pharmacy 31.3 ml/min; Est GFR (African American) 32.7 ml/min; Est GFR (Non-African American) 28.2 ml/min; Magnesium 1.6 mg/dl (1.7-2.4); Potassium 5.1 mmol/L (3.5-5.1)
--- NOTE | 2022-03-09 07:09 | Anesthesiology Progress Note ---
Date of Service March 09, 2022 Anesthesia Post Procedure Vital Signs Vital Signs: Temp Pulse Pulse Resp BP BP Pulse Ox 03/09/22 00:59 98.4 F 115 H 16 158/79 H 93 03/09/22 00:33 03/08/22 21:38 88 19 134/98 99 03/08/22 19:38 75 19 162/87 H 98 03/08/22 17:59 98.2 F 99 H 18 187/82 H 95 O2 Del Method 03/09/22 00:59 Room Air 03/09/22 00:33 Room Air 03/08/22 21:38 Room Air 03/08/22 19:38 Room Air 03/08/22 17:59 Room Air Pain Intensity Right Flank: Pain Intensity: 7 Transfer of Care Handoff Completed per policy Notes Mental Status: participated in evaluation Patient Amnestic to Procedure: Yes Nausea / Vomiting: adequately controlled Pain: adequately controlled Airway Patency, RR, SpO2: stable & adequate BP & HR: stable & adequate Hydration State: stable & adequate Anesthetic Complications: no major complications apparent and Pt Satisfied with anesthetic care Notes: pt somnolent, transferred to icu care
[2022-03-09] MEDS ORDERED: NOREPINEPHRINE/D5W 4 MG/250 ML IV ONE (07:17)
--- NOTE | 2022-03-09 07:18 | Hospitalist Progress Note ---
Date of Service March 09, 2022 Assessment & Plan (1) Ureterolithiasis: Plan: 81 y/o f Hx HTN, HLD, DM II, PAF, obstructing ureteral calculus 09/21 requiring lithotripsy - developed UTI/sepsis at the time. She presents with R flank pain. Sepsis with UTI -WBC 22.14-->7.29 -lactate 5.3 -received 1L LR, LR at 100ml/h -CTA A/P: Moderate to severe right-sided hydroureteronephrosis secondary to a 9 mm obstructing calculus of the distal right ureter. Right nephrolithiasis. 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 -started on Cefepime -PRN tylenol, morphine -patient later noted to be hypotensive, tachycardic, tachypnic. Consult to Urology placed with emergent stent placement, transferred to ICU currently on levophed Hypotension -hold meds for HTN -admitted to ICU -on levophed, 101/54 Nephrolithiasis -Urology consulted -stent placed 03/09/22 -will require outpt followup for stent and stone removal Paroxysmal Afib -eliquis on hold given recent stent procedure -consider resuming tomorrow DM2 -started SSI Hypertension -hold amlodipine given ongoing hypotension -hold lisinopril -hold metoprolol Urinary Incontinence -hold mirabegron at this time Hypomagnesium -repleted, continue to monitor Wheezing -continue pulmicort -continue Anoro Ellipta FENa: clear liquid Code Status: Full DVT PPX: eliquis on hold Dispo: ICU Sheri Carrillo DO PGY 2, FCM (2) Type 2 diabetes mellitus: (3) S/P ureteral stent placement: (4) Osteoarthritis: (5) Hypertension: (6) Hyperlipidemia: (7) Hypotension: (8) Sepsis secondary to UTI: Admission and Anticipated Discharge Date Admission Date: March 08, 2022 Supervising Physician Co-Signing Physician Notes Attending attestation Pt seen and examined in concert with Dr. Carrillo. In agreement with the documented findings as noted in the resident documentation with any exceptions or additions as noted here. Pain well controlled at present on current regimen and reports considerable improvement from presenting level of discomfort. On examination, S1/S2 nl RRR no MCG. CTAB. Abd NT/ND BS+ve. UOP remains scant in bojorquez bag. Sepsis with urinary source likely 2/2 nephrolithiasis/postrenal obstruction - urology & ICU - improving WBC, elevated Cr with procedure today from urology. Continue cefepime, pain control as noted. Pressure management per ICU team Paroxysmal AF - holding apixaban Else see resident documentation as noted. Subjective 81yo Female seen at bedside, calm comfortable cooperative, denies any abd pain SOB. She ate lunch and has a good appetite, understands that she is in the ICU after her blood pressure went low. Family updated on her kdney stone and stent placement. No further questions at this time. In ICU currently on levophed, received 1L bolus LR, noted low urine output. Review of Systems Review of Systems: Negative fever chills Negative headache dizziness Negative chest pain palpitations SOB Negative nausea vomitting diarrhea constipation Negative numbness tingling rash swelling Physical Exam Constitutional: well developed, well nourished, + morbidly obese, cooperative and comfortable Eyes: PERRL, conjunctivae normal, anicteric sclerae ENMT: external ear and nose normal, oropharynx normal Neck: trachea midline, no thyromegaly Respiratory: normal respiratory effort, lungs clear to auscultation Cardiovascular: Rate/Rhythm: regular rate and regular rhythm Chest (Breasts): normal inspection/palpation of breasts Gastrointestinal (Abdomen): Inspection/Auscultation: abdomen normal to inspection Percussion/Palpation: abdomen soft; abdomen nontender Skin: no rashes, warm and dry Genitourinary: bojorquez in place, decreased urinary output Results & Data Results & Data ([facility]) Vital Signs (Past 12 Hours) Vital Signs Temp Pulse Resp BP Pulse Ox O2 Del Method O2 Flow Rate 03/09/22 07:12 36.4 C L 122 H 26 H 93/54 L 03/09/22 07:02 36.8 C 128 H 28 H 95/56 L 95 Oxymask 10 03/09/22 00:59 36.9 C 115 H 16 158/79 H 93 Room Air 03/09/22 00:33 Room Air 03/08/22 21:38 88 19 134/98 99 Room Air 03/08/22 19:38 75 19 162/87 H 98 Room Air Diagnostic Findings Laboratory Results WBC 19.55 K/ul (4.8-10.8) H D 03/09/22 08:03 RBC 4.45 M/uL (3.93-5.22) 03/09/22 08:03 Hgb 13.0 g/dl (12.0-16.0) 03/09/22 08:03 Hct 42.5 % (34.1-44.9) 03/09/22 08:03 MCV 95.5 fL (80.0-100.0) 03/09/22 08:03 MCH 29.2 pg (25.0-34.0) 03/09/22 08:03 MCHC 30.6 g/dL (32.0-36.0) L 03/09/22 08:03 RDW Std Deviation 55.9 fL (36.4-46.3) H 03/09/22 08:03 RDW Coeff of Heriberto 15.8 % (11.5-14.5) H 03/09/22 08:03 Plt Count 285 K/uL (130-400) 03/09/22 08:03 MPV 9.4 fL (9.4-12.3) 03/09/22 08:03 Immature Gran % (Auto) 0.3 % 03/09/22 05:33 Neut % (Auto) 97.2 % 03/09/22 05:33 Lymph % (Auto) 2.1 % 03/09/22 05:33 Larue % (Auto) 0.3 % 03/09/22 05:33 Eos % (Auto) 0.0 % 03/09/22 05:33 Baso % (Auto) 0.1 % 03/09/22 05:33 Neut # (Auto) 7.09 K/uL (1.4-6.5) H 03/09/22 05:33 Lymph # (Auto) 0.15 K/uL (1.2-3.4) L 03/09/22 05:33 Larue # (Auto) 0.02 K/uL (0.24-0.82) L 03/09/22 05:33 Eos # (Auto) 0.00 K/uL (0-0.50) 03/09/22 05:33 Baso # (Auto) 0.01 K/uL (0-0.2) 03/09/22 05:33 Immature Gran # (Auto) 0.02 K/uL (0.00-0.02) 03/09/22 05:33 Toxic Vacuolation 1+ 03/09/22 05:33 Tear Drop Cells 1+ 03/09/22 05:33 Sodium 142 mmol/L (136-145) 03/09/22 08:03 Potassium 4.0 mmol/L (3.5-5.1) D 03/09/22 08:03 Chloride 111 mmol/L (98-107) H 03/09/22 08:03 Carbon Dioxide 19 mmol/L (21-32) L 03/09/22 08:03 Anion Gap 12 (3-11) H 03/09/22 08:03 BUN 30 mg/dl (6-23) H 03/09/22 08:03 Creatinine 1.86 mg/dl (0.6-1.2) H 03/09/22 08:03 Est Cr Clr Drug Dosing 28.5 ml/min 03/09/22 08:03 Est GFR ( Amer) 29.1 ml/min 03/09/22 08:03 Est GFR (Non-Af Amer) 25.1 ml/min 03/09/22 08:03 BUN/Creatinine Ratio 16.1 (10-20) 03/09/22 08:03 Glucose 172 mg/dl (70-99(Fasting)) H 03/09/22 08:03 POC Glucose 171 mg/dl (70-99) H 03/09/22 11:30 Lactate 4.5 mmol/L (0.4-2.0) H* 03/09/22 08:03 Calcium 8.6 mg/dl (8.5-10.1) 03/09/22 08:03 Phosphorus 2.2 mg/dl (2.5-4.9) L 03/09/22 08:03 Magnesium 1.5 mg/dl (1.7-2.4) L 03/09/22 08:03 Total Bilirubin 0.7 mg/dl (0.2-1.0) 03/09/22 08:03 AST 21 U/L (13-39) 03/09/22 08:03 ALT 12 U/L (7-52) 03/09/22 08:03 Alkaline Phosphatase 93 U/L (34-104) 03/09/22 08:03 Lactate Dehydrogenase 188 U/L (86-244) 03/09/22 08:03 Total Protein 5.9 gm/dl (6.0-8.3) L D 03/09/22 08:03 Albumin 3.2 gm/dl (3.4-5.0) L 03/09/22 08:03 Globulin 2.7 gm/dl (2.5-4.0) 03/09/22 08:03 Albumin/Globulin Ratio 1.2 (0.9-2) 03/09/22 08:03 Procalcitonin 31.48 ng/ml (0-0.5) H 03/09/22 08:04 Random Cortisol > 60.00 mcg/dl 03/09/22 08:04 Nasal Screen MRSA (PCR) Negative (Negative) 03/09/22 07:53 SARS-CoV-2, RNA, NAAT NEGATIVE (NEGATIVE) 03/08/22 21:32 Impressions Abdomen/Pelvis CT 03/08/22 21:[address] WITHOUT CONTRAST CT DOSE: 1433.35 mGy.cm HISTORY: Acute right-sided flank pain in a patient with history of kidney stones right flank pain TECHNIQUE: Multiaxial CT images of the abdomen and pelvis were performed without contrast. A dose lowering technique was utilized adhering to the principles of ALARA. COMPARISON STUDY: CT abdomen and pelvis 08/16/2021 FINDINGS: Cardiomegaly with extensive coronary artery calcifications. The study is limited secondary to respiratory motion artifact. Subsegmental bibasilar atelectasis/scarring. No pneumatosis or pneumoperitoneum. Unremarkable spleen, moderately atrophic pancreas with thickening of the adrenal glands suggests hyperplasia. Cholecystectomy. 4.8 cm left hepatic lobe cyst. Marginal nodularity of the liver redemonstrated. A few additional scattered smaller hypodense lesions of the liver are redemonstrated. Scattered hypodensities of the kidneys are suggestive of cysts measuring up to 2.2 cm on the left. Moderate to severe right-sided hydroureteronephrosis secondary to an obstructing 9 mm calculus of the distal right ureter several centimeters proximal to the ureterovesicular junction. 8 mm nonobstructing calculus of the inferior pole right kidney. Perinephric and periureteral stranding on the right. Decompressed urinary bladder. Unremarkable visualized uterus. Pelvic structures are suboptimally visualized secondary to streak artifact from bilateral hip total joint arthroplasties. Atherosclerosis of the aorta. No lymphadenopathy. No bowel obstruction or bowel wall thickening. Colonic diverticulosis.. Unremarkable soft tissues. No acute fracture identified. Possible loosening of the left femoral stem is similar to prior. No acute fracture identified. IMPRESSION: 1. Moderate to severe right-sided hydroureteronephrosis secondary to a 9 mm obstructing calculus of the distal right ureter. 2. Right nephrolithiasis. 3. 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 4. Additional findings as above. ACT 112: Negative or not required by law. The above report was generated using voice recognition software. It may contain grammatical, syntax or spelling errors. Electronically signed by: Matty Zuluaga M.D. 03/08/2022 10:32 PM Retrograde Pyelogram 03/09/22 05:49 FL retrograde includes kub CLINICAL HISTORY: RT SIDE RETROGRADE AND STENT PLACEMENT COMPARISON STUDY: CT of the abdomen and pelvis March 08, 2022. FLUOROSCOPY TIME: 14 seconds. FLUOROSCOPIC IMAGES: 3 FINDINGS: Fluoroscopy was provided during right retrograde exam with right ureteral stent placement. IMPRESSION: Fluoroscopy provided during right retrograde exam with right ureteral stent placement. ACT 112: Negative or not required by law. Electronically signed by: Luis Esteban M.D. 03/09/2022 7:52 AM Chest X-Ray 03/09/22 07:41 XR chest 1V portable HISTORY: 81 years-old Female High Oxygen demands acute hypoxia COMPARISON: Chest radiograph 08/17/2021 TECHNIQUE: AP view of the chest FINDINGS: Cardiac silhouette is enlarged. Atherosclerosis of the aorta. Chronic left basilar atelectasis/scarring. No pneumothorax, large pleural effusion or overt pulmonary edema or new airspace consolidation. Degenerative changes of the shoulders and spine. IMPRESSION: 1. Cardiomegaly without acute process. 2. Chronic left basilar atelectasis/scarring. ACT 112: Negative or not required by law. The above report was generated using voice recognition software. It may contain grammatical, syntax or spelling errors. Electronically signed by: Matty Zuluaga M.D. 03/09/2022 7:55 AM Medications Administered Current Inpatient Medications Atropine Sulfate (Atropine Sulfate 0.1 Mg/Ml 10ml Syr) 0.5 mg IV Q1M PRN PRN Reason: PACU Use-HR<40 &/or Bradycardi Stop: 03/09/22 14:14 Budesonide (Budesonide 0.5 Mg/2 Ml Vial (Pulmicort)) 0.25 mg NEB BIDR DAVID Stop: 04/08/22 18:59 Dextrose (Dextrose 50% 50 Ml Syringe) 25 - 50 ml IV UD PRN; Protocol PRN Reason: Hypoglycemia Protocol Stop: 04/08/22 01:12 Ephedrine Sulfate (Ephedrine Sulfate 50 Mg/Ml Amp) 5 mg IV Q5M PRN PRN Reason: PACU Use Only-SBP<90 mmHg Stop: 03/09/22 14:14 Fentanyl Citrate (Fentanyl Citrate 100 Mcg/2 Ml Vial) 25 mcg IV Q5M PRN PRN Reason: PACU Use Only-Pain Stop: 03/09/22 14:14 Glucagon (Glucagon For Inj 1 Mg Vial) 1 mg SQ UD PRN; Protocol PRN Reason: Hypoglycemia Protocol Stop: 04/08/22 01:12 Glucose (Glucose 40% Gel 15 Gm Tube) 15 - 30 gm PO UD PRN; Protocol PRN Reason: Hypoglycemia Protocol Stop: 04/08/22 01:12 Glucose (Glucose 10 Tab/Tube) 4 - 8 tab PO UD PRN; Protocol PRN Reason: Hypoglycemia Treatment Stop: 04/08/22 01:12 Hydromorphone HCl (Hydromorphone Inj 0.5 Mg/0.5 Ml Syr) 0.5 mg IV Q3H PRN PRN Reason: Pain Stop: 03/22/22 23:52 Last Admin: 03/09/22 04:47 Dose: 0.5 mg Norepinephrine Bitartrate (Levophed/D5w) 4 mg in 250 mls @ 19.669 mls/hr IV .[id number] [facility]; Protocol Stop: 04/08/22 07:29 Last Titration: 03/09/22 13:00 Dose: 0.03 mcg/kg/min, 11.8 mls/hr Acetaminophen (Ofirmev) 1,000 mg in 100 mls @ 400 mls/hr IV Q8H PRN PRN Reason: Fever Stop: 03/12/22 08:09 Last Infusion: 03/09/22 08:34 Dose: Infused Pantoprazole Sodium 40 mg/ (Syringe) 10 mls @ 5 mls/min IV DAILY@1100 DAVID Stop: 04/08/22 10:59 Last Admin: 03/09/22 09:41 Dose: 5 mls/min Lactated Ringer's (Lr) 1,000 mls @ 100 mls/hr IV .Q10H [facility] Stop: 03/10/22 00:59 Last Admin: 03/09/22 10:00 Dose: 100 mls/hr Cefepime HCl 1,000 mg/ Syringe 10 mls @ 5 mls/min IV Q24H [facility]; Protocol Stop: 03/19/22 08:59 Insulin Aspart (Insulin Aspart Per Unit) 0 units SC ACHS [facility] Stop: 04/08/22 07:29 Last Admin: 03/09/22 12:10 Dose: 2 units Mirabegron (Mirabegron Er 25 Mg Tab) 50 mg PO QAM [facility] Stop: 04/08/22 08:59 Last Admin: 03/09/22 09:24 Dose: 50 mg Miscellaneous (Carbohydrates For Hypoglycemia ) 15 - 30 gm PO UD PRN PRN Reason: Hypoglycemia Protocol Stop: 04/08/22 01:12 Ondansetron HCl (Ondansetron Inj 2 Mg/Ml 2 Ml Vial) 4 mg IV ONCE PRN PRN Reason: PACU Use Only-Nausea/Vomiting Stop: 03/09/22 14:14 Umeclidinium/Vilanterol (Umeclidinium/Vilanterol 62.5/25mcg 7 Puffs/Inhaler) 1 puffs INH DAILY [facility] Stop: 04/08/22 08:59 Last Admin: 03/09/22 09:26 Dose: 1 puffs Resident Activity Tracking Resident Involvement: Resident Care Provided Care Provided: Adult Hospital Medicine (1) Type 2 diabetes mellitus Diabetes mellitus complication status: without complication Diabetes mellitus meterman insulin use: without meterman use Qualified Code(s): E11.9 - Type 2 diabetes mellitus without complications (2) Hypertension Hypertension type: essential hypertension Qualified Code(s): I10 - Essential (primary) hypertension
[2022-03-09] MEDS ORDERED: STAT IV Infusion **Titration per Protocol STA (07:23)
[2022-03-09] MEDS: NOREPINEPHRINE/D5W 4 MG/250 ML PLCT IV SCH ×2 (07:31→20:10)
[2022-03-09] MEDS ORDERED: DAPTOmycin 400 MG in SYRINGE 0 ML IV ONE (07:45)
--- NOTE | 2022-03-09 07:54 | Fluoroscopy Report ---
FL retrograde includes kub CLINICAL HISTORY: RT SIDE RETROGRADE AND STENT PLACEMENT COMPARISON STUDY: CT of the abdomen and pelvis March 08, 2022. FLUOROSCOPY TIME: 14 seconds. FLUOROSCOPIC IMAGES: 3 FINDINGS: Fluoroscopy was provided during right retrograde exam with right ureteral stent placement. IMPRESSION: Fluoroscopy provided during right retrograde exam with right ureteral stent placement. ACT 112: Negative or not required by law. Electronically signed by: Luis Esteban M.D. 03/09/2022 7:52 AM
--- NOTE | 2022-03-09 07:57 | XRay Report ---
XR chest 1V portable HISTORY: 81 years-old Female High Oxygen demands acute hypoxia COMPARISON: Chest radiograph 08/17/2021 TECHNIQUE: AP view of the chest FINDINGS: Cardiac silhouette is enlarged. Atherosclerosis of the aorta. Chronic left basilar atelectasis/scarri ng. No pneumothorax, large pleural effusion or overt pulmonary edema or new airspace consolidation. D egenerative changes of the shoulders and spine. IMPRESSION: 1. Cardiomegaly without acute process. 2. Chronic left basilar atelectasis/scarring. ACT 112: Negative or not required by law. The above report was generated using voice recognition software. It may contain grammatical, syntax o r spelling errors. Electronically signed by: Matty Zuluaga M.D. 03/09/2022 7:55 AM
[2022-03-09] MEDS ORDERED: ACETAMINOPHEN 1,000 MG/100 ML VIAL IV PRN (08:10)
[2022-03-09] MEDS ORDERED: LACTATED RINGER'S 1,000 ML IV ONE (08:10)
[2022-03-09] MEDS ORDERED: ACETAMINOPHEN 1000 MG/100 ML IV IV ONE (08:13)
[2022-03-09 08:16] LABS: Hematocrit (blood only) 42.5 % (34.1-44.9); Mean Corpuscular Hemoglobin 29.2 pg (25.0-34.0); Mean Corpuscular Hgb Conc 30.6 g/dL (32.0-36.0); Mean Corpuscular Volume 95.5 fL (80.0-100.0); Mean Platelet Volume 9.4 fL (9.4-12.3); Platelet Count 285 K/uL (130-400); RDW Coefficient of Variation 15.8 % (11.5-14.5); RDW Standard Deviation 55.9 fL (36.4-46.3); Red Blood Count 4.45 M/uL (3.93-5.22); White Blood Count 19.55 K/ul (4.8-10.8)
[2022-03-09] MEDS: INSULIN ASPART PER UNIT SC SCH ×4 (08:24→23:06)
--- NOTE | 2022-03-09 08:25 | Critical Care Consultation ---
Date of Consultation March 09, 2022 Assessment & Plan (1) Shock circulatory: (2) Acute right flank pain: (3) Ureterolithiasis: (4) Morbid obesity: (5) Hyperlipidemia: (6) Hydronephrosis, right: (7) Type 2 diabetes mellitus: (8) Acute respiratory failure with hypoxia: (9) Hematuria: (10) UTI (urinary tract infection): Plan Reason Critically Ill: 81-year-old female presented to hospital with right-sided hydronephrosis and ureteral stone. Patient went to the OR for cystoscopy and stone removal. Was found to be hypotensive and sent to the ICU for further management Neuro - CAM ICU: Negative Cardiac - -- Shock Septic from likely urinary tract infection Continue with broad-spectrum antibiotics IV fluid bolus at least 2 L Vasopressor support to keep MAP greater than 65 --Paroxysmal A. fib On apixaban at home --History of hypertension Hold blood pressure medication Respiratory - -- Acute hypoxic respiratory failure Continue O2 supplementation to keep oxygen saturation between 88-92% --Ex-smoker likely COPD [id number] smoking history Quit long time ago Continue with budesonide nebulizer and Anoro inhaler GI - Continue with pantoprazole RENAL/LYTES - -- SURJIT on CKD Monitor BUNs/creatinine Avoid nephrotoxic medication - -- Nephrolithiasis right-sided hydronephrosis S/p stent placement 03/09/2022 Urology on board ENDO - -- Diabetes type 2 Continue with ICU hypoglycemia protocol HEME - Monitor H&H ID - -- UTI History of E. coli pansensitive in the past Continue with cefepime Follow-up culture and sensitivity Procalcitonin 31.48 --Prophylaxis VTE: IPC, apixaban on hold GI: Pantoprazole Lines: Peripheral Diet: Clear liquid Plan: In/out: +1.4 L, urine output 50 mL since coming to the ICU For hyperkalemia patient got Lokelma. We will give another dose of Lokelma. Repeat BMP mag [place] as well as lactate. Hypomagnesemia being replaced Continue with IV fluids. I have personally spent 64 minutes of critical care time in the direct management of this patient. This is a life/limb threatening event. This includes time spent evaluating patient, direct bedside care, chart review, placing orders, interpretation of diagnostic studies, discussion with consultants, patient, and family members, as well as other required patient management activities. This time is exclusive of all separately billable procedures, and teaching time and separate from and in addition to any other critical care service time. History of Present Illness Attending Physician: Amadou Hernandez MD History of Present Illness 81-year-old female was admitted to the hospital on 03/08/2022 for right flank plain with moderate to severe hydronephrosis Past medical history: Diabetes type 2, paroxysmal A. fib on apixaban, history of kidney stones, dyslipidemia, hypertension Patient was taken to the OR. Following which patient was found to be significantly hypotensive. She was transferred to the ICU for further management In the ICU patient was on 6 L nasal cannula saturating 96%. We were able to go down to 3 L and she was saturating 92% She was little bit somnolent but answering all the questions appropriately Stated that the pain in the right flank is improving. She denied any shortness of breath She was a started on Levophed 0.05 and her map was 65. She was getting IV fluids as well. Denied any nausea or vomiting Was asking for food Social history: [id number] smoking history quit long time ago Allergies Allergy/AdvReac Type Severity Reaction Status Date / Time No Known Allergies Allergy Verified 11/27/21 09:47 Home Medications Medication Instructions Recorded Confirmed Type multivitamin 1 tab PO QAM 04/22/18 11/27/21 History phenazopyridine 200 mg tablet 200 mg PO Q8H PRN painful 08/20/21 11/27/21 Rx (Pyridium) urination 6 doses #6 tabs apixaban 5 mg tablet (Eliquis) 5 mg PO BID #60 tabs 09/17/21 11/27/21 Rx fluticasone propionate 50 1 spray intranasal HS 09/17/21 11/27/21 History mcg/actuation nasal spray,suspension metoprolol tartrate 25 mg tablet 25 mg PO BID #60 tabs 09/17/21 11/27/21 Rx tamsulosin 0.4 mg capsule 0.4 mg PO QAM 09/17/21 11/27/21 History amlodipine 5 mg tablet 5 mg PO DAILY #30 tabs 09/18/21 11/27/21 Rx sulfamethoxazole 800 1 tab PO DAILY #1 tab 09/19/21 11/27/21 Rx mg-trimethoprim 160 mg tablet (Bactrim DS) diclofenac sodium 1 % topical gel 2 g topical QID #100 grams 11/27/21 11/27/21 Rx semaglutide 0.25 mg or 0.5 mg (2 0.5 mg (0.4 mL) subcut WK #1.5 mL 12/17/21 Rx mg/1.5 mL) subcutaneous pen injector (Ozempic) mirabegron 50 mg tablet,extended 50 mg PO QAM #90 tabs 01/22/22 Rx release 24 hr lisinopril 30 mg tablet 30 mg PO DAILY #30 tabs 02/26/22 Rx Patient History Medical History SURJIT (acute kidney injury) Atrial fibrillation DX'D 08/16/21 [facility] ELIQUIS-F/U [facility]IP [facility] Diabetes mellitus, type 2 Hearing deficit Hyperlipidemia Hypertension IT band syndrome Kidney stones LVH (left ventricular hypertrophy) Moderate per cardio records Morbid obesity Osteoarthritis Surgical History H/O arthroplasty left ankle History of cholecystectomy History of cystoscopy WITH STENT FOR STONES History of total hip arthroplasty LEFT/RT Family History Father Myocardial infarction Other Coronary heart disease Denies family history of Ovarian cancer Prostate cancer Diabetes Dementia Breast cancer Colorectal cancer Social History Smoking Status: Former smoker Tobacco Type: Cigarettes Age Started Using Tobacco: 21; Age Quit Using Tobacco: 66; packs per day: 1; Cigarettes Per Day: 20; Second Hand Exposure: No; Hx Alcohol Use: No Hx Substance Use: No Preferred Language: [place] Leonean Communication Ability: Effective Visual Impairment: No Limitations Hearing Ability: Use of Hearing Aid Radio Reporter Required: No Beliefs That Will Affect Care: None marital status: Single Current Living Situation: Significant Other current occupational status: retired How many Children do You have: 6 Feels Safe at Home: Yes Childhood Exposure to Second-Hand Smoke: No caffeine: Yes (coffee ) Dental Care, Regularly: Yes Physical Activity Frequency: Does not Exercise Seatbelt Use: sometimes Sunscreen Use: Yes (Sometimes) Assistive Devices: Cane Review of Systems Review of Systems: All systems reviewed & are unremarkable except as noted in Subjective Physical Exam Physical Exam: Constitutional: No acute distress HEENT: EOMI, PERRLA Respiratory system: Decreased air entry bilaterally, no wheeze, rhonchi, mild crackles bilateral lower lobes CVS: S1-S2 positive, no murmurs or gallops Abdomen: Soft, nondistended, positive bowel sounds x4, obese, right flank tenderness, no rebound Extremities: +2 pulses bilaterally radialis/ dorsalis pedis, no cyanosis, no edema Neuro: Somnolent, oriented to self and place Psych: Flat mood and affect G/U: Positive [place] Skin: no rashes, warm and dry Lymphatic: no cervical or axillary lymphadenopathy Results & Data Results & Data ([facility]) Vital Signs (Past 12 Hours) Vital Signs Temp Pulse Resp BP Pulse Ox O2 Del Method O2 Flow Rate 03/09/22 07:32 124 H 26 H 87/56 L 95 Oxymask 10 03/09/22 07:22 122 H 25 H 100/59 L 95 Oxymask 10 03/09/22 07:12 36.4 C L 122 H 26 H 93/54 L 03/09/22 07:02 36.8 C 128 H 28 H 95/56 L 95 Oxymask 10 03/09/22 00:59 36.9 C 115 H 16 158/79 H 93 Room Air 03/09/22 00:33 Room Air 03/08/22 21:38 88 19 134/98 99 Room Air Laboratory Results 03/09/22 08:03 03/09/22 08:03 Coding Level of Care Code Critical Care 1st 30-74 mins Diagnoses Shock circulatory R57.9 Acute right flank pain R10.9 Ureterolithiasis N20.1 Morbid obesity E66.01 Hyperlipidemia E78.5 Hydronephrosis, right N13.30 Type 2 diabetes mellitus E11.9 Diabetes mellitus lobsterman insulin use: without lobsterman use Diabetes mellitus complication status: without complication Acute respiratory failure with hypoxia J96.01 Hematuria R31.9 UTI (urinary tract infection) N39.0 Time Spent (min) 64 (1) Type 2 diabetes mellitus Diabetes mellitus lobsterman insulin use: without usp use Diabetes mellitus complication status: without complication Qualified Code(s): E11.9 - Type 2 diabetes mellitus without complications
[2022-03-09 08:44] LABS: Albumin Globulin Ratio 1.2 (0.9-2); Albumin Level 3.2 gm/dl (3.4-5.0); BUN Creatinine Ratio 16.1 (10-20); Bilirubin,Total 0.7 mg/dl (0.2-1.0); Calcium 8.6 mg/dl (8.5-10.1); Creatinine Clr Calc Pharmacy 28.5 ml/min; Est GFR (African American) 29.1 ml/min; Est GFR (Non-African American) 25.1 ml/min; Globulin 2.7 gm/dl (2.5-4.0); Magnesium 1.5 mg/dl (1.7-2.4); Phosphorus 2.2 mg/dl (2.5-4.9); Total Protein 5.9 gm/dl (6.0-8.3)
[2022-03-09] MEDS ORDERED: CEFEPIME 1,000 MG in SYRINGE 0 ML IV SCH (09:00)
[2022-03-09] MEDS ORDERED: amLODIPine BESYLATE 5 MG TAB PO SCH (09:00)
[2022-03-09] MEDS ORDERED: SODIUM ZIRCONIUM CYCLOSILICATE 10 GM PACKET PO SCH (09:00)
[2022-03-09] MEDS ORDERED: METOPROLOL TARTRATE 25 MG TAB PO SCH (09:00)
[2022-03-09] MEDS: MAGNESIUM SULFATE / D5W 1 GM/100 ML BAG IV SCH ×2 (09:20→10:56)
[2022-03-09] MEDS: MIRABEGRON ER 25 MG TAB PO SCH (09:24)
[2022-03-09] MEDS: UMECLIDINIUM/VILANTEROL 62.5/25MCG 7 PUFFS/INHALER INH SCH (09:26)
[2022-03-09] MEDS: PANTOprazole 40 MG in SYRINGE 0 ML IV SCH (09:41)
--- NOTE | 2022-03-09 16:37 | Electrocardiogram Report ---
Test Reason : Blood Pressure : / mmHG Vent. Rate : 133 BPM Atrial Rate : 133 BPM P-R Int : 134 ms QRS Dur : 084 ms QT Int : 296 ms P-R-T Axes : -29 -69 073 degrees QTc Int : 440 ms Sinus tachycardia Left axis deviation Abnormal ECG When compared with ECG of 19-SEP-2021 06:15, Vent. rate has increased BY 63 BPM Nonspecific T wave abnormality no longer evident in Lateral leads Confirmed by Arnulfo Mujica ([id number]) on 03/09/2022 4:37:48 PM Referred By: REFERRED SELF Confirmed By:Arnulfo Mujica
[2022-03-09] MEDS: BUDESONIDE 0.5 MG/2 ML VIAL (PULMICORT) NEB SCH (19:23)
[2022-03-09 20:05] LABS: BUN Creatinine Ratio 17.1 (10-20); Calcium 8.1 mg/dl (8.5-10.1); Creatinine Clr Calc Pharmacy 27.4 ml/min; Est GFR (African American) 27.8 ml/min
[2022-03-10 04:27] LABS: Hematocrit (blood only) 33.3 % (34.1-44.9); Hemoglobin 10.5 g/dl (12.0-16.0); Mean Corpuscular Hemoglobin 29.2 pg (25.0-34.0); Mean Corpuscular Hgb Conc 31.5 g/dL (32.0-36.0); Mean Corpuscular Volume 92.8 fL (80.0-100.0); Mean Platelet Volume 9.9 fL (9.4-12.3); Platelet Count 201 K/uL (130-400); RDW Coefficient of Variation 16.2 % (11.5-14.5); RDW Standard Deviation 55.5 fL (36.4-46.3); Red Blood Count 3.59 M/uL (3.93-5.22); White Blood Count 28.46 K/ul (4.8-10.8)
[2022-03-10 05:14] LABS: BUN Creatinine Ratio 19.3 (10-20); Basophils # (auto) 0.07 K/uL (0-0.2); Basophils % (auto) 0.2 %; Creatinine Clr Calc Pharmacy 30.1 ml/min; Eosinophils # (auto) 0.06 K/uL (0-0.50); Eosinophils % (auto) 0.2 %; Est GFR (African American) 31.1 ml/min; Est GFR (Non-African American) 26.8 ml/min; Immature Granulocytes # (auto) 0.89 K/uL (0.00-0.02); Immature Granulocytes % (auto) 3.1 %; Lymphocytes % (auto) 2.8 %; Magnesium 2.1 mg/dl (1.7-2.4); Monocytes % (auto) 5.3 %; Neutrophils # (auto) 25.14 K/uL (1.4-6.5); Neutrophils % (auto) 88.4 %; Phosphorus 3.9 mg/dl (2.5-4.9); Toxic Vacuolation 1+
--- NOTE | 2022-03-10 06:42 | Hospitalist Progress Note ---
Date of Service March 10, 2022 Assessment & Plan (1) Ureterolithiasis: Plan: 81 y/o f Hx HTN, HLD, DM II, PAF, obstructing ureteral calculus 09/21 requiring lithotripsy - developed UTI/sepsis at the time. She presents with R flank pain. Sepsis with UTI -WBC 22.14-->7.29 --> 28.46 likely due to s/p stent placement -lactate 5.3 -received 1L LR, LR at 100ml/h -CTA A/P: Moderate to severe right-sided hydroureteronephrosis secondary to a 9 mm obstructing calculus of the distal right ureter. Right nephrolithiasis. 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 -started on Cefepime -Ucx pinpoint growth -PRN tylenol, morphine -patient later noted to be hypotensive, tachycardic, tachypnic. Consult to Urology placed with emergent stent placement, transferred to ICU was on levophed, off since 8pm last night Hypotension -hold meds for HTN -admitted to ICU -on levophed, 101/54 Nephrolithiasis -Urology consulted -stent placed 03/09/22 -will require outpt followup for stent and stone removal Paroxysmal Afib -eliquis on hold given recent stent procedure -currently in amiodarone -currently on amiodarone drip DM2 -started SSI Hypertension -hold amlodipine given ongoing hypotension -hold lisinopril -hold metoprolol Urinary Incontinence -hold mirabegron at this time Hypomagnesium -repleted, continue to monitor Wheezing -continue pulmicort -continue Anoro Ellipta FENa: clear liquid Code Status: Full DVT PPX: eliquis on hold Dispo: ICU Sheri Carrillo DO PGY 2, FCM (2) Type 2 diabetes mellitus: (3) S/P ureteral stent placement: (4) Osteoarthritis: (5) Hypertension: (6) Hyperlipidemia: (7) Hypotension: (8) Sepsis secondary to UTI: Admission and Anticipated Discharge Date Admission Date: March 08, 2022 Supervising Physician Co-Signing Physician Notes Attending attestation Pt seen and examined in concert with Dr. Carrillo. In agreement with the documented findings as noted in the resident documentation with any exceptions or additions as noted here. Pain well controlled at present on current regimen. Somewhat fatigue with AF w/ RVR On examination, S1/S2 nl RRR no MCG. CTAB. Abd NT/ND BS+ve. improved UOP with clear/yellow urine. Paroxysmal AF w/ RVR - holding apixaban - amiodarone with bolus and drip, monitoring in ICU setting Sepsis with urinary source likely 2/2 nephrolithiasis/postrenal obstruction - urology & ICU - elevated WBC, improved Cr. Continue cefepime, pain control as no mela. Pressure management per ICU team Else see resident documentation as noted. Subjective Patient seen at bedside, calm comfortable cooperative, good appetite not in pain no SOB. Patient understands we are still watching her blood pressure and continuing antibiotics. Spoke with ICU, patient has been off pressors since yesterday, if she does well she may be downgraded. Review of Systems Review of Systems: Negative fever chills Negative headache dizziness Negative chest pain palpitations SOB Negative nausea vomitting diarrhea constipation Physical Exam Constitutional: well developed, well nourished, + morbidly obese, cooperative and comfortable Eyes: PERRL, conjunctivae normal, anicteric sclerae ENMT: external ear and nose normal, oropharynx normal Neck: trachea midline, no thyromegaly Respiratory: normal respiratory effort, lungs clear to auscultation Cardiovascular: Rate/Rhythm: regular rate and regular rhythm Chest (Breasts): normal inspection/palpation of breasts Gastrointestinal (Abdomen): Inspection/Auscultation: abdomen normal to inspection Percussion/Palpation: abdomen soft; abdomen nontender Skin: no rashes, warm and dry Results & Data Results & Data ([facility]) Vital Signs (Past 12 Hours) Vital Signs Temp Pulse Pulse Resp BP Pulse Ox O2 Del Method 03/10/22 06:30 88 21 93 Nasal Cannula 03/10/22 06:30 106/58 L 03/10/22 06:15 91 H 24 92 03/10/22 06:15 110/67 03/10/22 06:00 91 H 23 92 03/10/22 06:00 133/62 03/10/22 05:45 91 H 22 93 03/10/22 05:45 121/60 03/10/22 05:30 92 H 26 H 92 03/10/22 05:30 107/65 03/10/22 05:16 95 H 18 92 03/10/22 05:16 117/61 03/10/22 05:15 95 H 26 H 92 03/10/22 05:00 94 H 23 93 03/10/22 05:00 118/65 03/10/22 04:45 90 20 92 03/10/22 04:45 121/69 03/10/22 04:00 37.1 C Nasal Cannula 03/10/22 04:30 90 23 92 03/10/22 04:30 125/63 03/10/22 04:15 92 H 25 H 93 03/10/22 04:15 101/62 03/10/22 04:00 91 H 23 92 03/10/22 04:00 108/53 L 03/10/22 03:45 94 H 22 91 03/10/22 03:45 108/55 L 03/10/22 03:30 92 H 22 92 03/10/22 03:30 117/59 L 03/10/22 03:20 92/80 L 03/10/22 03:20 94 H 28 H 91 03/10/22 03:15 96 H 28 H 94 03/10/22 03:00 92 H 18 92 03/10/22 03:00 121/60 03/10/22 02:45 91 H 24 92 03/10/22 02:45 110/64 03/10/22 02:30 92 H 22 92 03/10/22 02:30 99/58 L 03/10/22 02:16 92 H 22 92 03/10/22 02:16 109/55 L 03/10/22 02:15 93 H 24 92 03/10/22 02:00 91 H 24 91 03/10/22 02:00 123/58 L 03/10/22 01:45 93 H 27 H 92 03/10/22 01:45 108/68 03/10/22 01:30 97 H 34 H 91 03/10/22 01:30 101/59 L 03/10/22 01:15 92 H 24 91 03/10/22 01:15 89/64 L 03/10/22 01:00 94 H 26 H 92 03/10/22 01:00 122/60 03/10/22 00:45 93 H 22 91 03/10/22 00:45 96/52 L 03/10/22 00:30 92 H 25 H 91 03/10/22 00:30 99/53 L 03/10/22 00:15 95 H 32 H 92 03/10/22 00:15 116/56 L 03/10/22 00:00 93 H 25 H 92 03/10/22 00:00 112/59 L 03/09/22 23:45 92 H 26 H 92 03/09/22 23:45 101/50 L 03/09/22 23:30 92 H 23 93 03/09/22 23:30 102/55 L 03/09/22 23:15 93 H 24 92 03/09/22 23:15 103/56 L 03/09/22 23:00 94 H 28 H 92 03/09/22 23:00 107/59 L 03/09/22 22:45 96 H 26 H 92 03/09/22 22:45 110/62 03/10/22 01:41 Nasal Cannula 03/10/22 00:00 36.8 C 03/09/22 20:00 92 Nasal Cannula 03/09/22 19:25 91 H 20 94 Nasal Cannula O2 Flow Rate 03/10/22 06:30 2 03/10/22 06:30 03/10/22 06:15 03/10/22 06:15 03/10/22 06:00 03/10/22 06:00 03/10/22 05:45 03/10/22 05:45 03/10/22 05:30 03/10/22 05:30 03/10/22 05:16 03/10/22 05:16 03/10/22 05:15 03/10/22 05:00 03/10/22 05:00 03/10/22 04:45 03/10/22 04:45 03/10/22 04:00 2 03/10/22 04:30 03/10/22 04:30 03/10/22 04:15 03/10/22 04:15 03/10/22 04:00 03/10/22 04:00 03/10/22 03:45 03/10/22 03:45 03/10/22 03:30 03/10/22 03:30 03/10/22 03:20 03/10/22 03:20 03/10/22 03:15 03/10/22 03:00 03/10/22 03:00 03/10/22 02:45 03/10/22 02:45 03/10/22 02:30 03/10/22 02:30 03/10/22 02:16 03/10/22 02:16 03/10/22 02:15 03/10/22 02:00 03/10/22 02:00 03/10/22 01:45 03/10/22 01:45 03/10/22 01:30 03/10/22 01:30 03/10/22 01:15 03/10/22 01:15 03/10/22 01:00 03/10/22 01:00 03/10/22 00:45 03/10/22 00:45 03/10/22 00:30 03/10/22 00:30 03/10/22 00:15 03/10/22 00:15 03/10/22 00:00 03/10/22 00:00 03/09/22 23:45 03/09/22 23:45 03/09/22 23:30 03/09/22 23:30 03/09/22 23:15 03/09/22 23:15 03/09/22 23:00 03/09/22 23:00 03/09/22 22:45 03/09/22 22:45 03/10/22 01:41 2 03/10/22 00:00 03/09/22 20:00 2 03/09/22 19:25 2 Laboratory Results 03/10/22 03/10/22 03/10/22 Range/Units 12:11 11:08 06:59 WBC (4.8-10.8) K/ul RBC (3.93-5.22) M/uL Hgb 10.5 L (12.0-16.0) g/dl Hct 34.3 (34.1-44.9) % MCV (80.0-100.0) fL MCH (25.0-34.0) pg MCHC (32.0-36.0) g/dL RDW Std Deviation (36.4-46.3) fL RDW Coeff of Heriberto (11.5-14.5) % Plt Count (130-400) K/uL MPV (9.4-12.3) fL Immature Gran % (Auto) % Neut % (Auto) % Lymph % (Auto) % [place] % (Auto) % Eos % (Auto) % Baso % (Auto) % Neut # (Auto) (1.4-6.5) K/uL Lymph # (Auto) (1.2-3.4) K/uL [place] # (Auto) (0.24-0.82) K/uL Eos # (Auto) (0-0.50) K/uL Baso # (Auto) (0-0.2) K/uL Immature Gran # (Auto) (0.00-0.02) K/uL Toxic Vacuolation Sodium (136-145) mmol/L Potassium (3.5-5.1) mmol/L Chloride (98-107) mmol/L Carbon Dioxide (21-32) mmol/L Anion Gap (3-11) BUN (6-23) mg/dl Creatinine (0.6-1.2) mg/dl Est Cr Clr Drug Dosing ml/min Est GFR ( Amer) ml/min Est GFR (Non-Af Amer) ml/min BUN/Creatinine Ratio (10-20) Glucose (70-99(Fasting)) mg/dl POC Glucose 112 H 102 H (70-99) mg/dl Lactate (0.4-2.0) mmol/L Calcium (8.5-10.1) mg/dl Phosphorus (2.5-4.9) mg/dl Magnesium (1.7-2.4) mg/dl 03/10/22 03/10/22 03/09/22 Range/Units 04:09 04:09 22:38 WBC 28.46 H (4.8-10.8) K/ul RBC 3.59 L (3.93-5.22) M/uL Hgb 10.5 L (12.0-16.0) g/dl Hct 33.3 L (34.1-44.9) % MCV 92.8 (80.0-100.0) fL MCH 29.2 (25.0-34.0) pg MCHC 31.5 L (32.0-36.0) g/dL RDW Std Deviation 55.5 H (36.4-46.3) fL RDW Coeff of Heriberto 16.2 H (11.5-14.5) % Plt Count 201 (130-400) K/uL MPV 9.9 (9.4-12.3) fL Immature Gran % (Auto) 3.1 % Neut % (Auto) 88.4 % Lymph % (Auto) 2.8 % [place] % (Auto) 5.3 % Eos % (Auto) 0.2 % Baso % (Auto) 0.2 % Neut # (Auto) 25.14 H (1.4-6.5) K/uL Lymph # (Auto) 0.80 L (1.2-3.4) K/uL [place] # (Auto) 1.50 H (0.24-0.82) K/uL Eos # (Auto) 0.06 (0-0.50) K/uL Baso # (Auto) 0.07 (0-0.2) K/uL Immature Gran # (Auto) 0.89 H (0.00-0.02) K/uL Toxic Vacuolation 1+ Sodium 131 L (136-145) mmol/L Potassium 4.0 (3.5-5.1) mmol/L Chloride 102 (98-107) mmol/L Carbon Dioxide 23 (21-32) mmol/L Anion Gap 6 (3-11) BUN 34 H (6-23) mg/dl Creatinine 1.76 H (0.6-1.2) mg/dl Est Cr Clr Drug Dosing 30.1 ml/min Est GFR ( Amer) 31.1 ml/min Est GFR (Non-Af Amer) 26.8 ml/min BUN/Creatinine Ratio 19.3 (10-20) Glucose 94 (70-99(Fasting)) mg/dl POC Glucose 103 H (70-99) mg/dl Lactate (0.4-2.0) mmol/L Calcium 8.0 L (8.5-10.1) mg/dl Phosphorus 3.9 D (2.5-4.9) mg/dl Magnesium 2.1 (1.7-2.4) mg/dl 03/09/22 03/09/22 03/09/22 Range/Units 19:27 19:26 16:24 WBC (4.8-10.8) K/ul RBC (3.93-5.22) M/uL Hgb (12.0-16.0) g/dl Hct (34.1-44.9) % MCV (80.0-100.0) fL MCH (25.0-34.0) pg MCHC (32.0-36.0) g/dL RDW Std Deviation (36.4-46.3) fL RDW Coeff of Heriberto (11.5-14.5) % Plt Count (130-400) K/uL MPV (9.4-12.3) fL Immature Gran % (Auto) % Neut % (Auto) % Lymph % (Auto) % [place] % (Auto) % Eos % (Auto) % Baso % (Auto) % Neut # (Auto) (1.4-6.5) K/uL Lymph # (Auto) (1.2-3.4) K/uL [place] # (Auto) (0.24-0.82) K/uL Eos # (Auto) (0-0.50) K/uL Baso # (Auto) (0-0.2) K/uL Immature Gran # (Auto) (0.00-0.02) K/uL Toxic Vacuolation Sodium 132 L D (136-145) mmol/L Potassium 4.0 (3.5-5.1) mmol/L Chloride 104 (98-107) mmol/L Carbon Dioxide 22 (21-32) mmol/L Anion Gap 6 (3-11) BUN 33 H (6-23) mg/dl Creatinine 1.93 H (0.6-1.2) mg/dl Est Cr Clr Drug Dosing 27.4 ml/min Est GFR ( Amer) 27.8 ml/min Est GFR (Non-Af Amer) 24.0 ml/min BUN/Creatinine Ratio 17.1 (10-20) Glucose 144 H (70-99(Fasting)) mg/dl POC Glucose 158 H (70-99) mg/dl Lactate 3.0 H* (0.4-2.0) mmol/L Calcium 8.1 L (8.5-10.1) mg/dl Phosphorus (2.5-4.9) mg/dl Magnesium (1.7-2.4) mg/dl Medications Administered Current Inpatient Medications Budesonide (Budesonide 0.5 Mg/2 Ml Vial (Pulmicort)) 0.25 mg NEB BIDR DAVID Stop: 04/08/22 18:59 Last Admin: 03/10/22 07:19 Dose: 0.25 mg Dextrose (Dextrose 50% 50 Ml Syringe) 25 - 50 ml IV UD PRN; Protocol PRN Reason: Hypoglycemia Protocol Stop: 04/08/22 01:12 Glucagon (Glucagon For Inj 1 Mg Vial) 1 mg SQ UD PRN; Protocol PRN Reason: Hypoglycemia Protocol Stop: 04/08/22 01:12 Glucose (Glucose 40% Gel 15 Gm Tube) 15 - 30 gm PO UD PRN; Protocol PRN Reason: Hypoglycemia Protocol Stop: 04/08/22 01:12 Glucose (Glucose 10 Tab/Tube) 4 - 8 tab PO UD PRN; Protocol PRN Reason: Hypoglycemia Treatment Stop: 04/08/22 01:12 Hydromorphone HCl (Hydromorphone Inj 0.5 Mg/0.5 Ml Syr) 0.5 mg IV Q3H PRN PRN Reason: Pain Stop: 03/22/22 23:52 Last Admin: 03/09/22 04:47 Dose: 0.5 mg Norepinephrine Bitartrate (Levophed/D5w) 4 mg in 250 mls @ 19.669 mls/hr IV .[id number] DAVID; Protocol Stop: 04/08/22 07:29 Last Admin: 03/10/22 07:36 Dose: Not Given Acetaminophen (Ofirmev) 1,000 mg in 100 mls @ 400 mls/hr IV Q8H PRN PRN Reason: Fever Stop: 03/12/22 08:09 Last Infusion: 03/09/22 08:34 Dose: Infused Pantoprazole Sodium 40 mg/ (Syringe) 10 mls @ 5 mls/min IV DAILY@1100 DAVID Stop: 04/08/22 10:59 Last Admin: 03/10/22 10:09 Dose: 5 mls/min Parenteral Electrolytes (Normosol-R) 1,000 mls @ 100 mls/hr IV .Q10H DAVID Stop: 03/10/22 17:59 Last Admin: 03/10/22 08:22 Dose: 100 mls/hr Cefepime HCl 1,000 mg/ Syringe 10 mls @ 5 mls/min IV Q12H DAVID; Protocol Stop: 03/19/22 08:59 Amiodarone HCl/Dextrose (Nexterone / D5w) 360 mg in 200 mls @ 33.333 mls/hr IV ONE ONE Stop: 03/10/22 18:44 Last Admin: 03/10/22 12:51 Dose: 1 mg/min, 33.3 mls/hr Amiodarone HCl/Dextrose (Nexterone / D5w) 360 mg in 200 mls @ 16.667 mls/hr IV .Q12H DAVID Stop: 04/09/22 18:44 Insulin Aspart (Insulin Aspart Per Unit) 0 units SC ACHS DAVID Stop: 04/08/22 07:29 Last Admin: 03/10/22 11:39 Dose: 1 units Mirabegron (Mirabegron Er 25 Mg Tab) 50 mg PO QAM DAVID Stop: 04/08/22 08:59 Last Admin: 03/10/22 10:08 Dose: 50 mg Miscellaneous (Carbohydrates For Hypoglycemia ) 15 - 30 gm PO UD PRN PRN Reason: Hypoglycemia Protocol Stop: 04/08/22 01:12 Umeclidinium/Vilanterol (Umeclidinium/Vilanterol 62.5/25mcg 7 Puffs/Inhaler) 1 puffs INH DAILY DAVID Stop: 04/08/22 08:59 Last Admin: 03/10/22 09:11 Dose: 1 puffs Resident Activity Tracking Resident Involvement: Resident Care Provided Care Provided: Adult Hospital Medicine (1) Type 2 diabetes mellitus Diabetes mellitus complication status: without complication Diabetes mellitus director long term care insulin use: without director long term care use Qualified Code(s): E11.9 - Type 2 diabetes mellitus without complications (2) Hypertension Hypertension type: essential hypertension Qualified Code(s): I10 - Essential (primary) hypertension
[2022-03-10] MEDS: BUDESONIDE 0.5 MG/2 ML VIAL (PULMICORT) NEB SCH ×2 (07:19→19:34)
[2022-03-10] MEDS: NOREPINEPHRINE/D5W 4 MG/250 ML PLCT IV SCH ×2 (07:36→19:58)
[2022-03-10] MEDS ORDERED: NORMOSOL-R 1,000 ML IV SCH (08:00)
[2022-03-10] MEDS: INSULIN ASPART PER UNIT SC SCH ×4 (08:20→19:56)
--- NOTE | 2022-03-10 08:51 | Urology Progress Note ---
Date of Service March 10, 2022 Assessment & Plan (1) UTI (urinary tract infection): (2) Ureterolithiasis: Plan 81-year-old female status post cystoscopy with right ureteral stent placement on 03/09/2022 for septic right ureteral calculus Patient clinically improving Maintain Bojorquez catheter for another 24 hours Continue broad-spectrum antibiotics. Follow-up cultures. Not surprised that leukocytosis has continued to rise. Suspect that it will start to downtrend soon. Urology to follow Admission and Anticipated Discharge Date Admission Date: March 08, 2022 Subjective Patient is status post cystoscopy and right ureteral stent placement for septic stone. Afebrile with stable vitals today. White blood cell count is continued to go up to 28.46, which is not unexpected. Creatinine is downtrending from 1.93-1.76. Lactate has been downtrending as well. Cultures are pending. She got antibiotics prior to urine cultures so this may be sterile. Currently on cefepime. She did get a one-time dose of daptomycin yesterday. Patient reports feeling better today and is resting comfortably in the chair. Review of Systems Review of Systems: 14 point review of systems negative outside of what is listed above in HPI Physical Exam Physical Exam: General: Alert and oriented, no acute distress HEENT: Normocephalic, mucous membranes moist Pulmonary: Nonlabored respirations Abdomen: Nondistended : bojorquez draining clear urine . Extremities: Moves all 4 spontaneously Neuro: No gross deficits Skin: Warm, dry, no rashes noted Results & Data ([facility]) Vital Signs (Past 12 Hours) Vital Signs Temp Pulse Pulse Resp BP Pulse Ox O2 Del Method 03/10/22 07:21 88 20 93 Nasal Cannula 03/10/22 07:00 92 H 22 121/66 93 Nasal Cannula 03/10/22 06:45 90 20 114/63 92 Nasal Cannula 03/10/22 07:00 Nasal Cannula 03/10/22 06:30 88 21 93 Nasal Cannula 03/10/22 06:30 106/58 L 03/10/22 06:15 91 H 24 92 03/10/22 06:15 110/67 03/10/22 06:00 91 H 23 92 03/10/22 06:00 133/62 03/10/22 05:45 91 H 22 93 03/10/22 05:45 121/60 03/10/22 05:30 92 H 26 H 92 03/10/22 05:30 107/65 03/10/22 05:16 95 H 18 92 03/10/22 05:16 117/61 03/10/22 05:15 95 H 26 H 92 03/10/22 05:00 94 H 23 93 03/10/22 05:00 118/65 03/10/22 04:45 90 20 92 03/10/22 04:45 121/69 03/10/22 04:00 37.1 C Nasal Cannula 03/10/22 04:30 90 23 92 03/10/22 04:30 125/63 03/10/22 04:15 92 H 25 H 93 03/10/22 04:15 101/62 03/10/22 04:00 91 H 23 92 03/10/22 04:00 108/53 L 03/10/22 03:45 94 H 22 91 03/10/22 03:45 108/55 L 03/10/22 03:30 92 H 22 92 03/10/22 03:30 117/59 L 03/10/22 03:20 92/80 L 03/10/22 03:20 94 H 28 H 91 03/10/22 03:15 96 H 28 H 94 03/10/22 03:00 92 H 18 92 03/10/22 03:00 121/60 03/10/22 02:45 91 H 24 92 03/10/22 02:45 110/64 03/10/22 02:30 92 H 22 92 03/10/22 02:30 99/58 L 03/10/22 02:16 92 H 22 92 03/10/22 02:16 109/55 L 03/10/22 02:15 93 H 24 92 03/10/22 02:00 91 H 24 91 03/10/22 02:00 123/58 L 03/10/22 01:45 93 H 27 H 92 03/10/22 01:45 108/68 03/10/22 01:30 97 H 34 H 91 03/10/22 01:30 101/59 L 03/10/22 01:15 92 H 24 91 03/10/22 01:15 89/64 L 03/10/22 01:00 94 H 26 H 92 03/10/22 01:00 122/60 03/10/22 00:45 93 H 22 91 03/10/22 00:45 96/52 L 03/10/22 00:30 92 H 25 H 91 03/10/22 00:30 99/53 L 03/10/22 00:15 95 H 32 H 92 03/10/22 00:15 116/56 L 03/10/22 00:00 93 H 25 H 92 03/10/22 00:00 112/59 L 03/09/22 23:45 92 H 26 H 92 03/09/22 23:45 101/50 L 03/09/22 23:30 92 H 23 93 03/09/22 23:30 102/55 L 03/09/22 23:15 93 H 24 92 03/09/22 23:15 103/56 L 03/09/22 23:00 94 H 28 H 92 03/09/22 23:00 107/59 L 03/09/22 22:45 96 H 26 H 92 03/09/22 22:45 110/62 03/10/22 01:41 Nasal Cannula 03/10/22 00:00 36.8 C O2 Flow Rate 03/10/22 07:21 1.5 03/10/22 07:00 2 03/10/22 06:45 2 03/10/22 07:00 2 03/10/22 06:30 2 03/10/22 06:30 03/10/22 06:15 03/10/22 06:15 03/10/22 06:00 03/10/22 06:00 03/10/22 05:45 03/10/22 05:45 03/10/22 05:30 03/10/22 05:30 03/10/22 05:16 03/10/22 05:16 03/10/22 05:15 03/10/22 05:00 03/10/22 05:00 03/10/22 04:45 03/10/22 04:45 03/10/22 04:00 2 03/10/22 04:30 03/10/22 04:30 03/10/22 04:15 03/10/22 04:15 03/10/22 04:00 03/10/22 04:00 03/10/22 03:45 03/10/22 03:45 03/10/22 03:30 03/10/22 03:30 03/10/22 03:20 03/10/22 03:20 03/10/22 03:15 03/10/22 03:00 03/10/22 03:00 03/10/22 02:45 03/10/22 02:45 03/10/22 02:30 03/10/22 02:30 03/10/22 02:16 03/10/22 02:16 03/10/22 02:15 03/10/22 02:00 03/10/22 02:00 03/10/22 01:45 03/10/22 01:45 03/10/22 01:30 03/10/22 01:30 03/10/22 01:15 03/10/22 01:15 03/10/22 01:00 03/10/22 01:00 03/10/22 00:45 03/10/22 00:45 03/10/22 00:30 03/10/22 00:30 03/10/22 00:15 03/10/22 00:15 03/10/22 00:00 03/10/22 00:00 03/09/22 23:45 03/09/22 23:45 03/09/22 23:30 03/09/22 23:30 03/09/22 23:15 03/09/22 23:15 03/09/22 23:00 03/09/22 23:00 03/09/22 22:45 03/09/22 22:45 03/10/22 01:41 2 03/10/22 00:00 PG Care Time/CCT Total # of Minutes Spent Total Time Spent with Patient: Total time spent is greater than 50% in coordination of care (as documented) at patient's floor/unit and/or counseling patient: Coding Level of Care Code 81451 Subseq Hosp Care Lvl 2 Diagnoses UTI (urinary tract infection) N39.0 Ureterolithiasis N20.1
[2022-03-10] MEDS: UMECLIDINIUM/VILANTEROL 62.5/25MCG 7 PUFFS/INHALER INH SCH (09:11)
--- NOTE | 2022-03-10 09:46 | Critical Care Progress Note ---
Date of Service March 10, 2022 Assessment & Plan (1) Shock circulatory: (2) Acute right flank pain: (3) Ureterolithiasis: (4) Morbid obesity: (5) Hyperlipidemia: (6) Hydronephrosis, right: (7) Type 2 diabetes mellitus: (8) Acute respiratory failure with hypoxia: (9) Hematuria: (10) UTI (urinary tract infection): Plan Reason Critically Ill: 81-year-old female presented to hospital with right-sided hydronephrosis and ureteral stone. Patient went to the OR for cystoscopy and stone removal. Was found to be hypotensive and sent to the ICU for further management Neuro - CAM ICU: Negative Cardiac - -- S/p shock Septic from likely urinary tract infection Continue with broad-spectrum antibiotics Vasopressor support to keep MAP greater than 65 --Paroxysmal A. fib On apixaban at home --History of hypertension Hold blood pressure medication Respiratory - -- Acute hypoxic respiratory failure Continue O2 supplementation to keep oxygen saturation between 88-92% --Ex-smoker likely COPD [id number] smoking history Quit long time ago Continue with budesonide nebulizer and Anoro inhaler GI - Continue with pantoprazole RENAL/LYTES - -- SURJIT on CKD --> improving Monitor BUNs/creatinine Avoid nephrotoxic medication - -- Nephrolithiasis right-sided hydronephrosis S/p stent placement 03/09/2022 Urology on board ENDO - -- Diabetes type 2 Continue with ICU hypoglycemia protocol HEME - Monitor H&H ID - -- UTI History of E. coli pansensitive in the past Continue with cefepime Follow-up culture and sensitivity Procalcitonin 31.48 --Prophylaxis VTE: IPC, apixaban on hold GI: Pantoprazole Lines: Peripheral Diet: Clear liquid Plan: In/out: +2.3 L, urine output 625 Creatinine is improving. Patient has been off vasopressor support since 8 PM last night. Continue to monitor the patient off vasopressor for another 4-6 hours in the ICU. If patient blood pressure is stable can be downgraded to medical floor. Continue with Normosol at 100 mL an hour. There is some drop in the hemoglobin compared to yesterday, but she is also +2.3 L. Monitor H&H Continue to hold apixaban for the time being Case was discussed with Dr. Carrillo and RN Osorio Please note the above document was generated using voice recognition software. It may contain grammatical, syntax or spelling errors.Any formal questions or concerns about the content, text or information contained within the body of this dictation should be directly addressed to the provider for clarification. Admission and Anticipated Discharge Date Admission Date: March 08, 2022 Subjective Patient seen and examined at bedside. No acute distress, no adverse events overnight. Patient was sitting on the chair at the time of examination Her map was in the low 70s. She was saturating 92-93% on 1 L nasal cannula. Denied any headache, no nausea vomiting Did have her breakfast today. Abdominal pain has significantly improved. Review of Systems Review of Systems: All systems reviewed & are unremarkable except as noted in Subjective Physical Exam Physical Exam: Constitutional: No acute distress HEENT: EOMI, PERRLA Respiratory system: Decreased air entry bilaterally, no wheeze, rhonchi, mild crackles bilateral lower lobes CVS: S1-S2 positive, no murmurs or gallops Abdomen: Soft, nondistended, positive bowel sounds x4, obese, right flank tenderness (improved), no rebound Extremities: +2 pulses bilaterally radialis/ dorsalis pedis, no cyanosis, no edema Neuro: Awake alert oriented to self place Psych: Normal mood and affect G/U: Positive Tovar Skin: no rashes, warm and dry Lymphatic: no cervical or axillary lymphadenopathy Results & Data Results & Data ([facility]) Vital Signs (Past 12 Hours) Vital Signs Temp Pulse Pulse Resp BP Pulse Ox O2 Del Method 03/10/22 08:26 96 H 22 109/66 93 Nasal Cannula 03/10/22 08:10 98 H 24 104/54 L 92 Nasal Cannula 03/10/22 08:01 96 H 18 123/69 91 Nasal Cannula 03/10/22 07:21 88 20 93 Nasal Cannula 03/10/22 07:00 92 H 22 121/66 93 Nasal Cannula 03/10/22 06:45 90 20 114/63 92 Nasal Cannula 03/10/22 07:00 Nasal Cannula 03/10/22 06:30 88 21 93 Nasal Cannula 03/10/22 06:30 106/58 L 03/10/22 06:15 91 H 24 92 03/10/22 06:15 110/67 03/10/22 06:00 91 H 23 92 03/10/22 06:00 133/62 03/10/22 05:45 91 H 22 93 03/10/22 05:45 121/60 03/10/22 05:30 92 H 26 H 92 03/10/22 05:30 107/65 03/10/22 05:16 95 H 18 92 03/10/22 05:16 117/61 03/10/22 05:15 95 H 26 H 92 03/10/22 05:00 94 H 23 93 03/10/22 05:00 118/65 03/10/22 04:45 90 20 92 03/10/22 04:45 121/69 03/10/22 04:00 37.1 C Nasal Cannula 03/10/22 04:30 90 23 92 03/10/22 04:30 125/63 03/10/22 04:15 92 H 25 H 93 03/10/22 04:15 101/62 03/10/22 04:00 91 H 23 92 03/10/22 04:00 108/53 L 03/10/22 03:45 94 H 22 91 03/10/22 03:45 108/55 L 03/10/22 03:30 92 H 22 92 03/10/22 03:30 117/59 L 03/10/22 03:20 92/80 L 03/10/22 03:20 94 H 28 H 91 03/10/22 03:15 96 H 28 H 94 03/10/22 03:00 92 H 18 92 03/10/22 03:00 121/60 03/10/22 02:45 91 H 24 92 03/10/22 02:45 110/64 03/10/22 02:30 92 H 22 92 03/10/22 02:30 99/58 L 03/10/22 02:16 92 H 22 92 03/10/22 02:16 109/55 L 03/10/22 02:15 93 H 24 92 03/10/22 02:00 91 H 24 91 03/10/22 02:00 123/58 L 03/10/22 01:45 93 H 27 H 92 03/10/22 01:45 108/68 03/10/22 01:30 97 H 34 H 91 03/10/22 01:30 101/59 L 03/10/22 01:15 92 H 24 91 03/10/22 01:15 89/64 L 03/10/22 01:00 94 H 26 H 92 03/10/22 01:00 122/60 03/10/22 00:45 93 H 22 91 03/10/22 00:45 96/52 L 03/10/22 00:30 92 H 25 H 91 03/10/22 00:30 99/53 L 03/10/22 00:15 95 H 32 H 92 03/10/22 00:15 116/56 L 03/10/22 00:00 93 H 25 H 92 03/10/22 00:00 112/59 L 03/09/22 23:45 92 H 26 H 92 03/09/22 23:45 101/50 L 03/09/22 23:30 92 H 23 93 03/09/22 23:30 102/55 L 03/09/22 23:15 93 H 24 92 03/09/22 23:15 103/56 L 03/09/22 23:00 94 H 28 H 92 03/09/22 23:00 107/59 L 03/09/22 22:45 96 H 26 H 92 03/09/22 22:45 110/62 03/10/22 01:41 Nasal Cannula 03/10/22 00:00 36.8 C O2 Flow Rate 03/10/22 08:26 1 03/10/22 08:10 1 03/10/22 08:01 1 03/10/22 07:21 1.5 03/10/22 07:00 2 03/10/22 06:45 2 03/10/22 07:00 2 03/10/22 06:30 2 03/10/22 06:30 03/10/22 06:15 03/10/22 06:15 03/10/22 06:00 03/10/22 06:00 03/10/22 05:45 03/10/22 05:45 03/10/22 05:30 03/10/22 05:30 03/10/22 05:16 03/10/22 05:16 03/10/22 05:15 03/10/22 05:00 03/10/22 05:00 03/10/22 04:45 03/10/22 04:45 03/10/22 04:00 2 03/10/22 04:30 03/10/22 04:30 03/10/22 04:15 03/10/22 04:15 03/10/22 04:00 03/10/22 04:00 03/10/22 03:45 03/10/22 03:45 03/10/22 03:30 03/10/22 03:30 03/10/22 03:20 03/10/22 03:20 03/10/22 03:15 03/10/22 03:00 03/10/22 03:00 03/10/22 02:45 03/10/22 02:45 03/10/22 02:30 03/10/22 02:30 03/10/22 02:16 03/10/22 02:16 03/10/22 02:15 03/10/22 02:00 03/10/22 02:00 03/10/22 01:45 03/10/22 01:45 03/10/22 01:30 03/10/22 01:30 03/10/22 01:15 03/10/22 01:15 03/10/22 01:00 03/10/22 01:00 03/10/22 00:45 03/10/22 00:45 03/10/22 00:30 03/10/22 00:30 03/10/22 00:15 03/10/22 00:15 03/10/22 00:00 03/10/22 00:00 03/09/22 23:45 03/09/22 23:45 03/09/22 23:30 03/09/22 23:30 03/09/22 23:15 03/09/22 23:15 03/09/22 23:00 03/09/22 23:00 03/09/22 22:45 03/09/22 22:45 03/10/22 01:41 2 03/10/22 00:00 Laboratory Results 03/10/22 04:09 03/10/22 04:09 Coding Level of Care Code 72262 Subseq Hosp Care Lv 3 Diagnoses Shock circulatory R57.9 Acute right flank pain R10.9 Ureterolithiasis N20.1 Morbid obesity E66.01 Hyperlipidemia E78.5 Hydronephrosis, right N13.30 Type 2 diabetes mellitus E11.9 Diabetes mellitus salvage determiner insulin use: without senior living use Diabetes mellitus complication status: without complication Acute respiratory failure with hypoxia J96.01 Hematuria R31.9 UTI (urinary tract infection) N39.0 (1) Type 2 diabetes mellitus Diabetes mellitus senior living insulin use: without salvage determiner use Diabetes mellitus complication status: without complication Qualified Code(s): E11.9 - Type 2 diabetes mellitus without complications
[2022-03-10] MEDS ORDERED: CEFEPIME 1,000 MG in SYRINGE 0 ML IV SCH ×2 (10:00→22:00)
[2022-03-10] MEDS: MIRABEGRON ER 25 MG TAB PO SCH (10:08)
[2022-03-10] MEDS: PANTOprazole 40 MG in SYRINGE 0 ML IV SCH (10:09)
[2022-03-10 12:20] LABS: Hematocrit (blood only) 34.3 % (34.1-44.9); Hemoglobin 10.5 g/dl (12.0-16.0)
[2022-03-10] MEDS ORDERED: AMIODARONE IV BOLUS & DRIP IV STA (12:33)
[2022-03-10] MEDS ORDERED: STAT IV Infusion **Titration per Protocol STA (12:33)
[2022-03-10] MEDS ORDERED: 0.2 MICRON FILTER SET 1 EACH IV STA (12:33)
[2022-03-10] MEDS ORDERED: AMIODARONE 360MG / 200ML D5W IV ONE (12:35)
[2022-03-10] MEDS ORDERED: AMIODARONE / D5W 150 MG/100 ML BAG IV STA (12:35)
[2022-03-10] MEDS ORDERED: AMIODARONE 150MG / 100ML D5W IV ONE (12:35)
[2022-03-10] MEDS ORDERED: AMIODARONE / D5W 360 MG/200 ML BAG IV ONE (12:45)
[2022-03-10] MEDS ORDERED: METOPROLOL TARTRATE 1 MG/ML VIAL IV PRN (14:37)
[2022-03-10] MEDS: METOPROLOL TARTRATE 1 MG/ML VIAL IV PRN (15:46)
[2022-03-10] MEDS: AMIODARONE / D5W 360 MG/200 ML BAG IV SCH (17:53)
[2022-03-10 19:14] LABS: Anion Gap 10.1 (3-11)
[2022-03-10] MEDS: METOPROLOL TARTRATE 25 MG TAB PO SCH (19:58)
[2022-03-11] MEDS: AMIODARONE / D5W 360 MG/200 ML BAG IV SCH (05:50)
[2022-03-11 06:13] LABS: Basophils # (auto) 0.05 K/uL (0-0.2); Basophils % (auto) 0.3 %; Eosinophils # (auto) 0.15 K/uL (0-0.50); Eosinophils % (auto) 0.9 %; Hematocrit (blood only) 34.7 % (34.1-44.9); Hemoglobin 10.8 g/dl (12.0-16.0); Immature Granulocytes # (auto) 0.26 K/uL (0.00-0.02); Immature Granulocytes % (auto) 1.6 %; Lymphocytes # (auto) 0.93 K/uL (1.2-3.4); Lymphocytes % (auto) 5.8 %; Mean Corpuscular Hemoglobin 29.1 pg (25.0-34.0); Mean Corpuscular Hgb Conc 31.1 g/dL (32.0-36.0); Mean Corpuscular Volume 93.5 fL (80.0-100.0); Mean Platelet Volume 10.2 fL (9.4-12.3); Monocytes # (auto) 0.81 K/uL (0.24-0.82); Neutrophils # (auto) 13.97 K/uL (1.4-6.5); Neutrophils % (auto) 86.4 %; Platelet Count 182 K/uL (130-400); RDW Coefficient of Variation 16.3 % (11.5-14.5); RDW Standard Deviation 56.2 fL (36.4-46.3); Red Blood Count 3.71 M/uL (3.93-5.22); White Blood Count 16.17 K/ul (4.8-10.8)
[2022-03-11 06:54] LABS: BUN Creatinine Ratio 22.4 (10-20); Calcium 8.2 mg/dl (8.5-10.1); Creatinine Clr Calc Pharmacy 40.9 ml/min; Est GFR (African American) 43.3 ml/min; Est GFR (Non-African American) 37.3 ml/min; Magnesium 2.2 mg/dl (1.7-2.4); Phosphorus 2.7 mg/dl (2.5-4.9); Potassium 3.8 mmol/L (3.5-5.1)
[2022-03-11] MEDS: BUDESONIDE 0.5 MG/2 ML VIAL (PULMICORT) NEB SCH ×2 (07:02→20:15)
--- NOTE | 2022-03-11 07:33 | Urology Progress Note ---
Date of Service March 11, 2022 Assessment & Plan (1) UTI (urinary tract infection): (2) Ureterolithiasis: Plan 81-year-old female status post cystoscopy with right ureteral stent placement on 03/09/2022 for septic right ureteral calculus Patient clinically improving Primary team can discontinue Tovar today Continue broad-spectrum antibiotics. Follow-up cultures. Currently nothing growing but she did get antibiotics prior to urine culture. If nothing grows, logical the base treatment off of previous culture data from July 2021 Leukocytosis and creatinine downtrending Urology to follow peripherally. We will schedule outpatient follow-up to discuss stone treatment Admission and Anticipated Discharge Date Admission Date: March 08, 2022 Subjective Afebrile. Relatively stable vitals with some low-grade tachycardia. Reports feeling better. Labs improving. Review of Systems Review of Systems: 14 point review of systems negative outside of what is listed above in HPI Physical Exam Physical Exam: General: Alert and oriented, no acute distress HEENT: Normocephalic, mucous membranes moist Cardiovascular: Regular rate Pulmonary: Nonlabored respirations Abdomen: Nondistended : Tovar draining clear urine Extremities: Moves all 4 spontaneously Neuro: No gross deficits Skin: Warm, dry, no rashes noted Results & Data ([facility]) Vital Signs (Past 12 Hours) Vital Signs Temp Pulse Pulse Resp BP Pulse Ox O2 Del Method 03/11/22 07:01 105 H 27 H 94 03/11/22 07:01 135/112 H 03/11/22 07:00 93 H 26 H 93 03/11/22 06:00 97 H 27 H 92 03/11/22 06:00 103/87 03/11/22 05:00 99 H 23 92 03/11/22 05:00 120/83 03/11/22 04:00 91 H 18 93 03/11/22 04:00 99/62 L Room Air 03/11/22 03:02 85 20 93 03/11/22 03:02 102/57 L 03/11/22 03:00 84 20 94 03/11/22 03:00 78/47 L 03/11/22 02:05 98 H 20 93 03/11/22 02:05 97/70 L 03/11/22 02:00 91 H 20 93 03/11/22 02:06 36.7 C 03/11/22 01:01 89 26 H 86 L 03/11/22 01:01 104/82 03/11/22 01:00 92 H 20 93 03/11/22 00:00 90 20 93 03/11/22 00:00 83/52 L 03/10/22 23:00 88 20 94 03/10/22 23:00 91/64 L 03/10/22 22:00 98 H 25 H 94 03/10/22 22:00 112/63 03/10/22 23:33 95 H 03/10/22 21:09 93 03/10/22 21:09 106/76 03/10/22 20:00 Nasal Cannula 03/10/22 20:01 115 H 22 93 03/10/22 20:01 103/71 03/10/22 20:00 112 H 16 93 03/10/22 19:56 107/68 03/10/22 19:56 131 H 28 H 94 03/10/22 19:37 109 H 19 94 Nasal Cannula O2 Flow Rate 03/11/22 07:01 03/11/22 07:01 03/11/22 07:00 03/11/22 06:00 03/11/22 06:00 03/11/22 05:00 03/11/22 05:00 03/11/22 04:00 03/11/22 04:00 03/11/22 03:02 03/11/22 03:02 03/11/22 03:00 03/11/22 03:00 03/11/22 02:05 03/11/22 02:05 03/11/22 02:00 03/11/22 02:06 03/11/22 01:01 03/11/22 01:01 03/11/22 01:00 03/11/22 00:00 03/11/22 00:00 03/10/22 23:00 03/10/22 23:00 03/10/22 22:00 03/10/22 22:00 03/10/22 23:33 03/10/22 21:09 03/10/22 21:09 03/10/22 20:00 2 03/10/22 20:01 03/10/22 20:01 03/10/22 20:00 03/10/22 19:56 03/10/22 19:56 03/10/22 19:37 2 PG Care Time/CCT Total # of Minutes Spent Total Time Spent with Patient: Total time spent is greater than 50% in coordination of care (as documented) at patient's floor/unit and/or counseling patient: Coding Level of Care Code 97369 Subseq Hosp Care Lvl 2 Diagnoses UTI (urinary tract infection) N39.0 Ureterolithiasis N20.1
[2022-03-11] MEDS: INSULIN ASPART PER UNIT SC SCH ×4 (07:58→21:21)
[2022-03-11] MEDS: UMECLIDINIUM/VILANTEROL 62.5/25MCG 7 PUFFS/INHALER INH SCH (08:01)
[2022-03-11] MEDS: MIRABEGRON ER 25 MG TAB PO SCH (08:01)
[2022-03-11] MEDS: POTASSIUM CHLORIDE / WTR 10 MEQ/100 ML PLCT IV SCH ×2 (08:01→08:58)
--- NOTE | 2022-03-11 08:02 | Critical Care Progress Note ---
Date of Service March 11, 2022 Assessment & Plan (1) Admitted to intensive care unit: Plan: Reason Critically Ill: 81-year-old female presented to hospital with right-sided hydronephrosis and ureteral stone. Patient went to the OR for cystoscopy and stone removal.Was found to be hypotensive and sent to the ICU for further management Neuro - [facility] ICU: Negative Cardiac - -- S/p shock Septic from likely urinary tract infection Narrow antibiotics coverage. Started Rocephin. D/c'd cefepime. MAP greater than 65, no vasopressor support >24 hours --Paroxysmal A. fib Restart home apixaban, held previously due to drop in hgb although suspect dilutional, hgb stable Restart home metoprolol for rate control. D/c'd amiodarone. --History of hypertension metoprolol as above Cont. holding home amlodipine, lisinopril. Consider restarting if pressures and/or kidney function allow. Respiratory - -- Acute hypoxic respiratory failure Continue O2 supplementation prn to keep oxygen saturation between 88-92% --Ex-smoker likely COPD [id number] smoking history Quit long time ago Continue with budesonide nebulizer and Anoro inhaler GI - Continue with pantoprazole, switched to oral RENAL/LYTES - -- SURJIT on CKD --> improving Monitor BUNs/creatinine Avoid nephrotoxic medication Voiding trial today - -- Nephrolithiasis right-sided hydronephrosis S/p stent placement 03/09/2022 Urology on board ENDO - -- Diabetes type 2 Continue with ICU hypoglycemia protocol HEME - Monitor H&H ID - -- UTI History of E. coli pansensitive in the past Narrow antibiotics coverage. Started Rocephin. D/c'd cefepime. Follow-up culture and sensitivity Procalcitonin 31.48 --Prophylaxis VTE: apixaban GI: Pantoprazole Lines: Peripheral Diet: DM2 Patient okay for downgrade to medical floor. (2) Acute right flank pain: (3) Ureterolithiasis: (4) Hypotension: (5) Shock circulatory: (6) Acute respiratory failure with hypoxia: (7) UTI (urinary tract infection): (8) Type 2 diabetes mellitus: (9) Atrial fibrillation with rapid ventricular response: (10) Hematuria: Admission and Anticipated Discharge Date Admission Date: March 08, 2022 Supervising Physician Co-Signing Physician Notes Patient seen and examined. EMR reviewed. Discussed with [facility] and agree with assessment plan as noted. Patient was discussed on multidisciplinary rounds as well as with bedside critical care nurse and with the accepting hospitalist service. Patient is doing well clinically. She denies any chest pain palpitations or shortness of breath. No abdominal pain or back pain. She is voiding through Tovar catheter. Her heart rates are better controlled. We will plan on discontinuing Tovar catheter. Restart anticoagulation. Stop amiodarone and push beta-salinas. Discontinue Norvasc. De-escalate antibiotics down to Rocephin. Will likely need 7 to 10 days of antimicrobial therapy. Will need outpatient follow-up given her ureteral stent. Critical care services will sign off at this point time. Feel free to contact us if we can be of additional assistance. Subjective Patient seen and examined at bedside.No acute distress, no adverse events overnight. Sitting comfortably in chair. MAP 80s. Saturating 92% RA. Denies chest pain, sob, abd pain, N/V, headache. Tovar in place, good urine output. Review of Systems Review of Systems: All systems reviewed & are unremarkable except as noted in HPI & below Physical Exam Physical Exam: Constitutional: No acute distress HEENT: EOMI, PERRLA, no cervical or axillary lymphadenopathy Respiratory system:Decreased air entry bilaterally, mild R expiratory wheezes. No rhonchi, no crackles. CVS: Irregular rhythm. S1-S2 positive, no murmurs or gallops Abdomen: Soft, nondistended, positive bowel sounds x4, obese, right flank tenderness (improved), no rebound Extremities: +2 pulses bilaterally radialis/dorsalis pedis,no cyanosis, no edema Neuro: Awake alert oriented to self place Psych: Normal mood and affect G/U:+Tovar Skin: no rashes, warm and dry Results & Data Results & Data ([facility]) Vital Signs (Past 12 Hours) Vital Signs Temp Pulse Resp BP Pulse Ox O2 Del Method O2 Flow Rate 03/11/22 07:01 105 H 27 H 94 03/11/22 07:01 135/112 H 03/11/22 07:00 93 H 26 H 93 03/11/22 06:00 97 H 27 H 92 03/11/22 06:00 103/87 03/11/22 05:00 99 H 23 92 03/11/22 05:00 120/83 03/11/22 04:00 91 H 18 93 03/11/22 04:00 99/62 L Room Air 03/11/22 03:02 85 20 93 03/11/22 03:02 102/57 L 03/11/22 03:00 84 20 94 03/11/22 03:00 78/47 L 03/11/22 02:05 98 H 20 93 03/11/22 02:05 97/70 L 03/11/22 02:00 91 H 20 93 03/11/22 02:06 36.7 C 03/11/22 01:01 89 26 H 86 L 03/11/22 01:01 104/82 03/11/22 01:00 92 H 20 93 03/11/22 00:00 90 20 93 03/11/22 00:00 83/52 L 03/10/22 23:00 88 20 94 03/10/22 23:00 91/64 L 03/10/22 22:00 98 H 25 H 94 03/10/22 22:00 112/63 03/10/22 23:33 95 H 03/10/22 21:09 93 03/10/22 21:09 106/76 03/10/22 20:00 Nasal Cannula 2 03/10/22 20:01 115 H 22 93 03/10/22 20:01 103/71 03/10/22 20:00 112 H 16 93 03/10/22 19:56 107/68 03/10/22 19:56 131 H 28 H 94 Laboratory Results 03/11/22 03/11/22 03/11/22 Range/Units 07:35 05:49 05:49 WBC 16.17 H (4.8-10.8) K/ul RBC 3.71 L (3.93-5.22) M/uL Hgb 10.8 L (12.0-16.0) g/dl Hct 34.7 (34.1-44.9) % MCV 93.5 (80.0-100.0) fL MCH 29.1 (25.0-34.0) pg MCHC 31.1 L (32.0-36.0) g/dL RDW Std Deviation 56.2 H (36.4-46.3) fL RDW Coeff of Heriberto 16.3 H (11.5-14.5) % Plt Count 182 (130-400) K/uL MPV 10.2 (9.4-12.3) fL Immature Gran % (Auto) 1.6 % Neut % (Auto) 86.4 % Lymph % (Auto) 5.8 % Hardy % (Auto) 5.0 % Eos % (Auto) 0.9 % Baso % (Auto) 0.3 % Neut # (Auto) 13.97 H (1.4-6.5) K/uL Lymph # (Auto) 0.93 L (1.2-3.4) K/uL Hardy # (Auto) 0.81 (0.24-0.82) K/uL Eos # (Auto) 0.15 (0-0.50) K/uL Baso # (Auto) 0.05 (0-0.2) K/uL Immature Gran # (Auto) 0.26 H (0.00-0.02) K/uL Sodium 139 (136-145) mmol/L Potassium 3.8 (3.5-5.1) mmol/L Chloride 109 H (98-107) mmol/L Carbon Dioxide 23 (21-32) mmol/L Anion Gap 7 (3-11) BUN 30 H (6-23) mg/dl Creatinine 1.34 H D (0.6-1.2) mg/dl Est Cr Clr Drug Dosing 40.9 ml/min Est GFR ( Amer) 43.3 ml/min Est GFR (Non-Af Amer) 37.3 ml/min BUN/Creatinine Ratio 22.4 H (10-20) Glucose 120 H (70-99(Fasting)) mg/dl POC Glucose 111 H (70-99) mg/dl Calcium 8.2 L (8.5-10.1) mg/dl Phosphorus 2.7 D (2.5-4.9) mg/dl Magnesium 2.2 (1.7-2.4) mg/dl 03/10/22 03/10/22 03/10/22 Range/Units 19:46 15:59 12:11 WBC (4.8-10.8) K/ul RBC (3.93-5.22) M/uL Hgb 10.5 L (12.0-16.0) g/dl Hct 34.3 (34.1-44.9) % MCV (80.0-100.0) fL MCH (25.0-34.0) pg MCHC (32.0-36.0) g/dL RDW Std Deviation (36.4-46.3) fL RDW Coeff of Heriberto (11.5-14.5) % Plt Count (130-400) K/uL MPV (9.4-12.3) fL Immature Gran % (Auto) % Neut % (Auto) % Lymph % (Auto) % Hardy % (Auto) % Eos % (Auto) % Baso % (Auto) % Neut # (Auto) (1.4-6.5) K/uL Lymph # (Auto) (1.2-3.4) K/uL Hardy # (Auto) (0.24-0.82) K/uL Eos # (Auto) (0-0.50) K/uL Baso # (Auto) (0-0.2) K/uL Immature Gran # (Auto) (0.00-0.02) K/uL Sodium (136-145) mmol/L Potassium (3.5-5.1) mmol/L Chloride (98-107) mmol/L Carbon Dioxide (21-32) mmol/L Anion Gap (3-11) BUN (6-23) mg/dl Creatinine (0.6-1.2) mg/dl Est Cr Clr Drug Dosing ml/min Est GFR ( Amer) ml/min Est GFR (Non-Af Amer) ml/min BUN/Creatinine Ratio (10-20) Glucose (70-99(Fasting)) mg/dl POC Glucose 132 H 114 H (70-99) mg/dl Calcium (8.5-10.1) mg/dl Phosphorus (2.5-4.9) mg/dl Magnesium (1.7-2.4) mg/dl 03/10/22 03/10/22 03/09/22 Range/Units 11:08 04:09 19:26 WBC (4.8-10.8) K/ul RBC (3.93-5.22) M/uL Hgb (12.0-16.0) g/dl Hct (34.1-44.9) % MCV (80.0-100.0) fL MCH (25.0-34.0) pg MCHC (32.0-36.0) g/dL RDW Std Deviation (36.4-46.3) fL RDW Coeff of Heriberto (11.5-14.5) % Plt Count (130-400) K/uL MPV (9.4-12.3) fL Immature Gran % (Auto) % Neut % (Auto) % Lymph % (Auto) % Hardy % (Auto) % Eos % (Auto) % Baso % (Auto) % Neut # (Auto) (1.4-6.5) K/uL Lymph # (Auto) (1.2-3.4) K/uL Hardy # (Auto) (0.24-0.82) K/uL Eos # (Auto) (0-0.50) K/uL Baso # (Auto) (0-0.2) K/uL Immature Gran # (Auto) (0.00-0.02) K/uL Sodium 138 139 (136-145) mmol/L Potassium (3.5-5.1) mmol/L Chloride (98-107) mmol/L Carbon Dioxide (21-32) mmol/L Anion Gap 9 10.1 (3-11) BUN (6-23) mg/dl Creatinine (0.6-1.2) mg/dl Est Cr Clr Drug Dosing ml/min Est GFR ( Amer) ml/min Est GFR (Non-Af Amer) ml/min BUN/Creatinine Ratio (10-20) Glucose (70-99(Fasting)) mg/dl POC Glucose 112 H (70-99) mg/dl Calcium (8.5-10.1) mg/dl Phosphorus (2.5-4.9) mg/dl Magnesium (1.7-2.4) mg/dl Resident Activity Tracking Resident Involvement: Resident Care Provided Care Provided: Adult [facility] Medicine (1) Type 2 diabetes mellitus Diabetes mellitus complication status: without complication Diabetes mellitus intermediate insulin use: without intermediate use Qualified Code(s): E11.9 - Type 2 diabetes mellitus without complications
[2022-03-11] MEDS: METOPROLOL TARTRATE 25 MG TAB PO SCH ×2 (08:58→20:47)
[2022-03-11] MEDS ORDERED: APIXABAN 2.5 MG TAB PO SCH (09:30)
--- NOTE | 2022-03-11 09:34 | Hospitalist Progress Note ---
Date of Service March 11, 2022 Assessment & Plan (1) Ureterolithiasis: Plan: 81 y/o f Hx HTN, HLD, DM II, PAF, obstructing ureteral calculus 09/21 requiring lithotripsy - developed UTI/sepsis at the time. Sepsis secondary to urinary tract infection with obstructive uropathy -CTAP with severe R hydroureteronephrosis 2/2 9mm obstructing calculus, R nephrolithiasis -S/p R ureteral stent placement on 03/09, urology consulted and following -Cefepime on admission switched to ceftriaxone today, will need 7-14 day course pending clinical response -UCx initially pinpoint growth, reincubating- suspect likely Gram negative source -WBC downtrending 28 to 16 today -Weaned off pressor support as of today -Tovar catheter removed SURJIT with CKD -Cr improving 1.76 to 1.34 today -Continue oral hydration -Trend BMP Paroxysmal atrial fibrillation -Currently in atrial fibrillation, HR 90s-100s -Discontinued amiodarone today -Continue home metoprolol 25 mg BID -Resumed home Eliquis 5 mg BID today- Hgb stable 10.8 Hypertension -Off pressor support as of 03/11 -Will resume home amlodipine/lisinopril as appropriate pending BP monitoring -Continue home metoprolol 25 mg bID Urinary incontinence -Continue to hold mirabegron given UTI FENa: clear liquids Code Status: Full DVT PPX: Eliquis resumed Dispo: Downgraded from ICU to telemetry today (2) Type 2 diabetes mellitus: (3) S/P ureteral stent placement: (4) Osteoarthritis: (5) Hypertension: (6) Hyperlipidemia: (7) Hypotension: (8) Sepsis secondary to UTI: Admission and Anticipated Discharge Date Admission Date: March 08, 2022 Supervising Physician Co-Signing Physician Notes I personally examined the patient and verified all santillan points of history and exam, discussed case, and agree with decision making with Dr Rodriguez Patient generally feeling much better. No pain no shortness of breath. Appetite improving. Trying to get up and out of bed well. Vitals noted, in general she is awake and alert pleasant no distress. HEENT normocephalic atraumatic mucous membranes moist. Breathing unlabored no accessory muscle use good effort. Skin shows no rashes no pallor or icterus. Neuro without focal deficits. UTI with sepsis related to obstructive uropathy/ureterolithiasisimproving nicely. Continue current care. Stable for transfer out of ICU. Otherwise as above. DVT proph - eliquis Subjective Patient seen and examined at bedside.No acute distress, no adverse events overnight. Sitting comfortably in chair. Pt denies any acute complaints but states she still feels generally ill. Dysuria is improving but not resolved yet. Review of Systems Review of Systems: Per subjective Physical Exam Physical Exam: Constitutional: No acute distress HEENT: EOMI, PERRLA, no cervical or axillary lymphadenopathy Respiratory system:Decreased air entry bilaterally, mild R expiratory wheezes. No rhonchi, no crackles. CVS: Irregular rhythm. S1-S2 positive, no murmurs or gallops Abdomen: Soft, nondistended, positive bowel sounds x4, obese, right flank tenderness (improved), no rebound Extremities: +2 pulses bilaterally radialis/dorsalis pedis,no cyanosis, no ed tawanda Neuro: Awake alert oriented to self place Psych: Normal mood and affect G/U:+Tovar Skin: no rashes, warm and dry Results & Data Results & Data ([facility]) Vital Signs (Past 12 Hours) Vital Signs Temp Pulse Pulse Resp BP Pulse Ox O2 Del Method 03/11/22 08:45 Room Air 03/11/22 07:33 103 H 03/11/22 07:02 100 H 24 92 Nasal Cannula 03/11/22 07:01 105 H 27 H 94 03/11/22 07:01 135/112 H 03/11/22 07:00 93 H 26 H 93 03/11/22 06:00 97 H 27 H 92 03/11/22 06:00 103/87 03/11/22 05:00 99 H 23 92 03/11/22 05:00 120/83 03/11/22 04:00 91 H 18 93 03/11/22 04:00 99/62 L Room Air 03/11/22 03:02 85 20 93 03/11/22 03:02 102/57 L 03/11/22 03:00 84 20 94 03/11/22 03:00 78/47 L 03/11/22 02:05 98 H 20 93 03/11/22 02:05 97/70 L 03/11/22 02:00 91 H 20 93 03/11/22 02:06 36.7 C 03/11/22 01:01 89 26 H 86 L 03/11/22 01:01 104/82 03/11/22 01:00 92 H 20 93 03/11/22 00:00 90 20 93 03/11/22 00:00 83/52 L 03/10/22 23:00 88 20 94 03/10/22 23:00 91/64 L 03/10/22 22:00 98 H 25 H 94 03/10/22 22:00 112/63 03/10/22 23:33 95 H O2 Flow Rate 03/11/22 08:45 03/11/22 07:33 03/11/22 07:02 2 03/11/22 07:01 03/11/22 07:01 03/11/22 07:00 03/11/22 06:00 03/11/22 06:00 03/11/22 05:00 03/11/22 05:00 03/11/22 04:00 03/11/22 04:00 03/11/22 03:02 03/11/22 03:02 03/11/22 03:00 03/11/22 03:00 03/11/22 02:05 03/11/22 02:05 03/11/22 02:00 03/11/22 02:06 03/11/22 01:01 03/11/22 01:01 03/11/22 01:00 03/11/22 00:00 03/11/22 00:00 03/10/22 23:00 03/10/22 23:00 03/10/22 22:00 03/10/22 22:00 03/10/22 23:33 Resident Activity Tracking Resident Involvement: Resident Care Provided Care Provided: Adult Hospital Medicine (1) Type 2 diabetes mellitus Diabetes mellitus complication status: without complication Diabetes mellitus terminal makeup operator insulin use: without terminal makeup operator use Qualified Code(s): E11.9 - Type 2 diabetes mellitus without complications (2) Hypertension Hypertension type: essential hypertension Qualified Code(s): I10 - Essential (primary) hypertension
[2022-03-11] MEDS: PANTOprazole 40 MG TAB PO SCH (10:05)
[2022-03-11] MEDS: cefTRIAXone SODIUM 2,000 MG in DEXTROSE 5% 50 ML IV SCH (10:34)
[2022-03-11] MEDS: APIXABAN 5 MG TABLET PO SCH ×2 (10:35→20:47)
--- NOTE | 2022-03-11 10:38 | Billing Data ---
Date of Service March 11, 2022 Coding Level of Care Code 71358 Subseq Hosp Care Lvl 3
[2022-03-11] MEDS ORDERED: BENZONATATE 100 MG CAPSULE PO PRN (15:11)
--- NOTE | 2022-03-11 17:09 | Billing Data ---
Date of Service March 11, 2022 Coding Level of Care Code 28187 Subseq Hosp Care Lvl 3
[2022-03-11] MEDS ORDERED: FUROSEMIDE INJ 20 MG/2 ML VIAL IV ONE (18:46)
--- NOTE | 2022-03-11 18:56 | XRay Report ---
XR chest 1V portable CLINICAL HISTORY: Worsening shortness of breath. COMPARISON STUDY: Chest radiograph March 09, 2022. FINDINGS: There is no pneumothorax. Blunting of the left costophrenic angle is unchanged and likely r elated to epicardial fat pad. Cardiomegaly is noted. No consolidation is identified. There is pulmona ry vascular congestion without overt pulmonary edema. IMPRESSION: 1. Cardiomegaly. Pulmonary vascular congestion without overt pulmonary edema. 2. No consolidation to suggest pneumonia. ACT 112: Negative or not required by law. Electronically signed by: Luis Esteban M.D. 03/11/2022 6:53 PM
--- NOTE | 2022-03-11 19:16 | Communication Note ---
Date of Service: March 11, 2022 Informed by patient's RN early in the evening that patient was feeling SOB and CHAPMAN when ambulating to the commode. Patient seen at bedside. Reports feeling mildly dyspneic. She denies pain. Says her arms feel puffy. Thinks she'd have trouble lying flat on her back without the pillows currently behind her. Mild cough. BP 160/80, HR ~100 at beside, RR 20-22, SpO2 90% RA. General - relaxed though taking more shallow breaths compared to earlier in the day. Cardiac - tachycardic with irregular rhythm, +S1/S2 w/o m/r/g. Respiratory - mildly increased respiratory effort w/o use of accessory muscles. Lungs demonstrating high-pitched expiratory wheezes bilaterally with some mild crackles near the bases, L>R. Extremities - 1+ pitting edema in the LEs bilaterally, no unilateral enlargement. Unable to reliably appreciate JVD. SOB - Suspect primarily due to volume overload, possibly with component of obstructive airway disease (smoking hx noted); she is approx. 4L up since admission in the setting of previous septic shock. Her TTE from 07/2021 reviewed. Check CXR. Trial Lasix 20mg IV x 1 now. Hold IVF. Consider DuoNeb if HR allows and symptoms ongoing. Her Eliquis has already been resumed. If worsening overnight, could consider further doses of Lasix and possibly CPAP/BiPAP. Will sign out to night team. Resident Activity Tracking Resident Involvement: Resident Care Provided Care Provided: Adult Hospital Medicine
[2022-03-12 06:01] LABS: Basophils # (auto) 0.05 K/uL (0-0.2); Basophils % (auto) 0.6 %; Eosinophils # (auto) 0.16 K/uL (0-0.50); Eosinophils % (auto) 1.8 %; Hemoglobin 11.8 g/dl (12.0-16.0); Immature Granulocytes # (auto) 0.06 K/uL (0.00-0.02); Immature Granulocytes % (auto) 0.7 %; Lymphocytes # (auto) 0.89 K/uL (1.2-3.4); Lymphocytes % (auto) 9.9 %; Mean Corpuscular Hemoglobin 29.2 pg (25.0-34.0); Mean Corpuscular Hgb Conc 31.9 g/dL (32.0-36.0); Mean Corpuscular Volume 91.6 fL (80.0-100.0); Mean Platelet Volume 10.7 fL (9.4-12.3); Monocytes # (auto) 0.46 K/uL (0.24-0.82); Monocytes % (auto) 5.1 %; Neutrophils # (auto) 7.41 K/uL (1.4-6.5); Neutrophils % (auto) 81.9 %; Platelet Count 203 K/uL (130-400); RDW Coefficient of Variation 16.1 % (11.5-14.5); RDW Standard Deviation 53.8 fL (36.4-46.3); Red Blood Count 4.04 M/uL (3.93-5.22); White Blood Count 9.03 K/ul (4.8-10.8)
[2022-03-12 06:23] LABS: BUN Creatinine Ratio 22.4 (10-20); Calcium 8.5 mg/dl (8.5-10.1); Creatinine Clr Calc Pharmacy 44.6 ml/min; Est GFR (African American) 51.5 ml/min; Est GFR (Non-African American) 44.4 ml/min; Magnesium 1.8 mg/dl (1.7-2.4); Potassium 3.7 mmol/L (3.5-5.1)
--- NOTE | 2022-03-12 07:06 | Hospitalist Progress Note ---
Date of Service March 12, 2022 Assessment & Plan (1) Ureterolithiasis: Plan: 81 y/o f Hx HTN, HLD, DM II, PAF, obstructing ureteral calculus 09/21 requiring lithotripsy - developed UTI/sepsis at the time. Sepsis secondary to urinary tract infection with obstructive uropathy -CTAP with severe R hydroureteronephrosis 2/2 9mm obstructing calculus, R nephrolithiasis -S/p R ureteral stent placement on 03/09, urology consulted and following -Cefepime on admission switched to ceftriaxone on 03/11, will need 7-14 day course pending clinical response -UCx final growing normal skin enio -WBC downtrending 16 to 9 today -Will continue ceftriaxone at present. If pt insisting on discharge today, will discharge on cefdinir 300 mg BID to complete 14 day course of antibiotics (today is day 514) SURJIT with CKD -Cr improving 1.34 to 1.16 today -Continue oral hydration -Trend BMP Paroxysmal atrial fibrillation -Currently sinus rhythm, HR 100s-110s, suspect reactive tachycardia from recent critical illness -Discontinued amiodarone 03/11 -Continue home metoprolol 25 mg BID -Continue home Eliquis Hypertension -Off pressor support as of 03/11 -Will resume home amlodipine/lisinopril as appropriate pending BP monitoring -Continue home metoprolol 25 mg BID Urinary incontinence -Continue to hold mirabegron given UTI FENa: Carb consistent Code Status: Full DVT PPX: Eliquis Dispo: Telemetry (2) Type 2 diabetes mellitus: (3) S/P ureteral stent placement: (4) Osteoarthritis: (5) Hypertension: (6) Hyperlipidemia: (7) Hypotension: (8) Sepsis secondary to UTI: Admission and Anticipated Discharge Date Admission Date: March 08, 2022 Supervising Physician Co-Signing Physician Notes I personally examined the patient and verified all santillan points of history and exam, discussed case, and agree with decision making with Dr Rodriguez feels better walking around [place] no CHAPMAN doesn't feel tachycardia wants to go home Vitals noted, in general she is awake and alert pleasant no distress. HEENT n ormocephalic atraumatic mucous membranes moist. Breathing unlabored no accessory muscle use good effort. Skin shows no rashes no pallor or icterus. Neuro without focal deficits. HR ~120 appearing afib on the monitor when i am in her room UTI with sepsis related to obstructive uropathy/ureterolithiasisimproving nicely. continue abx tachycardia - appears to have been at times sinus and at times afib. d/w pt that while she would like to go home, this is of concern: if compensatory, i would worry she's still a little sicker than she realizes and going home may set her up to struggle/fail; if afib//rhythm related would need to adjust medications (albeit likely temporary - probably on the order of a few weeks) to keep rates more reasonable. discussed how she could do this from home if she was insistent on going today- but once she realized the degree of responsibility she would need to assume to do this even remotely safely, she started to understand our medical concerns more and opted to stay. follow into the afternoon - if still no symptoms/still predominantly afib/still rate uncontrolled, then will increase metoprolol DVT proph - eliquis Subjective Yesterday evening, pt had some dyspnea and wheezing. CXR revealed pulmonary vascular congestion with some crackles on lung exam. Received Lasix 20 mg IV. Pt reports feeling well today, denies further dyspnea or wheezing. She denies any acute complaints, emphatically stated she would not go to rehab and would like to go home today. Pt stated she is considering signing herself out if she cannot be discharged today. Review of Systems Review of Systems: Per subjective Physical Exam Physical Exam: Constitutional: No acute distress HEENT: EOMI, PERRLA, no cervical or axillary lymphadenopathy Respiratory system:Decreased air entry bilaterally, mild R expiratory wheezes. No rhonchi, no crackles. CVS: Normal rhythm. S1-S2 positive, no murmurs or gallops Abdomen: Soft, nondistended, positive bowel sounds x4, obese, right flank tenderness (improved), no rebound Extremities: +2 pulses bilaterally radialis/dorsalis pedis,no cyanosis, no edema Neuro: Awake alert oriented to self place Psych: Normal mood and affect Skin: no rashes, warm and dry Results & Data Results & Data ([facility]) Vital Signs (Past 12 Hours) Vital Signs Temp Pulse Pulse Resp BP Pulse Ox O2 Del Method 03/12/22 05:12 36.6 C 90 12 125/82 90 Room Air 03/11/22 23:00 97 H 03/11/22 23:10 36.5 C 102 H 21 138/76 90 Room Air 03/11/22 21:40 Room Air 03/11/22 20:30 36.7 C 102 H 22 139/94 90 Room Air 03/11/22 19:36 110 H 23 93 Room Air Resident Activity Tracking Resident Involvement: Resident Care Provided Care Provided: Adult Hospital Medicine (1) Type 2 diabetes mellitus Diabetes mellitus complication status: without complication Diabetes mellitus retirement insulin use: without intermediate manager use Qualified Code(s): E11.9 - Type 2 diabetes mellitus without complications (2) Hypertension Hypertension type: essential hypertension Qualified Code(s): I10 - Essential (primary) hypertension
[2022-03-12] MEDS: BUDESONIDE 0.5 MG/2 ML VIAL (PULMICORT) NEB SCH ×2 (07:49→19:15)
[2022-03-12] MEDS: APIXABAN 5 MG TABLET PO SCH ×2 (07:59→21:19)
[2022-03-12] MEDS: PANTOprazole 40 MG TAB PO SCH (07:59)
[2022-03-12] MEDS: METOPROLOL TARTRATE 25 MG TAB PO SCH (07:59)
[2022-03-12] MEDS: UMECLIDINIUM/VILANTEROL 62.5/25MCG 7 PUFFS/INHALER INH SCH (08:00)
[2022-03-12] MEDS: INSULIN ASPART PER UNIT SC SCH ×4 (08:02→21:19)
[2022-03-12] MEDS: cefTRIAXone SODIUM 2,000 MG in DEXTROSE 5% 50 ML IV SCH (10:36)
--- NOTE | 2022-03-12 12:19 | Billing Data ---
Date of Service March 12, 2022 Coding Level of Care Code 26701 Subseq Hosp Care Lvl 3
[2022-03-12] MEDS: METOPROLOL TARTRATE 1 MG/ML VIAL IV PRN (17:00)
[2022-03-12] MEDS ORDERED: METOPROLOL TARTRATE 1 MG/ML VIAL IV STA (17:59)
[2022-03-12] MEDS: METOPROLOL TARTRATE 50 MG TAB PO SCH (21:19)
[2022-03-13] MEDS: BUDESONIDE 0.5 MG/2 ML VIAL (PULMICORT) NEB SCH (07:17)
[2022-03-13] MEDS: UMECLIDINIUM/VILANTEROL 62.5/25MCG 7 PUFFS/INHALER INH SCH (08:16)
[2022-03-13] MEDS: APIXABAN 5 MG TABLET PO SCH (08:16)
[2022-03-13] MEDS: INSULIN ASPART PER UNIT SC SCH (08:16)
[2022-03-13 08:37] LABS: Hematocrit (blood only) 39.1 % (34.1-44.9); Hemoglobin 12.6 g/dl (12.0-16.0); Mean Corpuscular Hemoglobin 28.8 pg (25.0-34.0); Mean Corpuscular Hgb Conc 32.2 g/dL (32.0-36.0); Mean Corpuscular Volume 89.5 fL (80.0-100.0); Mean Platelet Volume 10.6 fL (9.4-12.3); Platelet Count 242 K/uL (130-400); RDW Coefficient of Variation 15.9 % (11.5-14.5); RDW Standard Deviation 51.8 fL (36.4-46.3); Red Blood Count 4.37 M/uL (3.93-5.22); White Blood Count 9.16 K/ul (4.8-10.8)
[2022-03-13 09:00] LABS: BUN Creatinine Ratio 23.6 (10-20); Calcium 8.9 mg/dl (8.5-10.1); Est GFR (African American) 57.4 ml/min; Est GFR (Non-African American) 49.6 ml/min; Potassium 4.1 mmol/L (3.5-5.1)
[2022-03-13] MEDS: METOPROLOL TARTRATE 50 MG TAB PO SCH (09:17)
[2022-03-13] MEDS: METOPROLOL TARTRATE 1 MG/ML VIAL IV PRN (10:07)
[2022-03-13] MEDS: cefTRIAXone SODIUM 2,000 MG in DEXTROSE 5% 50 ML IV SCH (10:26)
--- NOTE | 2022-03-13 12:17 | Discharge Summary ---
Date of Service March 13, 2022 Admission HPI Per Admitting Provider 81 y/o f Hx HTN, HLD, DM II, PAF, obstructing ureteral calculus 09/21 requiring lithotripsy - developed UTI/sepsis at the time. She presents with R flank pain. She has not had fevers or rigors. A CT pelvis confirmed a 9mm stone in the distal R ureter with resultant moderate to severe hydronephrosis. labs are notable for a WBC of 22. PMH: 1) HTN 2) HLD 3) DM II 4) PAF - Eliquis 5) Obstructing calculus 08/2021 6) Obese 7) Grade I diastolic dysfunction, EF 55% - echo 07/2021 Surgical: 1) BL ERICK 2) Cholecystectomy 3) Ankle Social: Former smoke - 20+ PYH, does not drink alcohol Family: Father - CAD/[place] Admission Exam Per Admitting Provider General: AAO x 3, no distress ENT: No erythema or exudates, no thrush Eyes: ZEENAT, EOMI Head and neck: Normocephalic, atraumatic, No JVD, neck is supple. Chest/heart: Nontender, S1,2, RRR, no murmurs, no gallops Lungs: CTAB, no wheezing or crackles Abdomen: Nontender, nondistended, BS+. There is mild tenderness to palpation of the R flank Neuro: AAO x 3, speech is clear, no unilateral weakness or loss of sensation, coordination intact Musculoskeletal: No joint inflammation, muscle tenderness, FROM Skin: No acute rashes or ulcers Extremities: No clubbing, cyanosis, edema Principal Diagnosis Sepsis due to UTI with obstructing calculus, paroxysmal atrial fibrillation with RVR Discharge Exam Constitutional: No acute distress HEENT: EOMI, PERRLA, no cervical or axillary lymphadenopathy Respiratory system:Slightly diminished but clear breath sounds. No rhonchi, no crackles. CVS: Normal rhythm. S1-S2 positive, no murmurs or gallops Abdomen: Soft, nondistended, positive bowel sounds x4, obese, no rebound Extremities: +2 pulses bilaterally radialis/dorsalis pedis,no cyanosis, no edema Neuro: Awake alert oriented to self place Psych: Normal mood and affect Skin: no rashes, warm and dry Discharge Data Allergies Allergy/AdvReac Type Severity Reaction Status Date / Time No Known Allergies Allergy Verified 11/27/21 09:47 Consultations 03/08/22 23:13 Consult Urology Routine 03/08/22 23:30 ED Decision to Admit Stat 03/08/22 23:58 Consult Urology Routine 03/09/22 07:22 Consult Real Estate Assessor Routine Procedures Performed Operation Date: 03/09/22 06:05 Actual Procedures p Cystoscopy, Retrograde, Right Stent Insertion(Right) - Darci Campoverde MD Ordered Studies 03/08/22 21:09 CT abd pelvis wo con Stat 03/09/22 05:49 FL retrograde includes kub Routine Hospital Course (1) Ureterolithiasis: 81 y/o f Hx HTN, HLD, DM II, PAF, obstructing ureteral calculus 09/21 requiring lithotripsy - developed UTI/sepsis at the time. Sepsis secondary to urinary tract infection with obstructive uropathy -CTAP with severe R hydroureteronephrosis 2/2 9mm obstructing calculus, R nephrolithiasis -S/p R ureteral stent placement on 03/09 -Cefepime on admission switched to ceftriaxone on 03/11 -UCx final growing normal skin enio -Afebrile, no leukocytosis, hemodynamically stable at time of discharge -Discharged on cefdinir 300 mg BID to complete 14 days of antibiotics -F/u with urology as outpatient Paroxysmal atrial fibrillation -Currently in atrial fibrillation with HRs 100s-110s at time of discharge, suspect reactive tachycardia from recent critical illness -Continue home metoprolol 50 mg BID (was increased from regular dose of 25 mg BID). Pt will monitor her HR with pulse oximeter and look for symptoms of tachycardia as well. She is aware she will likely resume her usual 25 mg BID dose once her HR begins to stabilize -Continue home Eliquis (2) Type 2 diabetes mellitus: (3) S/P ureteral stent placement: (4) Osteoarthritis: (5) Hypertension: (6) Hyperlipidemia: (7) Hypotension: (8) Sepsis secondary to UTI: Total Time Total Time Spent Total Time Spent (In Minutes): <30 Discharge Plan Discharge Items Patient Disposition: Home - Self-Care Reason For Visit: OBSTRUCTING CALCULUS Discharge Diagnosis: Atrial fibrillation with rapid ventricular response, urinary tract infection, ureterolithiasis with stent placement Activity: Resume your previous activity Non-emergency contact: Primary Care Provider Call non-emergency contact if: you have any medication questions, your symptoms worsen, your pain is worsening and you have a fever Follow-up/Referrals: Jo Jones CRNP [Primary Care Provider] - 03/21/22 10:30 am Darci Campoverde MD [Physician] - (PLEASE CALL UROLOGY OFFICE TO SCHEDULE A DISCHARGE FOLLOW-UP APPOINTMENT WITHIN 7-10 DAYS FOR YOUR STENT IF YOU DO NOT HEAR FROM THEM WITHIN A FEW DAYS.) Diet: Carb Consistent or DM2 and Heart Healthy Addtl Attending Provider Instructions: You were admitted to the hospital for a urinary infection caused by blockage of part of your urinary tract by a stone, which was removed manually. The infection caused your heart to beat out of rhythm and with an excessively fast rate which we managed to reduce with medication- an increased dose of your usual m etoprolol. As the infection is fully treated, your heart rhythm/rate abnormality should fully recover as well. A discharge summary will be sent to your primary care physician to ensure continuity of care. Please bring this discharge summary with you to your next office appointment so that your provider can review it at that time. Follow-up appointments: Make a follow-up appointment with your PCP within the next week. It is very important that you follow up with them shortly after discharge. You will also follow up with urology as well regarding the stent. Medications: Your medication list has been reviewed and reconciled upon discharge to ensure accuracy and continuity of care. An updated list of all your medications is included with your hospital discharge paperwork. Please review this list closely, and make note of any changes. We sent a new medication called Cefdinir to the pharmacy. This is an antibiotic you will take for 7 more days to complete your treatment course for the urinary infection. This is a twice daily medication- please take 1 tablet at morning and 1 at night. Additionally, you will continue taking metoprolol 50 mg twice daily. You currently have a prescription for metoprolol 25 mg tablets. Please take two 25 mg tablets (50 mg total) in the morning and another two 25 mg tablets (50 mg total) at night. Keep an eye on your heart rate with the pulse oximeter machine. If you notice your heart rate is dropping lower and lower, such as to the 50s/60s, then you should only take your metoprolol 25 mg instead- so one 25 mg tablet in morning and another 25 mg tablet at night. Please follow up with your PCP as soon as possible to discuss this medication use with him/her. Take your medications as instructed; do not skip a dose of your medicines. Make sure all of your doctors know every medicine you are taking (including [id number] medicines, vitamins, and supplements). Call your primary care provider before taking any new medicines (including [id number] medicines, vitamins, and supplements), because some of these may interact with your current medications, or may make your symptoms worse. Tell your primary care provider if you cannot afford your medications. CONTACT YOUR PRIMARY CARE PROVIDER if you experience any of the following: Palpitations Weakness Lightheadedness/dizziness Chest pain Fever Abdominal pain, nausea, vomiting Difficulty following your treatment plan, or difficulty taking medications CALL 911 OR GO TO THE EMERGENCY DEPARTMENT if you experience any of the following: Sudden, severe abdominal pain or nausea/vomiting Severe chest pain, or chest pain that radiates (moves) to your jaw or arm Sudden, severe shortness of breath or difficulty breathing Thank you for allowing us to participate in your care. Pending Studies at Discharge: No Stand-Alone Forms: My [facility] Medications and DC Order Prescriptions: New cefdinir 300 mg capsule 300 mg PO BID 8 Days Qty: 16 0RF metoprolol tartrate 25 mg tablet 25 mg PO BID Qty: 60 1RF Continued Ozempic 0.25 mg or 0.5 mg(2 mg/1.5 mL) pen injector 0.5 mg SUBCUT WK Qty: 1.5 11RF mirabegron 50 mg tablet extended release 24 hr 50 mg PO QAM Qty: 90 3RF lisinopril 30 mg tablet 30 mg PO DAILY Qty: 30 11RF amlodipine 5 mg tablet 5 mg PO DAILY Qty: 30 5RF diclofenac sodium 1 % gel 2 g topical QID Qty: 100 5RF Rx Instructions: apply to R hip up to 4 times a day metoprolol tartrate 25 mg tablet 25 mg PO BID Qty: 60 11RF Eliquis 5 mg tablet 5 mg PO BID Qty: 60 11RF multivitamin Tablet 1 tab PO QAM phenazopyridine [Pyridium] 200 mg tablet 200 mg PO Q8H PRN (Reason: painful urination) Qty: 6 0RF tamsulosin 0.4 mg capsule 0.4 mg PO QAM fluticasone propionate 50 mcg/actuation spray,suspension 1 spray intranasal HS Rx Instructions: administer into each nostril at bedtime sulfamethoxazole-trimethoprim [Bactrim DS] 800-160 mg tablet 1 tab PO DAILY Qty: 1 0RF Rx Instructions: Take morning of stent pull (09/23) Discharge Orders: Discharge Order (Routine); Ordered 03/13/22 Ordered By: Miriam Rodriguez Admission Data Admit Date/Time: 03/08/22 23:41 Attending Provider: Mike Spann Admit Provider: Daniel Adorno Primary Care Provider: Jo Jones Other Providers: Amadou Hernandez ; Darci Campoverde ; Daniel Adorno ; Jose Felipe Other Interventions: Discharge Summary Assessment (RN) Last Done: 03/13/22 13:13 Supervising Physician Co-Signing Physician Notes I personally examined the patient and verified all santillan points of history and exam, discussed case, and agree with decision making with Dr Rodriguez feels fine and wants to go home Vitals noted, in general she is awake and alert pleasant no distress. HEENT normocephalic atraumatic mucous membranes moist. Breathing unlabored no accessory muscle use good effort. Skin shows no rashes no pallor or icterus. Neuro without focal deficits. HR afib much improved rates UTI with sepsis related to obstructive uropathy/ureterolithiasisimproving nicely. finish abx as PO tachycardia - was afib RVR - likely initially compensatory to acute illness, but then really just was RVR. increased metoprolol - rates better, safe/stable for home. f/u HR ~2-3 times a day at home (rec'd she get a pulse ox to be able to fairly easily/reliably check rates) as i anticipate that the need for escalated metoprolol dosing will likely be fairly short lived. discussed warning symptoms for excess Bblocker (weak, fatigue, lightheaded) - close f/u PCP DVT proph - juliette Resident Activity Tracking Resident Involvement: Resident Care Provided Care Provided: Adult Hospital Medicine
--- NOTE | 2022-03-13 13:23 | Billing Data ---
Date of Service March 13, 2022 Coding Level of Care Code D/C DAY MANAGEMENT <30 MINS
--- NOTE | 2022-03-13 14:26 | Electrocardiogram Report ---
Test Reason : Blood Pressure : / mmHG Vent. Rate : 116 BPM Atrial Rate : 133 BPM P-R Int : 000 ms QRS Dur : 092 ms QT Int : 350 ms P-R-T Axes : 000 -54 053 degrees QTc Int : 486 ms Atrial fibrillation with rapid ventricular response Left axis deviation Poor R wave progression, consider anterior CO vs. lead placement vs. LVH Nonspecific ST abnormality Abnormal ECG When compared with ECG of 09-MAR-2022 05:07, Atrial fibrillation has replaced Sinus rhythm Confirmed by Bebeto Ortega ([id number]) on 03/13/2022 2:26:22 PM Referred By: REFERRED SELF Confirmed By:Bebeto Ortega
--- NOTE | 2022-03-21 06:09 | Coding Query ---
CODING QUERY To promote full compliance with coding requirements relating to patient care, provider participation is requested in all cases of show host/hostess uncertainty. Please assist us with the question(s) below: Please clarify the meaning of SURJIT. SURJIT is not a valid abbreviation. Thank you. ( x ) Acute Kidney Injury ( ) Acute Kidney Insufficiency ( ) Other (Specify): Principal Diagnosis: "that condition established after study, to be chiefly responsible for occasioning the admission of the patient to the hospital for care." Co-Existing Principal Diagnosis: "when two or more diagnoses equally meet the criteria for principal diagnosis as determined by the circumstances of admission, diagnostic work up, and/or therapy provided, and the Alphabetic Index, Tabular List, or another coding guideline does not provide sequencing direction, any one of the diagnoses may be sequenced first." "When the physician has documented what appears to be a current diagnosis in the body of the record, but has not included the diagnosis in the final diagnostic statement, the physician should be asked whether the diagnosis should be added." ([facility] QTR90. p3-4) ANIBAL
--- NOTE | 2022-03-21 06:11 | Coding Query ---
CHRONIC KIDNEY DISEASE To promote full compliance with coding requirements relating to patient care, physician participation is requested in all cases of parliamentary librarian uncertainty. Please assist us with the question(s) below: Coding Question(s): The record reflects the following clinical findings: Please specify the known or suspected type by placing an "X" within the parenthesis (x). If other, please document type. Please document Staging if known: ( ) Stage I >90 Kidney damage with normal or elevated GFR. () Stage II 60-89 Kidney damage with mildly decreased kidney function ( x ) Stage III 30-59 Moderately decreased kidney function ( ) Stage IV 15-29 Severely decreased kidney function ( ) Stage V <15 Renal failure (or dialysis) ( ) End Stage ( ) Unknown Thank you Clara BARNETT
--- NOTE | 2022-03-21 14:30 | Coding Query ---
PRESENT ON ADMISSION QUERY To promote full compliance with coding requirements relating to pateint care, physician participation is requested in all cases of inpatient coder uncertainty. Please assist us with the question(s) below: Please place an X within the parenthesis (x). The following diagnosis(es) listed in this patient's medical record require physician assistance to determine if they were present on admission (POA) or not. Please advise for each diagnosis whether it was present on admission, not present on admission, or if it was clinically undetermined. 1. Sepsis ( x) Present On Admission ( ) Not Present On Admission ( ) Clinically Undetermined Thank you Clara De Guzman *Definition of the present on admission (POA)-Present on admission is defined as present at the time the order for inpatient admission occurs. Conditions that develop during an outpatient encounter prior to a written order for inpatient admission (including emergency department, observation, or outpatient surgery) are considered present on admission. JUSTOD
== END 2022-03-13 14:01 | disposition home or self-care (01) | DRG 853 ==
LOC: ED 17:38 → 3N 23:41 → SUATTDRO 23:41 → 3N 03-09 00:33 → 1E 03-09 07:08 → 2W 03-12 18:39
DX: J96.01 Acute respiratory failure with hypoxia; Z87.440 Personal history of urinary (tract) infections; Z79.899 Other long term (current) drug therapy; Z79.01 Long term (current) use of anticoagulants; N18.30 Chronic kidney disease, stage 3 unspecified; E66.01 Morbid (severe) obesity due to excess calories; E83.42 Hypomagnesemia; I12.9 Hypertensive chronic kidney disease with stage 1 through stage 4 chronic kidney disease, or unspecified chronic kidney disease; R32 Unspecified urinary incontinence; N17.9 Acute kidney failure, unspecified; E87.5 Hyperkalemia; E87.70 Fluid overload, unspecified; Z87.891 Personal history of nicotine dependence; Z87.442 Personal history of urinary calculi; R31.9 Hematuria, unspecified; E78.5 Hyperlipidemia, unspecified; N13.6 Pyonephrosis; E11.22 Type 2 diabetes mellitus with diabetic chronic kidney disease; J44.9 Chronic obstructive pulmonary disease, unspecified; R65.21 Severe sepsis with septic shock; I48.0 Paroxysmal atrial fibrillation; Z68.39 Body mass index [BMI] 39.0-39.9, adult; A41.9 Sepsis, unspecified organism; M19.90 Unspecified osteoarthritis, unspecified site; R06.2 Wheezing